=== PATIENT | female | born 1935 | race Caucasian/White ===

== ENCOUNTER 2016-08-17 22:06 | Inpatient (IN) ==
[2016-08-17] MEDS ORDERED: 0.9 % Sodium Chloride 1,000 ML IVC ONE (22:17)
[2016-08-17] MEDS ORDERED: *HR* Morphine 2 MG/ML SYRINGE IVP ONE (22:23)
[2016-08-17] MEDS ORDERED: Ondansetron 4 MG/2 ML VIAL IVP ONE (22:23)
--- NOTE | 2016-08-17 22:26 | Emergency Department Note ---
Disposition Clinical Impression: Enteritis UTI (urinary tract infection) Qualifiers: Urinary tract infection type: site unspecified Hematuria presence: without hematuria Qualified Code(s): N39.0 - Urinary tract infection, site not specified Altered mental status Qualifiers: Altered mental status type: unspecified Qualified Code(s): R41.82 - Altered mental status, unspecified Disposition: Admitted As Inpatient Condition: Fair Referrals: Unassigned,Provider [Primary Care Provider] - Forms: Work/School Release, ED Satisfaction Letter General Adult HPI - General Chief complaint: ED Abdominal Pain Stated complaint: abdominal pain Time Seen by Provider: 08/17/16 22:17 Source: EMS Mode of arrival: EMS Limitations: altered mental status Nursing Notes Reviewed: Yes Vital Signs Reviewed: Yes - History of Present Illness HPI Narrative: 81-year-old female from local nursing facility. She had been complaining of abdominal pain for approximately 3 days. They also note that she has had a decrease in her bowel movements. No reported fever. Her only complaint is that her belly hurts and she cannot describe it any further. She does have a past medical history CKD, CHF, diabetes, hemachromatosis. She does take Coreg, diltiazem, gabapentin, Humalog, Plavix, aspirin, oxycodone, Lasix. In speaking with the family she can carry on a full conversation at baseline, she cannot currently. They report she is in the nursing facility after a recent hospitalization and was about ready to go back home. Her son reports that she was normal last night when he visited her. At that time she did not complain of abdominal pain. Pain Severity: moderate Pain Scale: 5 Consistency: constant Improves with: nothing Worsens with: nothing Associated symptoms: Reports: denies other symptoms Treatments Prior to Arrival: none - Related Data Home Medications Medication Instructions Recorded Confirmed Aspirin 81 mg PO DAILY 03/25/15 06/21/16 Cilostazol [Pletal] 100 mg PO BID 03/25/15 06/21/16 Clopidogrel [Plavix] 75 mg PO DAILY 03/25/15 06/21/16 Ergocalciferol (VITAMIN D2) 50,000 unit PO FR 03/25/15 06/21/16 [Vitamin D2 (50,000 UNIT)] Gabapentin [Neurontin] 100 mg PO BID 03/25/15 06/21/16 Insulin Glargine,Hum.rec.anlog 30 unit SQ QAM 03/25/15 06/21/16 [Lantus Solostar] Insulin LISPRO [HumaLOG] 7 units SQ TID 03/25/15 06/21/16 Oxybutynin Chloride [Ditropan Xl] 5 mg PO DAILY 03/25/15 06/21/16 Ranitidine HCl [Zantac] 150 mg PO BID 03/25/15 06/21/16 Vitamin E 400 unit PO DAILY 03/25/15 06/21/16 Bumetanide [Bumex] 1 mg PO BID 06/20/16 06/21/16 Vit A/Vit C/Vit E/Zinc/Copper 1 each PO BID 06/20/16 06/21/16 [Preservision Areds Tablet] Acetaminophen [Tylenol] 1,000 mg PO Q6HR PRN 06/21/16 06/21/16 Carvedilol 12.5 mg PO BID 06/21/16 06/21/16 Diltiazem HCl 90 mg PO TID MDD new dose not 06/21/16 06/21/16 started yet. Previous Rx's Medication Instructions Recorded Folic Acid 1 mg PO DAILY #90 tab 06/19/15 Docusate [Colace] 100 mg PO BID #30 capsule 06/26/16 Levofloxacin 750 mg PO Q48H #10 tablet 06/26/16 Polyethylene Glycol 3350 [MiraLAX] 17 gm PO DAILY PRN #14 powd.pack 06/26/16 Tramadol HCl [Ultram] 50 mg PO QID PRN #25 tab 06/26/16 Allergies Allergy/AdvReac Type Severity Reaction Status Date / Time prednisone Allergy Unknown Hives Verified 06/16/15 13:31 EDY Inhibitors Allergy See Verified 03/05/15 00:32 Comments Amoxicillin Allergy See Verified 03/05/15 00:32 Comments azithromycin Allergy See Verified 03/05/15 00:32 Comments cephalexin Allergy See Verified 03/05/15 00:32 Comments clindamycin Allergy See Verified 03/05/15 00:32 Comments furosemide Allergy See Verified 03/05/15 00:32 Comments hydrocodone Allergy See Verified 03/05/15 00:32 Comments Penicillins Allergy See Verified 03/05/15 00:32 Comments silver sulfadiazine Allergy See Verified 03/05/15 00:32 [From Silvadene] Comments [id number] Reductase Allergy See Verified 03/05/15 00:32 Inhibitor Comments [Statins] Sulfa (Sulfonamide Allergy See Verified 03/05/15 00:32 Antibiotics) Comments diuretic Allergy See Uncoded 03/05/15 00:32 Comments Limitations: ROS unobtainable due to patients medical condition (History is unreliable) Past Medical History - Past Medical History Medical history: Reports: arthritis, cancer, diabetes, GERD, hyperlipidemia, hypertension, other Surgical history: Reports: appendectomy, cancer surgery Psychiatric history: Reports: no psych history ROAD GANG SUPERVISOR history: Reports: no ROAD GANG SUPERVISOR history - Social History Smoking Status: Never smoker Smokeless Tobacco Status: No Alcohol use: Reports: none Drug use: Reports: none Physical Exam - General Limitations: no limitations General appearance: alert, in no apparent distress - Head Head exam: atraumatic - Eye Eye exam: Present: normal appearance, PERRL - ENT ENT exam: normal exam - Chest Chest inspection: Present: normal inspection - Respiratory Respiratory exam: Present: normal lung sounds bilaterally. Absent: respiratory distress - Cardiovascular Cardiovascular exam: Present: regular rate, normal rhythm - Abdominal Exam Abdominal exam: Present: soft, tenderness (generalized without guarding. Distended.) - Extremities Exam Extremities exam: Present: other (venous stasis and hyperkaratosis of the lower extremities) - Back Exam Back exam: Present: normal inspection - Neurological Exam Neurological exam: Present: alert, other (Not currently oriented. Able only to vocalize that her abdomen hurts) - Skin Skin exam: Present: warm, dry Course Course Narrative: She appears to have an acute change in her mental status and is complaining of abdominal pain. She is not oriented and does have pain on palpation of her abdomen. We will do a full workup including a urinalysis and a CT scan of the abdomen. EKG shows afib. Prior ekg shows Afib - Reevaluation(s) Reevaluation #1: CT shows stranding by the terminal ileum and cecum. Patients son states the patient had her appendix removed and there is a scar on the abdomen at the correct place for an appendectomy. Will admit for AMS with UTI. Due to numerous drug allergies will give doxycycline. Reevaluation #2: Accepted by hospitalist for admission. Vital Signs Temperature 99.4 F 08/17/16 22:07 Pulse Rate 92 08/17/16 22:07 Respiratory Rate 20 08/17/16 22:07 Blood Pressure 152/64 08/17/16 22:07 O2 Sat by Pulse Oximetry 95 08/17/16 22:07 Temperature 99.4 F 08/17/16 22:07 Pulse Rate 86 08/18/16 01:04 Respiratory Rate 14 08/18/16 01:04 Blood Pressure 127/69 08/18/16 01:04 O2 Sat by Pulse Oximetry 96 08/18/16 01:04 Oxygen Delivery Oxygen Delivery Nasal Cannula Medical Decision Making - Medical Records Medical records reviewed: Yes I reviewed the patient's medical records. - Lab Data Lab results reviewed: Yes I reviewed the patient's lab results. Result diagrams: 08/17/16 22:35 08/17/16 22:35 Lab Results 08/17/16 08/17/16 08/17/16 Range/Units 22:22 22:35 22:35 WBC (4.3-11.1) K/mcL RBC (3.82-4.97) M/mcL Hgb (11.5-15.4) g/dL Hct (35.3-44.9) % MCV (83.0-100.0) fL MCH (28.0-33.3) pg MCHC (31.6-35.5) g/dL RDW (11.5-14.5) % Plt Count (140-400) K/mcL MPV (9.4-12.4) fL Immature Gran % (0-4) % Seg Neutrophils % % Lymphocytes % % Monocytes % % Eosinophils % % Basophils % % Neutrophils # (1.6-8.9) K/mcL Lymphocytes # (0.6-4.6) K/mcL Monocytes # (0.0-1.3) K/mcL Eosinophils # (0.0-0.6) K/mcL Basophils # (0.0-0.2) K/mcL PT 12.1 (9.4-12.1) Seconds INR 1.1 APTT 30.5 (26.0-36.0) Seconds Sodium (136-145) mEq/L Potassium (3.5-4.5) mEq/L Chloride (98-109) mEq/L Carbon Dioxide (19-29) mEq/L BUN (7-20) mg/dL Creatinine (0.57-1.11) mg/dL Est GFR ( Amer) (> 60) Est GFR (Non-Af Amer) (> 60) BUN/Creatinine Ratio (6-26) Glucose (70-99) mg/dL Calculated Osmolality (280-300) Lactic Acid 1.7 (0.5-2.2) mmol/L Calcium (8.6-10.8) mg/dL Total Bilirubin (0.2-1.2) mg/dL Direct Bilirubin (0.0-0.5) mg/dL Indirect Bilirubin (0.0-1.2) mg/dL AST (5-34) Units/L ALT (0-55) Units/L Alkaline Phosphatase (38-126) Units/L Troponin I (0-0.03) ng/mL Serum Total Protein (6.0-8.3) g/dL Albumin (3.5-5.0) g/dL Globulin (2.4-3.5) g/dL Albumin/Globulin Ratio (1.1-2.2) Lipase (8-78) Units/L Urine Color Yellow (Yellow) Urine Clarity Cloudy A (Clear) Urine pH 5.5 (5.0-8.0) pH Units Ur Specific Tad 1.023 (1.010-1.025) Urine Protein 30 H (Neg-Trace) mg/dL Urine Glucose (UA) Normal (Normal) mg/dL Urine Ketones Negative (Negative) mg/dL Urine Blood Small H (Negative) Urine Nitrite Positive A (Negative) Urine Bilirubin Negative (Negative) Urine Urobilinogen Normal (Normal) mg/dL Ur Leukocyte Esterase Moderate H (Negative) Urine Microscopic RBC 15-30 H (0-3) per hpf Urine Microscopic WBC 5-15 H (0-3) per hpf Ur Squamous Epith Cells Many H (None-Few) per lpf Urine Bacteria Many H (None-Few) per hpf Hyaline Casts None Seen (None-Few) per lpf Ur Culture Indicated? YES A (NO) 08/17/16 08/17/16 08/17/16 Range/Units 22:35 22:35 22:35 WBC 10.8 (4.3-11.1) K/mcL RBC 3.46 L (3.82-4.97) M/mcL Hgb 11.5 (11.5-15.4) g/dL Hct 34.6 L (35.3-44.9) % MCV 100.0 (83.0-100.0) fL MCH 33.2 (28.0-33.3) pg MCHC 33.2 (31.6-35.5) g/dL RDW 14.3 (11.5-14.5) % Plt Count 155 (140-400) K/mcL MPV 10.4 (9.4-12.4) fL Immature Gran % 0.4 (0-4) % Seg Neutrophils % 87.2 % Lymphocytes % 7.1 % Monocytes % 5.0 % Eosinophils % 0.2 % Basophils % 0.1 % Neutrophils # 9.5 H (1.6-8.9) K/mcL Lymphocytes # 0.8 (0.6-4.6) K/mcL Monocytes # 0.5 (0.0-1.3) K/mcL Eosinophils # 0.0 (0.0-0.6) K/mcL Basophils # 0.0 (0.0-0.2) K/mcL PT (9.4-12.1) Seconds INR APTT (26.0-36.0) Seconds Sodium 142 (136-145) mEq/L Potassium 4.6 H (3.5-4.5) mEq/L Chloride 106 (98-109) mEq/L Carbon Dioxide 26 (19-29) mEq/L BUN 34 H (7-20) mg/dL Creatinine 1.18 H (0.57-1.11) mg/dL Est GFR ( Amer) 53 L (> 60) Est GFR (Non-Af Amer) 44 L (> 60) BUN/Creatinine Ratio 29 H (6-26) Glucose 125 H (70-99) mg/dL Calculated Osmolality 303 H (280-300) Lactic Acid (0.5-2.2) mmol/L Calcium 9.4 (8.6-10.8) mg/dL Total Bilirubin 0.5 (0.2-1.2) mg/dL Direct Bilirubin 0.2 (0.0-0.5) mg/dL Indirect Bilirubin 0.3 (0.0-1.2) mg/dL AST 14 (5-34) Units/L ALT 7 (0-55) Units/L Alkaline Phosphatase 136 H (38-126) Units/L Troponin I 0.02 (0-0.03) ng/mL Serum Total Protein 6.7 (6.0-8.3) g/dL Albumin 3.1 L (3.5-5.0) g/dL Globulin 3.6 H (2.4-3.5) g/dL Albumin/Globulin Ratio 0.9 L (1.1-2.2) Lipase < 4 L (8-78) Units/L Urine Color (Yellow) Urine Clarity (Clear) Urine pH (5.0-8.0) pH Units Ur Specific Tad (1.010-1.025) Urine Protein (Neg-Trace) mg/dL Urine Glucose (UA) (Normal) mg/dL Urine Ketones (Negative) mg/dL Urine Blood (Negative) Urine Nitrite (Negative) Urine Bilirubin (Negative) Urine Urobilinogen (Normal) mg/dL Ur Leukocyte Esterase (Negative) Urine Microscopic RBC (0-3) per hpf Urine Microscopic WBC (0-3) per hpf Ur Squamous Epith Cells (None-Few) per lpf Urine Bacteria (None-Few) per hpf Hyaline Casts (None-Few) per lpf Ur Culture Indicated? (NO) - Radiology Data Radiology results reviewed: Yes I reviewed the patient's radiology results. - EKG Data EKG #1 EKG attestation: Yes I reviewed and interpreted this EKG. Rate: normal Rhythm: A.Fib [place]/QRS: left axis deviation When compared to previous EKG there are: no significant changes Interpretation: other (Atrial fibrillation) Attestation Statement - Attestation Attestation: For this encounter, I have reviewed the resident, AUTOMATION ENGINEERING TECHNICIAN, or PA documentation, treatment plan, and medical decision making; and I have had face to face time with this patient. 82-year-old female brought in by family with concerns of altered mental status and abdominal pain. Family states that the symptoms are similar to her previous urinary tract infections. Patient is generally able to have a full conversation with the family however now she is only able to answer direct questions. Physical exam reveals lungs are clear to auscultation bilaterally and an abdomen that is diffusely tender to palpation. Family denies any recent vomiting or diarrhea or melena. Urinalysis shows positive leukocyte esterase and nitrate but only has a mild elevation of her WBCs. We will treat this as a urinary tract infection. Patient also has a right lower extremity wound which is being monitored by wound care. Family states that the wound looks improved compared to when she started wound care. However this is a nidus for infection and will be covered with the antibiotic choice. CT of the abdomen showed swelling around the terminal ileum however radiologist was unable to visualize the appendix. Son states the patient had her appendix removed when he was a child however he is unsure. Patient does have a scar in the right lower quadrant which could be from an Appendectomy. Patient will be admitted to the hospital for further continuation of care and evaluation. Patient and family are comfortable with the plan
[2016-08-17 22:30] LABS: Bilirubin,Urine Negative (Negative); Blood,Urine Small (Negative); Clarity,Urine Cloudy (Clear); Color,Urine Yellow (Yellow); Glucose,Urine (UA) Normal (Normal); Ketones,Urine Negative (Negative); Leukocyte Esterase,Urine Moderate (Negative); Nitrite,Urine Positive (Negative); PH,Urine 5.5 pH Units (5.0-8.0); Protein,Urine 30 mg/dL (Neg-Trace); Specific Gravity,Urine 1.023 (1.010-1.025); Urobilinogen,Urine Normal (Normal)
[2016-08-17 22:32] LABS: Bacteria,Urine Many per hpf (None-Few); Hyaline Casts,Urine None Seen per lpf (None-Few); RBC,Urine 15-30 per hpf (0-3); Squamous Epithelial Cell,Urine Many per lpf (None-Few)
[2016-08-17 22:50] LABS: Basophils % 0.1 %; Eosinophils % 0.2 %; Hematocrit 34.6 % (35.3-44.9); Hemoglobin 11.5 g/dL (11.5-15.4); Immature Granulocytes % 0.4 % (0-4); Lymphocytes # 0.8 K/mcL (0.6-4.6); Lymphocytes % 7.1 %; Mean Corpuscular HGB Conc 33.2 g/dL (31.6-35.5); Mean Corpuscular Hemoglobin 33.2 pg (28.0-33.3); Mean Platelet Volume 10.4 fL (9.4-12.4); Monocytes # 0.5 K/mcL (0.0-1.3); Neutrophils # 9.5 K/mcL (1.6-8.9); Platelet Count 155 K/mcL (140-400); Red Blood Count 3.46 M/mcL (3.82-4.97); Red Cell Distribution Width 14.3 % (11.5-14.5); Segmented Neutrophils % 87.2 %
[2016-08-17 22:56] LABS: INR 1.1; Prothrombin Time 12.1 Seconds (9.4-12.1)
[2016-08-17 22:59] LABS: Activated Partial Thrombo Time 30.5 Seconds (26.0-36.0)
[2016-08-17 23:07] LABS: Alanine Aminotransferase 7 Units/L (0-55); Albumin 3.1 g/dL (3.5-5.0); Albumin/Globulin Ratio 0.9 (1.1-2.2); Alkaline Phosphatase 136 Units/L (38-126); Aspartate Amino Transferase 14 Units/L (5-34); BUN/Creatinine Ratio 29 (6-26); Bilirubin,Direct 0.2 mg/dL (0.0-0.5); Bilirubin,Indirect 0.3 mg/dL (0.0-1.2); Bilirubin,Total 0.5 mg/dL (0.2-1.2); Blood Urea Nitrogen 34 mg/dL (7-20); Calcium 9.4 mg/dL (8.6-10.8); Carbon Dioxide 26 mEq/L (19-29); Chloride 106 mEq/L (98-109); Globulin 3.6 g/dL (2.4-3.5); Glucose 125 mg/dL (70-99); Osmolality,Calculated 303 (280-300); Potassium 4.6 mEq/L (3.5-4.5); Sodium 142 mEq/L (136-145); Total Protein 6.7 g/dL (6.0-8.3); eGFR For African Americans 53 (> 60); eGFR For Non-African Americans 44 (> 60)
[2016-08-17 23:14] LABS: Lipase < 4 Units/L (8-78)
[2016-08-18] MEDS ORDERED: Naloxone 0.4 MG/ML INJ IVP PRN (03:27)
--- NOTE | 2016-08-18 03:34 | Internal Med History&Physical ---
Date of Encounter: 08/18/16 Time of Encounter: 03:34 Assessment and Plan (1) Enteritis Current visit: Yes Status: Acute Localized enetritis reported on the CT scan. Will treat with metronidazole. Patient is on aztreonam for UTI. Denies any nausea. Start probiotics. (2) UTI (urinary tract infection) Current visit: Yes Status: Acute Urinalysis abnormal. Emperically treat with aztreonam (Pt has multiple drug allergies). Qualifiers: Urinary tract infection type: site unspecified Hematuria presence: without hematuria Qualified Code(s): N39.0 - Urinary tract infection, site not specified (3) CKD (chronic kidney disease) Current visit: Yes Status: Chronic supportive care. 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 Chatman is a 81 year old female from [facility], with past medical history CKD, CHF, diabetes mellitus, HTN, hemochromatosis, s/p appendectomy many years ago. She presented to the ER with complaint of abdominal pain. She reports moderate pain in the right lower quadrant, which is nonradiating. She denies associated nausea, vomiting, fever, chills. She reports a bowel movement the day before. Denies hematochezia/black stool. She denies dysuria or hematuria. She denies shortness of breath, chest pain, cough or expectoration. She was evaluated in the ER and was noted to have abnormal urinalysis. CT abdomen and pelvis was suspicious for regional enteritis of the ileum and cecum. She was given doxycycline in the ER and is admitted to the hospitalist service for further management. Past Med Surg Social Fam HX - Past Medical History Medical history: arthritis, cancer, diabetes, GERD, hyperlipidemia, hypertension , other Psychiatric history: no psych history - Past Surgical History Surgical History: appendectomy, cancer surgery - Social History Smoking Status: Never smoker Smokeless Tobacco Status: No Alcohol use: none Drug use: none - Family History Brother Hx Family Cardiac Disorders: Yes (HTN) Hx Family Respiratory Disorders: No Hx Family Cancer: Yes Hx Family GI Disorders: No Hx Family Endocrine Disorder: No Hx Family Neuromuscular Disorders: No Hx Family Neurologic Disorders: No Hx Family HEENT Disorders: No Hx Family Autoimmune Disorders: No Father Hx Family Cardiac Disorders: Yes (A-Fib) Hx Family Respiratory Disorders: No Hx Family Cancer: Yes Hx Family GI Disorders: No Hx Family Endocrine Disorder: No Hx Family Neuromuscular Disorders: No Hx Family Neurologic Disorders: No Hx Family HEENT Disorders: No Hx Family Autoimmune Disorders: No Internal Medicine - H&P: Meds Aspirin 81 mg PO DAILY 03/25/15 [History] Cilostazol [Pletal] 100 mg PO BID 03/25/15 [History] Clopidogrel [Plavix] 75 mg PO DAILY 03/25/15 [History] Ergocalciferol (VITAMIN D2) [Vitamin D2 (50,000 UNIT)] 50,000 unit PO FR [History] Gabapentin [Neurontin] 100 mg PO BID 03/25/15 [History] Insulin Glargine,Hum.rec.anlog [Lantus Solostar] 30 unit SQ QAM 03/25/15 [ History] Insulin LISPRO [HumaLOG] 7 units SQ TID 03/25/15 [History] Oxybutynin Chloride [Ditropan Xl] 5 mg PO DAILY 03/25/15 [History] Ranitidine HCl [Zantac] 150 mg PO BID 03/25/15 [History] Vitamin E 400 unit PO DAILY 03/25/15 [History] Folic Acid 1 mg PO DAILY #90 tab 06/19/15 [Rx] Bumetanide [Bumex] 1 mg PO BID 06/20/16 [History] Vit A/Vit C/Vit E/Zinc/Copper [Preservision Areds Tablet] 1 each PO BID [History] Acetaminophen [Tylenol] 1,000 mg PO Q6HR PRN 06/21/16 [History] Carvedilol 12.5 mg PO BID 06/21/16 [History] Diltiazem HCl 90 mg PO TID MDD new dose not started yet. 06/21/16 [History] Docusate [Colace] 100 mg PO BID #30 capsule 06/26/16 [Rx] Levofloxacin 750 mg PO Q48H #10 tablet 06/26/16 [Rx] Polyethylene Glycol 3350 [MiraLAX] 17 gm PO DAILY PRN #14 powd.pack 06/26/16 [Rx ] Tramadol HCl [Ultram] 50 mg PO QID PRN #25 tab 06/26/16 [Rx] Allergies prednisone Allergy (Unknown, Verified 06/16/15 13:31) Hives EDY Inhibitors Allergy (Verified 03/05/15 00:32) See Comments Amoxicillin Allergy (Verified 03/05/15 00:32) See Comments azithromycin Allergy (Verified 03/05/15 00:32) See Comments cephalexin Allergy (Verified 03/05/15 00:32) See Comments clindamycin Allergy (Verified 03/05/15 00:32) See Comments furosemide Allergy (Verified 03/05/15 00:32) See Comments hydrocodone Allergy (Verified 03/05/15 00:32) See Comments Penicillins Allergy (Verified 03/05/15 00:32) See Comments silver sulfadiazine [From Silvadene] Allergy (Verified 03/05/15 00:32) See Comments Psedrgb-Sxa-Hiw Reductase Inhibitor [Statins] Allergy (Verified 03/05/15 00:32) See Comments Sulfa (Sulfonamide Antibiotics) Allergy (Verified 03/05/15 00:32) See Comments diuretic Allergy (Uncoded 03/05/15 00:32) See Comments All Systems PM: A 10-system review of systems was performed and is negative for pertinent findings except as documented above in the HPI. - Constitutional Vitals: Temp Pulse Resp BP Pulse Ox 99.4 F 76 20 131/64 95 08/17/16 22:07 08/18/16 01:15 08/18/16 02:35 08/18/16 02:35 08/18/16 01:24 Exam: General: Not in acute distress at the time of my evaluation HEENT: Oral mucosa is dry. No conjunctival palor or scleral icterus Neck: No obvious neck swellings Lungs: Clear to auscultation Cardiac: Regular rate and rhythm. systolic murmur present. Abdomen: Obese / distended. Mild RLQ tenderness present. Bowel sounds present Genitourinary: No flor catheter Neurological: Alert and oriented. No gross localizing deficits Psych: Not aggressive or agitated Extremities: There is a chronic skin ulcer on the posterolateral right lower leg Skin: No generalized rash Internal Med - H&P Results - Labs CBC & Chem 7: 08/17/16 22:35 08/17/16 22:35 - Impressions ITS Impressions Abdomen/Pelvis CT 08/17/16 22:20 IMPRESSION: Fat stranding localized to the terminal ileum and cecum. The appendix is not visualized. Findings are compatible with localized enteritis. No significant free fluid. Multiple mildly and borderline enlarged lymph nodes. Cholelithiasis. Persistent left lower pole renal mass. D/ / Pranav Miranda MD / Pranav Miranda MD Interpreting Provider: Pranav Miranda MD
[2016-08-18] MEDS ORDERED: Aztreonam 500 MG in D5% in Water 100 ML IVPB SCH (04:00)
[2016-08-18] MEDS: Doxycycline 100 MG in 0.9 % Sodium Chloride Mini Bag 100 ML IVPB ONE ×2 (04:07→04:38)
[2016-08-18] MEDS ORDERED: D5% in Water 1,000 ML IV PRN (04:09)
[2016-08-18] MEDS ORDERED: Dextrose Gel 15 GM PO PRN ×2 (04:09)
[2016-08-18] MEDS ORDERED: *HR* Dextrose 50 % in Water (Syg) 50 ML SYRINGE IVP PRN (04:09)
[2016-08-18] MEDS: *HR* Heparin 5,000 UNIT/ML VIAL SQ SCH ×2 (06:55→14:29)
[2016-08-18] MEDS: Lactobacillus 1 EACH CAP.SPRINK PO SCH ×2 (08:37→20:55)
[2016-08-18] MEDS: MetroNIDAZOLE 500 MG/100 ML 500 MG/100 ML BAG IVPB SCH ×2 (08:37→16:30)
[2016-08-18] MEDS: Acetaminophen 325 MG TABLET PO PRN ×2 (08:45→21:06)
[2016-08-18] MEDS ORDERED: Vancomycin 1,000 MG in D5% in Water 250 ML IVPB SCH (10:00)
[2016-08-18] MEDS: Gabapentin 100 MG CAPSULE PO SCH ×2 (10:57→20:54)
[2016-08-18] MEDS: Aspirin 81 MG TAB.CHEW PO SCH (10:57)
[2016-08-18] MEDS ORDERED: Vancomycin 1,500 MG in D5% in Water 250 ML IVPB ONE (11:00)
[2016-08-18] MEDS: Bumetanide 1 MG TABLET PO SCH ×2 (11:02→16:30)
[2016-08-18] MEDS: Folic Acid 1 MG TABLET PO SCH (11:02)
--- NOTE | 2016-08-18 13:02 | Internal Med Progress Note ---
Date of Encounter: 08/18/16 Time of Encounter: 12:45 - Assessment and plan (1) Bacteremia due to Gram-positive bacteria Current Visit: Yes Status: Acute (2) Enteritis Current Visit: Yes Status: Acute Assessment and plan: CT scan with terminal ileum/cecum fat standing/enteritis Blood culture with GP rods If final sensitivity is clostridium septicum, will consult GI for colonoscopy IN the meantime, patient with multiple medication allergies Continue metronidazole Add Vanco Will de-escalate based on culture results (3) UTI (urinary tract infection) Current Visit: Yes Status: Acute Assessment and plan: As above, continue antibiotics, Urine culture with GP rods Qualifiers: Urinary tract infection type: site unspecified Hematuria presence: without hematuria Qualified Code(s): N39.0 - Urinary tract infection, site not specified (4) CKD (chronic kidney disease) Current Visit: Yes Status: Chronic Assessment and plan: Stable cr Qualifiers: Chronic kidney disease stage: stage 3 (moderate) Qualified Code(s): N18.3 - Chronic kidney disease, stage 3 (moderate) (5) Diabetes Current Visit: Yes Status: Chronic Assessment and plan: FS ACHS Insulin Diabetic diet Qualifiers: Diabetes mellitus type: type 2 Diabetes mellitus complication status: with skin complications Diabetes mellitus complication detail: with other skin ulcer Diabetes mellitus 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 Qualified Code(s): E11.622 - Type 2 diabetes mellitus with other skin ulcer; 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 (6) HTN (hypertension) Current Visit: Yes Status: Chronic Assessment and plan: COntrolled, continue current meds Qualifiers: Hypertension type: essential hypertension Qualified Code(s): I10 - Essential (primary) hypertension (7) Hereditary hemochromatosis Current Visit: Yes Status: Chronic (8) Left kidney mass Current Visit: Yes Status: Chronic Assessment and plan: Chronic since 2006, stable (9) Leg ulcer Current Visit: Yes Status: Chronic Assessment and plan: Not infected Qualifiers: Laterality: right Non-pressure ulcer stage: unspecified non-pressure ulcer stage Qualified Code(s): L97.919 - Non-pressure chronic ulcer of unspecified part of right lower leg with unspecified severity (10) Malignant lymphoma Current Visit: Yes Status: Chronic Assessment and plan: Small cell B, 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 Chatman is a 81 year old female from local nursing facility, with past medical history CKD, CHF, diabetes mellitus, HTN, hemochromatosis, s/p appendectomy many years ago. She presented to the ER with complaint of abdominal pain She is being managed for Enteritis, UTI and a possible new left renal mass She is seen at bedside Blood and Urine cultures growing Gram positive rods Chart review shows history of proteus in her urine in 03/2015 and Clostridium septicum in 06/2016. It was pansensitive Patient is unable to recall if she had a colonoscopy Also the renal mass was present on the retroperitoneal USS done in 2016, stable Patient denies new complains She has a chronic right lower extremity ulcer (venous) that does not look infected - Constitutional Vitals: Temp Pulse Resp BP Pulse Ox 98.9 F 93 18 102/58 96 08/18/16 11:39 08/18/16 11:39 08/18/16 11:39 08/18/16 11:39 08/18/16 11:39 General appearance: Present: A&O X 3, pleasant, no acute distress, obese - Head Head exam: Present: atraumatic, normocephalic - Eye Eye exam: Present: conjuntiva pink, sclera anicteric Additional comments: Mild R eye miosis - Neck Neck exam general surgery: Present: supple, trachea midline. Absent: lymphadenopathy - Respiratory Respiratory exam: Present: CTAB. Absent: accessory muscle use, rales, rhonchi, wheezes Additional comments: port-acath seen on right chest wall - Cardiovascular Cardiovascular exam: Present: RRR, +S1, +S2, systolic murmur. Absent: diastolic murmur, gallop, rubs - GI/Abdominal GI/Abdominal exam: Present: hernia, normal bowel sounds, soft, no peritoneal signs. Absent: distended, tenderness - Extremities Exam Extremities exam: Absent: pedal edema Additional comments: Right lower extremity in wound dressing - Neurological Exam Neurological exam: Present: CN II-XII intact, oriented X3, no focal deficits. Absent: pronater drift, facial droop, speech deficit Internal Medicine: Result - Labs CBC & Chem 7: 08/17/16 22:35 08/17/16 22:35 - ABG Interpretation ABG results: PT/INR, D-dimer PT 12.1 Seconds (9.4-12.1) 08/17/16 22:35 Consult Discharge Plan - Plan Referrals: Unassigned,Provider [Non-Partnered Physician] -
--- NOTE | 2016-08-18 14:46 | Electrocardiograph Report ---
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
[2016-08-18] MEDS: Nystatin POWDER 30 GM BOTTLE TP PRN (20:59)
[2016-08-19] MEDS: *HR* Heparin 5,000 UNIT/ML VIAL SQ SCH ×3 (00:28→16:49)
[2016-08-19] MEDS: MetroNIDAZOLE 500 MG/100 ML 500 MG/100 ML BAG IVPB SCH ×3 (00:29→17:09)
[2016-08-19 05:26] LABS: Calcium 8.6 mg/dL (8.6-10.8); Potassium 4.7 mEq/L (3.5-4.5)
[2016-08-19] MEDS: Lactobacillus 1 EACH CAP.SPRINK PO SCH ×2 (09:00→21:01)
[2016-08-19] MEDS: Bumetanide 1 MG TABLET PO SCH ×2 (09:00→16:38)
[2016-08-19] MEDS: Folic Acid 1 MG TABLET PO SCH (09:01)
[2016-08-19] MEDS: Gabapentin 100 MG CAPSULE PO SCH ×2 (09:01→21:01)
[2016-08-19] MEDS: Aspirin 81 MG TAB.CHEW PO SCH (09:01)
[2016-08-19] MEDS: Acetaminophen 325 MG TABLET PO PRN ×2 (09:23→21:26)
[2016-08-19] MEDS ORDERED: D5% in Water 1,000 ML IV PRN (12:22)
[2016-08-19] MEDS ORDERED: Vancomycin 1,000 MG in D5% in Water 250 ML IVPB ONE (13:00)
[2016-08-19 13:20] LABS: Hemoglobin A1C 5.8 %
--- NOTE | 2016-08-19 14:55 | Internal Med Progress Note ---
Date of Encounter: 08/19/16 Time of Encounter: 15:00 - Assessment and plan (1) Enteritis Current Visit: Yes Status: Acute Assessment and plan: CT scan with terminal ileum/cecum fat standing/enteritis. Blood culture with GP rods. If final sensitivity is clostridium septicum, will consult GI for colonoscopy. Continue Flagyl, vancomycin; added aztreonam. No leukocytosis, afebrile, vital signs stable. On examination, abdomen is distended and diffusely tender but soft with hypoactive bowel sounds. Patient stating she is flatulent but has not had a bowel movement since admission. ITS Impressions Abdomen/Pelvis CT 08/17/16 22:20 IMPRESSION: Fat stranding localized to the terminal ileum and cecum. The appendix is not visualized. Findings are compatible with localized enteritis. No significant free fluid. Multiple mildly and borderline enlarged lymph nodes. Cholelithiasis. Persistent left lower pole renal mass. D/ / Pranav Miranda MD / Pranav Miranda MD Interpreting Provider: Pranav Miranda MD (2) Bacteremia due to Gram-positive bacteria Current Visit: Yes Status: Acute Assessment and plan: See prior note for enteritis (3) UTI (urinary tract infection) Current Visit: Yes Status: Acute Assessment and plan: As above, continue antibiotics, Urine culture with gram-negative rods. Patient is on aztreonam, Flagyl, and vancomycin. Sensitivities pending. No leukocytosis. Afebrile. Vital signs stable. Qualifiers: Urinary tract infection type: site unspecified Hematuria presence: without hematuria Qualified Code(s): N39.0 - Urinary tract infection, site not specified (4) DVT prophylaxis Current Visit: Yes Status: Acute Assessment and plan: Subcutaneous heparin (5) CKD (chronic kidney disease) Current Visit: Yes Status: Chronic Assessment and plan: Mild acute kidney injury overnight, currently at the low end of her normal, will continue to trend Qualifiers: Chronic kidney disease stage: stage 3 (moderate) Qualified Code(s): N18.3 - Chronic kidney disease, stage 3 (moderate) (6) Diabetes Current Visit: Yes Status: Chronic Assessment and plan: Controlled, A1c 5.8%. 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 No signs of acute cellulitis. Continue daily wound care. 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 Patient denies shortness of breath above her norm. No pedal edema present. Qualifiers: Congestive heart failure type: diastolic Congestive heart failure chronicity: chronic Qualified Code(s): I50.32 - Chronic diastolic (congestive ) heart failure (14) Constipation Current Visit: No Status: Chronic Assessment and plan: Acute on chronic, will monitor. Qualifiers: Constipation type: drug induced constipation Qualified Code(s): K59.03 - Drug induced constipation (15) Fever Current Visit: No Status: Resolved Assessment and plan: Has not been febrile this admission. Qualifiers: Fever type: unspecified Qualified Code(s): R50.9 - Fever, unspecified - Subjective Interval history: Patient seen and examined. On examination, patient had just gotten off the bed heck. Patient complaining of generalized abdominal pain but she states her pain is currently tolerable. She denies shortness of breath above her norm. She states she is flatulent but has not had a bowel movement since she was at [facility]. - Constitutional Vitals: Temp Pulse Resp BP Pulse Ox 97.4 F L 77 16 115/66 93 L 08/19/16 11:44 08/19/16 11:44 08/19/16 11:44 08/19/16 11:44 08/19/16 11:44 General appearance: Present: A&O X 3, pleasant, no acute distress, obese, answers questions appropriately - Head Head exam: Present: atraumatic, normocephalic - Eye Eye exam: Present: PERRL, conjuntiva pink, sclera anicteric Pupils: Present: PERRL - Neck Neck exam general surgery: Present: supple, trachea midline. Absent: lymphadenopathy - Respiratory Respiratory exam: Present: decreased breath sounds. Absent: accessory muscle use, rales, respiratory distress, rhonchi, wheezes - Cardiovascular Cardiovascular exam: Present: RRR, +S1, +S2. Absent: diastolic murmur, gallop, rubs, systolic murmur - GI/Abdominal GI/Abdominal exam: Present: distended, hypoactive bowel sounds, soft, tenderness (diffuse), no peritoneal signs - Extremities Exam Extremities exam: Present: warm, radial pulses palpable and symetrical. Absent : calf tenderness, cyanotic, pedal edema - Neurological Exam Neurological exam: Present: alert, CN II-XII intact, oriented X3, no focal deficits, strengths equal and symetr throughout. Absent: pronater drift, facial droop, speech deficit - Skin Skin exam: Present: dry, intact, pallor, warm Internal Medicine: Result - Labs CBC & Chem 7: 08/17/16 22:35 08/19/16 04:13 Labs: BMP 08/19/16 04:13 Sodium 137 Potassium 4.7 H Chloride 103 Carbon Dioxide 26 BUN 41 H Creatinine 1.47 H Glucose 136 H Calcium 8.6 - ABG Interpretation ABG results: PT/INR, D-dimer PT 12.1 Seconds (9.4-12.1) 08/17/16 22:35 Consult Discharge Plan - Plan Referrals: Unassigned,Provider [Non-Partnered Physician] -
[2016-08-19] MEDS: Aztreonam 1,000 MG in D5% in Water (Mini-Bag+) 100 ML IVPB SCH (16:38)
[2016-08-19] MEDS: Insulin LISPRO 300 UNITS/3 ML VIAL SQ SCH ×2 (16:40→20:58)
[2016-08-20] MEDS: Aztreonam 1,000 MG in D5% in Water (Mini-Bag+) 100 ML IVPB SCH ×2 (00:25→09:19)
[2016-08-20] MEDS: Artificial Tears SOLN 15 ML BOTTLE OP PRN ×3 (00:25→20:54)
[2016-08-20] MEDS: *HR* Heparin 5,000 UNIT/ML VIAL SQ SCH ×3 (00:30→15:57)
[2016-08-20] MEDS: MetroNIDAZOLE 500 MG/100 ML 500 MG/100 ML BAG IVPB SCH ×4 (01:13→23:18)
[2016-08-20] MEDS: Acetaminophen 325 MG TABLET PO PRN ×3 (04:22→20:47)
[2016-08-20 05:10] LABS: Eosinophils % 0.7 %; Hematocrit 28.2 % (35.3-44.9); Immature Granulocytes % 0.7 % (0-4); Lymphocytes # 0.7 K/mcL (0.6-4.6); Lymphocytes % 15.7 %; Mean Corpuscular HGB Conc 33.3 g/dL (31.6-35.5); Mean Corpuscular Hemoglobin 33.3 pg (28.0-33.3); Mean Platelet Volume 10.7 fL (9.4-12.4); Monocytes # 0.2 K/mcL (0.0-1.3); Monocytes % 5.4 %; Neutrophils # 3.5 K/mcL (1.6-8.9); Platelet Count 120 K/mcL (140-400); Red Blood Count 2.82 M/mcL (3.82-4.97); Red Cell Distribution Width 14.1 % (11.5-14.5); Segmented Neutrophils % 77.5 %
[2016-08-20 05:12] LABS: Hemoglobin 9.4 g/dL (11.5-15.4)
[2016-08-20 05:27] LABS: Calcium 8.5 mg/dL (8.6-10.8); Potassium 4.4 mEq/L (3.5-4.5)
[2016-08-20] MEDS: Insulin LISPRO 300 UNITS/3 ML VIAL SQ SCH ×4 (09:21→20:29)
[2016-08-20] MEDS: Folic Acid 1 MG TABLET PO SCH (09:22)
[2016-08-20] MEDS: Bumetanide 1 MG TABLET PO SCH ×2 (09:22→15:57)
[2016-08-20] MEDS: Gabapentin 100 MG CAPSULE PO SCH ×2 (09:23→20:44)
[2016-08-20] MEDS: Lactobacillus 1 EACH CAP.SPRINK PO SCH ×2 (09:23→20:44)
[2016-08-20] MEDS: Aspirin 81 MG TAB.CHEW PO SCH (09:23)
[2016-08-20] MEDS ORDERED: Vancomycin 500 MG in D5% in Water (Mini-Bag+) 100 ML IVPB ONE (12:00)
--- NOTE | 2016-08-20 13:01 | Internal Med Progress Note ---
Date of Encounter: 08/20/16 Time of Encounter: 10:30 - Assessment and plan (1) Enteritis Current Visit: Yes Status: Acute Assessment and plan: Patient currently denies abdominal pain. On examination, abdomen mildly distended and diffusely tender. Patient is tolerating a regular diet. She is constipated, will add daily MiraLAX to her regimen. We will continue Flagyl, vancomycin, and aztreonam. Regarding plan of care, she had 2 positive blood cultures, blood cultures were redrawn this morning, and if negative, may consider discharge at that time. OT and PT are on board, plan is to hopefully send back to [facility] once she has negative blood cultures. 08/19/16 CT scan with terminal ileum/cecum fat standing/enteritis. Blood culture with GP rods. If final sensitivity is clostridium septicum, will consult GI for colonoscopy. Continue Flagyl, vancomycin; added aztreonam. No leukocytosis, afebrile, vital signs stable. On examination, abdomen is distended and diffusely tender but soft with hypoactive bowel sounds. Patient stating she is flatulent but has not had a bowel movement since admission. ITS Impressions Abdomen/Pelvis CT 08/17/16 22:20 IMPRESSION: Fat stranding localized to the terminal ileum and cecum. The appendix is not visualized. Findings are compatible with localized enteritis. No significant free fluid. Multiple mildly and borderline enlarged lymph nodes. Cholelithiasis. Persistent left lower pole renal mass. D/ / Pranav Miranda MD / Pranav Miranda MD Interpreting Provider: Pranav Miranda MD (2) Bacteremia due to Gram-positive bacteria Current Visit: Yes Status: Acute Assessment and plan: See prior note for enteritis; repeated blood cultures this a.m. (3) UTI (urinary tract infection) Current Visit: Yes Status: Acute Assessment and plan: As above, continue antibiotics, Urine culture with Proteus Mirabilis. Good coverage with Azreonam. When the resistances of the urine culture are combined with her numerous allergies, she is left with aztreonam and meropenem as the main medications that she can take. She will likely need IV antibiotics, will plan on placing a Powerglide as this species needs treated for 2-3 weeks given that it can produce urease which produces stones that she would need treated for 2-3 weeks. No leukocytosis. Afebrile. Vital signs stable. Qualifiers: Urinary tract infection type: site unspecified Hematuria presence: without hematuria Qualified Code(s): N39.0 - Urinary tract infection, site not specified (4) DVT prophylaxis Current Visit: Yes Status: Acute Assessment and plan: Subcutaneous heparin (5) CKD (chronic kidney disease) Current Visit: Yes Status: Chronic Assessment and plan: Mild acute kidney injury 2 days ago, improved, now consistent with her baseline , will continue to trend Qualifiers: Chronic kidney disease stage: stage 3 (moderate) Qualified Code(s): N18.3 - Chronic kidney disease, stage 3 (moderate) (6) Diabetes Current Visit: Yes Status: Chronic Assessment and plan: Controlled, A1c 5.8%. 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 No signs of acute cellulitis. Small amount of drainage noted today, will culture. Continue daily wound care. 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 Patient denies shortness of breath above her norm. No pedal edema present. Qualifiers: Congestive heart failure type: diastolic Congestive heart failure chronicity: chronic Qualified Code(s): I50.32 - Chronic diastolic (congestive ) heart failure (14) Constipation Current Visit: No Status: Chronic Assessment and plan: Acute on chronic, will add daily MiraLAX and monitor Qualifiers: Constipation type: drug induced constipation Qualified Code(s): K59.03 - Drug induced constipation (15) Fever Current Visit: No Status: Resolved Assessment and plan: Has not been febrile this admission. Qualifiers: Fever type: unspecified Qualified Code(s): R50.9 - Fever, unspecified - Subjective Interval history: Patient seen and examined. On examination, patient had just gotten on the bed heck but wanted to proceed with physical examination anyways. Patient currently denies pain and states she is eating well. She states she is constipated and denies other concerns at this time. - Constitutional Vitals: Temp Pulse Resp BP Pulse Ox 97.5 F L 65 15 121/63 95 08/20/16 11:56 08/20/16 12:10 08/20/16 12:10 08/20/16 12:10 08/20/16 12:10 General appearance: Present: A&O X 3, pleasant, no acute distress, obese, answers questions appropriately - Head Head exam: Present: atraumatic, normocephalic - Eye Eye exam: Present: PERRL, conjuntiva pink, sclera anicteric Pupils: Present: PERRL - Neck Neck exam general surgery: Present: supple, trachea midline. Absent: lymphadenopathy - Respiratory Respiratory exam: Present: decreased breath sounds (good aeration). Absent: accessory muscle use, rales, respiratory distress, rhonchi, wheezes - Cardiovascular Cardiovascular exam: Present: RRR, +S1, +S2. Absent: diastolic murmur, gallop, rubs, systolic murmur - GI/Abdominal GI/Abdominal exam: Present: distended, normal bowel sounds, soft, tenderness ( diffuse), no peritoneal signs - Extremities Exam Extremities exam: Present: warm, radial pulses palpable and symetrical. Absent : calf tenderness, cyanotic, pedal edema - Neurological Exam Neurological exam: Present: alert, CN II-XII intact, oriented X3, no focal deficits, strengths equal and symetr throughout. Absent: pronater drift, facial droop, speech deficit - Skin Skin exam: Present: dry, intact, pallor, warm Internal Medicine: Result - Labs CBC & Chem 7: 08/20/16 04:55 08/20/16 04:55 Labs: Short CBC 08/20/16 Range/Units 04:55 WBC 4.5 D (4.3-11.1) K/mcL Hgb 9.4 L D (11.5-15.4) g/dL Hct 28.2 L (35.3-44.9) % Plt Count 120 L (140-400) K/mcL Neutrophils # 3.5 (1.6-8.9) K/mcL BMP 08/20/16 04:55 Sodium 135 L Potassium 4.4 Chloride 101 Carbon Dioxide 25 BUN 42 H Creatinine 1.28 H Glucose 206 H Calcium 8.5 L - ABG Interpretation ABG results: PT/INR, D-dimer PT 12.1 Seconds (9.4-12.1) 08/17/16 22:35 - Impressions Impressions Retroperitoneum Ultrasound 08/19/16 14:00 IMPRESSION: 1. No hydronephrosis. 2. There is a 4.8 cm left lower pole renal mass which is not well visualized on today's study. However given appearance on prior CTs findings are suspicious for renal neoplasm until proven otherwise given increase in size since 2014. 3. Cholelithiasis. 4. Mild splenomegaly. D/ / 08/19/2016 15:19:37 Luanne Macias MD / Shira Marie Interpreting Provider: Luanne Macias MD Consult Discharge Plan - Plan Referrals: Daniela Davis DO [Partnered Physician] - 08/26/16 9:30 am
[2016-08-20] MEDS ORDERED: Aztreonam 500 MG in D5% in Water 100 ML IVPB SCH (16:00)
[2016-08-21] MEDS: Aztreonam 500 MG in D5% in Water 100 ML IVPB SCH ×3 (00:18→16:55)
[2016-08-21] MEDS: *HR* Heparin 5,000 UNIT/ML VIAL SQ SCH ×4 (00:26→20:30)
[2016-08-21] MEDS: Nystatin POWDER 30 GM BOTTLE TP PRN (00:45)
[2016-08-21] MEDS: Acetaminophen 325 MG TABLET PO PRN ×3 (04:05→20:37)
[2016-08-21 04:32] LABS: Basophils % 0.2 %; Eosinophils % 0.7 %; Hematocrit 24.4 % (35.3-44.9); Hemoglobin 8.2 g/dL (11.5-15.4); Immature Granulocytes % 0.4 % (0-4); Lymphocytes # 0.9 K/mcL (0.6-4.6); Lymphocytes % 20.8 %; Mean Corpuscular HGB Conc 33.6 g/dL (31.6-35.5); Mean Corpuscular Hemoglobin 33.3 pg (28.0-33.3); Mean Corpuscular Volume 99.2 fL (83.0-100.0); Mean Platelet Volume 10.9 fL (9.4-12.4); Monocytes # 0.2 K/mcL (0.0-1.3); Monocytes % 4.5 %; Neutrophils # 3.3 K/mcL (1.6-8.9); Platelet Count 129 K/mcL (140-400); Red Blood Count 2.46 M/mcL (3.82-4.97); Red Cell Distribution Width 14.1 % (11.5-14.5); Segmented Neutrophils % 73.4 %
[2016-08-21 04:45] LABS: Calcium 8.5 mg/dL (8.6-10.8)
[2016-08-21 04:50] LABS: Potassium 4.4 mEq/L (3.5-4.5)
[2016-08-21] MEDS: Insulin LISPRO 300 UNITS/3 ML VIAL SQ SCH ×4 (07:49→20:28)
[2016-08-21] MEDS: Artificial Tears SOLN 15 ML BOTTLE OP PRN ×2 (07:50→20:29)
[2016-08-21] MEDS: Aspirin 81 MG TAB.CHEW PO SCH (07:50)
[2016-08-21] MEDS: Bumetanide 1 MG TABLET PO SCH ×2 (07:51→15:51)
[2016-08-21] MEDS: Gabapentin 100 MG CAPSULE PO SCH ×2 (07:51→20:30)
[2016-08-21] MEDS: Folic Acid 1 MG TABLET PO SCH (07:53)
[2016-08-21] MEDS: MetroNIDAZOLE 500 MG/100 ML 500 MG/100 ML BAG IVPB SCH ×3 (08:19→23:41)
[2016-08-21] MEDS: Lactobacillus 1 EACH CAP.SPRINK PO SCH ×2 (08:23→20:29)
[2016-08-21] MEDS ORDERED: Vancomycin 750 MG in D5% in Water 250 ML IVPB SCH (10:00)
[2016-08-21] MEDS ORDERED: Ondansetron 4 MG/2 ML VIAL IVP PRN (10:41)
[2016-08-21 11:20] LABS: Thyroid Stimulating Hormone 1.967 mcIU/mL (0.350-4.840)
--- NOTE | 2016-08-21 13:29 | Internal Med Progress Note ---
Date of Encounter: 08/21/16 Time of Encounter: 12:15 - Assessment and plan (1) Enteritis Current Visit: Yes Status: Acute Assessment and plan: Patient is tolerating a regular diet. She had a rather large bowel movement earlier today. On examination, pt complaining of generalized abdominal pain worse on the right side. Abdomen is soft and benign on examination. Preliminary repeat blood cultures negative. Possible discharge back to [place] tomorrow pending clinical outcomes. 08/20/16 Patient currently denies abdominal pain. On examination, abdomen mildly distended and diffusely tender. Patient is tolerating a regular diet. She is constipated, will add daily MiraLAX to her regimen. We will continue Flagyl, vancomycin, and aztreonam. Regarding plan of care, she had 2 positive blood cultures, blood cultures were redrawn this morning, and if negative, may consider discharge at that time. OT and PT are on board, plan is to hopefully send back to [facility] once she has negative blood cultures. 08/19/16 CT scan with terminal ileum/cecum fat standing/enteritis. Blood culture with GP rods. If final sensitivity is clostridium septicum, will consult GI for colonoscopy. Continue Flagyl, vancomycin; added aztreonam. No leukocytosis, afebrile, vital signs stable. On examination, abdomen is distended and diffusely tender but soft with hypoactive bowel sounds. Patient stating she is flatulent but has not had a bowel movement since admission. ITS Impressions Abdomen/Pelvis CT 08/17/16 22:20 IMPRESSION: Fat stranding localized to the terminal ileum and cecum. The appendix is not visualized. Findings are compatible with localized enteritis. No significant free fluid. Multiple mildly and borderline enlarged lymph nodes. Cholelithiasis. Persistent left lower pole renal mass. D/ / Pranav Miranda MD / Pranav Miranda MD Interpreting Provider: Pranav Miranda MD (2) Bacteremia due to Gram-positive bacteria Current Visit: Yes Status: Acute Assessment and plan: See prior note for enteritis; repeated blood cultures this a.m. that are preliminarily negative. (3) UTI (urinary tract infection) Current Visit: Yes Status: Acute Assessment and plan: As above, continue antibiotics, Urine culture with Proteus Mirabilis. Good coverage with Azreonam. When the resistances of the urine culture are combined with her numerous allergies, she is left with aztreonam and meropenem as the main medications that she can take. She will need IV antibiotics, so a Powerglide was placed as this species needs treated for 2-3 weeks given that it can produce urease which produces stones that she would need treated for 2-3 weeks. No leukocytosis. Afebrile. Vital signs stable. Qualifiers: Urinary tract infection type: site unspecified Hematuria presence: without hematuria Qualified Code(s): N39.0 - Urinary tract infection, site not specified (4) DVT prophylaxis Current Visit: Yes Status: Acute Assessment and plan: Subcutaneous heparin (5) CKD (chronic kidney disease) Current Visit: Yes Status: Chronic Assessment and plan: Remains consistent with her baseline, will continue to trend Qualifiers: Chronic kidney disease stage: stage 3 (moderate) Qualified Code(s): N18.3 - Chronic kidney disease, stage 3 (moderate) (6) Diabetes Current Visit: Yes Status: Chronic Assessment and plan: Controlled, A1c 5.8%. Continue sliding scale while admitted Qualifiers: Diabetes mellitus type: type 2 Diabetes mellitus complication status: with skin complications Diabetes mellitus complication detail: with other skin ulcer Diabetes mellitus house mover helper insulin use: with skilled nursing use Qualified Code(s): E11.622 - Type 2 diabetes mellitus with other skin ulcer; Z79.4 - medical office scheduler (current) use of insulin (7) HTN (hypertension) Current Visit: Yes Status: Chronic Assessment and plan: Controlled, continue current meds Qualifiers: Hypertension type: essential hypertension Qualified Code(s): I10 - Essential (primary) hypertension (8) Hereditary hemochromatosis Current Visit: Yes Status: Chronic (9) Left kidney mass Current Visit: Yes Status: Chronic Assessment and plan: Chronic since 2006, stable (10) Leg ulcer Current Visit: Yes Status: Chronic Assessment and plan: No signs or symptoms to suggest active infection. No signs of acute cellulitis. Small amount of drainage noted yesterday so a wound culture was ordered. Preliminary culture report with GNR however only 10-50 colonies consistent with contamination. Will follow culture results. 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 Patient denies shortness of breath above her norm. No pedal edema present. Qualifiers: Congestive heart failure type: diastolic Congestive heart failure chronicity: chronic Qualified Code(s): I50.32 - Chronic diastolic (congestive ) heart failure (14) Constipation Current Visit: No Status: Resolved Qualifiers: Constipation type: drug induced constipation Qualified Code(s): K59.03 - Drug induced constipation - Subjective Interval history: Patient seen and examined. On examination, patient sitting upright in her chair eating lunch. Patient complaining of generalized abdominal pain worse on the right side. Patient stating she had a rather large bowel movement this morning. Patient denies shortness of breath. - Constitutional Vitals: Temp Pulse Resp BP Pulse Ox 97.4 F L 74 14 114/60 93 L 08/21/16 11:06 08/21/16 11:06 08/21/16 11:06 08/21/16 11:06 08/21/16 11:06 General appearance: Present: A&O X 3, pleasant, no acute distress, obese, answers questions appropriately - Head Head exam: Present: atraumatic, normocephalic - Eye Eye exam: Present: PERRL, conjuntiva pink, sclera anicteric Pupils: Present: PERRL - Neck Neck exam general surgery: Present: supple, trachea midline. Absent: lymphadenopathy - Respiratory Respiratory exam: Present: decreased breath sounds. Absent: accessory muscle use, rales, respiratory distress, rhonchi, wheezes - Cardiovascular Cardiovascular exam: Present: RRR, +S1, +S2. Absent: diastolic murmur, gallop, rubs, systolic murmur - GI/Abdominal GI/Abdominal exam: Present: distended, normal bowel sounds, soft, tenderness ( diffuse), no peritoneal signs - Extremities Exam Extremities exam: Present: warm, radial pulses palpable and symetrical. Absent : calf tenderness, cyanotic, pedal edema - Neurological Exam Neurological exam: Present: alert, CN II-XII intact, oriented X3, no focal deficits, strengths equal and symetr throughout. Absent: pronater drift, facial droop, speech deficit - Skin Skin exam: Present: dry, intact, normal color, warm Internal Medicine: Result - Labs CBC & Chem 7: 08/21/16 03:57 08/21/16 03:57 Labs: Short CBC 08/21/16 Range/Units 03:57 WBC 4.5 (4.3-11.1) K/mcL Hgb 8.2 L (11.5-15.4) g/dL Hct 24.4 L (35.3-44.9) % Plt Count 129 L (140-400) K/mcL Neutrophils # 3.3 (1.6-8.9) K/mcL BMP 08/21/16 03:57 Sodium 137 Potassium 4.4 Chloride 103 Carbon Dioxide 25 BUN 41 H Creatinine 1.21 H Glucose 200 H Calcium 8.5 L - ABG Interpretation ABG results: PT/INR, D-dimer PT 12.1 Seconds (9.4-12.1) 08/17/16 22:35 Consult Discharge Plan - Plan Referrals: Daniela Davis DO [Partnered Physician] - 08/26/16 9:30 am
[2016-08-21 14:53] LABS: Folate 15.8 ng/mL (7.0-31.4)
[2016-08-22] MEDS: Aztreonam 500 MG in D5% in Water 100 ML IVPB SCH ×2 (00:42→07:59)
[2016-08-22 03:31] LABS: Eosinophils # 0.1 K/mcL (0.0-0.6); Eosinophils % 1.8 %; Hematocrit 28.2 % (35.3-44.9); Hemoglobin 9.5 g/dL (11.5-15.4); Immature Granulocytes % 0.8 % (0-4); Lymphocytes # 0.9 K/mcL (0.6-4.6); Lymphocytes % 23.8 %; Mean Corpuscular HGB Conc 33.7 g/dL (31.6-35.5); Mean Corpuscular Hemoglobin 33.3 pg (28.0-33.3); Mean Corpuscular Volume 98.9 fL (83.0-100.0); Mean Platelet Volume 10.3 fL (9.4-12.4); Monocytes # 0.3 K/mcL (0.0-1.3); Monocytes % 7.4 %; Neutrophils # 2.6 K/mcL (1.6-8.9); Platelet Count 141 K/mcL (140-400); Red Blood Count 2.85 M/mcL (3.82-4.97); Red Cell Distribution Width 13.9 % (11.5-14.5); Segmented Neutrophils % 66.2 %
[2016-08-22 03:46] LABS: Calcium 8.6 mg/dL (8.6-10.8)
[2016-08-22] MEDS: *HR* Heparin 5,000 UNIT/ML VIAL SQ SCH (05:17)
[2016-08-22] MEDS: Acetaminophen 325 MG TABLET PO PRN (05:33)
[2016-08-22 07:34] VITALS: BP 129/51
[2016-08-22] MEDS: MetroNIDAZOLE 500 MG/100 ML 500 MG/100 ML BAG IVPB SCH (07:59)
[2016-08-22] MEDS: Bumetanide 1 MG TABLET PO SCH (08:00)
[2016-08-22] MEDS: Folic Acid 1 MG TABLET PO SCH (08:00)
[2016-08-22] MEDS: Lactobacillus 1 EACH CAP.SPRINK PO SCH (08:00)
[2016-08-22] MEDS: Aspirin 81 MG TAB.CHEW PO SCH (08:00)
[2016-08-22] MEDS: Gabapentin 100 MG CAPSULE PO SCH (08:00)
[2016-08-22] MEDS: Insulin LISPRO 300 UNITS/3 ML VIAL SQ SCH (08:01)
--- NOTE | 2016-08-22 10:24 | Discharge Summary ---
Date of Encounter: 08/22/16 Time of Encounter: 08:30 - Discharge Diagnosis (1) Enteritis Priority: Primary Status: Acute Comments: Patient was able to tolerate a regular diet while admitted. A large bowel movement noted on the day prior to presentation. Pain controlled. ITS Impressions Abdomen/Pelvis CT 08/17/16 22:20 IMPRESSION: Fat stranding localized to the terminal ileum and cecum. The appendix is not visualized. Findings are compatible with localized enteritis. No significant free fluid. Multiple mildly and borderline enlarged lymph nodes. Cholelithiasis. Persistent left lower pole renal mass. D/ / Pranav Miranda MD / Pranav Miranda MD Interpreting Provider: Pranav Miranda MD (2) Bacteremia due to Gram-positive bacteria Priority: Primary Status: Resolved Comments: Repeat blood cultures negative (3) UTI (urinary tract infection) Priority: Primary Status: Acute Comments: As above, continue antibiotics, Urine culture with Proteus Mirabilis. Good coverage with Azreonam. When the resistances of the urine culture are combined with her numerous allergies, she is left with aztreonam and meropenem as the main medications that she can take. She is being sent to [facility] on IV antibiotics for 3 weeks given that Proteus can produce urease which produces stones that she would need treated for 2-3 weeks. No leukocytosis. Afebrile. Vital signs stable. Her wound culture also revealed pseudomonas aeruginosa, which is also susceptible to aztreonam. Qualifiers: Urinary tract infection type: site unspecified Hematuria presence: without hematuria Qualified Code(s): N39.0 - Urinary tract infection, site not specified (4) DVT prophylaxis Priority: Primary Status: Acute Comments: Subcutaneous heparin while admitted (5) CKD (chronic kidney disease) Priority: Secondary Status: Chronic Comments: Remained stable throughout this admission, follow-up outpatient Qualifiers: Chronic kidney disease stage: stage 3 (moderate) Qualified Code(s): N18.3 - Chronic kidney disease, stage 3 (moderate) (6) Diabetes Priority: Secondary Status: Chronic Comments: Controlled, A1c 5.8%. Follow-up outpatient Qualifiers: Diabetes mellitus type: type 2 Diabetes mellitus complication status: with skin complications Diabetes mellitus complication detail: with other skin ulcer Diabetes mellitus nanny babysitter insulin use: with nanny babysitter use Qualified Code(s): E11.622 - Type 2 diabetes mellitus with other skin ulcer; Z79.4 - alf (current) use of insulin (7) HTN (hypertension) Priority: Secondary Status: Chronic Comments: Controlled, follow-up outpatient Qualifiers: Hypertension type: essential hypertension Qualified Code(s): I10 - Essential (primary) hypertension (8) Hereditary hemochromatosis Priority: Secondary Status: Chronic (9) Left kidney mass Priority: Secondary Status: Chronic Comments: Stable since 2006 (10) Leg ulcer Priority: Secondary Status: Chronic Comments: Wound culture revealing small amount of Pseudomonas aeruginosa which is also susceptible to the aztreonam. No signs of acute cellulitis. 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, unspecified site (12) PVD (peripheral vascular disease) Priority: Secondary Status: Chronic (13) CHF (congestive heart failure) Priority: Secondary Status: Chronic Comments: No acute exacerbation, follow-up outpatient Qualifiers: Congestive heart failure type: diastolic Congestive heart failure chronicity: chronic Qualified Code(s): I50.32 - Chronic diastolic (congestive ) heart failure (14) Constipation Priority: Secondary Status: Resolved Qualifiers: Constipation type: drug induced constipation Qualified Code(s): K59.03 - Drug induced constipation - Discharge Medications Prescriptions: OxyCODONE Immed Rel [Roxicodone 5 MG] 5 mg PO Q6HR PRN #20 tablet PRN Reason: Pain Aztreonam/Dextrose-Water [Myrysez-Tus-Invlm 1 gm/50 ml] 1 gm IV Q8H #57 froz.piggy Lactobacillus [Culturelle] 1 each PO BID #60 cap.sprink Ondansetron HCl 4 mg PO Q6H PRN #12 tablet PRN Reason: Nausea And Vomiting Tramadol HCl [Ultram] 50 mg PO QID PRN #15 tab PRN Reason: Pain Home Medications: Aspirin 81 mg PO DAILY 03/25/15 [History] Cilostazol [Pletal] 100 mg PO BID 03/25/15 [History] Clopidogrel [Plavix] 75 mg PO DAILY 03/25/15 [History] Ergocalciferol (VITAMIN D2) [Vitamin D2 (50,000 UNIT)] 50,000 unit PO FR [History] Gabapentin [Neurontin] 100 mg PO BID 03/25/15 [History] Insulin LISPRO [HumaLOG] 7 units SQ TID 03/25/15 [History] Oxybutynin Chloride [Ditropan Xl] 5 mg PO DAILY 03/25/15 [History] Ranitidine HCl [Zantac] 150 mg PO BID 03/25/15 [History] Vitamin E 400 unit PO DAILY 03/25/15 [History] Folic Acid 1 mg PO DAILY #90 tab 06/19/15 [Rx] Bumetanide [Bumex] 1 mg PO BID 06/20/16 [History] Acetaminophen [Tylenol] 1,000 mg PO Q6HR PRN 06/21/16 [History] Carvedilol 12.5 mg PO BID 06/21/16 [History] Diltiazem HCl 90 mg PO TID 06/21/16 [History] Dextran 70/Hypromellose/Pf [Artificial Tears Drops] 1 drop OP TID PRN 08/18/16 [ History] Docusate [Colace] 100 mg PO BID PRN 08/18/16 [History] Guaifenesin [Diabetic Tussin Ex] 5 ml PO Q6HR PRN 08/18/16 [History] Insulin Glargine,Hum.rec.anlog [Basaglar Kwikpen U-100] 30 units SQ QAM [History] Nystatin POWDER [Nystop] 1 appl TP BID PRN 08/18/16 [History] Polyethylene Glycol 3350 [Gavilax] 17 gm PO DAILY PRN 08/18/16 [History] Vit C/E/Zn/Coppr/Lutein/Zeaxan [Preservision Areds 2 Softgel] 1 cap PO BID 08/18 [History] Aztreonam/Dextrose-Water [Cwjwmqh-Vwp-Bkkrw 1 gm/50 ml] 1 gm IV Q8H #57 froz.piggy 08/22/16 [Rx] Lactobacillus [Culturelle] 1 each PO BID #60 cap.sprink 08/22/16 [Rx] Ondansetron HCl 4 mg PO Q6H PRN #12 tablet 08/22/16 [Rx] OxyCODONE Immed Rel [Roxicodone 5 MG] 5 mg PO Q6HR PRN #20 tablet 08/22/16 [Rx] Tramadol HCl [Ultram] 50 mg PO QID PRN #15 tab 08/22/16 [Rx] Allergies/Adverse Reactions: Allergies EDY Inhibitors Allergy (Unknown, Verified 08/18/16 17:09) See Comments UNKNOWN REACTION- LISTED ON PATIENT'S MEDICATION LIST FROM [facility] Amoxicillin Allergy (Unknown, Verified 08/18/16 17:09) See Comments UNKNOWN REACTION- LISTED ON PATIENT'S MEDICATION LIST FROM [facility] azithromycin Allergy (Unknown, Verified 08/18/16 17:09) See Comments UNKNOWN REACTION- LISTED ON PATIENT'S MEDICATION LIST FROM [facility] cefuroxime Allergy (Unknown, Verified 08/18/16 17:09) See Comments UNKNOWN REACTION- LISTED ON PATIENT'S MEDICATION LIST FROM [facility] cephalexin Allergy (Unknown, Verified 08/18/16 17:09) See Comments UNKNOWN REACTION- LISTED ON PATIENT'S MEDICATION LIST FROM [facility] Cephalosporins Allergy (Unknown, Verified 08/18/16 17:09) See Comments UNKNOWN REACTION- LISTED ON PATIENT'S MEDICATION LIST FROM [facility] clindamycin Allergy (Unknown, Verified 08/18/16 17:09) See Comments UNKNOWN REACTION- LISTED ON PATIENT'S MEDICATION LIST FROM [facility] codeine Allergy (Unknown, Verified 08/18/16 17:09) See Comments UNKNOWN REACTION- LISTED ON PATIENT'S MEDICATION LIST FROM [facility] furosemide Allergy (Unknown, Verified 08/18/16 17:09) See Comments UNKNOWN REACTION- LISTED ON PATIENT'S MEDICATION LIST FROM [facility] hydrocodone Allergy (Unknown, Verified 08/18/16 17:09) See Comments UNKNOWN REACTION- LISTED ON PATIENT'S MEDICATION LIST FROM [facility] Penicillins Allergy (Unknown, Verified 08/18/16 17:09) See Comments UNKNOWN REACTION- LISTED ON PATIENT'S MEDICATION LIST FROM [facility]: [facility] prednisone Allergy (Unknown, Verified 06/16/15 13:31) Hives silver sulfadiazine [From Silvadene] Allergy (Unknown, Verified 08/18/16 17:09) See Comments UNKNOWN REACTION- LISTED ON PATIENT'S MEDICATION LIST FROM [facility]: [facility] Zpksobi-Cbk-Ezx Reductase Inhibitor [Statins] Allergy (Unknown, Verified 17:09) See Comments UNKNOWN REACTION- LISTED ON PATIENT'S MEDICATION LIST FROM [facility]: [facility] Sulfa (Sulfonamide Antibiotics) Allergy (Unknown, Verified 08/18/16 17:09) See Comments UNKNOWN REACTION- LISTED ON PATIENT'S MEDICATION LIST FROM [facility]: [facility] diuretic Allergy (Unknown, Uncoded 08/18/16 17:09) See Comments UNKNOWN REACTION- LISTED ON PATIENT'S MEDICATION LIST FROM [facility]: [facility] Procedures/tests Complete & Pending: Procedures Performed prior 72 hours Category Date Time Status US retroperitoneal limited [US] Routine Exams 08/19/16 14:00 Completed Date of admission: 08/18/16 03:27 Primary care physician: Jamarcus Pedro Consults: 08/18/16 03:36 Consult to Stagecraft Professor [CONS] Routine Reason for Consult: From [facility] 08/19/16 14:10 Consult to Physical Therapy [CONS] Routine Comment: Evaluate, develop and implement POC OT [Consult to Occupational Therapy] [CONS] Routine Comment: Evaluate, develop and implement POC 08/20/16 13:17 Consult to Invasive Line Access Team [CONS] Routine Reason for Consult: will need nanny babysitter antibiotics x2-3 weeks 2/2 proteus mirabilis in urine. Likely Aztreonam or Meropenem. Multiple allergies Line Type: Midline PICC line indications: alf Med/Antibiotic Consult to Stagecraft Professor [CONS] Routine Reason for Consult: want to send back to [facility]; also, will need 2-3 weeks of IV antibiotics. Discharging clinician: Nancy Trotter Anticipated date of discharge: 08/22/16 (sending back to [facility]) - Patient Status Disposition: Transfer Inpatient Rehab Fac Condition: Fair Functional capacity at discharge: uses cane/walker Overall status at discharge: patient is progressing back to baseline - Discharge Instructions Follow Up With: Daniela Davis DO [Partnered Physician] - 08/26/16 9:30 am Additional Instructions: Follow-up with primary care provider as scheduled - Diet and Activity Activity: as per physical therapy, increase activity as tolerated Diet: diabetic diet, low fat, low cholesterol, low salt diet, other (fluid restriction 1500ml/day) Hospital course: Ms. Chatman is a 81 year old female who presented from [facility] where she had resided after recent admission. She has a history of diabetes, GERD, hyperlipidemia, hypertension, CHF, hemochromatosis, status post appendectomy several years ago. Patient presented to the emergency department chief complaint abdominal pain 3 days. Pain was located in the right lower quadrant and did not radiate. Patient also endorsed nausea, vomiting, fever, and chills. She states she had a bowel movement on the day prior to presentation. She denied any hematochezia. She denied dysuria or hematuria. She denies shortness of breath, chest pain, or cough. Workup in the emergency department revealing an abnormal urinalysis. Abdominal pelvic CT revealing enteritis to terminal ileum and cecum. Patient was admitted to the hospitalist service for further evaluation and management. Blood cultures were positive 2 with gram-positive rods. Patient was treated with li spectrum antibiotics with aztreonam, Flagyl, and vancomycin. She remained hemodynamically stable and did not show signs of sepsis throughout this admission. No leukocytosis. Patient remained alert and oriented 3 throughout this admission. Her anemia remained stable. Her renal functioning also remained stable. Her blood cultures were repeated on day 3 and were negative. Her chronic leg wound was also cultured which revealed pseudomonas aeruginosa. Regarding her urinary tract infection, culture report consistent with Proteus Mirabilis. When the resistances of the urine and wound culture were combined with her numerous allergies, she was left with aztreonam or meropenem as the main medications that would treat both her UTI and her wound infection. She tolerated IV Aztreonam well while admitted and was sent on 3 weeks worth as her urinary infection is known to produce urease which produces stones, so 3 weeks worth of IV antibiotics are clinically indicated. Patient's pain was well-controlled during this admission and she had a large bowel movement on the day prior to presentation. He was also able to tolerate a regular diet. She was admitted and observed over the course of 5 days and OT and PT recommended ECF placement. She was discharged back to [facility] in stable condition with close outpatient follow-up recommended. ITS Impressions Abdomen/Pelvis CT 08/17/16 22:20 IMPRESSION: Fat stranding localized to the terminal ileum and cecum. The appendix is not visualized. Findings are compatible with localized enteritis. No significant free fluid. Multiple mildly and borderline enlarged lymph nodes. Cholelithiasis. Persistent left lower pole renal mass. D/ / Pranav Miranda MD / Pranav Miranda MD Interpreting Provider: Pranav Miranda MD Retroperitoneum Ultrasound 08/19/16 14:00 IMPRESSION: 1. No hydronephrosis. 2. There is a 4.8 cm left lower pole renal mass which is not well visualized on today's study. However given appearance on prior CTs findings are suspicious for renal neoplasm until proven otherwise given increase in size since 2014. 3. Cholelithiasis. 4. Mild splenomegaly. D/ / 08/19/2016 15:19:37 Luanne Macias MD / Shira Marie Interpreting Provider: Luanne Macias MD - Time Spent with Patient Total time spent providing and/or coordinating discharge services: - Constitutional Vitals: Temp Pulse Resp BP Pulse Ox 97.7 F 64 17 129/51 99 08/22/16 07:00 08/22/16 07:00 08/22/16 07:00 08/22/16 07:00 08/22/16 07:00 General appearance: Present: A&O X 3, pleasant, no acute distress, obese, answers questions appropriately - Head Head exam: Present: atraumatic, normocephalic - Eye Eye exam: Present: PERRL, conjuntiva pink, sclera anicteric Pupils: Present: PERRL - Neck Neck exam general surgery: Present: supple, trachea midline. Absent: lymphadenopathy - Respiratory Respiratory exam: Present: decreased breath sounds. Absent: accessory muscle use, rales, respiratory distress, rhonchi, wheezes - Cardiovascular Cardiovascular exam: Present: RRR, +S1, +S2. Absent: diastolic murmur, gallop, rubs, systolic murmur - GI/Abdominal GI/Abdominal exam: Present: normal bowel sounds, soft, no peritoneal signs. Absent: distended, tenderness - Extremities Exam Extremities exam: Present: warm, radial pulses palpable and symetrical. Absent : calf tenderness, cyanotic, pedal edema - Neurological Exam Neurological exam: Present: alert, CN II-XII intact, oriented X3, no focal deficits, strengths equal and symetr throughout. Absent: pronater drift, facial droop, speech deficit - Skin Skin exam: Present: dry, intact, normal color, warm
[2016-08-22] MEDS ORDERED: Aminoglycoside Consult 1 EACH MC ONE (10:49)
--- NOTE | 2016-08-22 11:03 | Physician Discharge Referral ---
ExtendedCare Referral Info Transfer To: [place] [facility] Provider in Charge: Tony Trotter CNP Provider in Charge after Transfer: PCP Institutional Level of Care: Skilled - Diagnosis (1) Enteritis Priority: Primary Status: Acute (2) Bacteremia due to Gram-positive bacteria Priority: Primary Status: Resolved (3) UTI (urinary tract infection) Priority: Primary Status: Acute (4) DVT prophylaxis Priority: Primary Status: Acute (5) CKD (chronic kidney disease) Priority: Secondary Status: Chronic (6) Diabetes Priority: Secondary Status: Chronic (7) HTN (hypertension) Priority: Secondary Status: Chronic (8) Hereditary hemochromatosis Priority: Secondary Status: Chronic (9) Left kidney mass Priority: Secondary Status: Chronic (10) Leg ulcer Priority: Secondary Status: Chronic (11) Malignant lymphoma Priority: Secondary Status: Chronic (12) PVD (peripheral vascular disease) Priority: Secondary Status: Chronic (13) CHF (congestive heart failure) Priority: Secondary Status: Chronic (14) Constipation Priority: Secondary Status: Resolved Prognosis: Good Aware of Diagnosis: Patient Aware of Prognosis: Patient - Transfer Medications Prescriptions: OxyCODONE Immed Rel [Roxicodone 5 MG] 5 mg PO Q6HR PRN #20 tablet PRN Reason: Pain Aztreonam/Dextrose-Water [Aczyibq-Yub-Bkihe 1 gm/50 ml] 1 gm IV Q8H #57 froz.piggy Lactobacillus [Culturelle] 1 each PO BID #60 cap.sprink Ondansetron HCl 4 mg PO Q6H PRN #12 tablet PRN Reason: Nausea And Vomiting Tramadol HCl [Ultram] 50 mg PO QID PRN #15 tab PRN Reason: Pain Home Medications: Aspirin 81 mg PO DAILY 03/25/15 [History] Cilostazol [Pletal] 100 mg PO BID 03/25/15 [History] Clopidogrel [Plavix] 75 mg PO DAILY 03/25/15 [History] Ergocalciferol (VITAMIN D2) [Vitamin D2 (50,000 UNIT)] 50,000 unit PO FR [History] Gabapentin [Neurontin] 100 mg PO BID 03/25/15 [History] Insulin LISPRO [HumaLOG] 7 units SQ TID 03/25/15 [History] Oxybutynin Chloride [Ditropan Xl] 5 mg PO DAILY 03/25/15 [History] Ranitidine HCl [Zantac] 150 mg PO BID 03/25/15 [History] Vitamin E 400 unit PO DAILY 03/25/15 [History] Folic Acid 1 mg PO DAILY #90 tab 06/19/15 [Rx] Bumetanide [Bumex] 1 mg PO BID 06/20/16 [History] Acetaminophen [Tylenol] 1,000 mg PO Q6HR PRN 06/21/16 [History] Carvedilol 12.5 mg PO BID 06/21/16 [History] Diltiazem HCl 90 mg PO TID 06/21/16 [History] Dextran 70/Hypromellose/Pf [Artificial Tears Drops] 1 drop OP TID PRN 08/18/16 [ History] Docusate [Colace] 100 mg PO BID PRN 08/18/16 [History] Guaifenesin [Diabetic Tussin Ex] 5 ml PO Q6HR PRN 08/18/16 [History] Insulin Glargine,Hum.rec.anlog [Basaglar Kwikpen U-100] 30 units SQ QAM [History] Nystatin POWDER [Nystop] 1 appl TP BID PRN 08/18/16 [History] Polyethylene Glycol 3350 [Gavilax] 17 gm PO DAILY PRN 08/18/16 [History] Vit C/E/Zn/Coppr/Lutein/Zeaxan [Preservision Areds 2 Softgel] 1 cap PO BID 08/18 [History] Aztreonam/Dextrose-Water [Vayhslf-Buw-Funlz 1 gm/50 ml] 1 gm IV Q8H #57 froz.piggy 08/22/16 [Rx] Lactobacillus [Culturelle] 1 each PO BID #60 cap.sprink 08/22/16 [Rx] Ondansetron HCl 4 mg PO Q6H PRN #12 tablet 08/22/16 [Rx] OxyCODONE Immed Rel [Roxicodone 5 MG] 5 mg PO Q6HR PRN #20 tablet 08/22/16 [Rx] Tramadol HCl [Ultram] 50 mg PO QID PRN #15 tab 08/22/16 [Rx] Allergies/Adverse Reactions: Allergies EDY Inhibitors Allergy (Unknown, Verified 08/18/16 17:09) See Comments UNKNOWN REACTION- LISTED ON PATIENT'S MEDICATION LIST FROM [facility]: [facility] Amoxicillin Allergy (Unknown, Verified 08/18/16 17:09) See Comments UNKNOWN REACTION- LISTED ON PATIENT'S MEDICATION LIST FROM F: [facility] azithromycin Allergy (Unknown, Verified 08/18/16 17:09) See Comments UNKNOWN REACTION- LISTED ON PATIENT'S MEDICATION LIST FROM [facility]: [facility] cefuroxime Allergy (Unknown, Verified 08/18/16 17:09) See Comments UNKNOWN REACTION- LISTED ON PATIENT'S MEDICATION LIST FROM [facility]: [facility] cephalexin Allergy (Unknown, Verified 08/18/16 17:09) See Comments UNKNOWN REACTION- LISTED ON PATIENT'S MEDICATION LIST FROM [facility]: [facility] Cephalosporins Allergy (Unknown, Verified 08/18/16 17:09) See Comments UNKNOWN REACTION- LISTED ON PATIENT'S MEDICATION LIST FROM [facility]: [facility] clindamycin Allergy (Unknown, Verified 08/18/16 17:09) See Comments UNKNOWN REACTION- LISTED ON PATIENT'S MEDICATION LIST FROM [facility]: [facility] codeine Allergy (Unknown, Verified 08/18/16 17:09) See Comments UNKNOWN REACTION- LISTED ON PATIENT'S MEDICATION LIST FROM [facility]: [facility] furosemide Allergy (Unknown, Verified 08/18/16 17:09) See Comments UNKNOWN REACTION- LISTED ON PATIENT'S MEDICATION LIST FROM [facility]: [facility] hydrocodone Allergy (Unknown, Verified 08/18/16 17:09) See Comments UNKNOWN REACTION- LISTED ON PATIENT'S MEDICATION LIST FROM [facility]: [facility] Penicillins Allergy (Unknown, Verified 08/18/16 17:09) See Comments UNKNOWN REACTION- LISTED ON PATIENT'S MEDICATION LIST FROM [facility]: [facility] prednisone Allergy (Unknown, Verified 06/16/15 13:31) Hives silver sulfadiazine [From Silvadene] Allergy (Unknown, Verified 08/18/16 17:09) See Comments UNKNOWN REACTION- LISTED ON PATIENT'S MEDICATION LIST FROM [facility]: [facility] Iqqqcpc-Gbg-Yfj Reductase Inhibitor [Statins] Allergy (Unknown, Verified 17:09) See Comments UNKNOWN REACTION- LISTED ON PATIENT'S MEDICATION LIST FROM [facility]: [facility] Sulfa (Sulfonamide Antibiotics) Allergy (Unknown, Verified 08/18/16 17:09) See Comments UNKNOWN REACTION- LISTED ON PATIENT'S MEDICATION LIST FROM [facility]: [facility] diuretic Allergy (Unknown, Uncoded 08/18/16 17:09) See Comments UNKNOWN REACTION- LISTED ON PATIENT'S MEDICATION LIST FROM [facility]: [facility] - Respiratory Orders Smoking Cessation: Smoking cessation has been advised. For more information, call the [place] Tobacco Quit Line at 9-064-PXCI-NOW. - Ancillary Orders May use pressure relief devices daily prn, May go on SIRIA w/family/respon green party w /meds at nurse discretion PRN, May have alcoholic beverages, May consult with Dentist, Search Engine Marketing Specialist, Dowel Maker PRN - Advance Directives Living Will: Yes Power of Robotics Systems Engineer: No Code Status: Full Code - Mobility Orders Ambulate (per PT) - Rehabiliation Orders Rehab Potential: Good Rehab Orders: ROM Exercises, Evaluation for Physical Therapy, Evaluation for Occupational Therapy - Treatments Skin tear care topically daily PRN per policy, May check for fecal impaction rectally daily PRN, Fleet enema rectally every other day PRN cleansing purposes - Diet Orders No Added Salt (CHIOMA), No Concentrated Sweets (fluid restriction 1500ml/day) CERTIFICATION: I certify that the transfer of the above named patient to an Extended Care Facility is necessary for the continuing treatment of the diagnosis listed. The above information is true and accurate reflection of patient's current condition. Confidential - Redisclosure prohibited without a patient's written consent.
== END 2016-08-22 10:50 | DRG 392 ==
LOC: EMEROO 22:06 → 3BNU 22:06 → SUATTDRO 08-18 03:27
PROVIDERS: ADMIT Hospitalist; ATTEND Nurse Practitioner Family

== ENCOUNTER 2017-08-05 10:03 | Inpatient (IN) ==
[2017-08-05] MEDS ORDERED: 0.9 % Sodium Chloride 1,000 ML IVC ONE (10:12)
[2017-08-05 10:26] LABS: Bilirubin,Urine Negative (Negative); Blood,Urine Large (Negative); Color,Urine Yellow (Yellow); Glucose,Urine (UA) Normal (Normal); Ketones,Urine Negative (Negative); Leukocyte Esterase,Urine Large (Negative); Nitrite,Urine Positive (Negative); Protein,Urine Trace mg/dL (Neg-Trace); Specific Gravity,Urine 1.017 (1.010-1.025); Urobilinogen,Urine Normal (Normal)
[2017-08-05 10:28] LABS: Bacteria,Urine Many per hpf (None-Few); RBC,Urine TNTC per hpf (0-3); Squamous Epithelial Cell,Urine Many per lpf (None-Few); WBC,Urine TNTC per hpf (0-3)
[2017-08-05 10:29] LABS: Clarity,Urine Slightly Hazy (Clear)
[2017-08-05 10:45] LABS: Granular Casts,Urine Few per lpf (None Seen)
[2017-08-05 10:46] LABS: Basophils % 0.2 %; Eosinophils % 0.2 %; Hematocrit 26.1 % (35.3-44.9); Immature Granulocytes % 0.7 % (0-4); Lymphocytes # 0.5 K/mcL (0.6-4.6); Lymphocytes % 10.5 %; Mean Corpuscular HGB Conc 29.5 g/dL (31.6-35.5); Mean Corpuscular Hemoglobin 28.1 pg (28.0-33.3); Mean Corpuscular Volume 95.3 fL (83.0-100.0); Mean Platelet Volume 10.3 fL (9.4-12.4); Monocytes # 0.3 K/mcL (0.0-1.3); Neutrophils # 3.7 K/mcL (1.6-8.9); Nucleated Red Blood Cells 0.4 /100 WBC (0); Platelet Count 144 K/mcL (140-400); Red Blood Count 2.74 M/mcL (3.82-4.97); Red Cell Distribution Width 15.4 % (11.5-14.5); Segmented Neutrophils % 81.4 %
[2017-08-05 10:48] LABS: Hemoglobin 7.7 g/dL (11.5-15.4)
[2017-08-05 11:08] LABS: INR 1.2; Prothrombin Time 12.8 Seconds (9.4-12.1)
[2017-08-05 11:11] LABS: Activated Partial Thrombo Time 32.3 Seconds (26.0-36.0)
[2017-08-05 11:13] LABS: Albumin 3.2 g/dL (3.5-5.7); Albumin/Globulin Ratio 1.1 (1.1-2.2); Bilirubin,Direct 0.1 mg/dL (0.0-0.2); Bilirubin,Indirect 0.5 mg/dL (0.0-1.2); Bilirubin,Total 0.6 mg/dL (0.3-1.0); Calcium 8.7 mg/dL (8.6-10.3); Potassium 3.8 mEq/L (3.5-5.1); Total Protein 6.2 g/dL (6.4-8.9)
[2017-08-05] MEDS ORDERED: AZTREONAM IVP STA (11:20)
[2017-08-05] MEDS ORDERED: WATER FOR INJ IVP STA (11:20)
--- NOTE | 2017-08-05 12:48 | Emergency Department Note ---
Disposition Clinical Impression: Altered mental status Qualifiers: Altered mental status type: unspecified Qualified Code(s): R41.82 - Altered mental status, unspecified UTI (urinary tract infection) Qualifiers: Urinary tract infection type: site unspecified Hematuria presence: without hematuria Qualified Code(s): N39.0 - Urinary tract infection, site not specified Disposition: Admitted As Inpatient Condition: Fair Time of Disposition: 13:37 General Adult HPI - General Chief complaint: ED Altered Mental Status Stated complaint: Possible UTI/AMS Time Seen by Provider: 08/05/17 10:08 Source: patient, EMS Mode of arrival: EMS Limitations: no limitations Nursing Notes Reviewed: Yes Vital Signs Reviewed: Yes - History of Present Illness HPI Narrative: Patient presents emergency room by EMS for evaluation of altered mentation possible urinary tract infection. Onset (ago): day(s) Radiation: non-radiation Pain Severity: moderate Pain Scale: 10 Consistency: constant Improves with: nothing Worsens with: nothing Associated symptoms: Reports: confusion Treatments Prior to Arrival: none - Related Data Home Medications Medication Instructions Recorded Confirmed Aspirin 81 mg PO DAILY 03/25/15 03/04/17 Cilostazol [Pletal] 100 mg PO BID 03/25/15 07/28/17 Clopidogrel [Plavix] 75 mg PO DAILY 03/25/15 07/28/17 Gabapentin [Neurontin] 100 mg PO BID 03/25/15 07/28/17 Oxybutynin Chloride [Ditropan Xl] 5 mg PO DAILY 03/25/15 07/28/17 Ranitidine HCl [Zantac] 150 mg PO BID 03/25/15 07/28/17 Acetaminophen [Tylenol] 1,000 mg PO Q6HR PRN 06/21/16 07/28/17 Carvedilol 12.5 mg PO BID 06/21/16 07/28/17 dilTIAZem HCl [Diltiazem HCl] 90 mg PO TID 06/21/16 07/28/17 Insulin Glargine,Hum.rec.anlog 30 units SQ QAM 08/18/16 03/04/17 [Basaglar Kwikpen U-100] Nystatin POWDER [Nystop] 1 appl TP BID PRN 08/18/16 07/28/17 Bumetanide [Bumex] 1 mg PO BID 07/28/17 07/28/17 Docusate [Colace] 100 mg PO BID 07/28/17 07/28/17 Insulin Glargine,Hum.rec.anlog 30 unit SQ QAM 07/28/17 07/28/17 [Lantus Solostar] Insulin LISPRO [HumaLOG] 5 units SQ TIDWM 07/28/17 07/28/17 Sennosides [Senokot] 8.6 mg PO BID 07/28/17 07/28/17 Vit C/E/Zn/Coppr/Lutein/Zeaxan 1 drop BOTH EYES DAILY 07/28/17 07/28/17 [Preservision Areds 2 Softgel] Allergies Allergy/AdvReac Type Severity Reaction Status Date / Time EDY Inhibitors Allergy Unknown See Verified 03/04/17 15:01 Comments Amoxicillin Allergy Unknown See Verified 03/04/17 15:01 Comments azithromycin Allergy Unknown See Verified 03/04/17 15:01 Comments cefuroxime Allergy Unknown See Verified 03/04/17 15:01 Comments cephalexin Allergy Unknown See Verified 03/04/17 15:01 Comments Cephalosporins Allergy Unknown See Verified 03/04/17 15:01 Comments clindamycin Allergy Unknown See Verified 03/04/17 15:01 Comments codeine Allergy Unknown See Verified 03/04/17 15:01 Comments furosemide Allergy Unknown See Verified 03/04/17 15:01 Comments hydrocodone Allergy Unknown See Verified 03/04/17 15:01 Comments Penicillins Allergy Unknown See Verified 03/04/17 15:01 Comments prednisone Allergy Unknown Hives Verified 03/04/17 15:01 silver sulfadiazine Allergy Unknown See Verified 03/04/17 15:01 [From Silvadene] Comments Euprpqv-Xdk-Opq Reductase Allergy Unknown See Verified 03/04/17 15:01 Inhibitor Comments [Statins] Sulfa (Sulfonamide Allergy Unknown See Verified 03/04/17 15:01 Antibiotics) Comments diuretic Allergy Unknown See Uncoded 03/04/17 15:01 Comments All systems ED: reviewed and negative except as stated. Review of Systems: As Per HPI Constitutional: Reports: fever. Denies: chills, weakness Cardiovascular: Denies: chest pain, palpitations, dyspnea on exertion Respiratory: Denies: cough, dyspnea, wheezes Gastrointestinal: Denies: abdominal pain, nausea, vomiting, diarrhea Genitourinary: Reports: urgency, dysuria Musculoskeletal: Denies: back pain, neck pain Past Medical History - Past Medical History Attestation: Yes The following information was validated with the patient. Source: patient Medical history: Reports: arthritis, atrial fibrillation, cancer, cardiomyopathy , CHF, COPD, DVT, diabetes, GERD, hyperlipidemia, hypertension, renal disease, other Surgical history: Reports: appendectomy, cancer surgery, AICD, pacemaker Psychiatric history: Reports: no psych history TEAM SPORTS SALES ASSOCIATE history: Reports: no TEAM SPORTS SALES ASSOCIATE history - Social History Smoking Status: Never smoker Smokeless Tobacco Status: No Alcohol use: Reports: none Drug use: Reports: none Physical Exam - General Limitations: no limitations General appearance: alert - Head Head exam: atraumatic, normocephalic, normal inspection - Eye Eye exam: Present: normal appearance, PERRL, EOMI - ENT ENT exam: normal exam, normal oropharynx, mucous membranes moist - Neck Neck exam: Present: normal inspection, full ROM, trachea midline. Absent: tenderness, meningismus, lymphadenopathy - Chest Chest inspection: Present: normal inspection, symmetric chest wall rise - Respiratory Respiratory exam: Present: normal lung sounds bilaterally - Cardiovascular Cardiovascular exam: Present: regular rate, normal rhythm, normal heart sounds - Abdominal Exam Abdominal exam: Present: soft, Non-Tender, normal bowel sounds. Absent: tenderness, distention, guarding, rebound, rigidity, Servin's sign, Rovsing's sign, tenderness at McBurney's Point - Extremities Exam Extremities exam: Present: normal inspection - Back Exam Back exam: Present: normal inspection - Neurological Exam Neurological exam: Present: alert, oriented X3, CN II-XII intact, normal gait - Skin Skin exam: Present: warm, dry, intact, normal color Course Course Narrative: Patient seen and examined at the time of arrival by EMS. See history of present illness. 82-year-old female presents from home at the request of the family for evaluation of altered mentation. Patient has a history of urinary tract infections causing altered mentation. Vital signs on presentation were stable. Patient was alert oriented speaking in full sentences at the time of evaluation. Patient is alert and oriented. Patient denies any pain. She does have some discomfort in her lower extremity which is a chronic healing wound on that side. Physical exam shows atraumatic appearing head. She did not fall or injure herself. She has chronic right-sided ptosis to the online. She has no slurred speech at this point. Pupils are equal round reactive mucous membranes are moist. Trachea is midline. Lungs are clear heart is regular. Abdomen is soft with mild tenderness suprapubically but no guarding or rigidity no peritoneal symptoms. Patient has mild edema in the lower extremities but no signs of significant edema or cellulitic-like presentation this time. Patient is concerning for possible urinary tract infection causing altered mentation. This is a chronic issue for her. The review of the patient's previous microscopy shows multiple resistant bugs as well as significant antibiotic allergies. After consultation with the on-call pharmacist recommendation was for aztreonam percent of control. Disposition will be determined once the workup is completed this time. Patient otherwise is stable. Disposition will be admission to the hospital for further management. Family was informed of the comfortable supine - Reevaluation(s) Reevaluation #1: Patient found to have a urinary tract infection based on labs. CT of the abdomen does show what appears to be a renal mass on the left side with also significant lymphadenopathy. This could be concerning for cancer versus metastases. Vital signs are conservative treatment course and evaluation. Patient is currently clinically stable. Information was conveyed to the family about the new masses. The family is informed of the findings in the CT scan of the abdomen. CT of the head is otherwise unremarkable chest x-ray stable. Antibiotics were started at this time. Hospitalist was contacted for admission. We discussed in detail the presentation with Rogelio Apodaca. Patient admitted this time for further evaluation and management. No other concerns or issues noted this point hemodynamically been stable throughout the course of care patient is found to be anemic. This is worse than previous. No acute bleeding noted based on conversations with family no history of GI bleed. Type and screen was added on. No critical care applied during the treatment course Time: 13:35 Vital Signs Temperature 98.3 F 08/05/17 10:07 Pulse Rate 70 08/05/17 10:07 Respiratory Rate 25 08/05/17 10:07 Blood Pressure 127/108 08/05/17 10:07 O2 Sat by Pulse Oximetry 98 08/05/17 10:07 Temperature 98.3 F 08/05/17 10:07 Pulse Rate 67 08/05/17 11:32 Respiratory Rate 16 08/05/17 11:32 Blood Pressure 159/60 08/05/17 11:32 O2 Sat by Pulse Oximetry 98 08/05/17 11:32 Oxygen Delivery Oxygen Delivery Nasal Cannula Medical Decision Making - MDM Narrative Medical decision making narrative: Urinary tract infection, altered mental status, renal mass anemia - Medical Records Medical records reviewed: Yes I reviewed the patient's medical records. - Lab Data Lab results reviewed: Yes I reviewed the patient's lab results. Result diagrams: 08/05/17 10:37 08/05/17 10:37 Lab Results 08/05/17 08/05/17 08/05/17 Range/Units 10:19 10:22 10:37 WBC 4.6 (4.3-11.1) K/mcL RBC 2.74 L (3.82-4.97) M/mcL Hgb 7.7 L (11.5-15.4) g/dL Hct 26.1 L (35.3-44.9) % MCV 95.3 (83.0-100.0) fL MCH 28.1 (28.0-33.3) pg MCHC 29.5 L (31.6-35.5) g/dL RDW 15.4 H (11.5-14.5) % Plt Count 144 (140-400) K/mcL MPV 10.3 (9.4-12.4) fL Immature Gran % 0.7 (0-4) % Seg Neutrophils % 81.4 % Lymphocytes % 10.5 % Monocytes % 7.0 % Eosinophils % 0.2 % Basophils % 0.2 % Neutrophils # 3.7 (1.6-8.9) K/mcL Lymphocytes # 0.5 L (0.6-4.6) K/mcL Monocytes # 0.3 (0.0-1.3) K/mcL Eosinophils # 0.0 (0.0-0.6) K/mcL Basophils # 0.0 (0.0-0.2) K/mcL Nucleated RBCs/100 WBC 0.4 H (0) /100 WBC ESR (0-15) mm/hr PT (9.4-12.1) Seconds INR APTT (26.0-36.0) Seconds Sodium (136-145) mEq/L Potassium (3.5-5.1) mEq/L Chloride (98-107) mEq/L Carbon Dioxide (23-29) mEq/L BUN (8-23) mg/dL Creatinine (0.60-1.20) mg/dL Est GFR ( Amer) (> 60) Est GFR (Non-Af Amer) (> 60) BUN/Creatinine Ratio (6-26) Glucose (70-105) mg/dL POC Glucose 223 H (58-89) Calculated Osmolality (280-300) Calcium (8.6-10.3) mg/dL Total Bilirubin (0.3-1.0) mg/dL Direct Bilirubin (0.0-0.2) mg/dL Indirect Bilirubin (0.0-1.2) mg/dL AST (13-39) Units/L ALT (7-52) Units/L Alkaline Phosphatase (34-104) Units/L Creatine Kinase (30-223) Units/L Troponin I (< 0.04) ng/mL C-Reactive Protein (Less than 10) mg/L Serum Total Protein (6.4-8.9) g/dL Albumin (3.5-5.7) g/dL Globulin (2.4-3.5) g/dL Albumin/Globulin Ratio (1.1-2.2) Urine Color Yellow (Yellow) Urine Clarity Slightly Hazy (Clear) Urine pH 5.0 (5.0-8.0) pH Units Ur Specific [place] 1.017 (1.010-1.025) Urine Protein Trace (Neg-Trace) mg/dL Urine Glucose (UA) Normal (Normal) mg/dL Urine Ketones Negative (Negative) mg/dL Urine Blood Large H (Negative) Urine Nitrite Positive A (Negative) Urine Bilirubin Negative (Negative) Urine Urobilinogen Normal (Normal) mg/dL Ur Leukocyte Esterase Large H (Negative) Urine Microscopic RBC TNTC H (0-3) per hpf Urine Microscopic WBC TNTC H (0-3) per hpf Ur Squamous Epith Cells Many H (None-Few) per lpf Urine Bacteria Many H (None-Few) per hpf Hyaline Casts Test Not Performed Granular Casts Few H (None Seen) per lpf Ur Culture Indicated? NO. (NO) 08/05/17 08/05/17 08/05/17 Range/Units 10:37 10:37 10:37 WBC (4.3-11.1) K/mcL RBC (3.82-4.97) M/mcL Hgb (11.5-15.4) g/dL Hct (35.3-44.9) % MCV (83.0-100.0) fL MCH (28.0-33.3) pg MCHC (31.6-35.5) g/dL RDW (11.5-14.5) % Plt Count (140-400) K/mcL MPV (9.4-12.4) fL Immature Gran % (0-4) % Seg Neutrophils % % Lymphocytes % % Monocytes % % Eosinophils % % Basophils % % Neutrophils # (1.6-8.9) K/mcL Lymphocytes # (0.6-4.6) K/mcL Monocytes # (0.0-1.3) K/mcL Eosinophils # (0.0-0.6) K/mcL Basophils # (0.0-0.2) K/mcL Nucleated RBCs/100 WBC (0) /100 WBC ESR (0-15) mm/hr PT 12.8 H (9.4-12.1) Seconds INR 1.2 APTT 32.3 (26.0-36.0) Seconds Sodium 138 (136-145) mEq/L Potassium 3.8 (3.5-5.1) mEq/L Chloride 102 (98-107) mEq/L Carbon Dioxide 31 H (23-29) mEq/L BUN 26 H (8-23) mg/dL Creatinine 1.21 H (0.60-1.20) mg/dL Est GFR ( Amer) 52 L (> 60) Est GFR (Non-Af Amer) 42 L (> 60) BUN/Creatinine Ratio 21 (6-26) Glucose 215 H (70-105) mg/dL POC Glucose (58-89) Calculated Osmolality 297 (280-300) Calcium 8.7 (8.6-10.3) mg/dL Total Bilirubin 0.6 (0.3-1.0) mg/dL Direct Bilirubin 0.1 (0.0-0.2) mg/dL Indirect Bilirubin 0.5 (0.0-1.2) mg/dL AST 21 (13-39) Units/L ALT 23 (7-52) Units/L Alkaline Phosphatase 221 H (34-104) Units/L Creatine Kinase 11 L (30-223) Units/L Troponin I 0.03 (< 0.04) ng/mL C-Reactive Protein (Less than 10) mg/L Serum Total Protein 6.2 L (6.4-8.9) g/dL Albumin 3.2 L (3.5-5.7) g/dL Globulin 3.0 (2.4-3.5) g/dL Albumin/Globulin Ratio 1.1 (1.1-2.2) Urine Color (Yellow) Urine Clarity (Clear) Urine pH (5.0-8.0) pH Units Ur Specific [place] (1.010-1.025) Urine Protein (Neg-Trace) mg/dL Urine Glucose (UA) (Normal) mg/dL Urine Ketones (Negative) mg/dL Urine Blood (Negative) Urine Nitrite (Negative) Urine Bilirubin (Negative) Urine Urobilinogen (Normal) mg/dL Ur Leukocyte Esterase (Negative) Urine Microscopic RBC (0-3) per hpf Urine Microscopic WBC (0-3) per hpf Ur Squamous Epith Cells (None-Few) per lpf Urine Bacteria (None-Few) per hpf Hyaline Casts Granular Casts (None Seen) per lpf Ur Culture Indicated? (NO) 08/05/17 08/05/17 Range/Units 10:37 10:37 WBC (4.3-11.1) K/mcL RBC (3.82-4.97) M/mcL Hgb (11.5-15.4) g/dL Hct (35.3-44.9) % MCV (83.0-100.0) fL MCH (28.0-33.3) pg MCHC (31.6-35.5) g/dL RDW (11.5-14.5) % Plt Count (140-400) K/mcL MPV (9.4-12.4) fL Immature Gran % (0-4) % Seg Neutrophils % % Lymphocytes % % Monocytes % % Eosinophils % % Basophils % % Neutrophils # (1.6-8.9) K/mcL Lymphocytes # (0.6-4.6) K/mcL Monocytes # (0.0-1.3) K/mcL Eosinophils # (0.0-0.6) K/mcL Basophils # (0.0-0.2) K/mcL Nucleated RBCs/100 WBC (0) /100 WBC ESR 126 H (0-15) mm/hr PT (9.4-12.1) Seconds INR APTT (26.0-36.0) Seconds Sodium (136-145) mEq/L Potassium (3.5-5.1) mEq/L Chloride (98-107) mEq/L Carbon Dioxide (23-29) mEq/L BUN (8-23) mg/dL Creatinine (0.60-1.20) mg/dL Est GFR ( Amer) (> 60) Est GFR (Non-Af Amer) (> 60) BUN/Creatinine Ratio (6-26) Glucose (70-105) mg/dL POC Glucose (58-89) Calculated Osmolality (280-300) Calcium (8.6-10.3) mg/dL Total Bilirubin (0.3-1.0) mg/dL Direct Bilirubin (0.0-0.2) mg/dL Indirect Bilirubin (0.0-1.2) mg/dL AST (13-39) Units/L ALT (7-52) Units/L Alkaline Phosphatase (34-104) Units/L Creatine Kinase (30-223) Units/L Troponin I (< 0.04) ng/mL C-Reactive Protein 105 H (Less than 10) mg/L Serum Total Protein (6.4-8.9) g/dL Albumin (3.5-5.7) g/dL Globulin (2.4-3.5) g/dL Albumin/Globulin Ratio (1.1-2.2) Urine Color (Yellow) Urine Clarity (Clear) Urine pH (5.0-8.0) pH Units Ur Specific [place] (1.010-1.025) Urine Protein (Neg-Trace) mg/dL Urine Glucose (UA) (Normal) mg/dL Urine Ketones (Negative) mg/dL Urine Blood (Negative) Urine Nitrite (Negative) Urine Bilirubin (Negative) Urine Urobilinogen (Normal) mg/dL Ur Leukocyte Esterase (Negative) Urine Microscopic RBC (0-3) per hpf Urine Microscopic WBC (0-3) per hpf Ur Squamous Epith Cells (None-Few) per lpf Urine Bacteria (None-Few) per hpf Hyaline Casts Granular Casts (None Seen) per lpf Ur Culture Indicated? (NO) - Radiology Data Radiology results reviewed: Yes I reviewed the patient's radiology results. CT of the head is negative for acute pathology. CT the abdomen does show what appears to be renal mass of possible metastases to lymph nodes. No other acute pathology noted. Chest x-ray is unremarkable - EKG Data EKG #1 EKG attestation: Yes I reviewed and interpreted this EKG. EKG results narrative: EKG shows ventricularly paced rhythm. No other acute abnormalities noted.
[2017-08-05] MEDS ORDERED: *HR* FentaNYL (PF) 100 MCG/2 ML VIAL IVP ONE (13:30)
[2017-08-05] MEDS ORDERED: Naloxone 0.4 MG/ML INJ IVP PRN (13:56)
[2017-08-05] MEDS ORDERED: D5% in Water 1,000 ML IVC PRN (14:05)
[2017-08-05] MEDS ORDERED: *HR* Dextrose 50 % in Water (Syg) 50 ML SYRINGE IVP PRN (14:05)
[2017-08-05] MEDS ORDERED: Dextrose Gel 15 GM/37.5 ML TUBE PO PRN ×2 (14:05)
--- NOTE | 2017-08-05 14:40 | Internal Med History&Physical ---
Date of Encounter: 08/05/17 Time of Encounter: 13:30 Assessment and Plan (1) UTI (urinary tract infection) Current visit: Yes Status: Acute Acute on chronic UTI. Pt. reports hx of chronic UTIs and has extensive allergy list to antibiotics. Hx shows susceptibility to aztreonam. IVPB aztreonam started in the ED at 500 mg. We will continue aztreonam IVPB at 1000 mg every 8 for infection coverage and renal dosing. Blood cultures 2, urine reflex micro and culture, and wound culture ordered. Will adjust abx coverage based on culture results. Patient is not currently sepsis criteria will be monitored closely for signs of increasing infection. Pt. discussed w/Dr. Bunch who is in agreement with plan of care. Pt. is high risk for further morbidity based on current AMS and hx of UTIs, U/A indicative of culture, hx, and risk factors. Inpatient. Qualifiers: Urinary tract infection type: site unspecified Hematuria presence: without hematuria Qualified Code(s): N39.0 - Urinary tract infection, site not specified (2) Altered mental status Current visit: Yes Status: Acute Acute AMS most likely related to current UTI diagnosis. On examination, patient is conversational, oriented 3, and able to follow commands. Falls/safety precautions, up with assist only, and bed rest w/bedside commode w/assist only. Qualifiers: Altered mental status type: disorientation Qualified Code(s): R41.0 - Disorientation, unspecified (3) Abnormal CT of the abdomen Current visit: Yes Status: Acute Abonormal CT of the abdomen and pelvis without contrast shows enlarging left lower pole renal mass likely representing renal cell carcinoma until proven otherwise. New and enlarging retroperitoneal lymphadenopathy, left pelvic lymphadenopathy, and worsening right inguinal lymphadenopathy suggesting metastatic disease. Pelvic and bilateral adnexal fluid that may be secondary to the metastatic disease. This is abnormal for a postmenopausal patient of this age. Pt. has hx of lymphadenopathy in 1992 which resulted in need for chemotherapy and removal of lymph nodes. Concern is for returning lymphoma with metastasis. Oncology consult ordered and discussed with Daphne corey and I appreciate consult. (4) Left kidney mass Current visit: Yes Status: Chronic Hx of chronic left kidney mass. CT of the abdomen and pelvis without contrast today shows enlarging left lower pole renal mass likely representing renal cell carcinoma until proven otherwise. Pt. has hx of lymphoma in 1992. Concern is for possible metastasis. Oncology consult ordered and discussed with Daphne corey and I appreciate consult. (5) Cellulitis Current visit: Yes Status: Chronic Hx of chronic cellulitis of LEs. Pt. currently has wound on RLE above outer ankle and states she is being seen by Wound Care. Wound culture ordered. Wound care consult and daily wound care ordered. Patient placed on aztreonam due to extensive antibiotic allergies. Will consider adjusting abx coverage based on culture results. Qualifiers: Site of cellulitis: extremity Site of cellulitis of extremity: lower extremity Laterality: right Qualified Code(s): L03.115 - Cellulitis of right lower limb (6) HTN (hypertension) Current visit: Yes Status: Chronic Hx of chronic HTN. Monitor patient and vital signs. Continue patient's carvedilol and diltiazem. Qualifiers: Hypertension type: essential hypertension Qualified Code(s): I10 - Essential (primary) hypertension (7) HLD (hyperlipidemia) Current visit: Yes Status: Chronic Hx of chronic HLD. Lipid panel in a.m. labs. Pt. is currently not on any statin. Will consider adding Lipitor to medication list based on lipid panel results. Qualifiers: Hyperlipidemia type: pure hypercholesterolemia Qualified Code(s): E78.00 - Pure hypercholesterolemia, unspecified; E78.0 - Pure hypercholesterolemia (8) Atrial fibrillation Current visit: Yes Status: Chronic Hx of chronic atrial fibrillation. Patient currently has a pacemaker/AICD in place. Will continue patient's Plavix. Qualifiers: Atrial fibrillation type: chronic Qualified Code(s): I48.2 - Chronic atrial fibrillation (9) GERD (gastroesophageal reflux disease) Current visit: Yes Status: Chronic Hx of chronic GERD. IVP Zofran 4 mg every 8 for nausea and vomiting. Will continue patient's Zantac. Qualifiers: Esophagitis presence: esophagitis presence not specified Qualified Code(s) : K21.9 - Gastro-esophageal reflux disease without esophagitis (10) CKD (chronic kidney disease) stage 3, GFR 30-59 ml/min Current visit: Yes Status: Chronic Hx of chronic kidney disease, current creatinine is 1.21 and GFR is 42 on admission. Will use IV fluids judiciously and monitor I&O. Will avoid nephrotoxins. (11) Diabetes Current visit: Yes Status: Chronic Hx of chronic diabetes controlled with insulin. Will continue patient's a.m. insulin and add low-dose correction insulin sliding scale and hypoglycemic protocol. BG checks before meals and at bedtime. A1c and a.m. labs. 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 Pt. denies unusual bleeding. Hgb 7.7 and Hct 26.1 on admission today, down from 9.5 and 28.2 on 08/22/16. Fecal hemoccult ordered. Pt. typed and screened in ED. Qualifiers: Anemia type: unspecified type Qualified Code(s): D64.9 - Anemia, unspecified (13) DVT prophylaxis Current visit: Yes Status: Acute Heparin 5,000 units SQ Q8 for DVT prophylaxis. Monitor pt. for signs of bleeding. Internal Medicine - H&P: HPI Chief complaint: AMS/Confusion Admitted From: Emergency Dept Plans for Post Hospital Care: Home History of present illness: Ms. Chatman is a 82 year old female with medical history of arthritis, atrial fibrillation, lymphoma diagnosed in 1992, cardiomyopathy, CHF, COPD, DVT, diabetes controlled with insulin, GERD, HLD, HTN, and chronic kidney disease presents from the ED with chief complaint of altered mental status and confusion for the past day. Patient states she has not been herself for the past 24 hours and is experiencing confusion. Patient states she has a history of lymphoma diagnosed in 1992 for which she took chemotherapy treatments and resulted in removal of several lymph nodes. She also reports history of chronic UTIs and wound to right lower extremity which is being taken care of by wound care presently. Patient reports chronic back pain, instability on her feet d/t back pain, pain in right lower extremity wound, and confusion but denies recent illness, fever, chills, nausea, vomiting, urinary burning or urgency, chest pain, palpitations, changes in vision, headache, cough, shortness of breath, dizziness, lightheadedness, pre-syncope, or syncope. Past Med Surg Social Fam HX - Past Medical History Source: patient, old records reviewed Medical history: arthritis, atrial fibrillation, cancer (Lymphoma dx in 1992), cardiomyopathy, CHF, COPD, DVT, diabetes (Insulin-controlled), GERD, hyperlipidemia, hypertension, renal disease, other Psychiatric history: no psych history - Past Surgical History Surgical History: appendectomy, cancer surgery (Removal of lymph nodes), AICD, pacemaker - Social History Smoking Status: Never smoker Smokeless Tobacco Status: No Alcohol use: none Drug use: none Current living situation: Home Activity Level: Uses cane/walker Recent Out of Country Travel Within the Last 8 Weeks: No Exposure or Possible Exposure to Illness During Travel: No - Family History Brother Race: Family Member Ethnicity: Non- Living Status: Age at : 55 Cause of : CKD Hx Family Cardiac Disorders: Yes (HTN) Hx Family Genitourinary Disorders: Yes (CKD) Father Race: Family Member Ethnicity: Non- Living Status: Age at : 81 Cause of : Cancer (Type unknown) Hx Family Cardiac Disorders: Yes (A-Fib) Hx Family Cancer: Yes (Type unknown) Hx Family Genitourinary Disorders: Yes (CKD) Mother Race: Family Member Ethnicity: Non- Living Status: Age at : 86 Cause of : Old age Hx Family Medical Disorders: No Sister Race: Family Member Ethnicity: Non- Living Status: Cause of : Cancer (Type unknown) Hx Family Cancer: Yes Internal Medicine - H&P: Meds Cilostazol [Pletal] 100 mg PO BID 03/25/15 [History] Clopidogrel [Plavix] 75 mg PO DAILY 03/25/15 [History] Gabapentin [Neurontin] 100 mg PO BID 03/25/15 [History] Oxybutynin Chloride [Ditropan Xl] 5 mg PO DAILY 03/25/15 [History] Ranitidine HCl [Zantac] 150 mg PO BID 03/25/15 [History] Acetaminophen [Tylenol] 1,000 mg PO Q6HR PRN 06/21/16 [History] Carvedilol 12.5 mg PO BID 06/21/16 [History] dilTIAZem HCl [Diltiazem HCl] 90 mg PO TID 06/21/16 [History] Insulin Glargine,Hum.rec.anlog [Basaglar Kwikpen U-100] 30 units SQ QAM [History] Bumetanide [Bumex] 1 mg PO BID 07/28/17 [History] Docusate [Colace] 100 mg PO BID 07/28/17 [History] Insulin LISPRO [HumaLOG] 5 units SQ TIDWM 07/28/17 [History] Sennosides [Senokot] 8.6 mg PO BID 07/28/17 [History] Vit C/E/Zn/Coppr/Lutein/Zeaxan [Preservision Areds 2 Softgel] 1 drop BOTH EYES DAILY 07/28/17 [History] 3 Allergy/AdvReac Type Severity Reaction Status Date / Time EDY Inhibitors Allergy Unknown See Verified 03/04/17 15:01 Comments Amoxicillin Allergy Unknown See Verified 03/04/17 15:01 Comments azithromycin Allergy Unknown See Verified 03/04/17 15:01 Comments cefuroxime Allergy Unknown See Verified 03/04/17 15:01 Comments cephalexin Allergy Unknown See Verified 03/04/17 15:01 Comments Cephalosporins Allergy Unknown See Verified 03/04/17 15:01 Comments clindamycin Allergy Unknown See Verified 03/04/17 15:01 Comments codeine Allergy Unknown See Verified 03/04/17 15:01 Comments furosemide Allergy Unknown See Verified 03/04/17 15:01 Comments hydrocodone Allergy Unknown See Verified 03/04/17 15:01 Comments Penicillins Allergy Unknown See Verified 03/04/17 15:01 Comments prednisone Allergy Unknown Hives Verified 03/04/17 15:01 silver sulfadiazine Allergy Unknown See Verified 03/04/17 15:01 [From Silvadene] Comments Yvuktpq-Zrj-Mco Reductase Allergy Unknown See Verified 03/04/17 15:01 Inhibitor Comments [Statins] Sulfa (Sulfonamide Allergy Unknown See Verified 03/04/17 15:01 Antibiotics) Comments diuretic Allergy Unknown See Uncoded 03/04/17 15:01 Comments All Systems PM: A 10-system review of systems was performed and is negative for pertinent findings except as documented above in the HPI. - Constitutional Constitutional: weakness, no chills, no fever(s), no night sweats - EENT Eyes: no change in vision, no discharge, no pain, no photophobia Ears: no ear discharge, no ear pain, no tinnitus Nose, mouth and throat: no dysphagia, no nasal discharge, no neck pain, no sore throat - Breasts Breasts: as per HPI - Cardiovascular Cardiovascular ROS IM: edema (Chronic in bilateral LEs), irregular heart rhythm (Atrial fibrillation), no chest pain, no diaphoresis, no dyspnea, no lightheadedness, no palpitations, no syncope - Respiratory Respiratory: no cough, no dyspnea, no wheezing, no excessive phlegm production - Gastrointestinal Gastrointestinal: no abdominal pain, no diarrhea, no hematemesis, no hematochezia, no melena, no nausea, no vomiting - Genitourinary Genitourinary: no change in urinary stream, no dysuria, no flank pain, no hematuria Menstruation: as per HPI - Musculoskeletal Musculoskeletal ROS IM: back pain, no numbness, no tingling - Integumentary Integumentary IM: as per HPI, skin ulcer (RLE), no rash, no unusual bruising - Neurological Neurological ROS: as per HPI, confusion, no convulsions, no focal weakness, no numbness, no tingling, no tremor(s) - Psychiatric Psychiatric: as per HPI - Endocrine Endocrine IM: as per HPI - Hematologic/Lymphatic Hematologic/Lymphatic: no easy bruising - Allergic/Immunologic Allergic/Immunologic: as per HPI - Constitutional Vitals: Temp Pulse Resp BP Pulse Ox 98.7 F 66 22 152/68 99 08/05/17 14:33 08/05/17 13:16 08/05/17 14:33 08/05/17 14:33 08/05/17 13:16 General appearance: Present: cooperative, mild distress (D/t back pain and pain in RLE), A&O X 3, pleasant, obese, answers questions appropriately - Head Head exam: Present: atraumatic, normocephalic - Eye Eye exam: Present: PERRL, conjuntiva pink, sclera anicteric Pupils: Present: PERRL Additional comments: Left eye slightly droops as does left side of mouth. Pt. denies hx of CVA or TIAs and states she has had these for several years. - ENT ENT exam: Present: normal exam - Neck Neck exam general surgery: Present: supple, trachea midline. Absent: lymphadenopathy - Respiratory Respiratory exam: Present: CTAB. Absent: accessory muscle use, rales, rhonchi, wheezes - Cardiovascular Cardiovascular exam: Present: irregular rhythm - GI/Abdominal GI/Abdominal exam: Present: normal bowel sounds, soft, no peritoneal signs. Absent: distended, tenderness - Rectal Rectal exam: Present: deferred - Additional comments: exam deferred. - Extremities Exam Extremities exam: Present: pedal edema, warm, radial pulses palpable and symmetrical. Absent: calf tenderness, cyanotic - Back Exam Back exam: Present: normal inspection - Neurological Exam Neurological exam: Present: CN II-XII intact, oriented X3, no focal deficits, facial droop (Mild left-sided at mouth and left eye which pt. reports as present for years). Absent: pronater drift, speech deficit - Psychiatric Psychiatric exam: Present: normal affect, normal mood - Skin Skin exam: Present: dry, intact Internal Med - H&P Results - Labs CBC & Chem 7: 08/05/17 10:37 08/05/17 10:37 - EKG Data Prior EKG available for review: yes Interpretation IM: suggestive of ischemia EKG comments: 08/05/17 14:47 EKG dated 12/24/16 shows electronic ventricular pacemaker and abnormal rhythm ECG. EKG dated 08/05/17 shows uncertain irregular rhythm, electronic ventricular pacemaker (contour analysis based on intrinsic rhythm), marked left axis deviation, intraventricular conduction delay, and possible anterior myocardial infarction of indeterminate age. - Diagnostic Studies Chest x-ray Additional comments: Impressions Chest X-Ray 08/05/17 10:12 IMPRESSION: No acute process. D/ / Collins Jonas MD / Collins Jonas MD Interpreting Provider: Collins Jonas MD CT scan - abdomen Additional comments: Impressions Abdomen/Pelvis CT 08/05/17 10:13 IMPRESSION: Enlarging left lower pole renal mass likely representing renal cell carcinoma until proven otherwise. New and enlarging retroperitoneal lymphadenopathy, left pelvic lymphadenopathy and worsening right inguinal lymphadenopathy suggesting metastatic disease. New pelvic and bilateral adnexal fluid that may be secondary to the metastatic disease. This is abnormal for a postmenopausal patient of this age. Cholelithiasis without evidence of acute cholecystitis. Likely nonobstructing stones in the lower pole of the right kidney. Calcifications in the left kidney that may represent residual contrast from recent contrast administration versus multiple nonobstructing lower pole renal stones/developing staghorn calculi. The findings were sent to the Radiology Results Communication [facility] at 11:46 am on 08/05/2017to be communicated to a licensed caregiver. D/ / 08/05/2017 12:05:20 Krunal Bishop MD / chante Interpreting Provider: Krunal Bishop MD CT scan - head Additional comments: Impressions Head CT 08/05/17 10:13 IMPRESSION: No acute intracranial abnormality. Parenchymal volume loss and sequela of mild chronic microvascular ischemic changes. D/ / Nathalie Carter MD / Nathalie Carter MD Interpreting Provider: Nathalie Carter MD Other Images Additional comments: Impressions Ankle X-Ray 08/05/17 10:14 IMPRESSION: Moderate to severe osteopenia limits detection of subtle abnormalities. Chronic changes involving the distal tibia and fibula are noted without definite acute abnormality. There is increased soft tissue swelling greater on the lateral aspect of the ankle compared to the prior study. MRI would be more sensitive for evaluation for osteomyelitis. D/ / 08/05/2017 11:38:41 Dustin Kingston MD / chante Interpreting Provider: Dustin Kingston MD
--- NOTE | 2017-08-05 16:10 | Oncology Inp Consult Note ---
<Daphne Jimenes L - Last Filed: 08/06/17 11:13> Date of Encounter: 08/06/17 Time of Encounter: 16:06 Assessment and Plan (1) Non-Hodgkin lymphoma Status: Chronic Assessment and plan: New CT findings as discussed in detail per HPI concerning for potential lymphoma recurrence, renal cell carcinoma or other new primary. Discussed new CT findings with patient. She explained to me that she had been in Hospice previously until some time ago when she was found not eligible for Hospice care and transitioned to Home Health Care. She is somewhat unhappy with the care she receives in home health and prefers hospice care which she was placed in for her advanced COPD. She is now pursuing ECF placement. She lives alone with close family support nearby. I discussed further options given the above CT findings, which may include biopsy and discussion on treatment options following. She states she is not interested in biopsy or treatment options and wishes to pursue hospice care. I asked her to think about this option and to speak further with her family and Dr. Leggett but she seems as though she is pretty set on hospice care. She understands that her CT findings are concerning for malignancy (no definite diagnosis without biopsy) which if left untreated will led to life threatening circumstances. Recommend Palliative Care consult. Please refer to Dr. Luna attestation below for further details. Qualifiers: Non-Hodgkin lymphoma type: unspecified type Lymphoma site: unspecified region Qualified Code(s): C85.90 - Non-Hodgkin lymphoma, unspecified, unspecified site (2) Hereditary hemochromatosis Status: Chronic Assessment and plan: History as per HPI. Interestingly, her iron levels and ferritin are low at this time despite the fact that she is not on chelating agent or required phlebotomy in quite some time, these levels can be considered therapeutic given her diagnosis of homozygous hemochromatosis. Would NOT recommend iron replacement given her history. (3) Anemia Status: Chronic Assessment and plan: Hgb decreased further to 6.8. She denies s/s of bleeding such as hematochezia, hematuria or hematemesis. D/w hospitalist-she is arranged to receive 2 units PRBC No iron replacement given her history as discussed above. Folate and B12 normal. Uric acid is elevated however LDH is low and haptoglobin normal indicating hemolysis is unlikely. Qualifiers: Anemia type: unspecified type Qualified Code(s): D64.9 - Anemia, unspecified - Data of Consult Patient: known to practice within the last 3 years Consult date: 08/05/17 Requesting Physician: Dre Manzo Primary Care Provider: Jamarcus Pedro - Consult Narrative Reason for consult: Enlarging left lower pole renal mass, lymphadenopathy History of present illness: Ms. 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 Previous patient of Dr. Orourke and last followed up in February 2017. At that time it was mutually decided to stop surveillance visits as patient was currently enrolled in hospice for her advanced COPD. Oncologic history: On 10/04/10 right axillary biopsy confirmed diffuse large B-cell lymphoma. She received Cytoxan, MANAGER FLOAT-16, procarbazine and prednisone combination. Adriamycin was not used due to previous therapy and underlying cardiac disease. Treatment was complicated by neutropenic sepsis despite Neulasta and required admission to ICU. She was unable to resume chemotherapy due to prolonged convalescence and serial imaging over a year and a half show considerable disease control without treatment. She was not a candidate for aggressive chemotherapy due to her poor performance status and extensive medical comorbidities and had a slow steady road to recovery. Previous noncontrast CT's show finding of an indeterminate but suspicious lower pole mass of left kidney. She underwent kidney ultrasound which confirmed a 4.1 cm solid mass in the lower pole of left kidney radiographically compatible with renal cell carcinoma. PET/CT on 07/12/15 was negative for hypermetabolic activity in the neck, chest, abdomen, and pelvis. She did have a prominent right inguinal lymph node measuring up to 1.7 cm that demonstrated no FDG uptake. Contour deformity in the lower pole of the left kidney is again felt to be suspicious for kidney neoplasm but was stable to comparison images back to October 2014. Despite the duration of her diagnosis of primary myelofibrosis fibrosis she has not developed any significant cytopenias or any evidence of burn out myelofibrosis process which is a typical progression and the natural history of myelofibrosis in general. Due to this is a blood previous treating oncologist Dr. Alvares, to question her diagnosis of myelofibrosis based upon this. She is known homozygous for hemachromatosis gene and has had ferritin is high 70 ,000 in the past. Her ferritin gradually decreased without specific chelating therapy. She has not had any phlebotomy in the last several years and has been on surveillance. Most recent imaging obtained during current hospital stay: CT of the abdomen and pelvis without contrast 08/05/2017 reveals enlarging left lower pole renal mass likely representing renal cell carcinoma until proven otherwise. New enlarging retroperitoneal lymphadenopathy, left pelvic lymphadenopathy and worsening right inguinal lymphadenopathy suggesting metastatic disease. Pelvic and bilateral adnexal fluid that may be secondary to metastatic disease. Cholelithiasis. Nonobstructing stones in the lower pole of the right kidney. CT head negative for acute abnormality. CXR negative for mass or sign of metastatic disease. Past Med Surg Social Fam HX - Past Medical History Medical history: arthritis, atrial fibrillation, cancer (Lymphoma dx in 1992), cardiomyopathy, CHF, COPD, DVT, diabetes (Insulin-controlled), GERD, hyperlipidemia, hypertension, renal disease, other Psychiatric history: no psych history - Past Surgical History Surgical History: appendectomy, cancer surgery (Removal of lymph nodes), AICD, pacemaker - Social History Smoking Status: Never smoker Smokeless Tobacco Status: No Alcohol use: none Drug use: none - Family History Brother Race: Family Member Ethnicity: Non- Living Status: Age at : 55 Cause of : CKD Hx Family Cardiac Disorders: Yes (HTN) Hx Family Respiratory Disorders: No Hx Family Cancer: Yes Hx Family GI Disorders: No Hx Family Genitourinary Disorders: Yes (CKD) Hx Family Endocrine Disorder: No Hx Family Neuromuscular Disorders: No Hx Family Neurologic Disorders: No Hx Family HEENT Disorders: No Hx Family Autoimmune Disorders: No Father Race: Family Member Ethnicity: Non- Living Status: Age at : 81 Cause of : Cancer (Type unknown) Hx Family Cardiac Disorders: Yes (A-Fib) Hx Family Respiratory Disorders: No Hx Family Cancer: Yes (Type unknown) Hx Family GI Disorders: No Hx Family Genitourinary Disorders: Yes (CKD) Hx Family Endocrine Disorder: No Hx Family Neuromuscular Disorders: No Hx Family Neurologic Disorders: No Hx Family HEENT Disorders: No Hx Family Autoimmune Disorders: No Mother Race: Family Member Ethnicity: Non- Living Status: Age at : 86 Cause of : Old age Hx Family Medical Disorders: No Sister Race: Family Member Ethnicity: Non- Living Status: Cause of : Cancer (Type unknown) Hx Family Cancer: Yes Medications and Allergies Cilostazol [Pletal] 100 mg PO BID 03/25/15 [History] Clopidogrel [Plavix] 75 mg PO DAILY 03/25/15 [History] Gabapentin [Neurontin] 100 mg PO BID 03/25/15 [History] Oxybutynin Chloride [Ditropan Xl] 5 mg PO DAILY 03/25/15 [History] Ranitidine HCl [Zantac] 150 mg PO BID 03/25/15 [History] Acetaminophen [Tylenol] 1,000 mg PO Q6HR PRN 06/21/16 [History] Carvedilol 12.5 mg PO BID 06/21/16 [History] dilTIAZem HCl [Diltiazem HCl] 90 mg PO TID 06/21/16 [History] Insulin Glargine,Hum.rec.anlog [Basaglar Kwikpen U-100] 30 units SQ QAM [History] Bumetanide [Bumex] 1 mg PO BID 07/28/17 [History] Docusate [Colace] 100 mg PO BID 07/28/17 [History] Insulin LISPRO [HumaLOG] 5 units SQ TIDWM 07/28/17 [History] Sennosides [Senokot] 8.6 mg PO BID 07/28/17 [History] Vit C/E/Zn/Coppr/Lutein/Zeaxan [Preservision Areds 2 Softgel] 1 drop BOTH EYES DAILY 07/28/17 [History] 3 Allergy/AdvReac Type Severity Reaction Status Date / Time EDY Inhibitors Allergy Unknown See Verified 03/04/17 15:01 Comments Amoxicillin Allergy Unknown See Verified 03/04/17 15:01 Comments azithromycin Allergy Unknown See Verified 03/04/17 15:01 Comments cefuroxime Allergy Unknown See Verified 03/04/17 15:01 Comments cephalexin Allergy Unknown See Verified 03/04/17 15:01 Comments Cephalosporins Allergy Unknown See Verified 03/04/17 15:01 Comments clindamycin Allergy Unknown See Verified 03/04/17 15:01 Comments codeine Allergy Unknown See Verified 03/04/17 15:01 Comments furosemide Allergy Unknown See Verified 03/04/17 15:01 Comments hydrocodone Allergy Unknown See Verified 08/29/17 15:01 Comments Penicillins Allergy Unknown See Verified 03/04/17 15:01 Comments prednisone Allergy Unknown Hives Verified 03/04/17 15:01 silver sulfadiazine Allergy Unknown See Verified 03/04/17 15:01 [From Silvadene] Comments Qzivygz-Jkj-Axg Reductase Allergy Unknown See Verified 03/04/17 15:01 Inhibitor Comments [Statins] Sulfa (Sulfonamide Allergy Unknown See Verified 03/04/17 15:01 Antibiotics) Comments diuretic Allergy Unknown See Uncoded 03/04/17 15:01 Comments Constitutional: Present: weakness. Absent: chills, fever(s), weight loss Eyes: Absent: change in vision Nose, mouth and throat: Absent: headache(s) Cardiovascular: Absent: chest pain, irregular heart rhythm, palpitations Respiratory: Present: dyspnea on exertion. Absent: cough, chest congestion Gastrointestinal: Absent: abdominal pain, dysphagia, melena, nausea, vomiting Genitourinary: Absent: difficulty urinating, dysuria, hematuria Musculoskeletal: Present: back pain, muscle weakness, myalgias. Absent: numbness, tingling Integumentary: Absent: wounds Neurological: Absent: loss of vision, paresthesias Hematologic/Lymphatic: Absent: easy bleeding, lymphadenopathy Oncology - Exam - Constitutional Vitals: Temp Pulse Resp BP Pulse Ox 98.6 F 71 16 135/63 99 08/05/17 14:51 08/05/17 14:51 08/05/17 14:51 08/05/17 14:51 08/05/17 14:51 General appearance: cooperative, no acute distress, no febrile - Head Head exam: Present: atraumatic - Respiratory Respiratory exam: Present: decreased breath sounds, CTAB - Cardiovascular Cardiovascular exam: Present: RRR, +S1, +S2 - GI/Abdominal GI/Abdominal exam: Present: normal bowel sounds, soft. Absent: guarding, tenderness - Extremities Exam Extremities exam: Present: pedal edema. Absent: calf tenderness - Neurological Exam Neurological exam: Present: alert, oriented X3, no focal deficits, strengths equal and symetr throughout - Psychiatric Psychiatric exam: Present: normal affect, normal mood - Skin Skin exam: Present: pallor, warm Consult Discharge Plan - Plan Referrals: Jamarcus Pedro DO [Primary Care Provider] - <Rey Hung - Last Filed: 08/06/17 12:40> Date of Encounter: 08/06/17 - Data of Consult Requesting Physician: Johnny Bunch Primary Care Provider: Jamarcus Pedro - Consult Narrative History of present illness: Ms. Chatman is a 82 year old female with above medical/oncological history who was seen bedside this AM. She has minimal abdominal discomfort, imaging results reviewed with her. She had not chosen to continue with chemotherapy previously and she does not want treatment for lymphadenopathy/possible lymphoma recurrence currently. She does not want to pursue with a lymph node biopsy to confirm diagnosis of lymphoma or carcinoma. Palliative care consult and additional hospice support if she is discharged to [facility] upon discharge recommended. PRBC for anemia/improve symptoms. I examined this patient and my medical decision-making was reviewed with the Advanced Practice Nurse, Daphne Jimenes. I agree with the documented findings, disposition and treatment plan as described except to the extent set forth below. Oncology - Exam - Constitutional Vitals: Temp Pulse Resp BP Pulse Ox 99.0 F 65 16 138/66 98 08/06/17 07:47 08/06/17 07:47 08/06/17 07:47 08/06/17 07:47 08/06/17 07:47 Oncology - Results Labs: Short CBC 08/06/17 Range/Units 05:25 WBC 2.7 L (4.3-11.1) K/mcL Hgb 6.7 L (11.5-15.4) g/dL Hct 22.8 L (35.3-44.9) % Plt Count 124 L (140-400) K/mcL Neutrophils # 1.8 (1.6-8.9) K/mcL BMP 08/06/17 05:25 Sodium 140 Potassium 3.8 Chloride 104 Carbon Dioxide 31 H BUN 27 H Creatinine 1.17 Glucose 158 H Calcium 8.0 L Liver Function 08/06/17 Range/Units 05:25 Total Bilirubin 0.4 (0.3-1.0) mg/dL AST 14 (13-39) Units/L ALT 17 (7-52) Units/L Alkaline Phosphatase 183 H (34-104) Units/L Albumin 2.7 L (3.5-5.7) g/dL
[2017-08-05] MEDS: Insulin LISPRO 300 UNITS/3 ML VIAL SQ SCH ×2 (17:04→22:36)
[2017-08-05] MEDS: Aztreonam 1,000 MG in Water for inj. (sterile) 20 ML 10 ML IVP SCH ×2 (17:05→23:28)
[2017-08-05 18:24] LABS: Uric Acid 10.8 mg/dL (2.3-7.6)
[2017-08-05 18:41] LABS: Folate 20.4 ng/mL (3.0-16.0)
--- NOTE | 2017-08-05 19:50 | Electrocardiograph Report ---
[address] [address] Test Date: 2017-08-05 Pat Name: Rosa Chatman Department: 104 Room: 3B Gender: F Faculty I On Call Medical Assistant: : [id number] Requested By: Nikko Olivera Order Number: [id number] Reading MD: Kylie Garcia Measurements Intervals [place] Rate: 63 P: 105 KS: 162 QRS: -44 QRSD: 138 T: 192 QT: 420 QTc: 428 Interpretive Statements ELECTRONIC VEN[employer]ICULAR PACEMAKER Electronically Signed On 08-05-2017 19:48:39 EST by Kylie Garcia
--- NOTE | 2017-08-05 20:18 | Event Note ---
Date of Encounter: 08/05/17 Time of Encounter: 18:00 Discussed with DARYL and agree with assessment and plan Treat UTI with Aztreonam due to allergies; AMS already improving on exam Hem-onc c/s due to history and CT findings
[2017-08-05] MEDS: Bumetanide 1 MG TABLET PO SCH (21:53)
[2017-08-05] MEDS: Gabapentin 100 MG CAPSULE PO SCH (21:53)
[2017-08-05] MEDS: Famotidine 20 MG TABLET PO SCH (21:53)
[2017-08-05] MEDS: Sennosides 8.6 MG TABLET PO SCH (21:53)
[2017-08-05] MEDS: *HR* Heparin 5,000 UNIT/ML VIAL SQ SCH (21:54)
[2017-08-06] MEDS: *HR* Heparin 5,000 UNIT/ML VIAL SQ SCH (05:16)
[2017-08-06 05:37] LABS: Hemoglobin A1C 6.1 %
[2017-08-06 05:38] LABS: Basophils % 0.4 %; Eosinophils % 0.4 %; Hematocrit 22.8 % (35.3-44.9); Hemoglobin 6.7 g/dL (11.5-15.4); Immature Granulocytes % 0.4 % (0-4); Lymphocytes # 0.5 K/mcL (0.6-4.6); Lymphocytes % 20.2 %; Mean Corpuscular HGB Conc 29.4 g/dL (31.6-35.5); Mean Corpuscular Hemoglobin 27.9 pg (28.0-33.3); Monocytes # 0.3 K/mcL (0.0-1.3); Monocytes % 11.2 %; Neutrophils # 1.8 K/mcL (1.6-8.9); Nucleated Red Blood Cells 0.7 /100 WBC (0); Platelet Count 124 K/mcL (140-400); Red Cell Distribution Width 15.3 % (11.5-14.5); Segmented Neutrophils % 67.4 %
[2017-08-06 05:54] LABS: Albumin 2.7 g/dL (3.5-5.7); Bilirubin,Total 0.4 mg/dL (0.3-1.0); Chol/HDL Ratio 5.6 (0-4.9); Globulin 2.7 g/dL (2.4-3.5); Magnesium 1.7 mg/dL (1.6-2.6); Potassium 3.8 mEq/L (3.5-5.1); Total Protein 5.4 g/dL (6.4-8.9)
[2017-08-06] MEDS: Aztreonam 1,000 MG in Water for inj. (sterile) 20 ML 10 ML IVP SCH ×3 (09:11→22:50)
[2017-08-06] MEDS: Insulin LISPRO 300 UNITS/3 ML VIAL SQ SCH ×4 (09:12→20:55)
[2017-08-06] MEDS: Sennosides 8.6 MG TABLET PO SCH ×2 (09:12→20:57)
[2017-08-06] MEDS: Bumetanide 1 MG TABLET PO SCH ×2 (09:12→17:26)
[2017-08-06] MEDS: Famotidine 20 MG TABLET PO SCH ×2 (09:13→20:54)
[2017-08-06] MEDS: Multivit/Ca/Min/Fe/FA 1 TAB TABLET PO SCH (09:13)
[2017-08-06] MEDS: Gabapentin 100 MG CAPSULE PO SCH ×2 (09:13→20:54)
[2017-08-06] MEDS: Insulin DETEMIR 100 UNIT/ML X5UNITS SQ SCH (09:20)
--- NOTE | 2017-08-06 10:11 | Palliative Progress Note ---
Date of Encounter: 08/06/17 Time of Encounter: 09:45 - Time Spent With Patient Total time spent is greater than 50% in coordination of care (as documented) at patient's floor/unit and/or counseling patient: - Subjective Interval history: Patient is an 82-year-old female with a history of A. fib, arthritis and lymphoma diagnosed in 1992 when into hospice for COPD Dr. any further treatment on the lymphoma in 2017. She was discharged from hospice to no progression in her COPD and transferred to home health care. The patient tells me that she has not done well with home health care, and would like to return to hospice. She has expressed this to oncology's well as her primary care team. He should not state that she had not been herself further hospital 24 hours prior to admission increasing confusion and unable to get around the house. She states that she did not fall but felt like she was going to do great deal more difficulty with her activities of daily living. He is a history of chronic UTIs and a wound to her right lower extremity which is teeming taking care of by wound care presently. She has chronic back pain and overall instability on her feet. Patient does live alone currently. She has been diagnosed with a urinary tract infection for which she is eating IV antibiotics. Patient is interested in rehabilitation at either [facility] or [facility] and then at the end of rehabilitation like to transition to hospice care. Hospice care is requested due to the fact the patient has been identified now is having a renal mass which is extremely concerning for renal cell carcinoma patient does not wish to have this worked up or treated. sHe wishes to pursue him for only measures with [facility]. Although the patient has had an altered mental status at this time she is awake alert and able to give a good history. She complains of pain in her right ankle where she has a chronic lowly healing ulcer which is completely wrapped at this time pain which she describes as being a deep achy pain but better with rest and better with medications. Its worst is probably 7-8/10 at its best it goes down to 0-1. He is made better with rest and meds. Does not radiate outside of her back and is already noted is exacerbated by movement. - Constitutional Vitals: Abnormal lab results WBC 2.7 K/mcL (4.3-11.1) L 08/06/17 05:25 RBC 2.40 M/mcL (3.82-4.97) L 08/06/17 05:25 Hgb 6.7 g/dL (11.5-15.4) L 08/06/17 05:25 Hct 22.8 % (35.3-44.9) L 08/06/17 05:25 MCH 27.9 pg (28.0-33.3) L 08/06/17 05:25 MCHC 29.4 g/dL (31.6-35.5) L 08/06/17 05:25 RDW 15.3 % (11.5-14.5) H 08/06/17 05:25 Plt Count 124 K/mcL (140-400) L 08/06/17 05:25 Lymphocytes # 0.5 K/mcL (0.6-4.6) L 08/06/17 05:25 Nucleated RBCs/100 WBC 0.7 /100 WBC (0) H 08/06/17 05:25 ESR 126 mm/hr (0-15) H 08/05/17 10:37 PT 12.8 Seconds (9.4-12.1) H 08/05/17 10:37 Carbon Dioxide 31 mEq/L (23-29) H 08/06/17 05:25 BUN 27 mg/dL (8-23) H 08/06/17 05:25 Est GFR ( Amer) 54 (> 60) L 08/06/17 05:25 Est GFR (Non-Af Amer) 44 (> 60) L 08/06/17 05:25 Glucose 158 mg/dL (70-105) H 08/06/17 05:25 POC Glucose 222 (58-89) H 08/05/17 22:16 Hemoglobin A1c 6.1 % (-5.6) H 08/06/17 05:25 Uric Acid 10.8 mg/dL (2.3-7.6) H 08/05/17 17:42 Calcium 8.0 mg/dL (8.6-10.3) L 08/06/17 05:25 Iron 13 mcg/dL (50-170) L 08/05/17 17:42 % Saturation 6 % (15-50) L 08/05/17 17:42 Transferrin 165 mg/dL (203-362) L 08/05/17 17:42 Alkaline Phosphatase 183 Units/L (34-104) H 08/06/17 05:25 Lactate Dehydrogenase 122 Units/L (140-271) L 08/05/17 17:42 Creatine Kinase 11 Units/L (30-223) L 08/05/17 10:37 C-Reactive Protein 105 mg/L (Less than 10) H 08/05/17 10:37 Serum Total Protein 5.4 g/dL (6.4-8.9) L 08/06/17 05:25 Albumin 2.7 g/dL (3.5-5.7) L 08/06/17 05:25 Albumin/Globulin Ratio 1.0 (1.1-2.2) L 08/06/17 05:25 HDL Cholesterol 24 mg/dL (40-59) L 08/06/17 05:25 Cholesterol/HDL Ratio 5.6 (0-4.9) H 08/06/17 05:25 Folate 20.4 ng/mL (3.0-16.0) H 08/05/17 17:42 Urine Blood Large (Negative) H 08/05/17 10:19 Urine Nitrite Positive (Negative) A 08/05/17 10:19 Ur Leukocyte Esterase Large (Negative) H 08/05/17 10:19 Urine Microscopic RBC TNTC per hpf (0-3) H 08/05/17 10:19 Urine Microscopic WBC TNTC per hpf (0-3) H 08/05/17 10:19 Ur Squamous Epith Cells Many per lpf (None-Few) H 08/05/17 10:19 Urine Bacteria Many per hpf (None-Few) H 08/05/17 10:19 Granular Casts Few per lpf (None Seen) H 08/05/17 10:19 Palliative Quality Code Status: 08/05/17 13:56 Resuscitation Status: Active [RES] Routine Resuscitation Status: [id number] Comment: - Labs CBC & Chem 7: 08/06/17 05:25 08/06/17 05:25 Labs: Laboratory Results - last 24 hr 08/05/17 08/05/17 08/05/17 17:42 17:42 22:16 WBC RBC Hgb Hct MCV MCH MCHC RDW Plt Count MPV Immature Gran % Seg Neutrophils % Lymphocytes % Monocytes % Eosinophils % Basophils % Neutrophils # Lymphocytes # Monocytes # Eosinophils # Basophils # Nucleated RBCs/100 WBC Sodium Potassium Chloride Carbon Dioxide BUN Creatinine Est GFR ( Amer) Est GFR (Non-Af Amer) BUN/Creatinine Ratio Glucose POC Glucose 222 H Est Mean Plasma Glucose Hemoglobin A1c Calculated Osmolality Uric Acid 10.8 H Calcium Magnesium Iron 13 L % Saturation 6 L Transferrin 165 L Ferritin 32 Total Bilirubin AST ALT Alkaline Phosphatase Lactate Dehydrogenase 122 L Serum Total Protein Albumin Globulin Albumin/Globulin Ratio Triglycerides Cholesterol LDL Cholesterol, Calc VLDL Cholesterol, Calc HDL Cholesterol Cholesterol/HDL Ratio Vitamin B12 732 Folate 20.4 H 08/06/17 08/06/17 08/06/17 05:25 05:25 05:25 WBC 2.7 L RBC 2.40 L Hgb 6.7 L Hct 22.8 L MCV 95.0 MCH 27.9 L MCHC 29.4 L RDW 15.3 H Plt Count 124 L MPV 11.0 Immature Gran % 0.4 Seg Neutrophils % 67.4 Lymphocytes % 20.2 Monocytes % 11.2 Eosinophils % 0.4 Basophils % 0.4 Neutrophils # 1.8 Lymphocytes # 0.5 L Monocytes # 0.3 Eosinophils # 0.0 Basophils # 0.0 Nucleated RBCs/100 WBC 0.7 H Sodium 140 Potassium 3.8 Chloride 104 Carbon Dioxide 31 H BUN 27 H Creatinine 1.17 Est GFR ( Amer) 54 L Est GFR (Non-Af Amer) 44 L BUN/Creatinine Ratio 23 Glucose 158 H POC Glucose Est Mean Plasma Glucose 128 Hemoglobin A1c 6.1 H Calculated Osmolality 298 Uric Acid Calcium 8.0 L Magnesium 1.7 Iron % Saturation Transferrin Ferritin Total Bilirubin 0.4 AST 14 ALT 17 Alkaline Phosphatase 183 H Lactate Dehydrogenase Serum Total Protein 5.4 L Albumin 2.7 L Globulin 2.7 Albumin/Globulin Ratio 1.0 L Triglycerides 146 Cholesterol 135 LDL Cholesterol, Calc 82 VLDL Cholesterol, Calc 29 HDL Cholesterol 24 L Cholesterol/HDL Ratio 5.6 H Vitamin B12 Folate - ABG Interpretation ABG results: PT/INR, D-dimer PT 12.8 Seconds (9.4-12.1) H 08/05/17 10:37 Consult Discharge Plan - Plan Referrals: Jamarcus Pedro DO [Primary Care Provider] -
--- NOTE | 2017-08-06 10:14 | Palliative - Consult Note ---
Date of Encounter: 08/06/17 Time of Encounter: 09:45 - Assessment and Plan (1) Goals of care, counseling/discussion Current Visit: Yes Status: Acute Assessment and plan: Patient initially was full code, after discussion patient wishes to be DNR CCA, DNI. Goals of care patient would like to be back in hospice. Given the fact patient has a new renal mass which is extremely concerning for cell carcinoma, he does not wish to be worked up for it nor does she wish to pursue treatment for it. Patient is already stopped treatment for her lymphoma. She also still has COPD, she just was not showing any ration of disease. Given the new diagnoses in addition to the COPD the patient would be hospice eligible. Patient would likely back with [facility] this is what she had before and she was very happy with service. The mean time patient would like to go to a skilled nursing for rehabilitation and not afford it. She will need to go skilled. Her choices are [facility] and then she like to transition to [facility] at home after her change after her stay in the skilled nursing. (2) Abnormal CT of the abdomen Current Visit: Yes Status: Acute (3) Altered mental status Current Visit: Yes Status: Acute Assessment and plan: This has cleared. There is very clear that this was related back to her urinary tract infection which is being aggressively treated by the hospitalist team. Qualifiers: Altered mental status type: disorientation Qualified Code(s): R41.0 - Disorientation, unspecified (4) UTI (urinary tract infection) Current Visit: Yes Status: Acute Assessment and plan: On antibiotics, mental status has cleared markedly. Plan per hospitalist team Qualifiers: Urinary tract infection type: site unspecified Hematuria presence: without hematuria Qualified Code(s): N39.0 - Urinary tract infection, site not specified (5) Malignant lymphoma Current Visit: No Status: Chronic Assessment and plan: Patient has stopped any further treatment for the mid-leg lymphoma in February of last year due to being in hospice. Currently been discharged from hospice due to the fact that she is not progressing with her COPD. Does not wish to restart therapy for the malignant lymphoma. But would like to re-pursue hospice. I believe given the new mass on her kidney that is very concerning for renal cell carcinoma in addition to her other comorbidities I believe that she is hospice eligible and would be taken back into [facility] after she finishes her rehabilitation. 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 Chatman is a 82 year old female Patient is an 82-year-old female with a history of A. fib, arthritis and lymphoma diagnosed in 1992 when into hospice for COPD Dr. any further treatment on the lymphoma in 2017. She was discharged from hospice to no progression in her COPD and transferred to home health care. The patient tells me that she has not done well with home health care, and would like to return to hospice. She has expressed this to oncology's well as her primary care team. He should not state that she had not been herself further hospital 24 hours prior to admission increasing confusion and unable to get around the house. She states that she did not fall but felt like she was going to do great deal more difficulty with her activities of daily living. He is a history of chronic UTIs and a wound to her right lower extremity which is teeming taking care of by wound care presently. She has chronic back pain and overall instability on her feet. Patient does live alone currently. She has been diagnosed with a urinary tract infection for which she is eating IV antibiotics. Patient is interested in rehabilitation at either [facility] or [facility] and then at the end of rehabilitation like to transition to hospice care. Hospice care is requested due to the fact the patient has been identified now is having a renal mass which is extremely concerning for renal cell carcinoma patient does not wish to have this worked up or treated. sHe wishes to pursue him for only measures with [facility]. Although the patient has had an altered mental status at this time she is awake alert and able to give a good history. She complains of pain in her right ankle where she has a chronic lowly healing ulcer which is completely wrapped at this time pain which she describes as being a deep achy pain but better with rest and better with medications. Its worst is probably 7-8/10 at its best it goes down to 0-1. He is made better with rest and meds. Does not radiate outside of her back and is already noted is exacerbated by movement. CC: Johnny Bunch ams/uti Past Med Surg Social Fam HX - Past Medical History Medical history: arthritis, atrial fibrillation, cancer (Lymphoma dx in 1992), cardiomyopathy, CHF, COPD, DVT, diabetes (Insulin-controlled), GERD, hyperlipidemia, hypertension, renal disease, other Psychiatric history: no psych history - Past Surgical History Surgical History: appendectomy, cancer surgery (Removal of lymph nodes), AICD, pacemaker - Social History Smoking Status: Never smoker Smokeless Tobacco Status: No Alcohol use: none Drug use: none - Family History Brother Race: Family Member Ethnicity: Non- Living Status: Age at : 55 Cause of : CKD Hx Family Cardiac Disorders: Yes (HTN) Hx Family Respiratory Disorders: No Hx Family Cancer: Yes Hx Family GI Disorders: No Hx Family Genitourinary Disorders: Yes (CKD) Hx Family Endocrine Disorder: No Hx Family Neuromuscular Disorders: No Hx Family Neurologic Disorders: No Hx Family HEENT Disorders: No Hx Family Autoimmune Disorders: No Father Race: Family Member Ethnicity: Non- Living Status: Age at : 81 Cause of : Cancer (Type unknown) Hx Family Cardiac Disorders: Yes (A-Fib) Hx Family Respiratory Disorders: No Hx Family Cancer: Yes (Type unknown) Hx Family GI Disorders: No Hx Family Genitourinary Disorders: Yes (CKD) Hx Family Endocrine Disorder: No Hx Family Neuromuscular Disorders: No Hx Family Neurologic Disorders: No Hx Family HEENT Disorders: No Hx Family Autoimmune Disorders: No Mother Race: Family Member Ethnicity: Non- Living Status: Age at : 86 Cause of : Old age Hx Family Medical Disorders: No Sister Race: Family Member Ethnicity: Non- Living Status: Cause of : Cancer (Type unknown) Hx Family Cancer: Yes Medications and Allergies Cilostazol [Pletal] 100 mg PO BID 03/25/15 [History] Clopidogrel [Plavix] 75 mg PO DAILY 03/25/15 [History] Gabapentin [Neurontin] 100 mg PO BID 03/25/15 [History] Oxybutynin Chloride [Ditropan Xl] 5 mg PO DAILY 03/25/15 [History] Ranitidine HCl [Zantac] 150 mg PO BID 03/25/15 [History] Acetaminophen [Tylenol] 1,000 mg PO Q6HR PRN 06/21/16 [History] Carvedilol 12.5 mg PO BID 06/21/16 [History] dilTIAZem HCl [Diltiazem HCl] 90 mg PO TID 06/21/16 [History] Insulin Glargine,Hum.rec.anlog [Basaglar Kwikpen U-100] 30 units SQ QAM [History] Bumetanide [Bumex] 1 mg PO BID 07/28/17 [History] Docusate [Colace] 100 mg PO BID 07/28/17 [History] Insulin LISPRO [HumaLOG] 5 units SQ TIDWM 07/28/17 [History] Sennosides [Senokot] 8.6 mg PO BID 07/28/17 [History] Vit C/E/Zn/Coppr/Lutein/Zeaxan [Preservision Areds 2 Softgel] 1 drop BOTH EYES DAILY 07/28/17 [History] 3 Allergy/AdvReac Type Severity Reaction Status Date / Time EDY Inhibitors Allergy Unknown See Verified 03/04/17 15:01 Comments Amoxicillin Allergy Unknown See Verified 03/04/17 15:01 Comments azithromycin Allergy Unknown See Verified 03/04/17 15:01 Comments cefuroxime Allergy Unknown See Verified 03/04/17 15:01 Comments cephalexin Allergy Unknown See Verified 03/04/17 15:01 Comments Cephalosporins Allergy Unknown See Verified 03/04/17 15:01 Comments clindamycin Allergy Unknown See Verified 03/04/17 15:01 Comments codeine Allergy Unknown See Verified 03/04/17 15:01 Comments furosemide Allergy Unknown See Verified 03/04/17 15:01 Comments hydrocodone Allergy Unknown See Verified 03/04/17 15:01 Comments Penicillins Allergy Unknown See Verified 03/04/17 15:01 Comments prednisone Allergy Unknown Hives Verified 03/04/17 15:01 silver sulfadiazine Allergy Unknown See Verified 03/04/17 15:01 [From Silvacurtis] Comments Vrwysgp-Wyk-Zxt Reductase Allergy Unknown See Verified 03/04/17 15:01 Inhibitor Comments [Statins] Sulfa (Sulfonamide Allergy Unknown See Verified 03/04/17 15:01 Antibiotics) Comments diuretic Allergy Unknown See Uncoded 03/04/17 15:01 Comments - Constitutional Constitutional ROS PAL: decreased appetite, anorexia, malaise, no chills - EENT Eyes: no dry eye, no pain Ears: no ear discharge, no ear pain Ears, nose, mouth, throat: no facial pain, no hoarseness, no lip swelling, no mouth pain, no nasal congestion - Cardiovascular Cardiovascular ROS: edema, irregular heart rhythm, no chest pain, no chest pain at rest - Respiratory Respiratory: no cough, no dyspnea, no pain on inspiration - Gastrointestinal Gastrointestinal: no constipation, no diarrhea, no nausea, no vomiting - Genitourinary Palliative ROS female: no urinary frequency, no urinary hesitancy, no urinary incontinence, no urinary urgency - Musculoskeletal Musculoskeletal ROS IM: back pain - Integumentary ROS Integumentary: skin ulcer, sores (legs) - Neurological Neurological ROS: lack of coordination (Unsteady of gait but no actual falls per patient) - Psychiatric Psychiatric general PM: change in appetite, difficulty concentrating (This has improved markedly), no anxiety, no homicidal ideation, no suicidal ideation - Endocrine Endocrine IM: other (Positive for for diabetes) Palliative Care-Exam - Constitutional Vitals: Temp Pulse Resp BP Pulse Ox 99.0 F 65 16 138/66 98 08/06/17 07:47 08/06/17 07:47 08/06/17 07:47 08/06/17 07:47 08/06/17 07:47 General appearance: Present: cooperative, no acute distress. Absent: febrile - Eye Eye exam: Present: normal appearance (Slight eyelid droop on the right) - ENT ENT exam: Present: mucous membranes moist - Respiratory Respiratory exam: Present: CTAB - Cardiovascular Cardiovascular exam: Present: irregular rhythm - GI/Abdominal Exam GI/Abdominal exam: Present: normal bowel sounds. Absent: soft, tenderness - Extremities Exam Extremities exam: Present: pedal edema, tenderness (Especially in area of right ankle where there is a sore, this is bandaged at this time and not examined.). Absent: normal inspection - Neurological Exam Neurological exam: Present: alert, oriented X3, facial droop (Slight on the left side of mouth, right eye has a slight droop of her medical records and patient this is been present for a long time.) - Psychiatric Psychiatric exam: Present: normal affect, normal mood. Absent: agitated, anxious, depressed, flat affect, homicidal ideation, suicidal ideation - Skin Skin exam: Present: dry, warm Internal Medicine - CN: Reslt - Labs CBC & Chem 7: 08/06/17 05:25 08/06/17 05:25 Labs: Short CBC 08/06/17 Range/Units 05:25 WBC 2.7 L (4.3-11.1) K/mcL Hgb 6.7 L (11.5-15.4) g/dL Hct 22.8 L (35.3-44.9) % Plt Count 124 L (140-400) K/mcL Neutrophils # 1.8 (1.6-8.9) K/mcL BMP 08/06/17 05:25 Sodium 140 Potassium 3.8 Chloride 104 Carbon Dioxide 31 H BUN 27 H Creatinine 1.17 Glucose 158 H Calcium 8.0 L Liver Function 08/06/17 Range/Units 05:25 Total Bilirubin 0.4 (0.3-1.0) mg/dL AST 14 (13-39) Units/L ALT 17 (7-52) Units/L Alkaline Phosphatase 183 H (34-104) Units/L Albumin 2.7 L (3.5-5.7) g/dL - ABG Interpretation ABG results: PT/INR, D-dimer PT 12.8 Seconds (9.4-12.1) H 08/05/17 10:37 Consult Discharge Plan - Plan Referrals: Jamarcus Pedro DO [Primary Care Provider] - Palliative Quality Palliative Quality: Screen for Code Status: Yes, Screen for Goals of Care: Yes, Screen for Pain: Yes, If Pain Regimen Started, Initiate Bowel Regimen: Yes, Screen for Nausea/Vomitting: Yes Code Status: 08/05/17 13:56 Resuscitation Status: Active [RES] Routine Resuscitation Status: [id number] Comment:
--- NOTE | 2017-08-06 12:18 | Internal Med Progress Note ---
Date of Encounter: 08/06/17 Time of Encounter: 11:46 - Assessment and plan (1) Anemia Current Visit: Yes Status: Chronic Assessment and plan: Noted to have drop in H&H hematology on board will transfuse 2 units PRBC f/u occult stool pt's code status changed to DNR/DNI as per her wishes will closely monitor H&H Qualifiers: Anemia type: unspecified type Qualified Code(s): D64.9 - Anemia, unspecified (2) Atrial fibrillation Current Visit: Yes Status: Chronic Assessment and plan: rate controlled with BB and cardizem not on AC due to anemia resume home dose of Plavix Qualifiers: Atrial fibrillation type: chronic Qualified Code(s): I48.2 - Chronic atrial fibrillation (3) Cellulitis Current Visit: Yes Status: Chronic Assessment and plan: continue aztreonam LE MRI negative for OM continue wound care Qualifiers: Site of cellulitis: extremity Site of cellulitis of extremity: lower extremity Laterality: right Qualified Code(s): L03.115 - Cellulitis of right lower limb (4) CHF (congestive heart failure) Current Visit: No Status: Chronic Assessment and plan: no clinical signs of CHF decompensation continue home meds Qualifiers: Congestive heart failure type: diastolic Congestive heart failure chronicity: chronic Qualified Code(s): I50.32 - Chronic diastolic (congestive ) heart failure (5) CKD (chronic kidney disease) Current Visit: No Status: Chronic Assessment and plan: renal function at baseline continue to monitor Qualifiers: Chronic kidney disease stage: stage 3 (moderate) Qualified Code(s): N18.3 - Chronic kidney disease, stage 3 (moderate) (6) Diabetes Current Visit: Yes Status: Chronic Assessment and plan: continue sliding scale insulin algorithm monitor FS and BG ADA diet Qualifiers: Diabetes mellitus type: type 2 Diabetes mellitus complication status: with skin complications Diabetes mellitus complication detail: with other skin ulcer Diabetes mellitus mcc insulin use: unspecified mcc insulin use status Qualified Code(s): E11.622 - Type 2 diabetes mellitus with other skin ulcer; L98.499 - Non-pressure chronic ulcer of skin of other sites with unspecified severity; L98.499 - Non-pressure chronic ulcer of skin of other sites with unspecified severity; L98.499 - Non-pressure chronic ulcer of skin of other sites with unspecified severity; L98.499 - Non-pressure chronic ulcer of skin of other sites with unspecified severity (7) DVT prophylaxis Current Visit: Yes Status: Acute Assessment and plan: SCD (8) Goals of care, counseling/discussion Current Visit: Yes Status: Acute Assessment and plan: Palliative care consultation appreciated pt's code status changed to DNR/DNI pt to seek hospice care at [facility] after discharge (9) HTN (hypertension) Current Visit: Yes Status: Chronic Assessment and plan: BP within acceptable range continue home meds Qualifiers: Hypertension type: essential hypertension Qualified Code(s): I10 - Essential (primary) hypertension (10) Left kidney mass Current Visit: Yes Status: Acute Assessment and plan: Oncology evaluation appreciated pt wishes to not undergo any diagnostic or therapeutic interventions she wishes to restart hospice care (11) UTI (urinary tract infection) Current Visit: No Status: Acute Assessment and plan: continue IV aztreonam f/u urine cultures pt has a chronic indwelling flor cath Qualifiers: Urinary tract infection type: site unspecified Hematuria presence: without hematuria Qualified Code(s): N39.0 - Urinary tract infection, site not specified - Subjective Interval history: Patient is an 82y/o female admitted for acute change in mental status secondary to UTI. She was found to have an incidental finding of a renal mass concerning for malignancy due to which Oncology evaluation was requested. Pt seen and examined at bedside. She is resting in bed and mental status back to baseline (AAO x 3). Pt refused any intervention for the renal mass and wishes to pursue hospice care Palliative care consultation requested for establishing hospice care Pt also has history of right lower extremity wound for which MRI LE was obtained. No evidence of osteomyelitis reported Pt noted to be frail and requiring assistance to get out of bed. Will obtain PT/OT evaluation - Constitutional Vitals: Temp Pulse Resp BP Pulse Ox 99.0 F 65 16 138/66 98 08/06/17 07:47 08/06/17 07:47 08/06/17 07:47 08/06/17 07:47 08/06/17 07:47 General appearance: Present: cooperative, A&O X 3, pleasant, no acute distress, obese, answers questions appropriately - Head Head exam: Present: atraumatic, normocephalic - Eye Eye exam: Present: conjuntiva pink, sclera anicteric - Respiratory Respiratory exam: Absent: respiratory distress, wheezes - Cardiovascular Cardiovascular exam: Present: RRR, +S1, +S2. Absent: diastolic murmur, gallop, rubs, systolic murmur - GI/Abdominal GI/Abdominal exam: Present: normal bowel sounds, soft, no peritoneal signs. Absent: distended, tenderness - Extremities Exam Extremities exam: Present: warm, radial pulses palpable and symmetrical (RLE dressing intact, b/l chronic venous stasis ). Absent: calf tenderness - Neurological Exam Neurological exam: Present: alert, oriented X3 Internal Medicine: Result - Labs CBC & Chem 7: 08/06/17 05:25 08/06/17 05:25 Labs: Short CBC 08/06/17 Range/Units 05:25 WBC 2.7 L (4.3-11.1) K/mcL Hgb 6.7 L (11.5-15.4) g/dL Hct 22.8 L (35.3-44.9) % Plt Count 124 L (140-400) K/mcL Neutrophils # 1.8 (1.6-8.9) K/mcL BMP 08/06/17 05:25 Sodium 140 Potassium 3.8 Chloride 104 Carbon Dioxide 31 H BUN 27 H Creatinine 1.17 Glucose 158 H Calcium 8.0 L Liver Function 08/06/17 Range/Units 05:25 Total Bilirubin 0.4 (0.3-1.0) mg/dL AST 14 (13-39) Units/L ALT 17 (7-52) Units/L Alkaline Phosphatase 183 H (34-104) Units/L Albumin 2.7 L (3.5-5.7) g/dL - ABG Interpretation ABG results: PT/INR, D-dimer PT 12.8 Seconds (9.4-12.1) H 08/05/17 10:37 Consult Discharge Plan - Plan Referrals: Jamarcus Pedro DO [Primary Care Provider] -
[2017-08-06] MEDS ORDERED: 0.9 % Sodium Chloride 250 ML ONE ×3 (13:30→18:52)
[2017-08-06] MEDS: 0.9 % Sodium Chloride 1,000 ML IVC SCH ×2 (20:55→23:00)
[2017-08-07 03:37] LABS: Basophils % 0.3 %; Eosinophils % 0.3 %; Hematocrit 26.6 % (35.3-44.9); Hemoglobin 8.1 g/dL (11.5-15.4); Immature Granulocytes % 0.3 % (0-4); Lymphocytes # 0.8 K/mcL (0.6-4.6); Lymphocytes % 26.3 %; Mean Corpuscular HGB Conc 30.5 g/dL (31.6-35.5); Mean Corpuscular Hemoglobin 28.3 pg (28.0-33.3); Mean Platelet Volume 11.1 fL (9.4-12.4); Monocytes # 0.3 K/mcL (0.0-1.3); Monocytes % 10.6 %; Neutrophils # 1.9 K/mcL (1.6-8.9); Platelet Count 128 K/mcL (140-400); Red Blood Count 2.86 M/mcL (3.82-4.97); Red Cell Distribution Width 15.5 % (11.5-14.5); Segmented Neutrophils % 62.2 %
[2017-08-07 04:13] LABS: Magnesium 1.7 mg/dL (1.6-2.6); Phosphorous 3.1 mg/dL (2.7-4.5)
[2017-08-07 04:19] LABS: Albumin 2.6 g/dL (3.5-5.7); Albumin/Globulin Ratio 0.9 (1.1-2.2); Bilirubin,Total 0.5 mg/dL (0.3-1.0); Globulin 2.9 g/dL (2.4-3.5); Potassium 3.8 mEq/L (3.5-5.1); Total Protein 5.5 g/dL (6.4-8.9)
--- NOTE | 2017-08-07 07:49 | Palliative Progress Note ---
Date of Encounter: 08/07/17 Time of Encounter: 07:25 - Assessment and plan (1) Goals of care, counseling/discussion Current Visit: Yes Status: Acute Assessment and plan: CODE STATUS DNR CCA DNI. Care patient would like to return to long-term for rehabilitation. Specifically would like to go to either or to [facility]. She would then like to [facility] hospice and home. Even the patient's anemia, Eschen of the disease of her lymphoma and definite change in size on the kidney mass in addition to the patient's COPD I believe the patient is hospice appropriate. As the patient wishes to have rehabilitation would recommend rehabilitation first followed by hospice. (2) Abnormal CT of the abdomen Current Visit: Yes Status: Acute Assessment and plan: Renal mass has definitely changed in size. There is also increase in lymphadenopathy. This does represent ration of previous disease and/or new disease. Patient does not wish to have it worked up (3) Altered mental status Current Visit: Yes Status: Acute Assessment and plan: This has resolved. Was probably secondary to the urinary tract infection which is Escherichia coli. She is on antibiotic therapy. The bacteria is pansensitive. Including the medication she is currently on Qualifiers: Altered mental status type: disorientation Qualified Code(s): R41.0 - Disorientation, unspecified (4) UTI (urinary tract infection) Current Visit: Yes Status: Acute Assessment and plan: Patient is on appropriate antibiotics. Qualifiers: Urinary tract infection type: site unspecified Hematuria presence: without hematuria Qualified Code(s): N39.0 - Urinary tract infection, site not specified (5) Malignant lymphoma Current Visit: No Status: Chronic Assessment and plan: Definite progression is noted on the CT scan, patient also now has a much larger lesion on the kidney. This represents either progression of disease due to disease or both. Patient does not wish to be worked up or be treated for this. She wishes for hospice care. 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 She states she does feel little bit better after getting blood yesterday. Also states that she is looking forward to working with PT and OT today. (She missed them with them yesterday while she was getting the blood in out for testing). Medications are currently effective for pain. - Constitutional Vitals: Abnormal lab results WBC 3.1 K/mcL (4.3-11.1) L 08/07/17 03:20 RBC 2.86 M/mcL (3.82-4.97) L 08/07/17 03:20 Hgb 8.1 g/dL (11.5-15.4) L 08/07/17 03:20 Hct 26.6 % (35.3-44.9) L 08/07/17 03:20 MCHC 30.5 g/dL (31.6-35.5) L 08/07/17 03:20 RDW 15.5 % (11.5-14.5) H 08/07/17 03:20 Plt Count 128 K/mcL (140-400) L 08/07/17 03:20 Nucleated RBCs/100 WBC 0.7 /100 WBC (0) H 08/06/17 05:25 ESR 126 mm/hr (0-15) H 08/05/17 10:37 PT 12.8 Seconds (9.4-12.1) H 08/05/17 10:37 Carbon Dioxide 30 mEq/L (23-29) H 08/07/17 03:20 BUN 31 mg/dL (8-23) H 08/07/17 03:20 Creatinine 1.24 mg/dL (0.60-1.20) H 08/07/17 03:20 Est GFR ( Amer) 50 (> 60) L 08/07/17 03:20 Est GFR (Non-Af Amer) 41 (> 60) L 08/07/17 03:20 Glucose 161 mg/dL (70-105) H 08/07/17 03:20 POC Glucose 134 (58-89) H 08/06/17 17:14 Hemoglobin A1c 6.1 % (-5.6) H 08/06/17 05:25 Uric Acid 10.8 mg/dL (2.3-7.6) H 08/05/17 17:42 Calcium 8.0 mg/dL (8.6-10.3) L 08/07/17 03:20 Iron 13 mcg/dL (50-170) L 08/05/17 17:42 % Saturation 6 % (15-50) L 08/05/17 17:42 Transferrin 165 mg/dL (203-362) L 08/05/17 17:42 Alkaline Phosphatase 188 Units/L (34-104) H 08/07/17 03:20 Lactate Dehydrogenase 122 Units/L (140-271) L 08/05/17 17:42 Creatine Kinase 11 Units/L (30-223) L 08/05/17 10:37 C-Reactive Protein 105 mg/L (Less than 10) H 08/05/17 10:37 Serum Total Protein 5.5 g/dL (6.4-8.9) L 08/07/17 03:20 Albumin 2.6 g/dL (3.5-5.7) L 08/07/17 03:20 Albumin/Globulin Ratio 0.9 (1.1-2.2) L 08/07/17 03:20 HDL Cholesterol 24 mg/dL (40-59) L 08/06/17 05:25 Cholesterol/HDL Ratio 5.6 (0-4.9) H 08/06/17 05:25 Folate 20.4 ng/mL (3.0-16.0) H 08/05/17 17:42 Urine Blood Large (Negative) H 08/05/17 10:19 Urine Nitrite Positive (Negative) A 08/05/17 10:19 Ur Leukocyte Esterase Large (Negative) H 08/05/17 10:19 Urine Microscopic RBC TNTC per hpf (0-3) H 08/05/17 10:19 Urine Microscopic WBC TNTC per hpf (0-3) H 08/05/17 10:19 Ur Squamous Epith Cells Many per lpf (None-Few) H 08/05/17 10:19 Urine Bacteria Many per hpf (None-Few) H 08/05/17 10:19 Granular Casts Few per lpf (None Seen) H 08/05/17 10:19 General appearance: Present: no acute distress - Head Head exam: Present: atraumatic, normal inspection - Eye Eye exam: Present: normal appearance (Except for right eye droop) - ENT ENT exam: Present: mucous membranes moist (Left mouth droop noted) - Respiratory Respiratory exam: Present: CTAB - Cardiovascular Cardiovascular exam: Present: irregular rhythm (Slightly) - GI/Abdominal GI/Abdominal exam: Present: normal bowel sounds, soft. Absent: tenderness - Extremities Exam Extremities exam: Present: pedal edema, tenderness (Right ankle is bandaged. Patient has a chronic nonhealing wound there.) - Neurological Exam Neurological exam: Present: alert, oriented X3. Absent: no focal deficits ( Right eyelid and left mouth droop have been noted previously.) - Psychiatric Psychiatric exam: Absent: agitated, anxious - Skin Skin exam: Present: dry, warm Palliative Quality Palliative Quality: Screen for Code Status: Yes, Screen for Goals of Care: Yes, Screen for Pain: Yes, If Pain Regimen Started, Initiate Bowel Regimen: Yes, Screen for Nausea/Vomitting: Yes Code Status: 08/05/17 13:56 Resuscitation Status: Active [RES] Routine Comment: Resuscitation Status: [id number] - Labs CBC & Chem 7: 08/07/17 03:20 08/07/17 03:20 Labs: Laboratory Results - last 24 hr 08/06/17 08/06/17 08/06/17 07:46 12:15 17:14 WBC RBC Hgb Hct MCV MCH MCHC RDW Plt Count MPV Immature Gran % Seg Neutrophils % Lymphocytes % Monocytes % Eosinophils % Basophils % Neutrophils # Lymphocytes # Monocytes # Eosinophils # Basophils # Sodium Potassium Chloride Carbon Dioxide BUN Creatinine Est GFR ( Amer) Est GFR (Non-Af Amer) BUN/Creatinine Ratio Glucose POC Glucose 171 H 175 H 134 H Calculated Osmolality Calcium Phosphorus Magnesium Total Bilirubin AST ALT Alkaline Phosphatase Serum Total Protein Albumin Globulin Albumin/Globulin Ratio 08/07/17 08/07/17 08/07/17 03:20 03:20 03:20 WBC 3.1 L RBC 2.86 L Hgb 8.1 L Hct 26.6 L MCV 93.0 MCH 28.3 MCHC 30.5 L RDW 15.5 H Plt Count 128 L MPV 11.1 Immature Gran % 0.3 Seg Neutrophils % 62.2 Lymphocytes % 26.3 Monocytes % 10.6 Eosinophils % 0.3 Basophils % 0.3 Neutrophils # 1.9 Lymphocytes # 0.8 Monocytes # 0.3 Eosinophils # 0.0 Basophils # 0.0 Sodium 140 Potassium 3.8 Chloride 104 Carbon Dioxide 30 H BUN 31 H Creatinine 1.24 H Est GFR ( Amer) 50 L Est GFR (Non-Af Amer) 41 L BUN/Creatinine Ratio 25 Glucose 161 H POC Glucose Calculated Osmolality 300 Calcium 8.0 L Phosphorus 3.1 Magnesium 1.7 Total Bilirubin 0.5 AST 33 ALT 20 Alkaline Phosphatase 188 H Serum Total Protein 5.5 L Albumin 2.6 L Globulin 2.9 Albumin/Globulin Ratio 0.9 L - ABG Interpretation ABG results: PT/INR, D-dimer PT 12.8 Seconds (9.4-12.1) H 08/05/17 10:37 Consult Discharge Plan - Plan Referrals: Jamarcus Pedro DO [Primary Care Provider] -
[2017-08-07] MEDS: Famotidine 20 MG TABLET PO SCH ×2 (08:33→21:16)
[2017-08-07] MEDS: Insulin DETEMIR 100 UNIT/ML X5UNITS SQ SCH (08:33)
[2017-08-07] MEDS: Insulin LISPRO 300 UNITS/3 ML VIAL SQ SCH ×4 (08:34→21:11)
[2017-08-07] MEDS: Gabapentin 100 MG CAPSULE PO SCH ×2 (08:35→21:16)
[2017-08-07] MEDS: Multivit/Ca/Min/Fe/FA 1 TAB TABLET PO SCH (08:35)
[2017-08-07] MEDS: Bumetanide 1 MG TABLET PO SCH ×2 (08:35→16:58)
[2017-08-07] MEDS: Sennosides 8.6 MG TABLET PO SCH ×2 (08:36→21:16)
[2017-08-07] MEDS: Aztreonam 1,000 MG in Water for inj. (sterile) 20 ML 10 ML IVP SCH (08:36)
--- NOTE | 2017-08-07 13:29 | Internal Med Progress Note ---
Date of Encounter: 08/07/17 Time of Encounter: 12:10 - Assessment and plan (1) Anemia Current Visit: Yes Status: Chronic Assessment and plan: s/p 2unit PRBC transfusion (08/06/17) hematology on board awaiting stool occult will closely monitor H&H Qualifiers: Anemia type: unspecified type Qualified Code(s): D64.9 - Anemia, unspecified (2) Atrial fibrillation Current Visit: Yes Status: Chronic Assessment and plan: rate controlled with BB and cardizem not on AC due to anemia continue home dose of Plavix Qualifiers: Atrial fibrillation type: chronic Qualified Code(s): I48.2 - Chronic atrial fibrillation (3) Cellulitis Current Visit: Yes Status: Chronic Assessment and plan: improved from previous day venous doppler negative for DVT will continue abx Qualifiers: Site of cellulitis: extremity Site of cellulitis of extremity: lower extremity Laterality: right Qualified Code(s): L03.115 - Cellulitis of right lower limb (4) CHF (congestive heart failure) Current Visit: No Status: Chronic Assessment and plan: no clinical signs of CHF decompensation continue home meds Qualifiers: Congestive heart failure type: diastolic Congestive heart failure chronicity: chronic Qualified Code(s): I50.32 - Chronic diastolic (congestive ) heart failure (5) CKD (chronic kidney disease) Current Visit: No Status: Chronic Assessment and plan: renal function at baseline continue to monitor Qualifiers: Chronic kidney disease stage: stage 3 (moderate) Qualified Code(s): N18.3 - Chronic kidney disease, stage 3 (moderate) (6) Diabetes Current Visit: Yes Status: Chronic Assessment and plan: continue sliding scale insulin algorithm monitor FS and BG ADA diet Qualifiers: Diabetes mellitus type: type 2 Diabetes mellitus complication status: with skin complications Diabetes mellitus complication detail: with other skin ulcer Diabetes mellitus alf insulin use: unspecified alf insulin use status Qualified Code(s): E11.622 - Type 2 diabetes mellitus with other skin ulcer; L98.499 - Non-pressure chronic ulcer of skin of other sites with unspecified severity; L98.499 - Non-pressure chronic ulcer of skin of other sites with unspecified severity; L98.499 - Non-pressure chronic ulcer of skin of other sites with unspecified severity; L98.499 - Non-pressure chronic ulcer of skin of other sites with unspecified severity (7) DVT prophylaxis Current Visit: Yes Status: Acute Assessment and plan: SCD (8) Goals of care, counseling/discussion Current Visit: Yes Status: Acute Assessment and plan: Palliative care consultation appreciated pt's code status changed to DNR/DNI pt to seek hospice care at ECF after discharge (9) HTN (hypertension) Current Visit: Yes Status: Chronic Assessment and plan: BP within acceptable range continue home meds Qualifiers: Hypertension type: essential hypertension Qualified Code(s): I10 - Essential (primary) hypertension (10) Left kidney mass Current Visit: Yes Status: Acute Assessment and plan: Oncology evaluation appreciated pt wishes to not undergo any diagnostic or therapeutic interventions she wishes to restart hospice care (11) UTI (urinary tract infection) Current Visit: No Status: Acute Assessment and plan: continue IV aztreonam urine culture reported heck sensitive Ecoli however given pt's extensive drug allergies, will continue IV abx at this time and transition to PO upon discharge pt has a chronic indwelling flor cath Qualifiers: Urinary tract infection type: site unspecified Hematuria presence: without hematuria Qualified Code(s): N39.0 - Urinary tract infection, site not specified - Subjective Interval history: Patient is an 82y/o female admitted for acute change in mental status secondary to UTI. She was found to have an incidental finding of a renal mass concerning for malignancy due to which Oncology evaluation was requested. Pt seen and examined at bedside. She is resting in chair and remains AAO x 3 PT evaluation recommended ECF and pt willing to go to ECF and transition to hospice care from there - Constitutional Vitals: Temp Pulse Resp BP Pulse Ox 98.1 F 63 14 150/74 98 08/07/17 11:38 08/07/17 11:38 08/07/17 11:38 08/07/17 11:38 08/07/17 11:38 General appearance: Present: cooperative, A&O X 3, pleasant, no acute distress, obese, answers questions appropriately - Head Head exam: Present: atraumatic, normocephalic - Eye Eye exam: Present: conjuntiva pink, sclera anicteric - Respiratory Respiratory exam: Absent: respiratory distress, wheezes - Cardiovascular Cardiovascular exam: Present: RRR, +S1, +S2. Absent: diastolic murmur, gallop, rubs, systolic murmur - GI/Abdominal GI/Abdominal exam: Present: normal bowel sounds, soft, no peritoneal signs. Absent: distended, tenderness - Extremities Exam Extremities exam: Present: warm, radial pulses palpable and symmetrical. Absent : calf tenderness - Neurological Exam Neurological exam: Present: alert, oriented X3 - Psychiatric Psychiatric exam: Present: normal affect, normal mood Internal Medicine: Result - Labs CBC & Chem 7: 08/07/17 03:20 08/07/17 03:20 Labs: Short CBC 08/07/17 Range/Units 03:20 WBC 3.1 L (4.3-11.1) K/mcL Hgb 8.1 L (11.5-15.4) g/dL Hct 26.6 L (35.3-44.9) % Plt Count 128 L (140-400) K/mcL Neutrophils # 1.9 (1.6-8.9) K/mcL BMP 08/07/17 03:20 Sodium 140 Potassium 3.8 Chloride 104 Carbon Dioxide 30 H BUN 31 H Creatinine 1.24 H Glucose 161 H Calcium 8.0 L Liver Function 08/07/17 Range/Units 03:20 Total Bilirubin 0.5 (0.3-1.0) mg/dL AST 33 (13-39) Units/L ALT 20 (7-52) Units/L Alkaline Phosphatase 188 H (34-104) Units/L Albumin 2.6 L (3.5-5.7) g/dL - ABG Interpretation ABG results: PT/INR, D-dimer PT 12.8 Seconds (9.4-12.1) H 08/05/17 10:37 Consult Discharge Plan - Plan Referrals: Jamarcus Pedro DO [Primary Care Provider] -
[2017-08-07] MEDS ORDERED: Aztreonam 1,000 MG in Water for inj. (sterile) 10 ML IVP SCH (16:00)
[2017-08-07] MEDS ORDERED: Nitrofurantoin (BID) 100 MG CAPSULE PO SCH (17:00)
[2017-08-07] MEDS: Doxycycline 100 MG CAPSULE PO SCH (21:15)
[2017-08-08 03:29] LABS: Basophils % 0.3 %; Eosinophils % 0.3 %; Hematocrit 26.4 % (35.3-44.9); Immature Granulocytes % 0.6 % (0-4); Lymphocytes # 0.8 K/mcL (0.6-4.6); Lymphocytes % 23.8 %; Mean Corpuscular HGB Conc 30.3 g/dL (31.6-35.5); Mean Corpuscular Hemoglobin 28.2 pg (28.0-33.3); Mean Platelet Volume 10.5 fL (9.4-12.4); Monocytes # 0.3 K/mcL (0.0-1.3); Monocytes % 9.5 %; Neutrophils # 2.3 K/mcL (1.6-8.9); Platelet Count 144 K/mcL (140-400); Red Blood Count 2.84 M/mcL (3.82-4.97); Red Cell Distribution Width 15.3 % (11.5-14.5); Segmented Neutrophils % 65.5 %
[2017-08-08 04:12] LABS: Magnesium 1.7 mg/dL (1.6-2.6)
[2017-08-08 04:14] LABS: Albumin 2.8 g/dL (3.5-5.7); Bilirubin,Total 0.4 mg/dL (0.3-1.0); Calcium 8.1 mg/dL (8.6-10.3); Globulin 2.8 g/dL (2.4-3.5); Potassium 3.6 mEq/L (3.5-5.1); Total Protein 5.6 g/dL (6.4-8.9)
--- NOTE | 2017-08-08 07:54 | Palliative Progress Note ---
Date of Encounter: 08/08/17 Time of Encounter: 07:40 - Assessment and plan (1) Goals of care, counseling/discussion Current Visit: Yes Status: Acute Assessment and plan: CODE STATUS DNR CCA DNI. Care patient would like to return to skilled nursing for rehabilitation. Specifically would like to go to either or to [facility]. She would then like to [facility] hospice and home. Even the patient's anemia, Eschen of the disease of her lymphoma and definite change in size on the kidney mass in addition to the patient's COPD I believe the patient is hospice appropriate. As the patient wishes to have rehabilitation would recommend rehabilitation first followed by hospice. She participated well with PT and OT yesterday. She is hoping to get out today. 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 (2) Abnormal CT of the abdomen Current Visit: Yes Status: Acute Assessment and plan: Renal mass has definitely changed in size. There is also increase in lymphadenopathy. This does represent ration of previous disease and/or new disease. Patient does not wish to have it worked up No changes today patient still wants hospice, after completing rehabilitation. (3) Altered mental status Current Visit: Yes Status: Acute Assessment and plan: This has resolved. Was probably secondary to the urinary tract infection which is Escherichia coli. She is on antibiotic therapy. The bacteria is pansensitive. Including the medication she is currently on No changes today the patient continues to be awake alert and oriented. Qualifiers: Altered mental status type: disorientation Qualified Code(s): R41.0 - Disorientation, unspecified (4) UTI (urinary tract infection) Current Visit: Yes Status: Acute Assessment and plan: Patient is on appropriate antibiotics. Qualifiers: Urinary tract infection type: site unspecified Hematuria presence: without hematuria Qualified Code(s): N39.0 - Urinary tract infection, site not specified (5) Malignant lymphoma Current Visit: No Status: Chronic Assessment and plan: Definite progression is noted on the CT scan, patient also now has a much larger lesion on the kidney. This represents either progression of disease due to disease or both. Patient does not wish to be worked up or be treated for this. She wishes for hospice care. No changes today. Patient still continues to wish for hospice care after rehabilitation. 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 She is looking forward to getting out and resuming rehabilitation at skilled nursing. As per previous plan. - Constitutional Vitals: Abnormal lab results WBC 3.5 K/mcL (4.3-11.1) L 08/08/17 03:21 RBC 2.84 M/mcL (3.82-4.97) L 08/08/17 03:21 Hgb 8.0 g/dL (11.5-15.4) L 08/08/17 03:21 Hct 26.4 % (35.3-44.9) L 08/08/17 03:21 MCHC 30.3 g/dL (31.6-35.5) L 08/08/17 03:21 RDW 15.3 % (11.5-14.5) H 08/08/17 03:21 Nucleated RBCs/100 WBC 0.7 /100 WBC (0) H 08/06/17 05:25 ESR 126 mm/hr (0-15) H 08/05/17 10:37 PT 12.8 Seconds (9.4-12.1) H 08/05/17 10:37 Carbon Dioxide 30 mEq/L (23-29) H 08/08/17 03:21 BUN 34 mg/dL (8-23) H 08/08/17 03:21 Creatinine 1.22 mg/dL (0.60-1.20) H 08/08/17 03:21 Est GFR ( Amer) 51 (> 60) L 08/08/17 03:21 Est GFR (Non-Af Amer) 42 (> 60) L 08/08/17 03:21 BUN/Creatinine Ratio 28 (6-26) H 08/08/17 03:21 Glucose 156 mg/dL (70-105) H 08/08/17 03:21 POC Glucose 191 (58-89) H 08/08/17 01:30 Hemoglobin A1c 6.1 % (-5.6) H 08/06/17 05:25 Calculated Osmolality 305 (280-300) H 08/08/17 03:21 Uric Acid 10.8 mg/dL (2.3-7.6) H 08/05/17 17:42 Calcium 8.1 mg/dL (8.6-10.3) L 08/08/17 03:21 Iron 13 mcg/dL (50-170) L 08/05/17 17:42 % Saturation 6 % (15-50) L 08/05/17 17:42 Transferrin 165 mg/dL (203-362) L 08/05/17 17:42 Alkaline Phosphatase 184 Units/L (34-104) H 08/08/17 03:21 Lactate Dehydrogenase 122 Units/L (140-271) L 08/05/17 17:42 Creatine Kinase 11 Units/L (30-223) L 08/05/17 10:37 C-Reactive Protein 105 mg/L (Less than 10) H 08/05/17 10:37 Serum Total Protein 5.6 g/dL (6.4-8.9) L 08/08/17 03:21 Albumin 2.8 g/dL (3.5-5.7) L 08/08/17 03:21 Albumin/Globulin Ratio 1.0 (1.1-2.2) L 08/08/17 03:21 HDL Cholesterol 24 mg/dL (40-59) L 08/06/17 05:25 Cholesterol/HDL Ratio 5.6 (0-4.9) H 08/06/17 05:25 Folate 20.4 ng/mL (3.0-16.0) H 08/05/17 17:42 Urine Blood Large (Negative) H 08/05/17 10:19 Urine Nitrite Positive (Negative) A 08/05/17 10:19 Ur Leukocyte Esterase Large (Negative) H 08/05/17 10:19 Urine Microscopic RBC TNTC per hpf (0-3) H 08/05/17 10:19 Urine Microscopic WBC TNTC per hpf (0-3) H 08/05/17 10:19 Ur Squamous Epith Cells Many per lpf (None-Few) H 08/05/17 10:19 Urine Bacteria Many per hpf (None-Few) H 08/05/17 10:19 Granular Casts Few per lpf (None Seen) H 08/05/17 10:19 General appearance: Present: no acute distress - Head Head exam: Present: atraumatic, normal inspection - Eye Eye exam: Present: normal appearance - ENT ENT exam: Present: mucous membranes moist - Respiratory Respiratory exam: Present: CTAB - Cardiovascular Cardiovascular exam: Present: irregular rhythm (Slightly, sounds more like an occasional ectopic beat rather than A. fib.) - GI/Abdominal GI/Abdominal exam: Present: normal bowel sounds, soft. Absent: tenderness - Extremities Exam Extremities exam: Present: pedal edema (Right ankle is bandaged.) - Neurological Exam Neurological exam: Present: alert, oriented X3 - Psychiatric Psychiatric exam: Absent: agitated, anxious - Skin Skin exam: Present: dry, warm Palliative Quality Palliative Quality: Screen for Code Status: Yes, Screen for Goals of Care: Yes, Screen for Pain: Yes, If Pain Regimen Started, Initiate Bowel Regimen: Yes, Screen for Nausea/Vomitting: Yes Code Status: 08/05/17 13:56 Resuscitation Status: Active [RES] Routine Comment: Resuscitation Status: [id number] - Labs CBC & Chem 7: 08/08/17 03:21 08/08/17 03:21 Labs: Laboratory Results - last 24 hr 08/06/17 08/07/17 08/07/17 20:51 07:20 11:59 WBC RBC Hgb Hct MCV MCH MCHC RDW Plt Count MPV Immature Gran % Seg Neutrophils % Lymphocytes % Monocytes % Eosinophils % Basophils % Neutrophils # Lymphocytes # Monocytes # Eosinophils # Basophils # Sodium Potassium Chloride Carbon Dioxide BUN Creatinine Est GFR ( Amer) Est GFR (Non-Af Amer) BUN/Creatinine Ratio Glucose POC Glucose 150 H 178 H 229 H Calculated Osmolality Calcium Phosphorus Magnesium Total Bilirubin AST ALT Alkaline Phosphatase Serum Total Protein Albumin Globulin Albumin/Globulin Ratio 08/07/17 08/07/17 08/08/17 16:34 20:25 01:30 WBC RBC Hgb Hct MCV MCH MCHC RDW Plt Count MPV Immature Gran % Seg Neutrophils % Lymphocytes % Monocytes % Eosinophils % Basophils % Neutrophils # Lymphocytes # Monocytes # Eosinophils # Basophils # Sodium Potassium Chloride Carbon Dioxide BUN Creatinine Est GFR ( Amer) Est GFR (Non-Af Amer) BUN/Creatinine Ratio Glucose POC Glucose 169 H 183 H 191 H Calculated Osmolality Calcium Phosphorus Magnesium Total Bilirubin AST ALT Alkaline Phosphatase Serum Total Protein Albumin Globulin Albumin/Globulin Ratio 08/08/17 08/08/17 08/08/17 03:21 03:21 03:21 WBC 3.5 L RBC 2.84 L Hgb 8.0 L Hct 26.4 L MCV 93.0 MCH 28.2 MCHC 30.3 L RDW 15.3 H Plt Count 144 MPV 10.5 Immature Gran % 0.6 Seg Neutrophils % 65.5 Lymphocytes % 23.8 Monocytes % 9.5 Eosinophils % 0.3 Basophils % 0.3 Neutrophils # 2.3 Lymphocytes # 0.8 Monocytes # 0.3 Eosinophils # 0.0 Basophils # 0.0 Sodium 142 Potassium 3.6 Chloride 106 Carbon Dioxide 30 H BUN 34 H Creatinine 1.22 H Est GFR ( Amer) 51 L Est GFR (Non-Af Amer) 42 L BUN/Creatinine Ratio 28 H Glucose 156 H POC Glucose Calculated Osmolality 305 H Calcium 8.1 L Phosphorus 3.0 Magnesium 1.7 Total Bilirubin 0.4 AST 34 ALT 22 Alkaline Phosphatase 184 H Serum Total Protein 5.6 L Albumin 2.8 L Globulin 2.8 Albumin/Globulin Ratio 1.0 L - ABG Interpretation ABG results: PT/INR, D-dimer PT 12.8 Seconds (9.4-12.1) H 08/05/17 10:37 Consult Discharge Plan - Plan Referrals: Jamarcus Pedro DO [Primary Care Provider] -
[2017-08-08] MEDS: Gabapentin 100 MG CAPSULE PO SCH ×2 (09:53→21:41)
[2017-08-08] MEDS: Doxycycline 100 MG CAPSULE PO SCH ×2 (09:53→21:41)
[2017-08-08] MEDS: Sennosides 8.6 MG TABLET PO SCH ×3 (09:53→21:52)
[2017-08-08] MEDS: Multivit/Ca/Min/Fe/FA 1 TAB TABLET PO SCH (09:53)
[2017-08-08] MEDS: Famotidine 20 MG TABLET PO SCH ×2 (09:53→21:41)
[2017-08-08] MEDS: Bumetanide 1 MG TABLET PO SCH ×2 (09:53→17:37)
[2017-08-08] MEDS: Insulin LISPRO 300 UNITS/3 ML VIAL SQ SCH ×4 (09:54→21:51)
[2017-08-08] MEDS: Insulin DETEMIR 100 UNIT/ML X5UNITS SQ SCH (09:54)
--- NOTE | 2017-08-08 09:59 | Internal Med Progress Note ---
Date of Encounter: 08/08/17 Time of Encounter: 09:20 - Assessment and plan (1) Anemia Current Visit: Yes Status: Chronic Assessment and plan: s/p 2unit PRBC transfusion (08/06/17) awaiting stool occult Repeat H&H within acceptable limits will closely monitor H&H Qualifiers: Anemia type: unspecified type Qualified Code(s): D64.9 - Anemia, unspecified (2) Atrial fibrillation Current Visit: Yes Status: Chronic Assessment and plan: rate controlled with BB and cardizem not on AC due to anemia continue home dose of Plavix Qualifiers: Atrial fibrillation type: chronic Qualified Code(s): I48.2 - Chronic atrial fibrillation (3) Cellulitis Current Visit: Yes Status: Chronic Assessment and plan: improved from previous day venous doppler negative for DVT will continue abx (pt responding appropriately to Doxycycline) RLE wound cultures positive for Staph aureus, gram negative Vince, will await finalization of cultures and adjust abx accordingly daily wound care Qualifiers: Site of cellulitis: extremity Site of cellulitis of extremity: lower extremity Laterality: right Qualified Code(s): L03.115 - Cellulitis of right lower limb (4) CHF (congestive heart failure) Current Visit: No Status: Chronic Assessment and plan: no clinical signs of CHF decompensation continue home meds Qualifiers: Congestive heart failure type: diastolic Congestive heart failure chronicity: chronic Qualified Code(s): I50.32 - Chronic diastolic (congestive ) heart failure (5) CKD (chronic kidney disease) Current Visit: No Status: Chronic Assessment and plan: renal function at baseline continue to monitor Qualifiers: Chronic kidney disease stage: stage 3 (moderate) Qualified Code(s): N18.3 - Chronic kidney disease, stage 3 (moderate) (6) Diabetes Current Visit: Yes Status: Chronic Assessment and plan: continue sliding scale insulin algorithm monitor FS and BG ADA diet Qualifiers: Diabetes mellitus type: type 2 Diabetes mellitus complication status: with skin complications Diabetes mellitus complication detail: with other skin ulcer Diabetes mellitus moth exterminator insulin use: unspecified moth exterminator insulin use status Qualified Code(s): E11.622 - Type 2 diabetes mellitus with other skin ulcer; L98.499 - Non-pressure chronic ulcer of skin of other sites with unspecified severity; L98.499 - Non-pressure chronic ulcer of skin of other sites with unspecified severity; L98.499 - Non-pressure chronic ulcer of skin of other sites with unspecified severity; L98.499 - Non-pressure chronic ulcer of skin of other sites with unspecified severity (7) DVT prophylaxis Current Visit: Yes Status: Acute Assessment and plan: SCD (8) Goals of care, counseling/discussion Current Visit: Yes Status: Acute Assessment and plan: Palliative care consultation appreciated pt's code status changed to DNR/DNI pt to seek hospice care at [facility] after discharge (9) HTN (hypertension) Current Visit: Yes Status: Chronic Assessment and plan: BP within acceptable range continue home meds Qualifiers: Hypertension type: essential hypertension Qualified Code(s): I10 - Essential (primary) hypertension (10) Left kidney mass Current Visit: Yes Status: Acute Assessment and plan: Oncology evaluation appreciated pt wishes to not undergo any diagnostic or therapeutic interventions she wishes to restart hospice care (11) UTI (urinary tract infection) Current Visit: No Status: Acute Assessment and plan: Switched to Doxycycline pt tolerating therapy well urine culture reported E.coli Qualifiers: Urinary tract infection type: site unspecified Hematuria presence: without hematuria Qualified Code(s): N39.0 - Urinary tract infection, site not specified - Subjective Interval history: Patient is an 82y/o female admitted for acute change in mental status secondary to UTI. She was found to have an incidental finding of a renal mass concerning for malignancy due to which Oncology evaluation was requested. Pt seen and examined at bedside. resting in bed and denies any discomfort at this time PT evaluation recommended ECF and pt willing to go to ECF and transition to hospice care from there D/C to ECF pending finalization of wound culture reports - Constitutional Vitals: Temp Pulse Resp BP Pulse Ox 97.9 F 62 17 147/70 97 08/08/17 08:04 08/08/17 08:04 08/08/17 08:04 08/08/17 08:04 08/08/17 08:04 General appearance: Present: cooperative, A&O X 3, pleasant, no acute distress, obese, answers questions appropriately - Head Head exam: Present: atraumatic, normocephalic - Eye Eye exam: Present: conjuntiva pink, sclera anicteric - Respiratory Respiratory exam: Absent: respiratory distress, wheezes - Cardiovascular Cardiovascular exam: Present: RRR, +S1, +S2 - GI/Abdominal GI/Abdominal exam: Present: normal bowel sounds, soft, no peritoneal signs. Absent: distended, tenderness - Extremities Exam Extremities exam: Present: warm, radial pulses palpable and symmetrical (Distal RLE dressing intact ). Absent: calf tenderness - Neurological Exam Neurological exam: Present: alert, oriented X3 - Psychiatric Psychiatric exam: Present: normal affect, normal mood Internal Medicine: Result - Labs CBC & Chem 7: 08/08/17 03:21 08/08/17 03:21 Labs: Short CBC 08/08/17 Range/Units 03:21 WBC 3.5 L (4.3-11.1) K/mcL Hgb 8.0 L (11.5-15.4) g/dL Hct 26.4 L (35.3-44.9) % Plt Count 144 (140-400) K/mcL Neutrophils # 2.3 (1.6-8.9) K/mcL BMP 08/08/17 03:21 Sodium 142 Potassium 3.6 Chloride 106 Carbon Dioxide 30 H BUN 34 H Creatinine 1.22 H Glucose 156 H Calcium 8.1 L Liver Function 08/08/17 Range/Units 03:21 Total Bilirubin 0.4 (0.3-1.0) mg/dL AST 34 (13-39) Units/L ALT 22 (7-52) Units/L Alkaline Phosphatase 184 H (34-104) Units/L Albumin 2.8 L (3.5-5.7) g/dL - ABG Interpretation ABG results: PT/INR, D-dimer PT 12.8 Seconds (9.4-12.1) H 08/05/17 10:37 Consult Discharge Plan - Plan Referrals: Jamarcus Pedro DO [Primary Care Provider] -
[2017-08-08] MEDS: cefTRIAXone 1,000 MG in Water for inj. (sterile) 20 ML 10 ML IVP SCH (12:11)
[2017-08-09 05:10] LABS: Basophils % 0.3 %; Eosinophils % 0.3 %; Hematocrit 30.2 % (35.3-44.9); Hemoglobin 9.1 g/dL (11.5-15.4); Immature Granulocytes % 0.5 % (0-4); Lymphocytes % 24.8 %; Mean Corpuscular HGB Conc 30.1 g/dL (31.6-35.5); Mean Corpuscular Hemoglobin 28.2 pg (28.0-33.3); Mean Corpuscular Volume 93.5 fL (83.0-100.0); Mean Platelet Volume 10.9 fL (9.4-12.4); Monocytes # 0.3 K/mcL (0.0-1.3); Monocytes % 8.3 %; Neutrophils # 2.6 K/mcL (1.6-8.9); Platelet Count 174 K/mcL (140-400); Red Blood Count 3.23 M/mcL (3.82-4.97); Red Cell Distribution Width 15.4 % (11.5-14.5); Segmented Neutrophils % 65.8 %
[2017-08-09 05:46] LABS: Albumin/Globulin Ratio 0.9 (1.1-2.2); Bilirubin,Total 0.4 mg/dL (0.3-1.0); Calcium 8.6 mg/dL (8.6-10.3); Globulin 3.2 g/dL (2.4-3.5); Magnesium 1.7 mg/dL (1.6-2.6); Phosphorous 2.9 mg/dL (2.7-4.5); Potassium 3.8 mEq/L (3.5-5.1); Total Protein 6.2 g/dL (6.4-8.9)
[2017-08-09] MEDS: Insulin LISPRO 300 UNITS/3 ML VIAL SQ SCH ×4 (08:43→21:15)
[2017-08-09] MEDS: Doxycycline 100 MG CAPSULE PO SCH (08:44)
[2017-08-09] MEDS: Famotidine 20 MG TABLET PO SCH ×2 (08:44→21:13)
[2017-08-09] MEDS: Multivit/Ca/Min/Fe/FA 1 TAB TABLET PO SCH (08:44)
[2017-08-09] MEDS: Bumetanide 1 MG TABLET PO SCH ×2 (08:44→16:40)
[2017-08-09] MEDS: Gabapentin 100 MG CAPSULE PO SCH ×2 (08:45→21:15)
[2017-08-09] MEDS: Sennosides 8.6 MG TABLET PO SCH ×2 (08:45→21:14)
[2017-08-09] MEDS: cefTRIAXone 1,000 MG in Water for inj. (sterile) 20 ML 10 ML IVP SCH (08:45)
[2017-08-09] MEDS: Insulin DETEMIR 100 UNIT/ML X5UNITS SQ SCH (09:06)
--- NOTE | 2017-08-09 09:20 | Internal Med Progress Note ---
Date of Encounter: 08/09/17 Time of Encounter: 09:18 - Assessment and plan (1) Anemia Current Visit: Yes Status: Chronic Assessment and plan: s/p 2unit PRBC transfusion (08/06/17) Repeat H&H within acceptable limits will closely monitor H&H Qualifiers: Anemia type: unspecified type Qualified Code(s): D64.9 - Anemia, unspecified (2) Atrial fibrillation Current Visit: Yes Status: Chronic Assessment and plan: rate controlled with BB and cardizem not on AC due to anemia continue home dose of Plavix Qualifiers: Atrial fibrillation type: chronic Qualified Code(s): I48.2 - Chronic atrial fibrillation (3) Cellulitis Current Visit: Yes Status: Chronic Assessment and plan: improved from previous day venous doppler negative for DVT RLE wound culture positive for MRSA, Pseudomonas, and Citrobactor Intermediate sensitivity to doxycycline will d/c doxycycline and start Zyvox and Levofloxacin will treat for total of 10 days. tentative d/c to ECF in am daily wound care Qualifiers: Site of cellulitis: extremity Site of cellulitis of extremity: lower extremity Laterality: right Qualified Code(s): L03.115 - Cellulitis of right lower limb (4) CHF (congestive heart failure) Current Visit: No Status: Chronic Assessment and plan: no clinical signs of CHF decompensation continue home meds Qualifiers: Congestive heart failure type: diastolic Congestive heart failure chronicity: chronic Qualified Code(s): I50.32 - Chronic diastolic (congestive ) heart failure (5) CKD (chronic kidney disease) Current Visit: No Status: Chronic Assessment and plan: renal function at baseline continue to monitor Qualifiers: Chronic kidney disease stage: stage 3 (moderate) Qualified Code(s): N18.3 - Chronic kidney disease, stage 3 (moderate) (6) Diabetes Current Visit: Yes Status: Chronic Assessment and plan: continue sliding scale insulin algorithm monitor FS and BG ADA diet Qualifiers: Diabetes mellitus type: type 2 Diabetes mellitus complication status: with skin complications Diabetes mellitus complication detail: with other skin ulcer Diabetes mellitus pinner printed circuit boards insulin use: unspecified pinner printed circuit boards insulin use status Qualified Code(s): E11.622 - Type 2 diabetes mellitus with other skin ulcer; L98.499 - Non-pressure chronic ulcer of skin of other sites with unspecified severity; L98.499 - Non-pressure chronic ulcer of skin of other sites with unspecified severity; L98.499 - Non-pressure chronic ulcer of skin of other sites with unspecified severity; L98.499 - Non-pressure chronic ulcer of skin of other sites with unspecified severity (7) DVT prophylaxis Current Visit: Yes Status: Acute Assessment and plan: SCD (8) Goals of care, counseling/discussion Current Visit: Yes Status: Acute Assessment and plan: Palliative care consultation appreciated pt's code status changed to DNR/DNI pt to seek hospice care at [facility] after discharge (9) HTN (hypertension) Current Visit: Yes Status: Chronic Assessment and plan: Noted to be hypertensive this morning clinically asymptomatic will repeat BP after receiving home meds will closely monitor Qualifiers: Hypertension type: essential hypertension Qualified Code(s): I10 - Essential (primary) hypertension (10) Left kidney mass Current Visit: Yes Status: Acute Assessment and plan: Oncology evaluation appreciated pt wishes to not undergo any diagnostic or therapeutic interventions she wishes to restart hospice care (11) UTI (urinary tract infection) Current Visit: No Status: Acute Assessment and plan: continue oral abx pt tolerating therapy well urine culture reported E.coli Qualifiers: Urinary tract infection type: site unspecified Hematuria presence: without hematuria Qualified Code(s): N39.0 - Urinary tract infection, site not specified - Subjective Interval history: Patient is an 82y/o female admitted for acute change in mental status secondary to UTI. She was found to have an incidental finding of a renal mass concerning for malignancy due to which Oncology evaluation was requested. Patient seen and examined at bedside, resting in chair and reports of feeling better compared to previous day. Pt's wound cultures positive for MRSA, Pseudomonas, Citrobacter. Abx adjusted as per sensitivities. Given pt's drug allergy list, will monitor pt on Zyvox and Levofloxacin overnight. If remains clinically stable, tentative d/c to ECF in am - Constitutional Vitals: Temp Pulse Resp BP Pulse Ox 97.6 F 69 16 165/61 97 08/09/17 08:07 08/09/17 08:07 08/09/17 08:07 08/09/17 08:07 08/09/17 08:07 General appearance: Present: cooperative, A&O X 3, pleasant, no acute distress, obese, answers questions appropriately - Head Head exam: Present: atraumatic, normocephalic - Eye Eye exam: Present: conjuntiva pink, sclera anicteric - Respiratory Respiratory exam: Absent: respiratory distress, wheezes - Cardiovascular Cardiovascular exam: Present: RRR, +S1, +S2. Absent: diastolic murmur, gallop, rubs, systolic murmur - GI/Abdominal GI/Abdominal exam: Present: normal bowel sounds, soft, no peritoneal signs. Absent: distended, tenderness - Extremities Exam Extremities exam: Present: warm, radial pulses palpable and symmetrical. Absent : calf tenderness (RLE dressing intact ) - Neurological Exam Neurological exam: Present: alert, oriented X3 - Psychiatric Psychiatric exam: Present: normal affect, normal mood Internal Medicine: Result - Labs CBC & Chem 7: 08/09/17 05:00 08/09/17 05:00 Labs: Short CBC 08/09/17 Range/Units 05:00 WBC 4.0 L (4.3-11.1) K/mcL Hgb 9.1 L (11.5-15.4) g/dL Hct 30.2 L (35.3-44.9) % Plt Count 174 (140-400) K/mcL Neutrophils # 2.6 (1.6-8.9) K/mcL BMP 08/09/17 05:00 Sodium 141 Potassium 3.8 Chloride 104 Carbon Dioxide 31 H BUN 33 H Creatinine 1.25 H Glucose 130 H Calcium 8.6 Liver Function 08/09/17 Range/Units 05:00 Total Bilirubin 0.4 (0.3-1.0) mg/dL AST 28 (13-39) Units/L ALT 24 (7-52) Units/L Alkaline Phosphatase 204 H (34-104) Units/L Albumin 3.0 L (3.5-5.7) g/dL - ABG Interpretation ABG results: PT/INR, D-dimer PT 12.8 Seconds (9.4-12.1) H 08/05/17 10:37 Consult Discharge Plan - Plan Referrals: Jamarcus Pedro DO [Primary Care Provider] -
[2017-08-09] MEDS: Linezolid 600 MG TABLET PO SCH ×2 (10:11→21:13)
[2017-08-10 06:08] LABS: Alanine Aminotransferase 18 Units/L (7-52); Albumin 2.7 g/dL (3.5-5.7); Alkaline Phosphatase 171 Units/L (34-104); Aspartate Amino Transferase 19 Units/L (13-39); BUN/Creatinine Ratio 27 (6-26); Bilirubin,Total 0.4 mg/dL (0.3-1.0); Blood Urea Nitrogen 29 mg/dL (8-23); Calcium 8.1 mg/dL (8.6-10.3); Carbon Dioxide 30 mEq/L (23-29); Chloride 105 mEq/L (98-107); Globulin 2.8 g/dL (2.4-3.5); Glucose 175 mg/dL (70-105); Magnesium 1.6 mg/dL (1.6-2.6); Osmolality,Calculated 304 (280-300); Phosphorous 3.1 mg/dL (2.7-4.5); Potassium 3.6 mEq/L (3.5-5.1); Sodium 142 mEq/L (136-145); Total Protein 5.5 g/dL (6.4-8.9); eGFR For African Americans > 60 (> 60); eGFR For Non-African Americans 50 (> 60)
[2017-08-10 06:10] LABS: Basophils % 0.3 %; Eosinophils % 0.3 %; Hematocrit 27.9 % (35.3-44.9); Hemoglobin 8.3 g/dL (11.5-15.4); Immature Granulocytes % 0.5 % (0-4); Lymphocytes # 0.8 K/mcL (0.6-4.6); Lymphocytes % 21.7 %; Mean Corpuscular HGB Conc 29.7 g/dL (31.6-35.5); Mean Corpuscular Hemoglobin 27.8 pg (28.0-33.3); Mean Corpuscular Volume 93.3 fL (83.0-100.0); Mean Platelet Volume 10.9 fL (9.4-12.4); Monocytes # 0.3 K/mcL (0.0-1.3); Monocytes % 8.7 %; Neutrophils # 2.6 K/mcL (1.6-8.9); Platelet Count 168 K/mcL (140-400); Red Blood Count 2.99 M/mcL (3.82-4.97); Red Cell Distribution Width 15.5 % (11.5-14.5); Segmented Neutrophils % 68.5 %
[2017-08-10] MEDS: Insulin LISPRO 300 UNITS/3 ML VIAL SQ SCH ×2 (08:45→12:41)
[2017-08-10] MEDS: Famotidine 20 MG TABLET PO SCH (08:46)
[2017-08-10] MEDS: Gabapentin 100 MG CAPSULE PO SCH (08:46)
[2017-08-10] MEDS: Bumetanide 1 MG TABLET PO SCH (08:46)
[2017-08-10] MEDS: Sennosides 8.6 MG TABLET PO SCH (08:46)
[2017-08-10] MEDS: Multivit/Ca/Min/Fe/FA 1 TAB TABLET PO SCH (08:46)
[2017-08-10] MEDS: Linezolid 600 MG TABLET PO SCH (08:46)
[2017-08-10] MEDS: Insulin DETEMIR 100 UNIT/ML X5UNITS SQ SCH (08:51)
[2017-08-10] MEDS ORDERED: levoFLOXacin 250 MG TABLET PO SCH (09:00)
[2017-08-10] MEDS ORDERED: levoFLOXacin 500 MG TABLET PO ONE (09:12)
--- NOTE | 2017-08-10 09:42 | Discharge Summary ---
Date of Encounter: 08/10/17 Time of Encounter: 09:25 - Discharge Diagnosis (1) Anemia Priority: Secondary Status: Chronic Qualifiers: Anemia type: unspecified type Qualified Code(s): D64.9 - Anemia, unspecified (2) Atrial fibrillation Priority: Secondary Status: Chronic Qualifiers: Atrial fibrillation type: chronic Qualified Code(s): I48.2 - Chronic atrial fibrillation (3) Cellulitis Priority: Primary Status: Acute Qualifiers: Site of cellulitis: extremity Site of cellulitis of extremity: lower extremity Laterality: right Qualified Code(s): L03.115 - Cellulitis of right lower limb (4) CHF (congestive heart failure) Priority: Secondary Status: Chronic Qualifiers: Congestive heart failure type: diastolic Congestive heart failure chronicity: chronic Qualified Code(s): I50.32 - Chronic diastolic (congestive ) heart failure (5) CKD (chronic kidney disease) Priority: Secondary Status: Chronic Qualifiers: Chronic kidney disease stage: stage 3 (moderate) Qualified Code(s): N18.3 - Chronic kidney disease, stage 3 (moderate) (6) Diabetes Priority: Secondary Status: Chronic Qualifiers: Diabetes mellitus type: type 2 Diabetes mellitus complication status: with skin complications Diabetes mellitus complication detail: with other skin ulcer Diabetes mellitus correction insulin use: unspecified correction insulin use status Qualified Code(s): E11.622 - Type 2 diabetes mellitus with other skin ulcer; L98.499 - Non-pressure chronic ulcer of skin of other sites with unspecified severity; L98.499 - Non-pressure chronic ulcer of skin of other sites with unspecified severity; L98.499 - Non-pressure chronic ulcer of skin of other sites with unspecified severity; L98.499 - Non-pressure chronic ulcer of skin of other sites with unspecified severity (7) DVT prophylaxis Priority: Secondary Status: Acute (8) Goals of care, counseling/discussion Priority: Secondary Status: Acute (9) HTN (hypertension) Priority: Secondary Status: Chronic Qualifiers: Hypertension type: essential hypertension Qualified Code(s): I10 - Essential (primary) hypertension (10) Left kidney mass Priority: Secondary Status: Acute (11) UTI (urinary tract infection) Priority: Primary Status: Acute Qualifiers: Urinary tract infection type: site unspecified Hematuria presence: without hematuria Qualified Code(s): N39.0 - Urinary tract infection, site not specified - Discharge Medications Prescriptions: levoFLOXacin [Levaquin] 250 mg PO DAILY #8 tablet Linezolid [Zyvox] 600 mg PO BID #17 tablet Home Medications: Cilostazol [Pletal] 100 mg PO BID 03/25/15 [History] Clopidogrel [Plavix] 75 mg PO DAILY 03/25/15 [History] Gabapentin [Neurontin] 100 mg PO BID 03/25/15 [History] Oxybutynin Chloride [Ditropan Xl] 5 mg PO DAILY 03/25/15 [History] Ranitidine HCl [Zantac] 150 mg PO BID 03/25/15 [History] Acetaminophen [Tylenol] 1,000 mg PO Q6HR PRN 06/21/16 [History] Carvedilol 12.5 mg PO BID 06/21/16 [History] dilTIAZem HCl [Diltiazem HCl] 90 mg PO TID 06/21/16 [History] Insulin Glargine,Hum.rec.anlog [Basaglar Kwikpen U-100] 30 units SQ QAM [History] Bumetanide [Bumex] 1 mg PO BID 07/28/17 [History] Docusate [Colace] 100 mg PO BID 07/28/17 [History] Insulin LISPRO [HumaLOG] 5 units SQ TIDWM 07/28/17 [History] Sennosides [Senokot] 8.6 mg PO BID 07/28/17 [History] Vit C/E/Zn/Coppr/Lutein/Zeaxan [Preservision Areds 2 Softgel] 1 drop BOTH EYES DAILY 07/28/17 [History] Linezolid [Zyvox] 600 mg PO BID #17 tablet 08/10/17 [Rx] levoFLOXacin [Levaquin] 250 mg PO DAILY #8 tablet 08/10/17 [Rx] Allergies/Adverse Reactions: 3 Allergy/AdvReac Type Severity Reaction Status Date / Time EDY Inhibitors Allergy Unknown See Verified 03/04/17 15:01 Comments Amoxicillin Allergy Unknown See Verified 03/04/17 15:01 Comments azithromycin Allergy Unknown See Verified 03/04/17 15:01 Comments cefuroxime Allergy Unknown See Verified 03/04/17 15:01 Comments cephalexin Allergy Unknown See Verified 03/04/17 15:01 Comments Cephalosporins Allergy Unknown See Verified 03/04/17 15:01 Comments clindamycin Allergy Unknown See Verified 03/04/17 15:01 Comments codeine Allergy Unknown See Verified 03/04/17 15:01 Comments furosemide Allergy Unknown See Verified 03/04/17 15:01 Comments hydrocodone Allergy Unknown See Verified 03/04/17 15:01 Comments Penicillins Allergy Unknown See Verified 03/04/17 15:01 Comments prednisone Allergy Unknown Hives Verified 03/04/17 15:01 silver sulfadiazine Allergy Unknown See Verified 03/04/17 15:01 [From Silvadene] Comments Ishlkde-Ugl-Rqx Reductase Allergy Unknown See Verified 03/04/17 15:01 Inhibitor Comments [Statins] Sulfa (Sulfonamide Allergy Unknown See Verified 03/04/17 15:01 Antibiotics) Comments diuretic Allergy Unknown See Uncoded 03/04/17 15:01 Comments Date of admission: 08/05/17 15:03 Primary care physician: Jamarcus Pedro Consults: 08/06/17 09:35 Consult to Palliative Care [CONS] Routine Comment: Consulting Provider: Palliative Care Isaura Reason for Consult: hospice care Call Completed: Yes Discharging clinician: Makayla Chávez Anticipated date of discharge: 08/10/17 - Patient Status Disposition: Transfer SNF Condition: Good Functional capacity at discharge: uses cane/walker Overall status at discharge: patient is back to baseline - Discharge Instructions Follow Up With: Jamarcus Pedro DO [Primary Care Provider] - Additional Instructions: Please follow up with your primary care physician within one week after your discharge from the hospital. Please continue oral antibiotics as prescribed. Please resume all other medications as prescribed by your primary care physician. - Diet and Activity Activity: as per physical therapy Diet: diabetic diet, low fat, low cholesterol, low salt diet Hospital course: Ms. Chatman is a 82 year old female with PMH Of Afib, CHF, lymphoma, COPD on LTOT, DM, HTN, CKD who was admitted for AMS secondary to LE cellulitis and UTI. SHe was started on broad spectrum abx and daily wound care was done on the LE. Pt had an incidental finding of an abnormal CT abd/pelvis during the initial work up in the ER. She was found to have a renal mass concerning for malignancy. Her mental status returned to baseline and oncology evaluation was requested. As per patient's wishes, no further work up was done for the renal mass and palliative care consultation was requested. As per patient's wishes, her code status was changed to DNR/DNI. She wishes to pursue hospice care which will be arranged at the ECF after her discharge. Her abx have been adjusted as per her wound cultures. She is tolerating abx appropriately. She will be discharged to ECF today. - Time Spent with Patient Total time spent providing and/or coordinating discharge services: Less than 30 minutes - Constitutional Vitals: Temp Pulse Resp BP Pulse Ox 97.6 F 63 16 159/82 97 08/10/17 07:22 08/10/17 07:22 08/10/17 07:22 08/10/17 07:22 08/10/17 08:55 General appearance: Present: cooperative, A&O X 3, pleasant, no acute distress, obese, answers questions appropriately - Head Head exam: Present: atraumatic, normocephalic - Eye Eye exam: Present: conjuntiva pink, sclera anicteric - Respiratory Respiratory exam: Absent: respiratory distress, wheezes - Cardiovascular Cardiovascular exam: Present: RRR, +S1, +S2. Absent: diastolic murmur, gallop, rubs, systolic murmur - GI/Abdominal GI/Abdominal exam: Present: normal bowel sounds, soft, no peritoneal signs. Absent: distended, tenderness - Extremities Exam Extremities exam: Present: warm, radial pulses palpable and symmetrical. Absent : calf tenderness Additional comments: RLE dressing intact - Neurological Exam Neurological exam: Present: alert, oriented X3
--- NOTE | 2017-08-10 10:01 | Physician Discharge Referral ---
ExtendedCare Referral Info Transfer To: F Provider in Charge after Transfer: PCP - Diagnosis (1) Anemia Priority: Secondary Status: Chronic (2) Atrial fibrillation Priority: Secondary Status: Chronic (3) Cellulitis Priority: Primary Status: Acute (4) CHF (congestive heart failure) Priority: Secondary Status: Chronic (5) CKD (chronic kidney disease) Priority: Secondary Status: Chronic (6) Diabetes Priority: Secondary Status: Chronic (7) DVT prophylaxis Priority: Secondary Status: Acute (8) Goals of care, counseling/discussion Priority: Secondary Status: Acute (9) HTN (hypertension) Priority: Secondary Status: Chronic (10) Left kidney mass Priority: Secondary Status: Acute (11) UTI (urinary tract infection) Priority: Primary Status: Acute - Transfer Medications Prescriptions: levoFLOXacin [Levaquin] 250 mg PO DAILY #8 tablet Linezolid [Zyvox] 600 mg PO BID #17 tablet Home Medications: Cilostazol [Pletal] 100 mg PO BID 03/25/15 [History] Clopidogrel [Plavix] 75 mg PO DAILY 03/25/15 [History] Gabapentin [Neurontin] 100 mg PO BID 03/25/15 [History] Oxybutynin Chloride [Ditropan Xl] 5 mg PO DAILY 03/25/15 [History] Ranitidine HCl [Zantac] 150 mg PO BID 03/25/15 [History] Acetaminophen [Tylenol] 1,000 mg PO Q6HR PRN 06/21/16 [History] Carvedilol 12.5 mg PO BID 06/21/16 [History] dilTIAZem HCl [Diltiazem HCl] 90 mg PO TID 06/21/16 [History] Insulin Glargine,Hum.rec.anlog [Basaglar Kwikpen U-100] 30 units SQ QAM [History] Bumetanide [Bumex] 1 mg PO BID 07/28/17 [History] Docusate [Colace] 100 mg PO BID 07/28/17 [History] Insulin LISPRO [HumaLOG] 5 units SQ TIDWM 07/28/17 [History] Sennosides [Senokot] 8.6 mg PO BID 07/28/17 [History] Vit C/E/Zn/Coppr/Lutein/Zeaxan [Preservision Areds 2 Softgel] 1 drop BOTH EYES DAILY 07/28/17 [History] Linezolid [Zyvox] 600 mg PO BID #17 tablet 08/10/17 [Rx] levoFLOXacin [Levaquin] 250 mg PO DAILY #8 tablet 08/10/17 [Rx] Allergies/Adverse Reactions: 3 Allergy/AdvReac Type Severity Reaction Status Date / Time EDY Inhibitors Allergy Unknown See Verified 03/04/17 15:01 Comments Amoxicillin Allergy Unknown See Verified 03/04/17 15:01 Comments azithromycin Allergy Unknown See Verified 03/04/17 15:01 Comments cefuroxime Allergy Unknown See Verified 03/04/17 15:01 Comments cephalexin Allergy Unknown See Verified 03/04/17 15:01 Comments Cephalosporins Allergy Unknown See Verified 03/04/17 15:01 Comments clindamycin Allergy Unknown See Verified 03/04/17 15:01 Comments codeine Allergy Unknown See Verified 03/04/17 15:01 Comments furosemide Allergy Unknown See Verified 03/04/17 15:01 Comments hydrocodone Allergy Unknown See Verified 03/04/17 15:01 Comments Penicillins Allergy Unknown See Verified 03/04/17 15:01 Comments prednisone Allergy Unknown Hives Verified 03/04/17 15:01 silver sulfadiazine Allergy Unknown See Verified 03/04/17 15:01 [From Silvadene] Comments Gpeofoo-Rqr-Kwa Reductase Allergy Unknown See Verified 03/04/17 15:01 Inhibitor Comments [Statins] Sulfa (Sulfonamide Allergy Unknown See Verified 03/04/17 15:01 Antibiotics) Comments diuretic Allergy Unknown See Uncoded 03/04/17 15:01 Comments - Respiratory Orders Smoking Cessation: Smoking cessation has been advised. For more information, call the [place] Tobacco Quit Line at 5-041-NUYB-NOW. - Rehabiliation Orders Other: FOLLOW UP WITH HOSPICE CARE AFTER TRANSFER TO [facility] CODE STATUS: DNR/DNI CONTINUE DAILY WOUND CARE CERTIFICATION: I certify that the transfer of the above named patient to an Extended Care Facility is necessary for the continuing treatment of the diagnosis listed. The above information is true and accurate reflection of patient's current condition. Confidential - Redisclosure prohibited without a patient's written consent.
[2017-08-10 12:11] VITALS: BP 135/70
== END 2017-08-10 16:10 | DRG 603 ==
LOC: 3BNU 10:03 → EMEROO 10:03 → 3BNU 14:37 → SUATTDRO 15:03 → 3BNU 08-09 20:35
PROVIDERS: ADMIT Internal Medicine; ATTEND Internal Medicine

== ENCOUNTER 2017-09-09 09:38 | Inpatient (IN) ==
--- NOTE | 2017-09-09 09:54 | Emergency Department Note ---
Disposition Clinical Impression: Rectal bleeding Anemia Qualifiers: Anemia type: unspecified type Qualified Code(s): D64.9 - Anemia, unspecified Disposition: Admitted As Inpatient Condition: Serious Time of Disposition: 12:49 GI Bleed HPI - General Chief complaint: ED GI Bleed Time Seen by Provider: 09/09/17 09:51 Source: patient, EMS Mode of arrival: ambulatory Limitations: no limitations Nursing Notes Reviewed: Yes Vital Signs Reviewed: Yes - History of Present Illness HPI Narrative: 82-year-old stated that she started having rectal bleeding last p.m. with large clots. Patient does not have a history of rectal bleeding according to patient. Does have a recent diagnosis of possible recurrent lymphoma versus a new primary of renal carcinoma. The patient does take Plavix. Patient is a DNR CC arrest, no intubation her records from the long-term. 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5 mg PO BID 06/21/16 09/09/17 dilTIAZem HCl [Diltiazem HCl] 90 mg PO TID 06/21/16 09/09/17 Insulin Glargine,Hum.rec.anlog 30 units SQ QAM 08/18/16 09/09/17 [Basaglar Kwikpen U-100] Bumetanide [Bumex] 1 mg PO BID 07/28/17 09/09/17 Docusate [Colace] 100 mg PO BID 07/28/17 09/09/17 Insulin LISPRO [HumaLOG] 5 units SQ TIDWM 07/28/17 09/09/17 Sennosides [Senokot] 8.6 mg PO BID 07/28/17 09/09/17 Vit C/E/Zn/Coppr/Lutein/Zeaxan 1 tab PO DAILY 07/28/17 09/09/17 [Preservision Areds 2 Softgel] Allopurinol [Zyloprim 100 MG] 100 mg PO DAILY 09/09/17 09/09/17 Glucagon,Human Recombinant 1 mg IJ AD 09/09/17 09/09/17 [Glucagen] Nystatin POWDER [Nystop] 1 appl TP BID PRN 09/09/17 09/09/17 Allergies Allergy/AdvReac Type Severity Reaction Status Date / Time EDY Inhibitors Allergy Unknown See Verified 03/04/17 15:01 Comments Amoxicillin Allergy Unknown See Verified 03/04/17 15:01 Comments azithromycin Allergy Unknown See Verified 03/04/17 15:01 Comments cefuroxime Allergy Unknown See Verified 03/04/17 15:01 Comments cephalexin Allergy Unknown See Verified 03/04/17 15:01 Comments Cephalosporins Allergy Unknown See Verified 03/04/17 15:01 Comments clindamycin Allergy Unknown See Verified 03/04/17 15:01 Comments codeine Allergy Unknown See Verified 03/04/17 15:01 Comments furosemide Allergy Unknown See Verified 03/04/17 15:01 Comments hydrocodone Allergy Unknown See Verified 03/04/17 15:01 Comments Penicillins Allergy Unknown See Verified 03/04/17 15:01 Comments prednisone Allergy Unknown Hives Verified 03/04/17 15:01 silver sulfadiazine Allergy Unknown See Verified 03/04/17 15:01 [From Silvadene] Comments Zrbzhrx-Udk-Liv Reductase Allergy Unknown See Verified 03/04/17 15:01 Inhibitor Comments [Statins] Sulfa (Sulfonamide Allergy Unknown See Verified 03/04/17 15:01 Antibiotics) Comments diuretic Allergy Unknown See Uncoded 03/04/17 15:01 Comments All systems ED: reviewed and negative except as stated. Constitutional: Denies: fever, chills, weakness, weight change Eyes: Denies: eye pain, eye discharge, vision change ENT ED: Denies: ear pain, throat pain, dental pain, hearing loss, epistaxis, congestion, dysphagia Cardiovascular: Denies: chest pain, palpitations, dyspnea on exertion, edema, syncope Respiratory: Denies: cough, dyspnea, wheezes, hemoptysis, stridor Gastrointestinal: Reports: abdominal pain, hematochezia. Denies: nausea, vomiting, diarrhea, constipation, hematemesis, melena Genitourinary: Denies: dysuria, frequency, hematuria, discharge Musculoskeletal: Denies: back pain, neck pain, arthralgia, myalgia Integumentary: Denies: rash, abrasion, lesions Neurological: Denies: headache, weakness, numbness, paresthesias, confusion, abnormal gait, vertigo Psychiatric: Denies: anxiety, depression, suicidal thoughts, homicidal thoughts , auditory hallucinations, visual hallucinations Endocrine: Denies: fatigue Hematological/Lymphatic: Denies: easy bleeding, easy bruising Allergic/Immunologic: Denies: facial swelling, urticaria Past Medical History - Past Medical History Medical history: Reports: arthritis, atrial fibrillation, cancer, cardiomyopathy , CHF, COPD, DVT, diabetes, GERD, hyperlipidemia, hypertension, renal disease, other Surgical history: Reports: appendectomy, cancer surgery (Removal of lymph nodes) , AICD, pacemaker Psychiatric history: Reports: no psych history 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: Reports: no 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 - Social History Smoking Status: Never smoker Smokeless Tobacco Status: No Alcohol use: Reports: none Drug use: Reports: none Physical Exam - General Limitations: no limitations General appearance: alert, in no apparent distress - Head Head exam: atraumatic, normocephalic, normal inspection - Eye Eye exam: Present: normal appearance, PERRL, EOMI - ENT ENT exam: normal exam, normal oropharynx, mucous membranes moist - Neck Neck exam: Present: normal inspection, full ROM, trachea midline - Chest Chest inspection: Present: normal inspection, symmetric chest wall rise - Respiratory Respiratory exam: Present: normal lung sounds bilaterally - Cardiovascular Cardiovascular exam: Present: regular rate, normal rhythm, normal heart sounds - Abdominal Exam Abdominal exam: Present: soft, Non-Tender. Absent: tenderness, distention, guarding, rebound, rigidity - Rectal Exam Pediatric Registered Nurse present during exam: Yes Rectal exam: Present: heme (+) stool - Extremities Exam Extremities exam: Present: normal inspection, full ROM. Absent: tenderness, pedal edema - Expanded Lower Extremity Exam Neurovascular/Tendon exam: Absent: motor deficit, sensory deficit, tendon deficit Gait: not tested/not observed - Back Exam Back exam: Present: normal inspection, full ROM. Absent: tenderness - Neurological Exam Neurological exam: Present: alert, oriented X3 - Psychiatric Psychiatric exam: Present: normal affect, normal mood - Skin Skin exam: Present: warm, dry, intact, normal color Course - Reevaluation(s) Reevaluation #1: 82-year-old comes in with bleeding per rectum. Patient has a history of lymphoma and had recent evaluation which showed a new mass in her kidney which may be a primary of renal cell versus lymphoma. She is currently not being treated for that she is a DNR CC arrest. Her initial hemoglobin is 8.6 but that is not out of range of recent hemoglobins. Time: 12:45 - Consultations Consultation #1: Discussed with , admit. T Time: 12:45 Vital Signs Temperature 98.3 F 09/09/17 09:45 Pulse Rate 67 09/09/17 09:45 Respiratory Rate 18 09/09/17 09:45 Blood Pressure 153/80 09/09/17 09:45 O2 Sat by Pulse Oximetry 100 09/09/17 09:45 Temperature 97.8 F 09/10/17 16:05 Pulse Rate 62 09/10/17 16:05 Respiratory Rate 16 09/10/17 16:05 Blood Pressure 119/72 09/10/17 16:05 O2 Sat by Pulse Oximetry 100 09/10/17 16:05 Oxygen Delivery Oxygen Delivery Nasal Cannula GI Bleed - Lab Data Lab results reviewed: Yes I reviewed the patient's lab results. Result diagrams: 09/10/17 11:36 09/10/17 01:00 Lab Results 09/09/17 09/09/17 09/09/17 Range/Units 09:58 10:03 10:03 WBC 5.3 (4.3-11.1) K/mcL RBC 3.11 L (3.82-4.97) M/mcL Hgb 8.6 L (11.5-15.4) g/dL Hct 29.1 L (35.3-44.9) % MCV 93.6 (83.0-100.0) fL MCH 27.7 L (28.0-33.3) pg MCHC 29.6 L (31.6-35.5) g/dL RDW 19.4 H (11.5-14.5) % Plt Count 215 (140-400) K/mcL MPV 10.6 (9.4-12.4) fL Immature Gran % 0.6 (0-4) % Seg Neutrophils % 70.0 % Lymphocytes % 21.5 % Monocytes % 7.7 % Eosinophils % 0.2 % Basophils % 0.0 % Neutrophils # 3.7 (1.6-8.9) K/mcL Lymphocytes # 1.1 (0.6-4.6) K/mcL Monocytes # 0.4 (0.0-1.3) K/mcL Eosinophils # 0.0 (0.0-0.6) K/mcL Basophils # 0.0 (0.0-0.2) K/mcL PT 13.3 H (9.4-12.1) Seconds INR 1.2 APTT 42.5 H (26.0-36.0) Seconds Sodium (136-145) mEq/L Potassium (3.5-5.1) mEq/L Chloride (98-107) mEq/L Carbon Dioxide (23-29) mEq/L BUN (8-23) mg/dL Creatinine (0.60-1.20) mg/dL Est GFR ( Amer) (> 60) Est GFR (Non-Af Amer) (> 60) BUN/Creatinine Ratio (6-26) Glucose (70-105) mg/dL Calculated Osmolality (280-300) Lactic Acid (0.5-2.2) mmol/L Calcium (8.6-10.3) mg/dL Blood Type O POSITIVE Antibody Screen NEGATIVE 09/09/17 09/09/17 Range/Units 10:03 10:03 WBC (4.3-11.1) K/mcL RBC (3.82-4.97) M/mcL Hgb (11.5-15.4) g/dL Hct (35.3-44.9) % MCV (83.0-100.0) fL MCH (28.0-33.3) pg MCHC (31.6-35.5) g/dL RDW (11.5-14.5) % Plt Count (140-400) K/mcL MPV (9.4-12.4) fL Immature Gran % (0-4) % Seg Neutrophils % % Lymphocytes % % Monocytes % % Eosinophils % % Basophils % % Neutrophils # (1.6-8.9) K/mcL Lymphocytes # (0.6-4.6) K/mcL Monocytes # (0.0-1.3) K/mcL Eosinophils # (0.0-0.6) K/mcL Basophils # (0.0-0.2) K/mcL PT (9.4-12.1) Seconds INR APTT (26.0-36.0) Seconds Sodium 138 (136-145) mEq/L Potassium 3.7 (3.5-5.1) mEq/L Chloride 95 L (98-107) mEq/L Carbon Dioxide 38 H (23-29) mEq/L BUN 38 H (8-23) mg/dL Creatinine 1.00 (0.60-1.20) mg/dL Est GFR ( Amer) > 60 (> 60) Est GFR (Non-Af Amer) 53 L (> 60) BUN/Creatinine Ratio 38 H (6-26) Glucose 91 (70-105) mg/dL Calculated Osmolality 295 (280-300) Lactic Acid 0.5 (0.5-2.2) mmol/L Calcium 9.1 (8.6-10.3) mg/dL Blood Type Antibody Screen - Radiology Data Radiology results reviewed: Yes I reviewed the patient's radiology results. - EKG Data EKG attestation: Yes I reviewed and interpreted this EKG. Rate: normal Rhythm: A.Fib [place]/QRS: normal Interpretation: no acute changes
[2017-09-09 10:21] LABS: Eosinophils % 0.2 %; Hematocrit 29.1 % (35.3-44.9); Hemoglobin 8.6 g/dL (11.5-15.4); Immature Granulocytes % 0.6 % (0-4); Lymphocytes # 1.1 K/mcL (0.6-4.6); Lymphocytes % 21.5 %; Mean Corpuscular HGB Conc 29.6 g/dL (31.6-35.5); Mean Corpuscular Hemoglobin 27.7 pg (28.0-33.3); Mean Corpuscular Volume 93.6 fL (83.0-100.0); Mean Platelet Volume 10.6 fL (9.4-12.4); Monocytes # 0.4 K/mcL (0.0-1.3); Monocytes % 7.7 %; Neutrophils # 3.7 K/mcL (1.6-8.9); Platelet Count 215 K/mcL (140-400); Red Blood Count 3.11 M/mcL (3.82-4.97); Red Cell Distribution Width 19.4 % (11.5-14.5)
[2017-09-09 10:26] LABS: INR 1.2; Prothrombin Time 13.3 Seconds (9.4-12.1)
[2017-09-09 10:29] LABS: Activated Partial Thrombo Time 42.5 Seconds (26.0-36.0)
[2017-09-09 10:34] LABS: BUN/Creatinine Ratio 38 (6-26); Blood Urea Nitrogen 38 mg/dL (8-23); Calcium 9.1 mg/dL (8.6-10.3); Carbon Dioxide 38 mEq/L (23-29); Chloride 95 mEq/L (98-107); Glucose 91 mg/dL (70-105); Osmolality,Calculated 295 (280-300); Potassium 3.7 mEq/L (3.5-5.1); Sodium 138 mEq/L (136-145); eGFR For African Americans > 60 (> 60); eGFR For Non-African Americans 53 (> 60)
[2017-09-09] MEDS ORDERED: Naloxone 0.4 MG/ML INJ IVP PRN (13:04)
[2017-09-09] MEDS ORDERED: Dextrose Gel 15 GM/37.5 ML TUBE PO PRN ×2 (13:04)
--- NOTE | 2017-09-09 13:11 | Internal Med History&Physical ---
<Dom Davila - Last Filed: 09/09/17 16:28> Date of Encounter: 09/09/17 Time of Encounter: 13:09 Assessment and Plan (1) Rectal bleeding Current visit: Yes Status: Acute New bright red blood per rectum which began yesterday evening. Etiology unclear at this time. No prior h/o GI bleed, but she is taking plavix. Last blood BM this afternoon while in the ED. She remains hemodynamically stable -hold Plavix -Q6hr H&H -PPI BID -Consult GI -[facility]/Oncology-Spoke with Daphne Jimenes who has agreed to see the patient -Type and screen -IVF -NPO -O2 to keep SpO2 > 92% -CBCD, BMP, INR/PTT in AM -EPCD's for DVT prophylaxis (2) Sacral decubitus ulcer, stage II Current visit: Yes Status: Acute Consult wound care team (3) Anemia Current visit: Yes Status: Chronic Chronic anemia. She does have new bright red blood per rectum which began yesterday evening. Last bloody BM today while in the ED. H&H stable this afternoon at 8.6/29.1. Continue to monitor H&H Q6hrs. See further planning above Qualifiers: Anemia type: unspecified type Qualified Code(s): D64.9 - Anemia, unspecified (4) Atrial fibrillation Current visit: Yes Status: Chronic stable, continue CCB Qualifiers: Atrial fibrillation type: chronic Qualified Code(s): I48.2 - Chronic atrial fibrillation (5) Diabetes Current visit: Yes Status: Chronic Continue basal insulin, and start sliding scale coverage Qualifiers: Diabetes mellitus type: type 2 Diabetes mellitus complication status: with skin complications Diabetes mellitus complication detail: with other skin ulcer Diabetes mellitus correction insulin use: with human services program specialist use Qualified Code(s): E11.622 - Type 2 diabetes mellitus with other skin ulcer; Z79.4 - penitentiary (current) use of insulin (6) HTN (hypertension) Current visit: Yes Status: Chronic stable, continue CCB and BB Qualifiers: Hypertension type: essential hypertension Qualified Code(s): I10 - Essential (primary) hypertension (7) Malignant lymphoma Current visit: Yes Status: Chronic Recent DX of lymphoma. She was seeing [facility] but as of Aug, 2017 she has decided to pursue hospice and declined any further treatments. 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 Chatman is a 82 year old female with a PMH of arthritis, a-fib, colon cancer, lymphoma, cardiomyopathy, CHF, COPD, DVT, DM, GERD, HLD, HTN, and renal disease. She presents to [facility] today with bright red blood per rectum which began yesterday evening. She denies any prior H/o GI bleed, but is on plavix. Her Son is at the bedside to assist with the history. He reports that [facility] reports that last night they began to notice bright red blood in her stools. Additionally, she reports that she has had diarrhea. She denies any fevers, chills, weight-loss, night sweats, chest pain, shortness of breath, nausea or vomiting. She admits to abdominal pain, and diarrhea. The workup on the ED found anemia. The ED physician is reporting seeing bright red blood in her stool. Past Med Surg Social Fam HX - Past Medical History Medical history: arthritis, atrial fibrillation, cancer, cardiomyopathy, CHF, COPD, DVT, diabetes, GERD, hyperlipidemia, hypertension, renal disease, other Psychiatric history: no psych history - Past Surgical History Surgical History: appendectomy, cancer surgery (Removal of lymph nodes), AICD, pacemaker - Social History Smoking Status: Never smoker Smokeless Tobacco Status: No Alcohol use: none Drug use: none - Family History Brother Family Member Ethnicity: Non- Living Status: Hx Family Cardiac Disorders: Yes (HTN) Hx Family Respiratory Disorders: No Hx Family Cancer: Yes Hx Family GI Disorders: No Hx Family Endocrine Disorder: No Hx Family Neuromuscular Disorders: No Hx Family Neurologic Disorders: No Hx Family HEENT Disorders: No Hx Family Autoimmune Disorders: No Father Family Member Ethnicity: Non- Living Status: Hx Family Cardiac Disorders: Yes (A-Fib) Hx Family Respiratory Disorders: No Hx Family Cancer: Yes (Type unknown) Hx Family GI Disorders: No Hx Family Endocrine Disorder: No Hx Family Neuromuscular Disorders: No Hx Family Neurologic Disorders: No Hx Family HEENT Disorders: No Hx Family Autoimmune Disorders: No Mother Family Member Ethnicity: Non- Living Status: Sister Family Member Ethnicity: Non- Living Status: Hx Family Cancer: Yes Internal Medicine - H&P: Meds Cilostazol [Pletal] 100 mg PO BID 03/25/15 [History] Clopidogrel [Plavix] 75 mg PO DAILY 03/25/15 [History] Gabapentin [Neurontin] 100 mg PO BID 03/25/15 [History] Oxybutynin Chloride [Ditropan Xl] 5 mg PO DAILY 03/25/15 [History] Ranitidine HCl [Zantac] 150 mg PO BID 03/25/15 [History] Acetaminophen [Tylenol] 1,000 mg PO Q6HR PRN 06/21/16 [History] Carvedilol 12.5 mg PO BID 06/21/16 [History] dilTIAZem HCl [Diltiazem HCl] 90 mg PO TID 06/21/16 [History] Insulin Glargine,Hum.rec.anlog [Basaglar Kwikpen U-100] 30 units SQ QAM [History] Bumetanide [Bumex] 1 mg PO BID 07/28/17 [History] Docusate [Colace] 100 mg PO BID 07/28/17 [History] Insulin LISPRO [HumaLOG] 5 units SQ TIDWM 07/28/17 [History] Sennosides [Senokot] 8.6 mg PO BID 07/28/17 [History] Vit C/E/Zn/Coppr/Lutein/Zeaxan [Preservision Areds 2 Softgel] 1 tab PO DAILY [History] Allopurinol [Zyloprim 100 MG] 100 mg PO DAILY 09/09/17 [History] Glucagon,Human Recombinant [Glucagen] 1 mg IJ AD 09/09/17 [History] Nystatin POWDER [Nystop] 1 appl TP BID PRN 09/09/17 [History] 3 Allergy/AdvReac Type Severity Reaction Status Date / Time EDY Inhibitors Allergy Unknown See Verified 03/04/17 15:01 Comments Amoxicillin Allergy Unknown See Verified 03/04/17 15:01 Comments azithromycin Allergy Unknown See Verified 03/04/17 15:01 Comments cefuroxime Allergy Unknown See Verified 03/04/17 15:01 Comments cephalexin Allergy Unknown See Verified 03/04/17 15:01 Comments Cephalosporins Allergy Unknown See Verified 03/04/17 15:01 Comments clindamycin Allergy Unknown See Verified 03/04/17 15:01 Comments codeine Allergy Unknown See Verified 03/04/17 15:01 Comments furosemide Allergy Unknown See Verified 03/04/17 15:01 Comments hydrocodone Allergy Unknown See Verified 03/04/17 15:01 Comments Penicillins Allergy Unknown See Verified 03/04/17 15:01 Comments prednisone Allergy Unknown Hives Verified 03/04/17 15:01 silver sulfadiazine Allergy Unknown See Verified 03/04/17 15:01 [From Silvadene] Comments Njukmfo-Ucc-Ldn Reductase Allergy Unknown See Verified 03/04/17 15:01 Inhibitor Comments [Statins] Sulfa (Sulfonamide Allergy Unknown See Verified 03/04/17 15:01 Antibiotics) Comments diuretic Allergy Unknown See Uncoded 03/04/17 15:01 Comments All Systems PM: A 10-system review of systems was performed and is negative for pertinent findings except as documented above in the HPI. - Constitutional Constitutional: fatigue, weakness, no chills, no fever(s), no weight loss - Cardiovascular Cardiovascular ROS IM: no chest pain, no diaphoresis, no dyspnea, no lightheadedness, no palpitations, no syncope - Respiratory Respiratory: no cough, no dyspnea, no wheezing, no excessive phlegm production - Gastrointestinal Gastrointestinal: abdominal pain (RLQ), diarrhea, hematochezia, no change in bowel habits, no change in stool character, no coffee ground emesis, no hematemesis, no melena, no nausea, no vomiting - Genitourinary Genitourinary: no change in urinary stream, no dysuria, no flank pain, no hematuria - Musculoskeletal Musculoskeletal ROS IM: no numbness, no tingling - Integumentary Integumentary IM: no rash, no unusual bruising - Neurological Neurological ROS: no confusion, no convulsions, no focal weakness, no numbness, no tingling, no tremor(s) - Constitutional Vitals: Temp Pulse Resp BP Pulse Ox 98.3 F 64 15 138/61 100 09/09/17 09:45 09/09/17 12:07 09/09/17 12:07 09/09/17 12:07 09/09/17 12:07 General appearance: Present: cooperative, A&O X 3, no acute distress, answers questions appropriately - Head Head exam: Present: atraumatic, normocephalic - Eye Pupils: Present: PERRL - Neck Neck exam general surgery: Present: supple, trachea midline. Absent: lymphadenopathy - Respiratory Respiratory exam: Present: decreased breath sounds, CTAB. Absent: accessory muscle use, rales, rhonchi, wheezes, tachypnea - Cardiovascular Cardiovascular exam: Present: irregular rhythm. Absent: diastolic murmur, gallop, JVD, RRR, rubs, systolic murmur, tachycardia - GI/Abdominal GI/Abdominal exam: Present: hyperactive bowel sounds, soft, tenderness. Absent : firm, guarding, rigid - Extremities Exam Extremities exam: Present: normal capillary refill - Expanded Lower Extremities Exam Lower Leg exam: Present: erythema, swelling. Absent: tenderness 1 - mild erythema, BLE, wound on RLE with dressing in place - Neurological Exam Neurological exam: Present: alert, oriented X3. Absent: facial droop, speech deficit - Skin Skin exam: Present: dry, erythema (RLE). Absent: intact Internal Med - H&P Results - Labs CBC & Chem 7: 09/09/17 10:03 09/09/17 10:03 - EKG Data -: EKG Interpreted by Myself Rate: normal - EKG Data EKG comments: Atrial fibrillation with rate of 71 09/09/17 13:13 - Impressions Impressions Chest X-Ray 09/09/17 09:51 IMPRESSION: No evidence for acute cardiopulmonary process. Stable cardiomegaly. D/ / 09/09/2017 10:15:26 Paramjit Wagner MD / Shira Marie Interpreting Provider: Paramjit Wagner MD <Zeb Joya - Last Filed: 09/09/17 18:28> Date of Encounter: 09/09/17 Internal Medicine - H&P: HPI History of present illness: Ms. Chatman is a 82 year old female All Systems PM: A 10-system review of systems was performed and is negative for pertinent findings except as documented above in the HPI. - Constitutional Vitals: Temp Pulse Resp BP Pulse Ox 98.1 F 64 17 136/60 100 09/09/17 15:20 09/09/17 15:20 09/09/17 15:20 09/09/17 15:20 09/09/17 15:20 Internal Med - H&P Results - Labs CBC & Chem 7: 09/09/17 10:03 09/09/17 10:03 - Attending Attestation I have personally performed a face to face evaluation on this patient. I have reviewed and agree with the care plan provided by ROSELIA Davila. History and Exam by me shows: Ms. Chatman is a 82 year old female with a PMH of arthritis, a-fib, colon cancer, lymphoma, cardiomyopathy, CHF, COPD, DVT, DM, GERD, HLD, HTN, and renal disease. [facility] today with bright red blood per rectum which began yesterday evening. She denies any prior H/o GI bleed, but is on plavix. Pt denied any CP / SOB. Gen: A, A, O x 3 Chest: Diminished BS b/l basal regions..mild wheezing Heart: S1S2+ RRR No murmurs Abd: Soft, NT, BS + a/p 1. Acute BRBPR NPO IV hydration GI consulted possible EGD and Colonoscopy in AM PPI BID
[2017-09-09] MEDS: 0.9 % Sodium Chloride 1,000 ML IVC SCH (15:50)
[2017-09-09] MEDS: Pantoprazole 40 MG VIAL IVP SCH ×2 (15:51→18:20)
[2017-09-09] MEDS: Bumetanide 1 MG TABLET PO SCH (16:01)
[2017-09-09] MEDS ORDERED: SODIUM CHLORIDE/NAHCO3/KCL/PEG 4,000 ML SOLN.RECON PO ONE (17:00)
[2017-09-09 18:41] LABS: Hematocrit 27.4 % (35.3-44.9); Hemoglobin 8.2 g/dL (11.5-15.4)
[2017-09-09] MEDS: Insulin LISPRO 300 UNITS/3 ML VIAL SQ SCH (18:53)
[2017-09-09] MEDS: Sennosides 8.6 MG TABLET PO SCH (22:11)
[2017-09-09] MEDS: Gabapentin 100 MG CAPSULE PO SCH (22:11)
[2017-09-10] MEDS: 0.9 % Sodium Chloride 1,000 ML IVC SCH (01:19)
[2017-09-10 01:47] LABS: Basophils % 0.2 %; Eosinophils % 0.2 %; Hematocrit 27.1 % (35.3-44.9); Hemoglobin 7.9 g/dL (11.5-15.4); Immature Granulocytes % 0.5 % (0-4); Lymphocytes # 1.2 K/mcL (0.6-4.6); Lymphocytes % 27.5 %; Mean Corpuscular HGB Conc 29.2 g/dL (31.6-35.5); Mean Corpuscular Hemoglobin 27.5 pg (28.0-33.3); Mean Corpuscular Volume 94.4 fL (83.0-100.0); Mean Platelet Volume 10.6 fL (9.4-12.4); Monocytes # 0.4 K/mcL (0.0-1.3); Monocytes % 8.9 %; Neutrophils # 2.6 K/mcL (1.6-8.9); Platelet Count 197 K/mcL (140-400); Red Blood Count 2.87 M/mcL (3.82-4.97); Red Cell Distribution Width 19.3 % (11.5-14.5); Segmented Neutrophils % 62.7 %
[2017-09-10 01:51] LABS: INR 1.2; Prothrombin Time 12.8 Seconds (9.4-12.1)
[2017-09-10 02:05] LABS: BUN/Creatinine Ratio 34 (6-26); Blood Urea Nitrogen 32 mg/dL (8-23); Calcium 8.3 mg/dL (8.6-10.3); Carbon Dioxide 33 mEq/L (23-29); Chloride 98 mEq/L (98-107); Glucose 102 mg/dL (70-105); Osmolality,Calculated 291 (280-300); Potassium 3.4 mEq/L (3.5-5.1); Sodium 137 mEq/L (136-145); eGFR For African Americans > 60 (> 60); eGFR For Non-African Americans 58 (> 60)
[2017-09-10] MEDS: Insulin LISPRO 300 UNITS/3 ML VIAL SQ SCH ×4 (02:20→17:06)
[2017-09-10] MEDS: Pantoprazole 40 MG VIAL IVP SCH ×2 (06:03→17:05)
[2017-09-10 06:25] LABS: Hematocrit 27.9 % (35.3-44.9); Hemoglobin 8.3 g/dL (11.5-15.4)
[2017-09-10] MEDS ORDERED: *HR* FentaNYL (PF) 100 MCG/2 ML VIAL ONE (08:25)
[2017-09-10] MEDS ORDERED: *HR* Midazolam HCl 5 MG/5 ML VIAL IVP ONE (08:25)
[2017-09-10] MEDS: Bumetanide 1 MG TABLET PO SCH ×2 (09:07→17:05)
[2017-09-10] MEDS: Gabapentin 100 MG CAPSULE PO SCH ×2 (09:09→21:14)
[2017-09-10] MEDS: Sennosides 8.6 MG TABLET PO SCH ×2 (09:09→21:14)
[2017-09-10] MEDS: Multivit/Ca/Min/Fe/FA 1 TAB TABLET PO SCH (09:10)
--- NOTE | 2017-09-10 10:13 | Internal Med Progress Note ---
Date of Encounter: 09/10/17 Time of Encounter: 10:12 - Assessment and plan (1) Rectal bleeding Current Visit: Yes Status: Acute Assessment and plan: continue PPI, bowel prep, monitor H/H Possibly hemorrhoidal, patient is hemodynamically stable (2) Anemia Current Visit: Yes Status: Chronic Assessment and plan: Chronic anemia. She does have new bright red blood per rectum which began prior to presentation HB stable at 8 Continue to monitor patient is hemodynamically stable Qualifiers: Anemia type: unspecified type Qualified Code(s): D64.9 - Anemia, unspecified (3) Atrial fibrillation Current Visit: Yes Status: Chronic Assessment and plan: stable, continue CCB Qualifiers: Atrial fibrillation type: chronic Qualified Code(s): I48.2 - Chronic atrial fibrillation (4) Chronic venous hypertension w/ulcer and inflammation involv both sides Current Visit: Yes Status: Chronic Assessment and plan: chronic, stable (5) Diabetes Current Visit: Yes Status: Chronic Assessment and plan: Continue basal insulin, and sliding scale coverage Hold levemir for procedure a.m Qualifiers: Diabetes mellitus type: type 2 Diabetes mellitus complication status: with skin complications Diabetes mellitus complication detail: with other skin ulcer Diabetes mellitus residential insulin use: with residential use Qualified Code(s): E11.622 - Type 2 diabetes mellitus with other skin ulcer; 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 She was seeing [facility] but as of Aug, 2017 she has decided to pursue hospice and declined any further treatments. 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, unspecified site (9) Sacral decubitus ulcer, stage II Current Visit: Yes Status: Acute Assessment and plan: continue wound care - Subjective Interval history: 82 F resident of [facility] admitted and being managed for suspected LGIB She is hemodynamically stable She is pending GI eval and seems to have been started on bowel prep for possible colonoscopy - Constitutional Vitals: Temp Pulse Resp BP Pulse Ox 98.2 F 62 16 174/62 100 09/10/17 07:15 09/10/17 07:15 09/10/17 07:15 09/10/17 07:15 09/10/17 07:15 General appearance: Present: cooperative, A&O X 3, no acute distress, answers questions appropriately - Head Head exam: Present: atraumatic, normocephalic - Eye Eye exam: Present: PERRL, conjuntiva pink, sclera anicteric Pupils: Present: PERRL - Neck Neck exam general surgery: Present: supple, trachea midline. Absent: lymphadenopathy - Respiratory Respiratory exam: Present: CTAB. Absent: accessory muscle use, rales, rhonchi, wheezes - Cardiovascular Cardiovascular exam: Present: RRR, +S1, +S2. Absent: diastolic murmur, gallop, rubs, systolic murmur - GI/Abdominal GI/Abdominal exam: Present: normal bowel sounds, soft, no peritoneal signs. Absent: distended, tenderness - Extremities Exam Additional comments: Right leg in Dwight dressing. Left leg with chronic venostasis changes and trace pedal edema. - Neurological Exam Neurological exam: Present: alert, CN II-XII intact, oriented X3, no focal deficits. Absent: pronater drift, facial droop, speech deficit - Skin Skin exam: Present: dry, intact Internal Medicine: Result - Labs CBC & Chem 7: 09/10/17 11:36 09/10/17 01:00 Labs: Short CBC 09/09/17 09/10/17 09/10/17 Range/Units 18:30 01:00 06:00 WBC 4.2 L (4.3-11.1) K/mcL Hgb 8.2 L 7.9 L 8.3 L (11.5-15.4) g/dL Hct 27.4 L 27.1 L 27.9 L (35.3-44.9) % Plt Count 197 (140-400) K/mcL Neutrophils # 2.6 (1.6-8.9) K/mcL BMP 09/10/17 01:00 Sodium 137 Potassium 3.4 L Chloride 98 Carbon Dioxide 33 H BUN 32 H Creatinine 0.93 Glucose 102 Calcium 8.3 L - ABG Interpretation ABG results: PT/INR, D-dimer PT 12.8 Seconds (9.4-12.1) H 09/10/17 01:00 Consult Discharge Plan - Plan Referrals: Jamarcus Pedro DO [Primary Care Provider] -
[2017-09-10] MEDS: Insulin DETEMIR 100 UNIT/ML X5UNITS SQ SCH (10:38)
[2017-09-10 12:10] LABS: Hematocrit 29.3 % (35.3-44.9); Hemoglobin 8.8 g/dL (11.5-15.4)
[2017-09-10] MEDS ORDERED: SODIUM CHLORIDE/NAHCO3/KCL/PEG 4,000 ML SOLN.RECON PO ONE (13:23)
--- NOTE | 2017-09-10 14:02 | Gastroenterology Consult Note ---
<LindaHarley Dailey - Last Filed: 09/10/17 13:58> Date of Encounter: 09/10/17 Time of Encounter: 12:50 - Assessment and plan (1) Anemia Current Visit: Yes Status: Chronic Assessment and plan: Hgb on admission 8.6 and this AM Hgb 8.3. Continue to monitor CBC and transfuse PRBC as needed. Qualifiers: Anemia type: unspecified type Qualified Code(s): D64.9 - Anemia, unspecified (2) Rectal bleeding Current Visit: Yes Status: Acute Assessment and plan: Pt with BRBPR that started the day prior to admission. Planned to complete colonoscopy today, but colon prep was not completed overnight. Plan for colon prep today and colonoscopy tomorrow. Clear liquid diet today, no red or purple. NPO at midnight. If unable tolerate NuLytely please use MiraLAX prep. If not clear by 6 AM, give 2 tap water enemas. - Time Spent With Patient Total time spent is greater than 50% in coordination of care (as documented) at patient's floor/unit and/or counseling patient: GI History of Present Illness - Data of Consult Patient: new to practice Consult date: 09/10/17 Requesting Physician: Mart Bell MD - Consult Narrative Reason for consult: BRBPR History of present illness: Ms. Chatman is a 82 year old female with PMHx of arthritis, Afib, colon cancer , lymphoma, cardiomyopathy, CHF, COPD, DVT, DM, GERD, HLD, HTN, and renal disease who presented with BRBPR that started the day prior to admission. She denies any history of GI bleed. She denies any fever, chills, chest pain, shortness of breath, nausea, vomiting, constipation, or melena. She does report abdominal pain and diarrhea. She was recently diagnosed with lymphoma and in 2017 she decided to pursue Hospice care. Hgb on admission 8.6 and this AM Hgb 8.3. Procedures: Colonoscopy 09/15/2008 Dr. Pedro: Tubular adenoma NSAIDs: None Anticoagulation: Plavix, Pletal Past Med Surg Social Fam HX - Past Medical History Medical history: arthritis, atrial fibrillation, cancer, cardiomyopathy, CHF, COPD, DVT, diabetes, GERD, hyperlipidemia, hypertension, renal disease, other Psychiatric history: no psych history - Past Surgical History Surgical History: appendectomy, cancer surgery (Removal of lymph nodes), AICD, pacemaker - Social History Smoking Status: Never smoker Smokeless Tobacco Status: No Alcohol use: none Drug use: none - Family History Brother Family Member Ethnicity: Non- Living Status: Hx Family Cardiac Disorders: Yes (HTN) Hx Family Respiratory Disorders: No Hx Family Cancer: Yes Hx Family GI Disorders: No Hx Family Endocrine Disorder: No Hx Family Neuromuscular Disorders: No Hx Family Neurologic Disorders: No Hx Family HEENT Disorders: No Hx Family Autoimmune Disorders: No Father Family Member Ethnicity: Non- Living Status: Hx Family Cardiac Disorders: Yes (A-Fib) Hx Family Respiratory Disorders: No Hx Family Cancer: Yes (Type unknown) Hx Family GI Disorders: No Hx Family Endocrine Disorder: No Hx Family Neuromuscular Disorders: No Hx Family Neurologic Disorders: No Hx Family HEENT Disorders: No Hx Family Autoimmune Disorders: No Mother Family Member Ethnicity: Non- Living Status: Sister Family Member Ethnicity: Non- Living Status: Hx Family Cancer: Yes - Gastrointestinal Gastrointestinal: Present: as per HPI - Constitutional Constitutional: as per HPI - EENT Eyes: as per HPI Ears: Present: as per HPI Nose, mouth and throat: Present: as per HPI - Cardiovascular Cardiovascular ROS: Present: as per HPI - Respiratory Respiratory IM: Present: as per HPI - Genitourinary Genitourinary: Absent: change in color, Urinary frequency - Neurological ROS Neurological GI: Present: as per HPI - Hematologic/Lymphatic Hematologic/Lymphatic pediatric: Present: as per HPI - Musculoskeletal Musculoskeletal ROS GI: Present: as per HPI - Integumentary Integumentary GI: Present: as per HPI - Psychiatric ROS Psychiatric GI: Present: as per HPI - Endocrine Endocrine IM: Present: as per HPI - Constitutional Vitals: Temp Pulse Resp BP Pulse Ox 98.9 F 59 18 137/67 99 09/10/17 13:26 09/10/17 13:26 09/10/17 13:26 09/10/17 13:26 09/10/17 13:26 General appearance: Present: cooperative, A&O X 3, no acute distress, answers questions appropriately - Head Head exam: Present: atraumatic, normocephalic - Eye Eye exam: Present: normal appearance, sclera anicteric - ENT ENT exam: Present: mucous membranes moist - Neck Neck exam general surgery: Present: normal inspection, trachea midline - Respiratory Respiratory exam: Present: decreased breath sounds, CTAB - Cardiovascular Cardiovascular exam: Present: RRR, +S1, +S2 - GI/Abdominal GI/Abdominal exam: Present: soft, no peritoneal signs. Absent: distended, firm , guarding, tenderness - Rectal Rectal exam: Present: deferred - Extremities Exam Extremities exam: Present: warm - Neurological Exam Neurological exam: Present: no focal deficits - Psychiatric Psychiatric exam: Present: normal affect, normal mood - Skin Skin exam: Present: dry, intact, normal color, warm Results - Labs CBC & Chem 7: 09/10/17 11:36 09/10/17 01:00 Labs: Last Result Calcium 8.3 mg/dL (8.6-10.3) L 09/10/17 01:00 Entire Visit Hgb 8.8 g/dL (11.5-15.4) L 09/10/17 11:36 Hct 29.3 % (35.3-44.9) L 09/10/17 11:36 PT 12.8 Seconds (9.4-12.1) H 09/10/17 01:00 - ABG ABG results: PT/INR, D-dimer PT 12.8 Seconds (9.4-12.1) H 09/10/17 01:00 Consult Discharge Plan - Plan Referrals: Jamarcus Pedro DO [Primary Care Provider] - <Jared Fallon - Last Filed: 09/10/17 19:55> Date of Encounter: 09/10/17 Time of Encounter: 19:00 - Time Spent With Patient Total time spent is greater than 50% in coordination of care (as documented) at patient's floor/unit and/or counseling patient: GI History of Present Illness - Data of Consult Requesting Physician: Mart Bell MD - Consult Narrative History of present illness: Ms. Chatman is a 82 year old female - Constitutional Vitals: Temp Pulse Resp BP Pulse Ox 97.8 F 62 16 119/72 100 09/10/17 16:05 09/10/17 16:05 09/10/17 16:05 09/10/17 16:05 09/10/17 16:05 Results - Labs CBC & Chem 7: 09/10/17 18:00 09/10/17 01:00 Labs: Last Result Calcium 8.3 mg/dL (8.6-10.3) L 09/10/17 01:00 Entire Visit Hgb 8.6 g/dL (11.5-15.4) L 09/10/17 18:00 Hct 29.0 % (35.3-44.9) L 09/10/17 18:00 PT 12.8 Seconds (9.4-12.1) H 09/10/17 01:00 - ABG ABG results: PT/INR, D-dimer PT 12.8 Seconds (9.4-12.1) H 09/10/17 01:00 - Attending Attestation I have personally performed a face to face evaluation on this patient. I have reviewed and agree with the care plan. History and Exam by me shows:
[2017-09-10 18:58] LABS: Hemoglobin 8.6 g/dL (11.5-15.4)
[2017-09-10] MEDS: *HR* Dextrose 50 % in Water (Syg) 50 ML SYRINGE IVP PRN ×2 (19:43→23:19)
[2017-09-10] MEDS: D5% in Water 1,000 ML IVC PRN (19:59)
[2017-09-11 00:43] LABS: Hematocrit 29.5 % (35.3-44.9); Hemoglobin 8.9 g/dL (11.5-15.4)
[2017-09-11 04:17] LABS: Basophils % 0.2 %; Eosinophils % 0.2 %; Hematocrit 30.3 % (35.3-44.9); Hemoglobin 9.1 g/dL (11.5-15.4); Immature Granulocytes % 0.4 % (0-4); Lymphocytes # 0.9 K/mcL (0.6-4.6); Lymphocytes % 17.7 %; Mean Corpuscular Hemoglobin 28.1 pg (28.0-33.3); Mean Corpuscular Volume 93.5 fL (83.0-100.0); Mean Platelet Volume 10.5 fL (9.4-12.4); Monocytes # 0.4 K/mcL (0.0-1.3); Monocytes % 6.6 %; Platelet Count 207 K/mcL (140-400); Red Blood Count 3.24 M/mcL (3.82-4.97); Red Cell Distribution Width 18.6 % (11.5-14.5); Segmented Neutrophils % 74.9 %
[2017-09-11 04:33] LABS: Calcium 8.5 mg/dL (8.6-10.3); Potassium 3.7 mEq/L (3.5-5.1)
[2017-09-11] MEDS: Pantoprazole 40 MG VIAL IVP SCH ×2 (07:11→18:00)
[2017-09-11] MEDS: Insulin LISPRO 300 UNITS/3 ML VIAL SQ SCH ×4 (09:33→17:55)
[2017-09-11] MEDS: Bumetanide 1 MG TABLET PO SCH ×2 (09:44→17:58)
[2017-09-11] MEDS: Gabapentin 100 MG CAPSULE PO SCH (09:44)
[2017-09-11] MEDS: Multivit/Ca/Min/Fe/FA 1 TAB TABLET PO SCH (09:45)
[2017-09-11] MEDS: Sennosides 8.6 MG TABLET PO SCH (09:45)
--- NOTE | 2017-09-11 11:24 | Internal Med Progress Note ---
Date of Encounter: 09/11/17 Time of Encounter: 11:24 - Assessment and plan (1) Rectal bleeding Current Visit: Yes Status: Acute Assessment and plan: continue PPI, bowel prep, monitor H/H Colonoscopy today Possibly hemorrhoidal, patient is hemodynamically stable (2) Anemia Current Visit: Yes Status: Chronic Assessment and plan: Chronic anemia. She does have new bright red blood per rectum which began prior to presentation HB stable at 8-9 Continue to monitor patient is hemodynamically stable Qualifiers: Anemia type: unspecified type Qualified Code(s): D64.9 - Anemia, unspecified (3) Atrial fibrillation Current Visit: Yes Status: Chronic Assessment and plan: stable, continue CCB Qualifiers: Atrial fibrillation type: chronic Qualified Code(s): I48.2 - Chronic atrial fibrillation (4) Chronic venous hypertension w/ulcer and inflammation involv both sides Current Visit: Yes Status: Chronic Assessment and plan: chronic, stable (5) Diabetes Current Visit: Yes Status: Chronic Assessment and plan: Hold levemir for procedure today, 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, resolved with D5 Continue to monitor FS q6h till patient is able to tolerate po Qualifiers: Diabetes mellitus type: type 2 Diabetes mellitus complication status: with skin complications Diabetes mellitus complication detail: with other skin ulcer 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 She was seeing [facility] but as of Aug, 2017 she has decided to pursue hospice and declined any further treatments. 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 admitted and being managed for suspected LGIB She is hemodynamically stable For colonoscopy today She denies new complains - Constitutional Vitals: Temp Pulse Resp BP Pulse Ox 97.8 F 60 18 136/86 100 09/11/17 11:19 09/11/17 11:19 09/11/17 11:19 09/11/17 11:19 09/11/17 11:19 General appearance: Present: cooperative, A&O X 3, no acute distress, answers questions appropriately - Head Head exam: Present: atraumatic, normocephalic - Eye Eye exam: Present: PERRL, conjuntiva pink, sclera anicteric Pupils: Present: PERRL - Neck Neck exam general surgery: Present: supple, trachea midline. Absent: lymphadenopathy - Respiratory Respiratory exam: Present: CTAB. Absent: accessory muscle use, rales, rhonchi, wheezes - Cardiovascular Cardiovascular exam: Present: RRR, +S1, +S2. Absent: diastolic murmur, gallop, rubs, systolic murmur - GI/Abdominal GI/Abdominal exam: Present: normal bowel sounds, soft, no peritoneal signs. Absent: distended, tenderness - Extremities Exam Additional comments: chronic venous stasis with dermatitis, R leg with allevyn - Neurological Exam Neurological exam: Present: alert, CN II-XII intact, oriented X3, no focal deficits. Absent: pronater drift, facial droop, speech deficit - Skin Skin exam: Present: dry, intact Internal Medicine: Result - Labs CBC & Chem 7: 09/11/17 04:00 09/11/17 04:00 Labs: Short CBC 09/10/17 09/10/17 09/11/17 Range/Units 11:36 18:00 00:24 WBC (4.3-11.1) K/mcL Hgb 8.8 L 8.6 L 8.9 L (11.5-15.4) g/dL Hct 29.3 L 29.0 L 29.5 L (35.3-44.9) % Plt Count (140-400) K/mcL Neutrophils # (1.6-8.9) K/mcL 09/11/17 Range/Units 04:00 WBC 5.3 (4.3-11.1) K/mcL Hgb 9.1 L (11.5-15.4) g/dL Hct 30.3 L (35.3-44.9) % Plt Count 207 (140-400) K/mcL Neutrophils # 4.0 (1.6-8.9) K/mcL BMP 09/11/17 04:00 Sodium 135 L Potassium 3.7 Chloride 99 Carbon Dioxide 30 H BUN 27 H Creatinine 1.11 Glucose 87 Calcium 8.5 L - ABG Interpretation ABG results: PT/INR, D-dimer PT 12.8 Seconds (9.4-12.1) H 09/10/17 01:00 Consult Discharge Plan - Plan Referrals: Jamarcus Pedro DO [Primary Care Provider] -
--- NOTE | 2017-09-11 13:43 | Anesthesia Evaluation PreOp ---
Date of Encounter: 09/11/17 Time of Encounter: 13:40 - Past History Planned Operation: colonoscopy (GI bleed) Cardiac History: CHF (cardiomyopathy), HTN, Hyperlipidemia, Arrhythmia (A fib), Pacemaker/ICD (both pacemaker and a defibrillator - being interrogated prior to surgery; patient remembers being shocked a month ago for unknown reason) Pulmonary History: COPD MEDICAL RECORDS MANAGER History: Denies Any Significant HX Other Medical History: Bleeding (GI bleed), Diabetes Type II (insulin dependent) , Other (malignant lymphoma s/p chemo-therapy) Anesthesia History: No Prior Anesthetic Complications Alcohol Use: none Drug use: none Medications and Allergies Cilostazol [Pletal] 100 mg PO BID 03/25/15 [History] Clopidogrel [Plavix] 75 mg PO DAILY 03/25/15 [History] Gabapentin [Neurontin] 100 mg PO BID 03/25/15 [History] Oxybutynin Chloride [Ditropan Xl] 5 mg PO DAILY 03/25/15 [History] Ranitidine HCl [Zantac] 150 mg PO BID 03/25/15 [History] Acetaminophen [Tylenol] 1,000 mg PO Q6HR PRN 06/21/16 [History] Carvedilol 12.5 mg PO BID 06/21/16 [History] dilTIAZem HCl [Diltiazem HCl] 90 mg PO TID 06/21/16 [History] Insulin Glargine,Hum.rec.anlog [Basaglar Kwikpen U-100] 30 units SQ QAM [History] Bumetanide [Bumex] 1 mg PO BID 07/28/17 [History] Docusate [Colace] 100 mg PO BID 07/28/17 [History] Insulin LISPRO [HumaLOG] 5 units SQ TIDWM 07/28/17 [History] Sennosides [Senokot] 8.6 mg PO BID 07/28/17 [History] Vit C/E/Zn/Coppr/Lutein/Zeaxan [Preservision Areds 2 Softgel] 1 tab PO DAILY [History] Allopurinol [Zyloprim 100 MG] 100 mg PO DAILY 09/09/17 [History] Glucagon,Human Recombinant [Glucagen] 1 mg IJ AD 09/09/17 [History] Nystatin POWDER [Nystop] 1 appl TP BID PRN 09/09/17 [History] 3 Allergy/AdvReac Type Severity Reaction Status Date / Time EDY Inhibitors Allergy Unknown See Verified 03/04/17 15:01 Comments Amoxicillin Allergy Unknown See Verified 03/04/17 15:01 Comments azithromycin Allergy Unknown See Verified 03/04/17 15:01 Comments cefuroxime Allergy Unknown See Verified 03/04/17 15:01 Comments cephalexin Allergy Unknown See Verified 03/04/17 15:01 Comments Cephalosporins Allergy Unknown See Verified 03/04/17 15:01 Comments clindamycin Allergy Unknown See Verified 03/04/17 15:01 Comments codeine Allergy Unknown See Verified 03/04/17 15:01 Comments furosemide Allergy Unknown See Verified 03/04/17 15:01 Comments hydrocodone Allergy Unknown See Verified 03/04/17 15:01 Comments Penicillins Allergy Unknown See Verified 03/04/17 15:01 Comments prednisone Allergy Unknown Hives Verified 03/04/17 15:01 silver sulfadiazine Allergy Unknown See Verified 03/04/17 15:01 [From Silvadene] Comments Ullekfn-Ouu-Qew Reductase Allergy Unknown See Verified 03/04/17 15:01 Inhibitor Comments [Statins] Sulfa (Sulfonamide Allergy Unknown See Verified 03/04/17 15:01 Antibiotics) Comments diuretic Allergy Unknown See Uncoded 03/04/17 15:01 Comments - Meds/Allergy Pre-op Review Medications Reviewed: Yes Allergies Reviewed: Yes Beta Blockers on Current Med List: Yes (coreg) If Beta Blockers taken, Date/Time (Last Dose taken): 09-11-17 9:45 Anesthesia Results - Labs 09/11/17 04:00 09/11/17 04:00 - Imaging EKG: report reviewed, image reviewed (electronic ventricular pacemaker) Additional studies: TTE: Impressions: Technically sub-optimal due to poor echocardiographic windows. LVEF 55-60%. Grossly normal LV chamber size, wall thickness and function. Atypical septal motion consistent with paced rhythm. Indeterminate diastolic function. Normal right ventricular structure and function. Moderately dilated left atrium. Grossly, mildly calcified aortic valve leaflets. Mild aortic regurgitation. Mild aortic stenosis. Mild mitral regurgitation. Mild pulmonary hypertension. Estimated RVSP is 42 mmHg. Anesthesia Exam Last Vital Signs Temp 97.8 F 09/11/17 11:19 Pulse 60 09/11/17 11:19 Resp 18 09/11/17 11:19 BP 136/86 09/11/17 11:19 Pulse Ox 100 09/11/17 11:19 Weight: 86 kg NPO (# of Hours): > 8 hrs - HEENT Pupil (Motor): Pupils equal, EOMI Mallampati: III Teeth: Poor dentition Oral Opening: Greater than 3 - MEDICAL RECORDS MANAGER LOC: Oriented - Cardiac Rhythm: Regular - Pulmonary Breath Sounds: bilateral Clear Anesthesia Assess/Plan ASA Score: 4 Modified Milton Scale for Level of Consciousness: Cooperative, oriented, and tranquil Anesthetic Plan: MAC Monitoring Plan: Standard Monitors Recovery Plan: PACU
[2017-09-11] MEDS ORDERED: *HR* Propofol 200 MG/20 ML VIAL IVP ONE ×2 (14:56→15:25)
[2017-09-11] MEDS ORDERED: Lidocaine -MPF 2% 2 ML VIAL ONE (15:04)
[2017-09-12] MEDS: Sennosides 8.6 MG TABLET PO SCH ×3 (00:57→20:53)
[2017-09-12] MEDS: Gabapentin 100 MG CAPSULE PO SCH ×3 (00:57→20:54)
[2017-09-12] MEDS: Insulin LISPRO 300 UNITS/3 ML VIAL SQ SCH ×5 (02:33→23:50)
[2017-09-12 04:48] LABS: Basophils % 0.2 %; Hematocrit 25.5 % (35.3-44.9); Hemoglobin 7.6 g/dL (11.5-15.4); Immature Granulocytes % 0.2 % (0-4); Lymphocytes # 1.1 K/mcL (0.6-4.6); Lymphocytes % 20.6 %; Mean Corpuscular HGB Conc 29.8 g/dL (31.6-35.5); Mean Corpuscular Hemoglobin 27.9 pg (28.0-33.3); Mean Corpuscular Volume 93.8 fL (83.0-100.0); Mean Platelet Volume 10.4 fL (9.4-12.4); Monocytes # 0.3 K/mcL (0.0-1.3); Monocytes % 5.8 %; Neutrophils # 3.9 K/mcL (1.6-8.9); Platelet Count 173 K/mcL (140-400); Red Blood Count 2.72 M/mcL (3.82-4.97); Red Cell Distribution Width 19.2 % (11.5-14.5); Segmented Neutrophils % 73.2 %
[2017-09-12] MEDS: Pantoprazole 40 MG VIAL IVP SCH ×2 (06:34→18:02)
[2017-09-12] MEDS: Multivit/Ca/Min/Fe/FA 1 TAB TABLET PO SCH (09:36)
[2017-09-12] MEDS: Bumetanide 1 MG TABLET PO SCH ×2 (09:36→18:01)
[2017-09-12] MEDS: Insulin DETEMIR 100 UNIT/ML X5UNITS SQ SCH (09:37)
--- NOTE | 2017-09-12 15:39 | Internal Med Progress Note ---
Date of Encounter: 09/12/17 Time of Encounter: 15:37 - Assessment and plan (1) Rectal bleeding Current Visit: Yes Status: Acute Assessment and plan: Continue PPI, monitor hemodynamically as well as monitor H&H serially. Colonoscopy was done yesterday and shows a fungating, infiltrative and ulcerated partially obstructing large mass at the hepatic flexure. This was biopsied with a cold large capacity forceps and otology is pending at this point She was made aware of this mass and the result of the pending biopsy. Patient really does not want to pursue investigation at all I will respect her decision making and we will make sure that her primary care physician follows up on the biopsy results. (2) Anemia Current Visit: Yes Status: Chronic Assessment and plan: Chronic anemia. She does have new bright red blood per rectum which began prior to presentation HB stable at 8-9 Continue to monitor patient is hemodynamically stable 09/12/2017-11 today is down to 7.6. Recheck hemoglobin again in the morning and if below 7 would consider transfusion. She does have a fungating mass as explained above that could be contributing to this. Patient however does not want to aggressively pursue further management of this mass. I would defer to outpatient but would still like to hemodynamically manage her care while she is in here Qualifiers: Anemia type: unspecified type Qualified Code(s): D64.9 - Anemia, unspecified (3) Atrial fibrillation Current Visit: Yes Status: Chronic Assessment and plan: stable, continue CCB Qualifiers: Atrial fibrillation type: chronic Qualified Code(s): I48.2 - Chronic atrial fibrillation (4) Chronic venous hypertension w/ulcer and inflammation involv both sides Current Visit: Yes Status: Chronic Assessment and plan: chronic, stable (5) Diabetes Current Visit: Yes Status: Chronic Assessment and plan: Hold levemir for procedure today, 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 She was seeing [facility] but as of Aug, 2017 she has decided to pursue hospice and declined any further treatments. 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 Denies any new fevers or chills denies any further bleeding - Constitutional Vitals: Temp Pulse Resp BP Pulse Ox 98.8 F 61 16 128/71 100 09/12/17 12:07 09/12/17 12:07 09/12/17 12:07 09/12/17 12:07 09/12/17 12:07 General appearance: Present: cooperative, A&O X 3, no acute distress, answers questions appropriately Exam: GENERAL: Alert, no distress, cooperative EYES: PERRLA, EOMI EARS: External ears normal, canals clear OROPHARYNX: Lips, mucosa, and tongue normal. Teeth and gums normal. Oropharynx normal. NECK: No jugulovenous distention, No carotid bruits, Carotid pulse normal contour, Supple LUNGS: Lungs clear to auscultation, Good diaphragmatic excursion CARDIAC: Normal S1 and S2; no rubs, murmurs, or gallops ABDOMEN: Abdomen soft, non-tender, BS normal, No masses or organomegaly EXTREMITIES: Pitting edema level I BACK-stage II sacral decubitus NEURO: Gait normal. Reflexes normal and symmetric. Sensation grossly intact, Cranial nerves II-XII intact PULSES: 2+ radial, 2+ carotid Rest of the exam is non contributory Internal Medicine: Result - Labs CBC & Chem 7: 09/12/17 04:00 09/11/17 04:00 Labs: Short CBC 09/12/17 Range/Units 04:00 WBC 5.3 (4.3-11.1) K/mcL Hgb 7.6 L D (11.5-15.4) g/dL Hct 25.5 L (35.3-44.9) % Plt Count 173 (140-400) K/mcL Neutrophils # 3.9 (1.6-8.9) K/mcL - ABG Interpretation ABG results: PT/INR, D-dimer PT 12.8 Seconds (9.4-12.1) H 09/10/17 01:00 - VTE Documentation of Mechanical Device: Intermittent pneumatic compression device Consult Discharge Plan - Plan Referrals: Jamarcus Pedro DO [Primary Care Provider] -
[2017-09-13 04:41] LABS: Calcium 8.4 mg/dL (8.6-10.3); Potassium 3.4 mEq/L (3.5-5.1)
[2017-09-13 04:46] LABS: Basophils % 0.2 %; Eosinophils % 0.2 %; Hematocrit 25.5 % (35.3-44.9); Hemoglobin 7.8 g/dL (11.5-15.4); Immature Granulocytes % 0.2 % (0-4); Lymphocytes # 1.1 K/mcL (0.6-4.6); Lymphocytes % 19.3 %; Mean Corpuscular HGB Conc 30.6 g/dL (31.6-35.5); Mean Corpuscular Hemoglobin 28.7 pg (28.0-33.3); Mean Corpuscular Volume 93.8 fL (83.0-100.0); Monocytes # 0.5 K/mcL (0.0-1.3); Monocytes % 8.1 %; Neutrophils # 4.2 K/mcL (1.6-8.9); Platelet Count 156 K/mcL (140-400); Red Blood Count 2.72 M/mcL (3.82-4.97); Red Cell Distribution Width 19.2 % (11.5-14.5)
[2017-09-13] MEDS: Pantoprazole 40 MG VIAL IVP SCH ×2 (05:47→18:19)
[2017-09-13] MEDS: Insulin LISPRO 300 UNITS/3 ML VIAL SQ SCH ×3 (05:47→18:20)
[2017-09-13] MEDS: Bumetanide 1 MG TABLET PO SCH ×2 (07:59→18:19)
[2017-09-13] MEDS: Insulin DETEMIR 100 UNIT/ML X5UNITS SQ SCH (09:51)
[2017-09-13] MEDS: Gabapentin 100 MG CAPSULE PO SCH ×2 (09:53→19:47)
[2017-09-13] MEDS: Multivit/Ca/Min/Fe/FA 1 TAB TABLET PO SCH (09:53)
[2017-09-13] MEDS: Sennosides 8.6 MG TABLET PO SCH ×2 (09:53→19:48)
[2017-09-13] MEDS: 0.9 % Sodium Chloride 1,000 ML IVC SCH ×2 (10:55→19:48)
--- NOTE | 2017-09-13 10:56 | Internal Med Progress Note ---
Date of Encounter: 09/13/17 Time of Encounter: 10:54 - Assessment and plan (1) Hepatic flexure mass Current Visit: Yes Status: Acute Assessment and plan: As noted yesterday that is a fungating mass in the hepatic flexure that was seen on the colonoscopy this is most likely the reason for her GI bleed. Biopsies have been done this is very suspicious for a malignancy. She was made aware of this yesterday and she has not made up her mind as to what she was done with this mass. Now she is awaiting the pathology reports will be back on Friday to make further decisions (2) Diarrhea Current Visit: Yes Status: Acute Assessment and plan: Presumed to be infectious. The suspicion for C. 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 I will check for C. difficile PCR and give her gentle hydration. Qualifiers: Diarrhea type: presumed infectious Qualified Code(s): R19.7 - Diarrhea, unspecified (3) Rectal bleeding Current Visit: Yes Status: Acute Assessment and plan: Continue PPI, monitor hemodynamically as well as monitor H&H serially. Colonoscopy was done yesterday and shows a fungating, infiltrative and ulcerated partially obstructing large mass at the hepatic flexure. This was biopsied with a cold large capacity forceps and otology is pending at this point This appears to be the most likely etiology for her GI bleed (4) Anemia Current Visit: Yes Status: Chronic Assessment and plan: Chronic anemia. She does have new bright red blood per rectum which began prior to presentation HB stable at 8-9 Continue to monitor patient is hemodynamically stable 09/12/2017-11 today is down to 7.6. Recheck hemoglobin again in the morning and if below 7 would consider transfusion. She does have a fungating mass as explained above that could be contributing to this. Patient however does not want to aggressively pursue further management of this mass. I would defer to outpatient but would still like to hemodynamically manage her care while she is in here 09/13/2017-hemoglobin continues to be stable. 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 She was seeing [facility] but as of Aug, 2017 she has decided to pursue hospice and declined any further treatments. 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 Patient does complain of some right upper quadrant tenderness at this point. She also has been having multiple loose stools she has had at least 4 in the last 2 hours. - Constitutional Vitals: Temp Pulse Resp BP Pulse Ox 99.0 F 66 16 132/66 99 09/13/17 08:18 09/13/17 08:18 09/13/17 08:18 09/13/17 08:18 09/13/17 08:18 General appearance: Present: cooperative, A&O X 3, no acute distress, answers questions appropriately Exam: GENERAL: Alert, moderate distress, cooperative EYES: PERRLA, EOMI EARS: External ears normal, canals clear OROPHARYNX: Lips, mucosa, and tongue normal. Teeth and gums normal. Oropharynx normal. NECK: No jugulovenous distention, No carotid bruits, Carotid pulse normal contour, Supple LUNGS: Lungs clear to auscultation, Good diaphragmatic excursion CARDIAC: Normal S1 and S2; no rubs, murmurs, or gallops ABDOMEN: Abdomen soft, tenderness to palpation in the right upper quadrant, BS normal, No masses or organomegaly EXTREMITIES: Pitting edema level I BACK-stage II sacral decubitus NEURO: Gait normal. Reflexes normal and symmetric. Sensation grossly intact, Cranial nerves II-XII intact PULSES: 2+ radial, 2+ carotid Rest of the exam is non contributory Internal Medicine: Result - Labs CBC & Chem 7: 09/13/17 04:21 09/13/17 03:50 Labs: Short CBC 09/13/17 Range/Units 04:21 WBC 5.8 (4.3-11.1) K/mcL Hgb 7.8 L (11.5-15.4) g/dL Hct 25.5 L (35.3-44.9) % Plt Count 156 (140-400) K/mcL Neutrophils # 4.2 (1.6-8.9) K/mcL BMP 09/13/17 03:50 Sodium 137 Potassium 3.4 L Chloride 100 Carbon Dioxide 31 H BUN 27 H Creatinine 1.39 H Glucose 108 H Calcium 8.4 L - ABG Interpretation ABG results: PT/INR, D-dimer PT 12.8 Seconds (9.4-12.1) H 09/10/17 01:00 - VTE Documentation of Mechanical Device: Intermittent pneumatic compression device Consult Discharge Plan - Plan Referrals: Jamarcus Pedro DO [Primary Care Provider] -
[2017-09-13] MEDS ORDERED: metroNIDAZOLE 500 MG TABLET PO SCH (19:30)
[2017-09-14] MEDS: Insulin LISPRO 300 UNITS/3 ML VIAL SQ SCH ×5 (00:40→20:55)
[2017-09-14] MEDS: Pantoprazole 40 MG VIAL IVP SCH ×2 (04:58→16:59)
[2017-09-14] MEDS: 0.9 % Sodium Chloride 1,000 ML IVC SCH (07:55)
[2017-09-14] MEDS: Bumetanide 1 MG TABLET PO SCH ×2 (09:17→16:57)
[2017-09-14] MEDS: Multivit/Ca/Min/Fe/FA 1 TAB TABLET PO SCH (09:19)
[2017-09-14] MEDS: Sennosides 8.6 MG TABLET PO SCH ×2 (09:19→20:14)
[2017-09-14] MEDS: Insulin DETEMIR 100 UNIT/ML X5UNITS SQ SCH (09:19)
[2017-09-14] MEDS: Gabapentin 100 MG CAPSULE PO SCH ×2 (09:19→20:14)
[2017-09-14 09:42] LABS: Basophils % 0.2 %; Eosinophils % 0.3 %; Hemoglobin 7.6 g/dL (11.5-15.4); Immature Granulocytes % 0.3 % (0-4); Lymphocytes # 0.9 K/mcL (0.6-4.6); Lymphocytes % 14.8 %; Mean Corpuscular HGB Conc 29.2 g/dL (31.6-35.5); Mean Corpuscular Hemoglobin 27.9 pg (28.0-33.3); Mean Corpuscular Volume 95.6 fL (83.0-100.0); Mean Platelet Volume 10.8 fL (9.4-12.4); Monocytes # 0.3 K/mcL (0.0-1.3); Neutrophils # 4.8 K/mcL (1.6-8.9); Platelet Count 133 K/mcL (140-400); Red Blood Count 2.72 M/mcL (3.82-4.97); Segmented Neutrophils % 79.4 %
[2017-09-14 10:05] LABS: Albumin 2.3 g/dL (3.5-5.7); Albumin/Globulin Ratio 0.9 (1.1-2.2); Bilirubin,Total 0.5 mg/dL (0.3-1.0); Calcium 7.8 mg/dL (8.6-10.3); Globulin 2.6 g/dL (2.4-3.5); Potassium 3.5 mEq/L (3.5-5.1); Total Protein 4.9 g/dL (6.4-8.9)
[2017-09-14] MEDS: Vancomycin Oral Soln 250 MG/5 ML UDC PO SCH ×4 (10:36→20:15)
--- NOTE | 2017-09-14 10:41 | Internal Med Progress Note ---
Date of Encounter: 09/14/17 Time of Encounter: 10:41 - Assessment and plan (1) C. difficile diarrhea Current Visit: Yes Status: Acute Assessment and plan: Patient has tested positive for C. difficile. I will start her on by mouth vancomycin 4 times a day. (2) Hepatic flexure mass Current Visit: Yes Status: Acute Assessment and plan: As noted yesterday that is a fungating mass in the hepatic flexure that was seen on the colonoscopy this is most likely the reason for her GI bleed. Biopsies have been done this is very suspicious for a malignancy. She was made aware of this yesterday and she has not made up her mind as to what she was done with this mass. Now she is awaiting the pathology reports will be back on Friday to make further decisions (3) Rectal bleeding Current Visit: Yes Status: Acute Assessment and plan: Continue PPI, monitor hemodynamically as well as monitor H&H serially. Colonoscopy was done in this hospitalization and shows a fungating, infiltrative and ulcerated partially obstructing large mass at the hepatic flexure. This was biopsied with a cold large capacity forceps and otology is pending at this point This appears to be the most likely etiology for her GI bleed (4) Anemia Current Visit: Yes Status: Chronic Assessment and plan: Chronic anemia. She does have new bright red blood per rectum which began prior to presentation HB stable at 8-9 Continue to monitor patient is hemodynamically stable 09/12/2017-11 today is down to 7.6. Recheck hemoglobin again in the morning and if below 7 would consider transfusion. She does have a fungating mass as explained above that could be contributing to this. Patient however does not want to aggressively pursue further management of this mass. I would defer to outpatient but would still like to hemodynamically manage her care while she is in here 09/13/2017-hemoglobin continues to be stable. Continue to monitor Qualifiers: Anemia type: unspecified type Qualified Code(s): D64.9 - Anemia, unspecified (5) Atrial fibrillation Current Visit: Yes Status: Chronic Assessment and plan: stable, continue CCB Qualifiers: Atrial fibrillation type: chronic Qualified Code(s): I48.2 - Chronic atrial fibrillation (6) Chronic venous hypertension w/ulcer and inflammation involv both sides Current Visit: Yes Status: Chronic Assessment and plan: chronic, stable (7) Diabetes Current Visit: Yes Status: Chronic Assessment and plan: Hold levemir for procedure today, patient with low blood sugars in the director of early childhood, resolved with D5 Continue to monitor FS q6h till patient is able to tolerate po 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marine oil terminal insulin use: with superintendent marine oil terminal use Diabetes mellitus complication status: with skin complications Diabetes mellitus complication detail: with other skin ulcer Qualified Code(s): E11.622 - Type 2 diabetes mellitus with other skin ulcer; Z79.4 - snf (current) use of insulin (8) Malignant lymphoma Current Visit: Yes Status: Chronic Assessment and plan: Recent DX of lymphoma. She was seeing [facility] but as of Aug, 2017 she has decided to pursue hospice and declined any further treatments. 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 Continues to have the right upper quadrant pain. Diarrhea seems to have gotten better - Constitutional Vitals: Temp Pulse Resp BP Pulse Ox 97.7 F 66 18 130/64 100 09/14/17 07:45 09/14/17 07:45 09/14/17 07:45 09/14/17 07:45 09/14/17 07:45 General appearance: Present: cooperative, A&O X 3, no acute distress, answers questions appropriately Exam: GENERAL: Alert, moderate distress, cooperative EYES: PERRLA, EOMI EARS: External ears normal, canals clear OROPHARYNX: Lips, mucosa, and tongue normal. Teeth and gums normal. Oropharynx normal. NECK: No jugulovenous distention, No carotid bruits, Carotid pulse normal contour, Supple LUNGS: Lungs clear to auscultation, Good diaphragmatic excursion CARDIAC: Normal S1 and S2; no rubs, murmurs, or gallops ABDOMEN: Abdomen soft, tenderness to palpation in the right upper quadrant, BS normal, No masses or organomegaly EXTREMITIES: Pitting edema level I BACK-stage II sacral decubitus NEURO: Gait normal. Reflexes normal and symmetric. Sensation grossly intact, Cranial nerves II-XII intact PULSES: 2+ radial, 2+ carotid Rest of the exam is non contributory Internal Medicine: Result - Labs CBC & Chem 7: 09/14/17 09:30 09/14/17 09:30 Labs: Short CBC 09/14/17 Range/Units 09:30 WBC 6.0 (4.3-11.1) K/mcL Hgb 7.6 L (11.5-15.4) g/dL Hct 26.0 L (35.3-44.9) % Plt Count 133 L (140-400) K/mcL Neutrophils # 4.8 (1.6-8.9) K/mcL BMP 09/14/17 09:30 Sodium 134 L Potassium 3.5 Chloride 103 Carbon Dioxide 28 BUN 26 H Creatinine 1.47 H Glucose 207 H Calcium 7.8 L Liver Function 09/14/17 Range/Units 09:30 Total Bilirubin 0.5 (0.3-1.0) mg/dL AST 15 (13-39) Units/L ALT 13 (7-52) Units/L Alkaline Phosphatase 272 H (34-104) Units/L Albumin 2.3 L (3.5-5.7) g/dL - ABG Interpretation ABG results: PT/INR, D-dimer PT 12.8 Seconds (9.4-12.1) H 09/10/17 01:00 - VTE Documentation of Mechanical Device: Intermittent pneumatic compression device Consult Discharge Plan - Plan Referrals: Jamarcus Pedro DO [Primary Care Provider] -
[2017-09-15] MEDS: 0.9 % Sodium Chloride 1,000 ML IVC SCH ×4 (01:58→22:37)
[2017-09-15] MEDS: Pantoprazole 40 MG VIAL IVP SCH (05:04)
[2017-09-15] MEDS: Sennosides 8.6 MG TABLET PO SCH ×2 (08:24→22:09)
[2017-09-15] MEDS: Bumetanide 1 MG TABLET PO SCH ×2 (08:25→16:51)
[2017-09-15] MEDS: Gabapentin 100 MG CAPSULE PO SCH ×2 (08:25→22:09)
[2017-09-15] MEDS: Insulin DETEMIR 100 UNIT/ML X5UNITS SQ SCH (08:25)
[2017-09-15] MEDS: Multivit/Ca/Min/Fe/FA 1 TAB TABLET PO SCH (08:25)
[2017-09-15] MEDS: Insulin LISPRO 300 UNITS/3 ML VIAL SQ SCH ×4 (08:26→22:14)
[2017-09-15] MEDS: Vancomycin Oral Soln 250 MG/5 ML UDC PO SCH ×4 (08:27→22:09)
--- NOTE | 2017-09-15 09:19 | Internal Med Progress Note ---
Date of Encounter: 09/15/17 Time of Encounter: 09:15 - Assessment and plan (1) Hepatic flexure mass Current Visit: Yes Status: Acute Assessment and plan: As noted yesterday that is a fungating mass in the hepatic flexure that was seen on the colonoscopy this is most likely the reason for her GI bleed. Biopsies have been done . Awaiting biopsy results. The family is aware of this being a likely malignancy. There is documentations regarding hospice enrollment, however, the family would like to hear options regarding this first. We will ask oncology to see the patient. (2) Rectal bleeding Current Visit: Yes Status: Acute Assessment and plan: Switch PPI to oral. Colonoscopy was done in this hospitalization and shows a fungating, infiltrative and ulcerated partially obstructing large mass at the hepatic flexure. This was biopsied with a cold large capacity forceps . Pathology is pending. This appears to be the most likely etiology for her GI bleed (3) MALLY (acute kidney injury) Current Visit: Yes Status: Acute Assessment and plan: Creatinine is mildly elevated above baseline. Continue IV fluids. Avoid nephrotoxins. Likely secondary to GI losses. Diarrhea is improving. (4) C. difficile diarrhea Current Visit: Yes Status: Acute Assessment and plan: Patient has tested positive for C. difficile. Continue with vancomycin 4 times a day. Day 2. Diarrhea improving. (5) Non-Hodgkin lymphoma Current Visit: No Status: Chronic Assessment and plan: Has had chemotherapy in the past in 2010 for this. Qualifiers: Non-Hodgkin lymphoma type: unspecified type Lymphoma site: unspecified region Qualified Code(s): C85.90 - Non-Hodgkin lymphoma, unspecified, unspecified site (6) Left kidney mass Current Visit: No Status: Acute Assessment and plan: Increased in size based on CT abdomen and pelvis done the stay. Oncology to comment on this. (7) Diabetes Current Visit: Yes Status: Chronic Assessment and plan: Continue Levemir 30 units. Continue Accu-Cheks. Continue insulin sliding scale. Qualifiers: Diabetes mellitus type: type 2 Diabetes mellitus managed care director insulin use: with managed care director use Diabetes mellitus complication status: with skin complications Diabetes mellitus complication detail: with other skin ulcer Qualified Code(s): E11.622 - Type 2 diabetes mellitus with other skin ulcer; Z79.4 - slate worker (current) use of insulin (8) Severe protein-calorie malnutrition Current Visit: Yes Status: Acute Assessment and plan: dietary following. (9) DVT prophylaxis Current Visit: Yes Status: Acute Assessment and plan: SCDS (10) Goals of care, counseling/discussion Current Visit: No Status: Acute Assessment and plan: Patient has had hospice services in the past. They are not against the idea of reenroll in into hospice. The daughter and the patient would like to hear their options first regarding the new findings of the colon mass as well as increased size of the kidney mass. I doubt that the patient would be a candidate for any treatment in terms of chemotherapy given her performance status. - Subjective Interval history: No acute events. The patient says she is feeling somewhat better. Tolerating diet. Afebrile. Still having somewhat of bloody stools. Hemoglobin was 7.6 yesterday but no labs this morning. Her daughter Tammi is bedside. Discussed findings of colonoscopy with them. They are aware of the findings.. - Constitutional Vitals: Temp Pulse Resp BP Pulse Ox 98.2 F 60 16 136/76 100 09/15/17 07:06 09/15/17 08:10 09/15/17 07:06 09/15/17 08:10 09/15/17 07:06 General appearance: Present: cooperative, A&O X 3, no acute distress, answers questions appropriately Exam: GEN: NAD CVS: RRR. S1, S2, No m/r/g RESP: CTAB ABD: Soft, NT, ND, +BS EXT: No edema. 2+ DP. No rashes NEURO: Nonfocal Internal Medicine: Result - Labs CBC & Chem 7: 09/15/17 11:25 09/15/17 11:25 Labs: Short CBC 09/14/17 Range/Units 09:30 WBC 6.0 (4.3-11.1) K/mcL Hgb 7.6 L (11.5-15.4) g/dL Hct 26.0 L (35.3-44.9) % Plt Count 133 L (140-400) K/mcL Neutrophils # 4.8 (1.6-8.9) K/mcL BMP 09/14/17 09:30 Sodium 134 L Potassium 3.5 Chloride 103 Carbon Dioxide 28 BUN 26 H Creatinine 1.47 H Glucose 207 H Calcium 7.8 L Liver Function 03/11/18 Range/Units 09:30 Total Bilirubin 0.5 (0.3-1.0) mg/dL AST 15 (13-39) Units/L ALT 13 (7-52) Units/L Alkaline Phosphatase 272 H (34-104) Units/L Albumin 2.3 L (3.5-5.7) g/dL - ABG Interpretation ABG results: PT/INR, D-dimer PT 12.8 Seconds (9.4-12.1) H 09/10/17 01:00 - VTE Documentation of Mechanical Device: Intermittent pneumatic compression device Consult Discharge Plan - Plan Referrals: Jamarcus Pedro DO [Primary Care Provider] -
[2017-09-15 11:38] LABS: Basophils % 0.2 %; Eosinophils % 0.4 %; Hematocrit 25.4 % (35.3-44.9); Hemoglobin 7.5 g/dL (11.5-15.4); Immature Granulocytes % 0.7 % (0-4); Lymphocytes % 17.4 %; Mean Corpuscular HGB Conc 29.5 g/dL (31.6-35.5); Mean Corpuscular Hemoglobin 28.3 pg (28.0-33.3); Mean Corpuscular Volume 95.8 fL (83.0-100.0); Mean Platelet Volume 10.4 fL (9.4-12.4); Monocytes # 0.3 K/mcL (0.0-1.3); Monocytes % 5.1 %; Neutrophils # 4.2 K/mcL (1.6-8.9); Platelet Count 138 K/mcL (140-400); Red Blood Count 2.65 M/mcL (3.82-4.97); Red Cell Distribution Width 18.9 % (11.5-14.5); Segmented Neutrophils % 76.2 %
[2017-09-15 11:59] LABS: Magnesium 1.4 mg/dL (1.6-2.6); Potassium 3.5 mEq/L (3.5-5.1)
--- NOTE | 2017-09-15 15:27 | Oncology Inp Consult Note ---
<Daphne Jimenes L - Last Filed: 09/16/17 10:47> Date of Encounter: 09/16/17 Time of Encounter: 15:27 Assessment and Plan (1) Abnormal CT of the abdomen Status: Acute Assessment and plan: CT findings as discussed in history of present illness concerning for potential lymphoma recurrence, renal cell carcinoma or metastases with now newly diagnosed colon adenocarcinoma (discussed below). Given her history of Large B Cell Lymphoma she does have the potential to also have a low grade recurrence in addition to her colon cancer. Of note, she had a very complicated course of treatment for her lymphoma which and required multiple inpatient admissions, she ultimately did not fully complete her treatment course however, serial scans had shown control of her disease prior to recent images. Dr. Hung and I discussed CT findings in detail with patient and patient 's daughter. She now wishes to pursue biopsy and explore options for treatment. We discussed options for biopsy. Per Dr. Hung's recommendation we will like to pursue a biopsy of potential area of lymph node metastasis, patient will be made nothing by mouth after midnight for CT-guided core needle biopsy of lymph node in the morning. Further treatment options to be discussed following pathology report results. Of note, patient does have quite poor physical performance status, multiple comorbidities and given her past issues with treatment, I am concerned over her performance. She has not ambulated since July. She requires max assist for transfers. I encouraged her to work with therapy to gain strength for future treatment options. [facility] , patients daughter is hopeful that her rehabilitation will be short in duration and that she may return home within a few weeks once she regains strength. I discussed with patient and patients daughter that she will likely have a long road to recovery with extended rehabilitation, they however remain very hopeful that she will increase her performance status soon. If she however , does request hospice and wish to not pursue further treatment options, she is aware of this option and she would be hospice eligible at any time. (2) Hepatic flexure mass Status: Acute Assessment and plan: Following patients presentation for anemia and BRBPR, Colonoscopy did locate a malignant appearing, partially obstructing mass near the hepatic flexure, which was biopsied, pathology report does reveal invasive adenocarcinoma, which is well differentiated. Her CEA is 40.9. CT images of abdomen/pelvis with no contrast as discussed above concerning for colon metastases or recurrence of lymphoma. She is planned for lymph node biopsy today. She has not had recent CT chest imaging, may discuss role for PET scan as outpatient. She cannot have IV contrast due to kidney function, GFR around 32, she has stage III CKD. Treatment options to be discussed following biopsy/pathology results and further staging work up. She has not had any further melena or hematochezia since her admission although she continues to have mucous like diarrhea. She has tested positive for c diff and receiving PO vancomycin. (3) Rectal bleeding Status: Acute Assessment and plan: No record of recent hematochezia/melena since ER admission ~09/10. She continues to have diarrhea as discussed above. Hgb slowly declining, may consider PRBC transfusion. Would not recommend iron transfusion given h/o hemochromatosis and ferritin of 199 - Data of Consult Patient: known to practice within the last 3 years Consult date: 09/15/17 Requesting Physician: Luis De La Rosa Primary Care Provider: Jamarcus Pedro - Consult Narrative Reason for consult: Colon adenocarcinoma History of present illness: Ms. Chatman is a 82 year old female with oncologic history significant for large B-cell lymphoma, primary myelofibrosis, homozygous for hemachromatosis gene. For lymphoma she received Cytoxan, VP16, procarbazine and prednisone combination. Adriamycin was not used due to previous therapy and underlying cardiac disease. Treatment was complicated by neutropenic sepsis despite Neulasta and required admission to ICU she was unable to resume chemotherapy due to prolonged convalescence and serial imaging over a year and a half which had shown considerable disease control without treatment. Further discussions between patient and family led to ultimate decision to continue to monitor imaging studies. She was not a candidate for further aggressive chemotherapy due to her poor performance status and extensive medical comorbidities, she had a slow steady road to recovery. Despite the duration of her diagnosis of primary myelofibrosis she has not developed any significant cytopenias or evidence of burn out myelofibrosis which is the typical progression and natural history of myelofibrosis in general. Due to this her treating oncologist at the time Dr. Hawk led to question this diagnosis. She is homozygous for hemachromatosis gene and at one point had a ferritin as high as 70,000 in the past. Her ferritin gradually decreased without specific chelating therapy. She has not had a phlebotomy last several years and has been on surveillance. Ms. Chatman was admitted inpatient around end of July 2017. At this time CT of the abdomen and pelvis had noted an enlarging left lower pole renal mass and new enlarging lymphadenopathy along with pelvic and bilateral adnexal fluid , oncology was consulted for further workup and discussion. At this time patient had decided that she did not wish to pursue further biopsy or treatment discussion and she had hoped to return back to home with hospice, palliative care was consulted at this time and had arranged for discharge home with hospice. Patient's daughter has now explained to me that during this time following her discharge she had revoked hospice and has been residing at [facility] for rehabilitation. She presented to [place] ER on 09/09/2017 when [facility] had noticed BRBPR and bloody bowel movements. Her plavix was placed on hold. Hgb was around 8.6 in ER, this is below patients usual baseline of around 9-10 secondary to CKD. GI was consulted and patient was prepped for colonoscopy. Colonoscopy did locate a malignant appearing, partially obstructing mass near the hepatic flexure, which was biopsied, pathology report does reveal invasive adenocarcinoma which is well differentiated. Oncology has been consulted for further discussion on workup, management and treatment options. Past Med Surg Social Fam HX - Past Medical History Medical history: arthritis, atrial fibrillation, cancer, cardiomyopathy, CHF, COPD, DVT, diabetes, GERD, hyperlipidemia, hypertension, renal disease, other Psychiatric history: no psych history - Past Surgical History Surgical History: appendectomy, cancer surgery (Removal of lymph nodes), AICD, pacemaker - Social History Smoking Status: Never smoker Smokeless Tobacco Status: No Alcohol use: none Drug use: none - Family History Brother Family Member Ethnicity: Non- Living Status: Hx Family Cardiac Disorders: Yes (HTN) Hx Family Respiratory Disorders: No Hx Family Cancer: Yes Hx Family GI Disorders: No Hx Family Endocrine Disorder: No Hx Family Neuromuscular Disorders: No Hx Family Neurologic Disorders: No Hx Family HEENT Disorders: No Hx Family Autoimmune Disorders: No Father Family Member Ethnicity: Non- Living Status: Hx Family Cardiac Disorders: Yes (A-Fib) Hx Family Respiratory Disorders: No Hx Family Cancer: Yes (Type unknown) Hx Family GI Disorders: No Hx Family Endocrine Disorder: No Hx Family Neuromuscular Disorders: No Hx Family Neurologic Disorders: No Hx Family HEENT Disorders: No Hx Family Autoimmune Disorders: No Mother Family Member Ethnicity: Non- Living Status: Sister Family Member Ethnicity: Non- Living Status: Hx Family Cancer: Yes Medications and Allergies Cilostazol [Pletal] 100 mg PO BID 03/25/15 [History] Clopidogrel [Plavix] 75 mg PO DAILY 03/25/15 [History] Gabapentin [Neurontin] 100 mg PO BID 03/25/15 [History] Oxybutynin Chloride [Ditropan Xl] 5 mg PO DAILY 03/25/15 [History] Ranitidine HCl [Zantac] 150 mg PO BID 03/25/15 [History] Acetaminophen [Tylenol] 1,000 mg PO Q6HR PRN 06/21/16 [History] Carvedilol 12.5 mg PO BID 06/21/16 [History] dilTIAZem HCl [Diltiazem HCl] 90 mg PO TID 06/21/16 [History] Insulin Glargine,Hum.rec.anlog [Basaglar Kwikpen U-100] 30 units SQ QAM [History] Bumetanide [Bumex] 1 mg PO BID 07/28/17 [History] Docusate [Colace] 100 mg PO BID 07/28/17 [History] Insulin LISPRO [HumaLOG] 5 units SQ TIDWM 07/28/17 [History] Sennosides [Senokot] 8.6 mg PO BID 07/28/17 [History] Vit C/E/Zn/Coppr/Lutein/Zeaxan [Preservision Areds 2 Softgel] 1 tab PO DAILY [History] Allopurinol [Zyloprim 100 MG] 100 mg PO DAILY 09/09/17 [History] Glucagon,Human Recombinant [Glucagen] 1 mg IJ AD 09/09/17 [History] Nystatin POWDER [Nystop] 1 appl TP BID PRN 09/09/17 [History] 3 Allergy/AdvReac Type Severity Reaction Status Date / Time EDY Inhibitors Allergy Unknown See Verified 03/04/17 15:01 Comments Amoxicillin Allergy Unknown See Verified 03/04/17 15:01 Comments azithromycin Allergy Unknown See Verified 03/04/17 15:01 Comments cefuroxime Allergy Unknown See Verified 03/04/17 15:01 Comments cephalexin Allergy Unknown See Verified 03/04/17 15:01 Comments Cephalosporins Allergy Unknown See Verified 03/04/17 15:01 Comments clindamycin Allergy Unknown See Verified 03/04/17 15:01 Comments codeine Allergy Unknown See Verified 03/04/17 15:01 Comments furosemide Allergy Unknown See Verified 03/04/17 15:01 Comments hydrocodone Allergy Unknown See Verified 03/04/17 15:01 Comments Penicillins Allergy Unknown See Verified 03/04/17 15:01 Comments prednisone Allergy Unknown Hives Verified 03/04/17 15:01 silver sulfadiazine Allergy Unknown See Verified 03/04/17 15:01 [From Silvadene] Comments Eracrny-Dps-Nsn Reductase Allergy Unknown See Verified 03/04/17 15:01 Inhibitor Comments [Statins] Sulfa (Sulfonamide Allergy Unknown See Verified 03/04/17 15:01 Antibiotics) Comments diuretic Allergy Unknown See Uncoded 03/04/17 15:01 Comments Oncology - Exam - Constitutional Vitals: Temp Pulse Resp BP Pulse Ox 99.7 F H 61 15 144/60 100 09/15/17 15:02 09/15/17 15:02 09/15/17 15:02 09/15/17 15:02 09/15/17 15:02 Oncology - Results Labs: Short CBC 09/15/17 Range/Units 11:25 WBC 5.5 (4.3-11.1) K/mcL Hgb 7.5 L (11.5-15.4) g/dL Hct 25.4 L (35.3-44.9) % Plt Count 138 L (140-400) K/mcL Neutrophils # 4.2 (1.6-8.9) K/mcL BMP 09/15/17 11:25 Sodium 137 Potassium 3.5 Chloride 105 Carbon Dioxide 26 BUN 28 H Creatinine 1.56 H Glucose 176 H Calcium 8.0 L Consult Discharge Plan - Plan Referrals: Jamarcus Pedro DO [Primary Care Provider] - <Rey Hung - Last Filed: 09/16/17 12:31> Date of Encounter: 09/16/17 - Data of Consult Requesting Physician: Johnny Bunch Primary Care Provider: Jamarcus Pedro - Consult Narrative History of present illness: I examined this patient and my medical decision-making was reviewed with the Advanced Practice Nurse, Daphne Jimenes. I agree with the documented findings, disposition and treatment plan as described except to the extent set forth below. Multiple retroperitoneal adenopathy, left renal mass, s/p colonoscopy for bleeding well diff adenocarcinoma. She has hx treated lymphoma-recurrent twice, at that time decline further chemo and wanted hospice. Metastatic adenopathy from colon, kidney vs low grade component of large cell lymphom ain differential. LN bx to be pursued if she agrees for diagnosis and staging. She has tested for C diff. Surgical evaluation due to partially obstructing mass/ bleeding. Palliative care consult will be appropriate due to generally declined condition. Plan as above discussed with patient and daughter. Review of systems: significant for bleeding, abd distension, SOB, fatigue Oncology - Exam - Constitutional Vitals: Temp Pulse Resp BP Pulse Ox 98.0 F 59 18 130/73 100 09/16/17 10:26 09/16/17 10:26 09/16/17 10:26 09/16/17 10:26 09/16/17 10:26 General appearance: obese - Head Head exam: Present: atraumatic, normal inspection - Eye Eye exam: Present: sclera anicteric - Neck Neck exam: Present: full ROM - Respiratory Respiratory exam: Present: CTAB - Cardiovascular Cardiovascular exam: Present: +S1, +S2 - GI/Abdominal GI/Abdominal exam: Present: normal bowel sounds, soft - Extremities Exam Extremities exam: Present: pedal edema - Neurological Exam Neurological exam: Present: alert, CN II-XII intact, oriented X3 - Psychiatric Psychiatric exam: Present: normal mood - Skin Skin exam: Present: abrasion Oncology - Results Labs: Short CBC 09/16/17 Range/Units 04:09 WBC 5.0 (4.3-11.1) K/mcL Hgb 7.2 L (11.5-15.4) g/dL Hct 24.1 L (35.3-44.9) % Plt Count 149 (140-400) K/mcL Neutrophils # 3.6 (1.6-8.9) K/mcL BMP 09/15/17 09/16/17 11:25 04:09 Sodium 137 138 Potassium 3.5 3.5 Chloride 105 107 Carbon Dioxide 26 26 BUN 28 H 28 H Creatinine 1.56 H 1.35 H Glucose 176 H 146 H Calcium 8.0 L 8.1 L
[2017-09-15 16:15] LABS: % Iron Saturation 7 % (15-50); Ferritin 199 ng/ml (10-120); Iron 10 mcg/dL (50-170); Transferrin 107 mg/dL (203-362)
[2017-09-15 17:42] LABS: Carcinoembryonic Antigen 40.9 ng/mL (Less than 5.0)
[2017-09-16 04:42] LABS: Eosinophils % 0.2 %; Hematocrit 24.1 % (35.3-44.9); Hemoglobin 7.2 g/dL (11.5-15.4); Immature Granulocytes % 0.4 % (0-4); Lymphocytes % 20.5 %; Mean Corpuscular HGB Conc 29.9 g/dL (31.6-35.5); Mean Corpuscular Hemoglobin 28.3 pg (28.0-33.3); Mean Corpuscular Volume 94.9 fL (83.0-100.0); Mean Platelet Volume 11.3 fL (9.4-12.4); Monocytes # 0.3 K/mcL (0.0-1.3); Neutrophils # 3.6 K/mcL (1.6-8.9); Platelet Count 149 K/mcL (140-400); Red Blood Count 2.54 M/mcL (3.82-4.97); Red Cell Distribution Width 18.9 % (11.5-14.5); Segmented Neutrophils % 72.9 %
[2017-09-16 04:45] LABS: Calcium 8.1 mg/dL (8.6-10.3); Magnesium 1.4 mg/dL (1.6-2.6); Potassium 3.5 mEq/L (3.5-5.1)
[2017-09-16] MEDS: Insulin DETEMIR 100 UNIT/ML X5UNITS SQ SCH (08:23)
[2017-09-16] MEDS: Vancomycin Oral Soln 250 MG/5 ML UDC PO SCH ×4 (08:23→21:50)
[2017-09-16] MEDS: Bumetanide 1 MG TABLET PO SCH ×2 (08:24→16:01)
[2017-09-16] MEDS: Multivit/Ca/Min/Fe/FA 1 TAB TABLET PO SCH (08:24)
[2017-09-16] MEDS: 0.9 % Sodium Chloride 1,000 ML IVC SCH ×2 (08:24→22:47)
[2017-09-16] MEDS: Gabapentin 100 MG CAPSULE PO SCH ×2 (08:24→21:51)
[2017-09-16] MEDS: Sennosides 8.6 MG TABLET PO SCH ×2 (08:24→21:50)
[2017-09-16] MEDS: Insulin LISPRO 300 UNITS/3 ML VIAL SQ SCH ×4 (08:35→22:52)
--- NOTE | 2017-09-16 14:35 | Oncology Inp Progress Note ---
Date of Encounter: 09/16/17 Time of Encounter: 14:34 (1) Abnormal CT of the abdomen Current Visit: No Status: Acute Assessment and plan: CT findings as discussed in history of present illness concerning for potential lymphoma recurrence, renal cell carcinoma or metastases with now newly diagnosed colon adenocarcinoma (discussed below). Given her history of Large B Cell Lymphoma she does have the potential to also have a low grade recurrence in addition to her colon cancer. Of note, she had a very complicated course of treatment for her lymphoma which and required multiple inpatient admissions, she ultimately did not fully complete her treatment course however, serial scans had shown control of her disease until recently. Ms. Chatman is of quite poor physical performance status, multiple comorbidities and given her past issues with treatment, I am concerned over her ability to safely receive cancer treatment. She has not ambulated since July. She requires max assist for transfers. She had resided in a long term prior to her admission and family cannot offer 24 hour care at home of which she needs. Initial plan today was for biopsy of lymph node, however, procedure was not able to be performed today due to equipment malfunction. In further discussion with patient and patients son along with multiple conversations with other providers as discussed below, the decision was made to hold off on lymph node biopsy at this time while we establish firm goals of care and assess the care of patients more immediate threat which would be her colon mass causing her pain , anemia and potential risk for obstruction. 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 Her CEA is 40.9. She cannot have IV contrast due to kidney function, GFR around 32, she has stage III CKD. She has not had any further melena or hematochezia since her admission although she continues to have mucous like diarrhea. She has tested positive for c diff and receiving PO vancomycin. I consulted surgery today and discussed case with Dr. Moss for further surgical assessment of patients colon mass, causing her anemia/rectal bleeding. Discussed patient is of a complex case, with multiple comorbidities. Greatly appreciate surgical consult with patient and the multiple discussions help with family and radiology regarding imaging results. After further discussion, it was decided to consult palliative care for further patient/ family meeting on goals of care. I called Xiomara DAILEY with palliative care and discussed patients case in detail. I met with patients son, Yuniel, who is also POA today in room with patient. We had a long discussion on recent findings and prognosis. Yuniel is very realistic and understands that overall prognosis is poor, and patients ability to undergo surgical intervention or chemotherapy is of very high risk. He agrees that further discussion with patient and patients family regarding overall prognosis would be helpful and ultimately wishes to do what's best for his mother. Patient states she does not know what to do regarding her care right now and feels pulled in different directions. She feels as though a family discussion with all her children and healthcare providers would be helpful to get everyone on the same page. I appreciate palliative care's assistance with this and would be happy to be a part of the future meeting if needed. I spent greater than 60 minutes in caring for this patient, consulting with multiple providers and discussing case/prognosis with patient and patients son at bedside today. (3) Rectal bleeding Current Visit: Yes Status: Acute Assessment and plan: No record of recent hematochezia/melena since ER admission ~09/10. She continues to have diarrhea as discussed above but per report this appears to be improving. Hgb slowly declining, may consider PRBC transfusion, continue to monitor at this time. Hgb 7.2 today Would not recommend iron transfusion given h/o hemochromatosis and ferritin of 199 Oncology: Subj Interval history: Ms. Chatman is resting in bed. Her son Yuniel is at bedside. She reports pain, but states she has chronic pain every day and this is currently at a manageable level. She denies chest pain or SOB. No neurological changes noted. - Constitutional Vitals: Vital Signs Temp Pulse Resp BP Pulse Ox 09/16/17 10:26 98.0 F 59 18 130/73 100 09/16/17 07:40 98.1 F 60 22 138/68 95 09/16/17 03:33 97.9 F 60 15 123/67 100 09/15/17 23:34 98.9 F 62 15 132/72 100 09/15/17 19:31 97.9 F 64 15 137/61 99 09/15/17 15:02 99.7 F H 61 15 144/60 100 Intake and Output 09/15/17 09/16/17 09/16/17 23:59 07:59 15:59 Intake Total 1120 / 1120 0 / 0 1000 / 1000 Balance 1120 / 1120 0 / 0 1000 / 1000 Intake: IV Fluids 1000 / 1000 1000 / 1000 0.9 % Sodium Chloride 1,000 ML 1000 / 1000 1000 / 1000 @ 100 mls/hr IVC .Q10H SUSANNE Rx#: [id number] Oral 120 / 120 0 / 0 0 / 0 Other: Meal Dinner NPO Breakfast Percent of Meal Consumed 50% # Voids 1 # Urine Diapers 1 1 1 # Bowel Movements 2 Weight 86.5 kg Blood Glucose* 137 171 134 Patient Weight 09/16/17 23:59 Weight 86.5 kg General appearance: cooperative, no acute distress, no febrile Exam: frail, chronically ill appearing - Head Head exam: Present: atraumatic - ENT ENT exam: Present: mucous membranes moist - Respiratory Respiratory exam: Present: CTAB. Absent: respiratory distress - Cardiovascular Cardiovascular exam: Present: RRR, +S1, +S2 - GI/Abdominal GI/Abdominal exam: Present: normal bowel sounds, soft, tenderness Additional comments: mild tenderness to RUQ, obese - Extremities Exam Extremities exam: Absent: calf tenderness Additional comments: chronic skin changes to BLE secondary to venous stasis with ulceration - Neurological Exam Neurological exam: Present: alert, oriented X3, no focal deficits, strengths equal and symetr throughout - Psychiatric Psychiatric exam: Present: normal affect, normal mood - Skin Skin exam: Present: pallor, warm Oncology: Obj Data - Labs CBC & Chem 7: 09/16/17 04:09 09/16/17 04:09 - ABG Interpretation ABG results: PT/INR, D-dimer PT 12.8 Seconds (9.4-12.1) H 09/10/17 01:00 Consult Discharge Plan - Plan Referrals: Jamarcus Pedro DO [Primary Care Provider] -
--- NOTE | 2017-09-16 15:32 | General Surgery Consult Note ---
Date of Encounter: 09/16/17 Time of Encounter: 14:54 History of Present Illness Consult date: 09/16/17 Requesting physician: Rey Hung History of present illness: 82-year-old female referred for surgical evaluation of right-sided abdominal pain, rectal bleeding, and laterally differentiated adenocarcinoma of the colon. The patient's significant medical history includes a diagnosis of lymphoma which was diagnosed approximately 10 years ago; a left renal mass representing either a renal cell carcinoma or lymphoma of the kidney and newly diagnosed well -differentiated adenocarcinoma of the colon. The patient was admitted after presenting to the [facility] ED with new onset bright red rectal bleeding. CT of the abdomen/pelvis showed progressive retroperitoneal adenopathy, a left renal mass which has slowly enlarged in the past year; and evidence of a cecal lesion. Colonoscopy was completed, 09/11/17, by Dr Fallon demonstrating a fungating infiltrative and ulcerated partially obstructing mass at the hepatic flexure. Biopsies showed this to be a well- differentiated, invasive adenocarcinoma. Laboratories are notable for an anemia with hemoglobin around 7.6 with hematocrit 26.0; platelet count ranging 133,000-149,000; BUN 28, creatinine ranging from 1.35-1.56 (eGFR 38-45). CEA 40.9. It is my understanding that prior to the patient's hospital presentation she was a hospice patient d/t cardiac failure. Medical records indicate additional medical history: diabetes mellitus; chronic renal disease; atrial fibrillation cardiomyopathy/CHF; COPD; DVT; hypertension. The patient is frail and unable to get OOB without assistance; she is unable to stand at bedside. She is non ambulatory. The patient has also been diagnosed with C dificile colitis and is currently being treated for profuse diarrhea. The diarrhea is reported to have diminished in the last 2-3 days. Surgical history include previous appendectomy; axillary lymph node dissection to diagnose the lymphoma; Aport placement x 2; pacer/AICD. Surgery has been consulted to assist with the management of this complex patient. The patient was examined. She is quite frail, with multiple medical co morbidities that increase her risk of any invasive intervention. To my examination: Frail, obese, elderly female. The patient is 1.57 m tall , 86.5 kg, BMI 34.9 Skin: Warm, no obvious jaundice Lungs: Notable for bibasal rales, poor inspiratory effort Cardiac: Irregular rate Abdomen: Obese, soft with questionable tenderness in the right upper quadrant - my exam did not reliably reproduce right-sided tenderness. I was not able to detect any hepatosplenomegaly or intra-abdominal masses. Exam was limited by the patient's body habitus Extremities: Fairly large venous stasis ulcer Impression - 82 yo frail patient with multiple issues: #1 history of lymphoma with prior chemotherapy poorly tolerated. Attempted chemotherapy reported to have resulted in severe pneumomia / respiratory compromise #2 left renal mass - present for at least a year with slow progressive enlargement. Not an immediate threat to this patient's life. #3 new onset rectal bleeding / anemia with newly detected moderately differentiated adenocarcinoma of the cecum or hepatic flexure. CT shows the mass in the cecum with new mesenteric LN enlargement suggestive of metastatic disease / at least involvement regional LN. The anemia and rectal bleeding posing a threat to the patient's life. This would necessitate a right colectomy with either ileocolic anastomosis v ileostomy. #4 hospice status which has recently been terminated #5 DNI status. A right colectomy cannot be completed without general anesthesia/intubation. The patient is considered a high risk for respiratory failure, or prolonged mechanical ventilation. Recommendation: consult Palliative Care Family Conference (with at least patient and her POA/son ) to determine best course of treatment. The evaluation of this patient required prolonged (>90 minutes) contact with the patient, [facility], the patient's granddaughter, Dr Bunch and Daphne Jimenes, [facility], [facility]. Past Med Surg Social Fam HX - Past Medical History Medical history: arthritis, atrial fibrillation, cancer, cardiomyopathy, CHF, COPD, DVT, diabetes, GERD, hyperlipidemia, hypertension, renal disease, other Psychiatric history: no psych history - Past Surgical History Surgical History: appendectomy, cancer surgery (Removal of lymph nodes), AICD, pacemaker - Social History Smoking Status: Never smoker Smokeless Tobacco Status: No Alcohol use: none Drug use: none - Family History Brother Family Member Ethnicity: Non- Living Status: Hx Family Cardiac Disorders: Yes (HTN) Hx Family Respiratory Disorders: No Hx Family Cancer: Yes Hx Family GI Disorders: No Hx Family Endocrine Disorder: No Hx Family Neuromuscular Disorders: No Hx Family Neurologic Disorders: No Hx Family HEENT Disorders: No Hx Family Autoimmune Disorders: No Father Family Member Ethnicity: Non- Living Status: Hx Family Cardiac Disorders: Yes (A-Fib) Hx Family Respiratory Disorders: No Hx Family Cancer: Yes (Type unknown) Hx Family GI Disorders: No Hx Family Endocrine Disorder: No Hx Family Neuromuscular Disorders: No Hx Family Neurologic Disorders: No Hx Family HEENT Disorders: No Hx Family Autoimmune Disorders: No Mother Family Member Ethnicity: Non- Living Status: Sister Family Member Ethnicity: Non- Living Status: Hx Family Cancer: Yes Medications and Allergies Cilostazol [Pletal] 100 mg PO BID 03/25/15 [History] Clopidogrel [Plavix] 75 mg PO DAILY 03/25/15 [History] Gabapentin [Neurontin] 100 mg PO BID 03/25/15 [History] Oxybutynin Chloride [Ditropan Xl] 5 mg PO DAILY 03/25/15 [History] Ranitidine HCl [Zantac] 150 mg PO BID 03/25/15 [History] Acetaminophen [Tylenol] 1,000 mg PO Q6HR PRN 06/21/16 [History] Carvedilol 12.5 mg PO BID 06/21/16 [History] dilTIAZem HCl [Diltiazem HCl] 90 mg PO TID 06/21/16 [History] Insulin Glargine,Hum.rec.anlog [Basaglar Kwikpen U-100] 30 units SQ QAM [History] Bumetanide [Bumex] 1 mg PO BID 07/28/17 [History] Docusate [Colace] 100 mg PO BID 07/28/17 [History] Insulin LISPRO [HumaLOG] 5 units SQ TIDWM 07/28/17 [History] Sennosides [Senokot] 8.6 mg PO BID 07/28/17 [History] Vit C/E/Zn/Coppr/Lutein/Zeaxan [Preservision Areds 2 Softgel] 1 tab PO DAILY [History] Allopurinol [Zyloprim 100 MG] 100 mg PO DAILY 09/09/17 [History] Glucagon,Human Recombinant [Glucagen] 1 mg IJ AD 09/09/17 [History] Nystatin POWDER [Nystop] 1 appl TP BID PRN 09/09/17 [History] 3 Allergy/AdvReac Type Severity Reaction Status Date / Time EDY Inhibitors Allergy Unknown See Verified 03/04/17 15:01 Comments Amoxicillin Allergy Unknown See Verified 03/04/17 15:01 Comments azithromycin Allergy Unknown See Verified 03/04/17 15:01 Comments cefuroxime Allergy Unknown See Verified 03/04/17 15:01 Comments cephalexin Allergy Unknown See Verified 03/04/17 15:01 Comments Cephalosporins Allergy Unknown See Verified 03/04/17 15:01 Comments clindamycin Allergy Unknown See Verified 03/04/17 15:01 Comments codeine Allergy Unknown See Verified 03/04/17 15:01 Comments furosemide Allergy Unknown See Verified 03/04/17 15:01 Comments hydrocodone Allergy Unknown See Verified 03/04/17 15:01 Comments Penicillins Allergy Unknown See Verified 03/04/17 15:01 Comments prednisone Allergy Unknown Hives Verified 03/04/17 15:01 silver sulfadiazine Allergy Unknown See Verified 03/04/17 15:01 [From Silvadene] Comments Ameschu-Bbg-Aby Reductase Allergy Unknown See Verified 03/04/17 15:01 Inhibitor Comments [Statins] Sulfa (Sulfonamide Allergy Unknown See Verified 03/04/17 15:01 Antibiotics) Comments diuretic Allergy Unknown See Uncoded 03/04/17 15:01 Comments Review of Systems All systems PM: The remainder of the systems were reviewed and are negative General Surgery Exam Initial Vital Signs Temp Pulse Resp BP Pulse Ox 98.3 F 67 18 153/80 100 09/09/17 09:45 09/09/17 09:45 09/09/17 09:45 09/09/17 09:45 09/09/17 09:45 Exam Initial Vital Signs Temp Pulse Resp BP Pulse Ox 98.3 F 67 18 153/80 100 09/09/17 09:45 09/09/17 09:45 09/09/17 09:45 09/09/17 09:45 09/09/17 09:45 Results - Labs 09/16/17 04:09 09/16/17 04:09 Abnormal lab results RBC 2.54 M/mcL (3.82-4.97) L 09/16/17 04:09 Hgb 7.2 g/dL (11.5-15.4) L 09/16/17 04:09 Hct 24.1 % (35.3-44.9) L 09/16/17 04:09 MCHC 29.9 g/dL (31.6-35.5) L 09/16/17 04:09 RDW 18.9 % (11.5-14.5) H 09/16/17 04:09 PT 12.8 Seconds (9.4-12.1) H 09/10/17 01:00 APTT 42.5 Seconds (26.0-36.0) H 09/09/17 10:03 BUN 28 mg/dL (8-23) H 09/16/17 04:09 Creatinine 1.35 mg/dL (0.60-1.20) H 09/16/17 04:09 Est GFR ( Amer) 45 (> 60) L 09/16/17 04:09 Est GFR (Non-Af Amer) 37 (> 60) L 09/16/17 04:09 Glucose 146 mg/dL (70-105) H 09/16/17 04:09 POC Glucose 134 (58-89) H 09/16/17 11:41 Calcium 8.1 mg/dL (8.6-10.3) L 09/16/17 04:09 Magnesium 1.4 mg/dL (1.6-2.6) L 09/16/17 04:09 Iron 10 mcg/dL (50-170) L 09/15/17 15:41 % Saturation 7 % (15-50) L 09/15/17 15:41 Transferrin 107 mg/dL (203-362) L 09/15/17 15:41 Ferritin 199 ng/ml (10-120) H 09/15/17 15:41 Alkaline Phosphatase 272 Units/L (34-104) H 09/14/17 09:30 Serum Total Protein 4.9 g/dL (6.4-8.9) L 09/14/17 09:30 Albumin 2.3 g/dL (3.5-5.7) L 09/14/17 09:30 Albumin/Globulin Ratio 0.9 (1.1-2.2) L 09/14/17 09:30 Carcinoembryonic Ag 40.9 ng/mL (Less than 5.0) H 09/15/17 11:25 Diabetes panel 09/15/17 09/16/17 Range/Units 11:25 04:09 Sodium 137 138 (136-145) mEq/L Potassium 3.5 3.5 (3.5-5.1) mEq/L Chloride 105 107 (98-107) mEq/L Carbon Dioxide 26 26 (23-29) mEq/L BUN 28 H 28 H (8-23) mg/dL Creatinine 1.56 H 1.35 H (0.60-1.20) mg/dL Glucose 176 H 146 H (70-105) mg/dL Calcium 8.0 L 8.1 L (8.6-10.3) mg/dL Calcium panel 09/15/17 09/16/17 Range/Units 11:25 04:09 Calcium 8.0 L 8.1 L (8.6-10.3) mg/dL Pituitary panel 09/15/17 09/16/17 Range/Units 11:25 04:09 Sodium 137 138 (136-145) mEq/L Potassium 3.5 3.5 (3.5-5.1) mEq/L Chloride 105 107 (98-107) mEq/L Carbon Dioxide 26 26 (23-29) mEq/L BUN 28 H 28 H (8-23) mg/dL Creatinine 1.56 H 1.35 H (0.60-1.20) mg/dL Glucose 176 H 146 H (70-105) mg/dL Calcium 8.0 L 8.1 L (8.6-10.3) mg/dL Adrenal panel 09/15/17 09/16/17 Range/Units 11:25 04:09 Sodium 137 138 (136-145) mEq/L Potassium 3.5 3.5 (3.5-5.1) mEq/L Chloride 105 107 (98-107) mEq/L Carbon Dioxide 26 26 (23-29) mEq/L BUN 28 H 28 H (8-23) mg/dL Creatinine 1.56 H 1.35 H (0.60-1.20) mg/dL Glucose 176 H 146 H (70-105) mg/dL Calcium 8.0 L 8.1 L (8.6-10.3) mg/dL All other labs normal. Consult Discharge Plan - Plan Referrals: Jamarcus Pedro DO [Primary Care Provider] -
--- NOTE | 2017-09-16 16:01 | Palliative - Consult Note ---
Date of Encounter: 09/16/17 Time of Encounter: 15:15 - Assessment and Plan (1) Pain Current Visit: Yes Status: Acute Assessment and plan: Rates pain a 7/10; sharp. Refused advancement of pain medications, wishes to continue tylenol. (2) Debility, unspecified Current Visit: Yes Status: Acute Assessment and plan: Bedbound. Will consider consulting PT/OT after biopsy. (3) Malignant lymphoma Current Visit: Yes Status: Chronic Assessment and plan: Oncology following. 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 Patient AOX3, consented to conversation. Discussed plan of care, related to CT guided biopsy of hepatoflexular tumor. Patient aware of overall condition and wishes to proceed with CT biopsy. While in room, daughter Tammi called and obtained update , also in agreement of biopsy, explained patient's fragile state as issue for treatment. Patient frail and unable to have active movement. Attempted to reach both daughter Bernarda and son Yuniel, left message will attempt contact tomorrow to set up family meeting. Bernarda Will will be traveling from [place] , expected arrival late evening. Wish to pursuit family meeting on friday. Patient DNR CCA/DNI. Will continue to follow course of treatment. Medical record reviewed. Daphne Jimenes of Oncology updated. Bernarda Alexander [phone] Tammi [phone] (c) [phone] (w) [facility]. (5) CKD (chronic kidney disease) Current Visit: No Status: Chronic Qualifiers: Chronic kidney disease stage: stage 3 (moderate) Qualified Code(s): N18.3 - Chronic kidney disease, stage 3 (moderate) Palliative-CN HPI - Data of Consult Patient: new to practice Consult date: 09/16/17 Requesting Physician: Johnny Bunch Primary Care Provider: Jamarcus Pedro - Consult Narrative Palliative Care/Comfort Measures: Palliative care Reason for consult: Goals of care History of present illness: Ms. Chatman is a 82 year old female arrived to [place] from [place] with bright red stool per rectum, beginning the evening of 09/08/2017. Initial xray showed stable cardiomyopathy. Abdominal CT performed showing: Re- demonstration of a solid mass involving the inferior aspect of left kidney, which appears increased in size. Redemonstration of retroperitoneal and iliac chain lymphadenopathy, which for the most part is stable, with the exception of a lymph node conglomerate in the left periaortic region which is mildly increased in size. Inguinal lymphadenopathy, which is stable to mildly decreased in size. Right middle lobe nodule, which appears stable. Interval resolution of pelvic free fluid. Layering cholelithiasis. Small left pleural effusion with adjacent airspace disease. Colonoscopy performed. Plan to complete CT guided biopsy. Patient has PMH of arthritis, a-fib, colon cancer, lymphoma, cardiomyopathy, CHF, COPD, DVT, DM, GERD, HLD, HTN, and renal disease. Report received that family wishes to have biopsy results prior to making decision. Palliative care consult for evaluation of treatment plan. During assessment, patient's daughter Tammi called and update given. Patient's daughter Bernarda is coming to [facility] from [place] on . Patient has been bedbound since July. Patient laying in bed with eyes closed upon entrance to room, awoken easily. Patient alert and oriented X3. Patient informed financial writer that patient's son Yuniel is first ELIANE, then Bernarda, and finally Tammi. Patient reports continued pain in back and ankles; reported as an 7/10 and sharp. Wishes for no other medication than Tylenol at this time. No anxiety or nausea reported. CC: Johnny Bunch Past Med Surg Social Fam HX - Past Medical History Medical history: arthritis, atrial fibrillation, cancer, cardiomyopathy, CHF, COPD, DVT, diabetes, GERD, hyperlipidemia, hypertension, renal disease, other Psychiatric history: no psych history - Past Surgical History Surgical History: appendectomy, cancer surgery (Removal of lymph nodes), AICD, pacemaker - Social History Smoking Status: Never smoker Smokeless Tobacco Status: No Alcohol use: none Drug use: none - Family History Brother Family Member Ethnicity: Non- Living Status: Hx Family Cardiac Disorders: Yes (HTN) Hx Family Respiratory Disorders: No Hx Family Cancer: Yes Hx Family GI Disorders: No Hx Family Endocrine Disorder: No Hx Family Neuromuscular Disorders: No Hx Family Neurologic Disorders: No Hx Family HEENT Disorders: No Hx Family Autoimmune Disorders: No Father Family Member Ethnicity: Non- Living Status: Hx Family Cardiac Disorders: Yes (A-Fib) Hx Family Respiratory Disorders: No Hx Family Cancer: Yes (Type unknown) Hx Family GI Disorders: No Hx Family Endocrine Disorder: No Hx Family Neuromuscular Disorders: No Hx Family Neurologic Disorders: No Hx Family HEENT Disorders: No Hx Family Autoimmune Disorders: No Mother Family Member Ethnicity: Non- Living Status: Sister Family Member Ethnicity: Non- Living Status: Hx Family Cancer: Yes Medications and Allergies Cilostazol [Pletal] 100 mg PO BID 03/25/15 [History] Clopidogrel [Plavix] 75 mg PO DAILY 03/25/15 [History] Gabapentin [Neurontin] 100 mg PO BID 03/25/15 [History] Oxybutynin Chloride [Ditropan Xl] 5 mg PO DAILY 03/25/15 [History] Ranitidine HCl [Zantac] 150 mg PO BID 03/25/15 [History] Acetaminophen [Tylenol] 1,000 mg PO Q6HR PRN 06/21/16 [History] Carvedilol 12.5 mg PO BID 06/21/16 [History] dilTIAZem HCl [Diltiazem HCl] 90 mg PO TID 06/21/16 [History] Insulin Glargine,Hum.rec.anlog [Basaglar Kwikpen U-100] 30 units SQ QAM [History] Bumetanide [Bumex] 1 mg PO BID 07/28/17 [History] Docusate [Colace] 100 mg PO BID 07/28/17 [History] Insulin LISPRO [HumaLOG] 5 units SQ TIDWM 07/28/17 [History] Sennosides [Senokot] 8.6 mg PO BID 07/28/17 [History] Vit C/E/Zn/Coppr/Lutein/Zeaxan [Preservision Areds 2 Softgel] 1 tab PO DAILY [History] Allopurinol [Zyloprim 100 MG] 100 mg PO DAILY 09/09/17 [History] Glucagon,Human Recombinant [Glucagen] 1 mg IJ AD 09/09/17 [History] Nystatin POWDER [Nystop] 1 appl TP BID PRN 09/09/17 [History] 3 Allergy/AdvReac Type Severity Reaction Status Date / Time EDY Inhibitors Allergy Unknown See Verified 03/04/17 15:01 Comments Amoxicillin Allergy Unknown See Verified 03/04/17 15:01 Comments azithromycin Allergy Unknown See Verified 03/04/17 15:01 Comments cefuroxime Allergy Unknown See Verified 03/04/17 15:01 Comments cephalexin Allergy Unknown See Verified 03/04/17 15:01 Comments Cephalosporins Allergy Unknown See Verified 03/04/17 15:01 Comments clindamycin Allergy Unknown See Verified 03/04/17 15:01 Comments codeine Allergy Unknown See Verified 03/04/17 15:01 Comments furosemide Allergy Unknown See Verified 03/04/17 15:01 Comments hydrocodone Allergy Unknown See Verified 03/04/17 15:01 Comments Penicillins Allergy Unknown See Verified 03/04/17 15:01 Comments prednisone Allergy Unknown Hives Verified 03/04/17 15:01 silver sulfadiazine Allergy Unknown See Verified 03/04/17 15:01 [From Silvadene] Comments Mhurmit-Xdl-Fhv Reductase Allergy Unknown See Verified 03/04/17 15:01 Inhibitor Comments [Statins] Sulfa (Sulfonamide Allergy Unknown See Verified 03/04/17 15:01 Antibiotics) Comments diuretic Allergy Unknown See Uncoded 03/04/17 15:01 Comments - Constitutional Constitutional ROS PAL: fatigue, lethargy - Respiratory Respiratory: dyspnea - Gastrointestinal Gastrointestinal: abdominal pain, cramping, diarrhea, melena - Genitourinary Palliative ROS female: urinary frequency, urinary incontinence, urinary urgency - Musculoskeletal Musculoskeletal ROS IM: back pain - Integumentary ROS Integumentary: wounds Palliative Care-Exam - Constitutional Vitals: Temp Pulse Resp BP Pulse Ox 97.4 F L 64 16 126/64 98 09/16/17 14:00 09/16/17 14:00 09/16/17 14:00 09/16/17 14:00 09/16/17 14:00 General appearance: Present: cooperative, no acute distress, obese - Head Head Exam: Present: atraumatic, normocephalic - Eye Eye exam: Present: normal appearance Additional comments: drooping left eye. - Neck Neck exam: Present: normal inspection - Respiratory Respiratory exam: Present: CTAB - Cardiovascular Cardiovascular exam: Present: +S1, +S2 - GI/Abdominal Exam GI/Abdominal exam: Present: hyperactive bowel sounds, soft, tenderness - Additional comments: brief/ incontinent - Extremities Exam Extremities exam: Present: joint swelling, pedal edema - Neurological Exam Neurological exam: Present: alert, oriented X3 - Psychiatric Psychiatric exam: Present: normal affect, normal mood - Skin Additional comments: stage 2 on coccyx, venous ulcer wounds. Internal Medicine - CN: Reslt - Labs CBC & Chem 7: 09/16/17 04:09 09/16/17 04:09 Labs: Short CBC 09/16/17 Range/Units 04:09 WBC 5.0 (4.3-11.1) K/mcL Hgb 7.2 L (11.5-15.4) g/dL Hct 24.1 L (35.3-44.9) % Plt Count 149 (140-400) K/mcL Neutrophils # 3.6 (1.6-8.9) K/mcL BMP 09/15/17 09/16/17 11:25 04:09 Sodium 137 138 Potassium 3.5 3.5 Chloride 105 107 Carbon Dioxide 26 26 BUN 28 H 28 H Creatinine 1.56 H 1.35 H Glucose 176 H 146 H Calcium 8.0 L 8.1 L - ABG Interpretation ABG results: PT/INR, D-dimer PT 12.8 Seconds (9.4-12.1) H 09/10/17 01:00 Consult Discharge Plan - Plan Referrals: Jamarcus Pedro DO [Primary Care Provider] - Palliative Quality Palliative Quality: Screen for Code Status: Yes, Screen for Goals of Care: Yes, Screen for Pain: Yes, If Pain Regimen Started, Initiate Bowel Regimen: NA, Screen for Nausea/Vomitting: Yes
--- NOTE | 2017-09-16 17:53 | Internal Med Progress Note ---
Date of Encounter: 09/16/17 Time of Encounter: 11:00 - Assessment and plan (1) Hepatic flexure mass Current Visit: Yes Status: Acute Assessment and plan: Patient has a history of malignant lymphoma CT of the abdomen showed the followin. Re- demonstration of a solid mass involving the inferior aspect of left kidney, which appears increased in size when compared to the previous exam. 2. Re- demonstration of retroperitoneal and iliac chain lymphadenopathy, which for the most part is stable, with the exception of a lymph node conglomerate in the left periaortic region which is mildly increased in size. 3. Inguinal lymphadenopathy, which is stable to mildly decreased in size when compared to the previous exam. -Gen. surgery consult with recommendations to consider palliative care given patient being a poor surgical candidate -Palliative care consult to discuss goals of care with family; oncology also following (2) Rectal bleeding Current Visit: Yes Status: Acute Assessment and plan: Secondary to the above Hemodynamically stable; will continue to check H&H (3) Malignant lymphoma Current Visit: Yes Status: Chronic Assessment and plan: Patient with history of malignant lymphoma; incomplete chemotherapy Qualifiers: Lymphoma type: non-Hodgkin Non-Hodgkin lymphoma type: B-cell B-cell lymphoma type: small cell B-cell Lymphoma site: unspecified region Qualified Code(s): 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, unspecified site (4) CKD (chronic kidney disease) stage 3, GFR 30-59 ml/min Current Visit: No Status: Chronic Assessment and plan: Creatinine at baseline; continue to monitor (5) Goals of care, counseling/discussion Current Visit: No Status: Acute Assessment and plan: Palliative care consult to discuss goals of care with family - Subjective Interval history: Patient resting comfortably this morning Family meeting being planned by palliative care to discuss goals of care with patient's new findings of colonic mass in the setting of history of malignant lymphoma compounded with her fragility of her overall health - Constitutional Vitals: Temp Pulse Resp BP Pulse Ox 97.4 F L 64 16 126/64 98 09/16/17 14:00 09/16/17 14:00 09/16/17 14:00 09/16/17 14:00 09/16/17 14:00 General appearance: Present: cooperative, A&O X 3, no acute distress, answers questions appropriately - Respiratory Respiratory exam: Present: CTAB. Absent: accessory muscle use, rales, rhonchi, wheezes - Cardiovascular Cardiovascular exam: Present: RRR, +S1, +S2. Absent: diastolic murmur, gallop, rubs, systolic murmur - GI/Abdominal GI/Abdominal exam: Present: normal bowel sounds, soft, no peritoneal signs. Absent: distended, tenderness Internal Medicine: Result - Labs CBC & Chem 7: 09/16/17 04:09 09/16/17 04:09 Labs: Short CBC 09/16/17 Range/Units 04:09 WBC 5.0 (4.3-11.1) K/mcL Hgb 7.2 L (11.5-15.4) g/dL Hct 24.1 L (35.3-44.9) % Plt Count 149 (140-400) K/mcL Neutrophils # 3.6 (1.6-8.9) K/mcL BMP 09/16/17 04:09 Sodium 138 Potassium 3.5 Chloride 107 Carbon Dioxide 26 BUN 28 H Creatinine 1.35 H Glucose 146 H Calcium 8.1 L - ABG Interpretation ABG results: PT/INR, D-dimer PT 12.8 Seconds (9.4-12.1) H 09/10/17 01:00 - VTE Documentation of Mechanical Device: Intermittent pneumatic compression device Consult Discharge Plan - Plan Referrals: Jamarcus Pedro DO [Primary Care Provider] -
[2017-09-17] MEDS: Sennosides 8.6 MG TABLET PO SCH (08:14)
[2017-09-17] MEDS: Gabapentin 100 MG CAPSULE PO SCH (08:15)
[2017-09-17] MEDS: Bumetanide 1 MG TABLET PO SCH ×2 (08:15→16:56)
[2017-09-17] MEDS: Multivit/Ca/Min/Fe/FA 1 TAB TABLET PO SCH (08:15)
[2017-09-17] MEDS: Vancomycin Oral Soln 250 MG/5 ML UDC PO SCH ×3 (08:36→16:57)
[2017-09-17] MEDS: Insulin LISPRO 300 UNITS/3 ML VIAL SQ SCH ×4 (08:43→22:59)
[2017-09-17] MEDS: Insulin DETEMIR 100 UNIT/ML X5UNITS SQ SCH (11:48)
--- NOTE | 2017-09-17 15:32 | Palliative Progress Note ---
Date of Encounter: 09/17/17 Time of Encounter: 14:00 - Assessment and plan (1) Goals of care, counseling/discussion Current Visit: Yes Status: Acute Assessment and plan: Conducted phone conference with daughters Tammi and Celsa. Son Yuniel and Granddaughter aCrolyn physically present. Pablo Mittal, bed worker, Linn Mendoza CNP present. Pablo Mittal discussed discharge plan regarding skilled ECF, home hospice or hospice placement and financial concerns. Discussed patients poor overall prognosis and discussed goals of care. Family to consider options. Daphne Jimenes CNP Oncology updated and will follow recommendations from Oncology regarding treatment options. Family agrees that patient is to fragile to undergo any surgical intervention requiring general anesthesia and intubation. Updated on current labs and diagnostics. Family to consider options and discuss. Daughter Celsa to arrive from [facility] late tomorrow evening. Will await Oncology recommendations for possible chemo. (2) C. difficile diarrhea Current Visit: Yes Status: Acute Assessment and plan: PO Vancomycin, few loose stools today. (3) Cancer associated pain Current Visit: Yes Status: Acute Assessment and plan: Patient states pain managed tylenol. - Time Spent With Patient Total time spent is greater than 50% in coordination of care (as documented) at patient's floor/unit and/or counseling patient: 25 - 35 minutes (Family meeting) - Subjective Interval history: Patient sleeping, awakens easy. States feeling tired and weak. States that pain to right ankle is ache. Relieved with tylenol. - Constitutional Vitals: Abnormal lab results RBC 2.54 M/mcL (3.82-4.97) L 09/16/17 04:09 Hgb 7.2 g/dL (11.5-15.4) L 09/16/17 04:09 Hct 24.1 % (35.3-44.9) L 09/16/17 04:09 MCHC 29.9 g/dL (31.6-35.5) L 09/16/17 04:09 RDW 18.9 % (11.5-14.5) H 09/16/17 04:09 PT 12.8 Seconds (9.4-12.1) H 09/10/17 01:00 APTT 42.5 Seconds (26.0-36.0) H 09/09/17 10:03 BUN 28 mg/dL (8-23) H 09/16/17 04:09 Creatinine 1.35 mg/dL (0.60-1.20) H 09/16/17 04:09 Est GFR ( Amer) 45 (> 60) L 09/16/17 04:09 Est GFR (Non-Af Amer) 37 (> 60) L 09/16/17 04:09 Glucose 146 mg/dL (70-105) H 09/16/17 04:09 POC Glucose 137 (58-89) H 09/17/17 11:30 Calcium 8.1 mg/dL (8.6-10.3) L 09/16/17 04:09 Magnesium 1.4 mg/dL (1.6-2.6) L 09/16/17 04:09 Iron 10 mcg/dL (50-170) L 09/15/17 15:41 % Saturation 7 % (15-50) L 09/15/17 15:41 Transferrin 107 mg/dL (203-362) L 09/15/17 15:41 Ferritin 199 ng/ml (10-120) H 09/15/17 15:41 Alkaline Phosphatase 272 Units/L (34-104) H 09/14/17 09:30 Serum Total Protein 4.9 g/dL (6.4-8.9) L 09/14/17 09:30 Albumin 2.3 g/dL (3.5-5.7) L 09/14/17 09:30 Albumin/Globulin Ratio 0.9 (1.1-2.2) L 09/14/17 09:30 Carcinoembryonic Ag 40.9 ng/mL (Less than 5.0) H 09/15/17 11:25 - Head Head exam: Present: atraumatic, normal inspection - Eye Eye exam: Present: PERRL - ENT ENT exam: Present: mucous membranes moist - Neck Neck exam: Present: tenderness - Respiratory Respiratory exam: Present: decreased breath sounds - Expanded Respiratory Exam Location: decreased breath sounds: Left, Right, Lower - Cardiovascular Cardiovascular exam: Present: RRR, +S1, +S2 - GI/Abdominal GI/Abdominal exam: Present: normal bowel sounds, soft, tenderness - Extremities Exam Extremities exam: Present: pedal edema, tenderness Additional comments: 3+ ankle edema - Back Exam Back exam: Present: tenderness - Neurological Exam Neurological exam: Present: alert, oriented X3 - Psychiatric Psychiatric exam: Present: normal affect - Skin Skin exam: Present: pallor, warm Palliative Quality Palliative Quality: Screen for Code Status: Yes, Screen for Goals of Care: Yes, Screen for Pain: Yes, If Pain Regimen Started, Initiate Bowel Regimen: NA, Screen for Nausea/Vomitting: Yes - Labs CBC & Chem 7: 09/16/17 04:09 09/16/17 04:09 Labs: Laboratory Results - last 24 hr 09/16/17 09/16/17 09/17/17 15:55 21:11 08:38 POC Glucose 158 H 106 H 101 H 09/17/17 11:30 POC Glucose 137 H - ABG Interpretation ABG results: PT/INR, D-dimer PT 12.8 Seconds (9.4-12.1) H 09/10/17 01:00 Consult Discharge Plan - Plan Referrals: Jamarcus Pedro DO [Primary Care Provider] -
--- NOTE | 2017-09-17 16:08 | Event Note ---
Date of Encounter: 09/17/17 Time of Encounter: 15:45 Bedside meeting held with son/RODShereen rBice and patient and Broadcast Technician Albino Lopez. Bedside prayer completed and discussed CT guided biopsy. Patient verbalized that she did not want to pursue biopsy at present. She expressed that she did not feel like it would make a difference in outcome. Son Yuniel supported patients request. Will continue to follow recommendations from Oncology and patient is aware that hospice care is certainly an option. Family to discuss.
--- NOTE | 2017-09-17 18:26 | Internal Med Progress Note ---
Date of Encounter: 09/17/17 Time of Encounter: 11:00 - Assessment and plan (1) Rectal bleeding Current Visit: Yes Status: Acute Assessment and plan: Secondary to the above Hemodynamically stable; will continue to check H&H (2) Hepatic flexure mass Current Visit: Yes Status: Acute Assessment and plan: Patient has a history of malignant lymphoma CT of the abdomen showed the followin. Re- demonstration of a solid mass involving the inferior aspect of left kidney, which appears increased in size when compared to the previous exam. 2. Re- demonstration of retroperitoneal and iliac chain lymphadenopathy, which for the most part is stable, with the exception of a lymph node conglomerate in the left periaortic region which is mildly increased in size. 3. Inguinal lymphadenopathy, which is stable to mildly decreased in size when compared to the previous exam. -Gen. surgery consult with recommendations to consider palliative care given patient being a poor surgical candidate -Palliative care consult to discuss goals of care with family; oncology also following (3) Malignant lymphoma Current Visit: Yes Status: Chronic Assessment and plan: Patient with history of malignant lymphoma; incomplete chemotherapy Qualifiers: Lymphoma type: non-Hodgkin Non-Hodgkin lymphoma type: B-cell B-cell lymphoma type: unspecified B-cell Lymphoma site: unspecified region Qualified Code(s): C85.10 - Unspecified B-cell lymphoma, unspecified site (4) Goals of care, counseling/discussion Current Visit: Yes Status: Acute Assessment and plan: Palliative care consult with family meeting planned today to discuss goals of care. (5) C. difficile diarrhea Current Visit: Yes Status: Acute Assessment and plan: -Decreased stools on oral vancomycin -Continue current management (6) CKD (chronic kidney disease) stage 3, GFR 30-59 ml/min Current Visit: No Status: Chronic Assessment and plan: Creatinine at baseline; continue to monitor - Subjective Interval history: Patient resting comfortably this morning Family meeting being planned by palliative care to discuss goals of care with patient's new findings of colonic mass in the setting of history of malignant lymphoma compounded with her fragility of her overall health - Constitutional Vitals: Temp Pulse Resp BP Pulse Ox 98.4 F 60 16 117/66 100 09/17/17 15:20 09/17/17 15:20 09/17/17 15:20 09/17/17 15:20 09/17/17 15:20 General appearance: Present: cooperative, A&O X 3, no acute distress, answers questions appropriately - Respiratory Respiratory exam: Present: CTAB. Absent: accessory muscle use, rales, rhonchi, wheezes - Cardiovascular Cardiovascular exam: Present: RRR, +S1, +S2. Absent: diastolic murmur, gallop, rubs, systolic murmur Internal Medicine: Result - Labs CBC & Chem 7: 09/16/17 04:09 09/16/17 04:09 - ABG Interpretation ABG results: PT/INR, D-dimer PT 12.8 Seconds (9.4-12.1) H 09/10/17 01:00 - VTE Documentation of Mechanical Device: Intermittent pneumatic compression device Consult Discharge Plan - Plan Referrals: Jamarcus Pedro DO [Primary Care Provider] -
[2017-09-17] MEDS: 0.9 % Sodium Chloride 1,000 ML IVC SCH (18:29)
[2017-09-17] MEDS: Ondansetron 4 MG/2 ML VIAL IVP PRN (18:30)
[2017-09-17] MEDS: *HR* Dextrose 50 % in Water (Syg) 50 ML SYRINGE IVP PRN (19:45)
[2017-09-17] MEDS: D5% in Water 1,000 ML IVC PRN (21:45)
[2017-09-18] MEDS: Gabapentin 100 MG CAPSULE PO SCH ×3 (00:06→22:42)
[2017-09-18] MEDS: Sennosides 8.6 MG TABLET PO SCH ×3 (00:06→22:43)
[2017-09-18] MEDS: Vancomycin Oral Soln 250 MG/5 ML UDC PO SCH ×5 (00:07→22:43)
[2017-09-18] MEDS: *HR* Dextrose 50 % in Water (Syg) 50 ML SYRINGE IVP PRN ×2 (00:39→02:54)
[2017-09-18] MEDS: Ondansetron 4 MG/2 ML VIAL IVP PRN ×2 (04:22→13:01)
[2017-09-18 04:23] LABS: Basophils % 0.2 %; Eosinophils % 0.1 %; Hematocrit 26.9 % (35.3-44.9); Immature Granulocytes % 0.6 % (0-4); Lymphocytes # 0.9 K/mcL (0.6-4.6); Lymphocytes % 9.1 %; Mean Corpuscular HGB Conc 29.7 g/dL (31.6-35.5); Mean Corpuscular Hemoglobin 27.9 pg (28.0-33.3); Mean Corpuscular Volume 93.7 fL (83.0-100.0); Mean Platelet Volume 10.8 fL (9.4-12.4); Monocytes # 0.5 K/mcL (0.0-1.3); Monocytes % 5.7 %; Nucleated Red Blood Cells 0.2 /100 WBC (0); Platelet Count 179 K/mcL (140-400); Red Blood Count 2.87 M/mcL (3.82-4.97); Red Cell Distribution Width 18.6 % (11.5-14.5); Segmented Neutrophils % 84.3 %
[2017-09-18 04:43] LABS: BUN/Creatinine Ratio 23 (6-26); Blood Urea Nitrogen 23 mg/dL (8-23); Calcium 8.4 mg/dL (8.6-10.3); Carbon Dioxide 27 mEq/L (23-29); Chloride 104 mEq/L (98-107); Glucose 106 mg/dL (70-105); Osmolality,Calculated 290 (280-300); Potassium 3.5 mEq/L (3.5-5.1); Sodium 138 mEq/L (136-145); eGFR For African Americans > 60 (> 60); eGFR For Non-African Americans 54 (> 60)
[2017-09-18] MEDS: Insulin LISPRO 300 UNITS/3 ML VIAL SQ SCH ×4 (08:04→20:30)
[2017-09-18] MEDS: 0.9 % Sodium Chloride 1,000 ML IVC SCH (08:04)
[2017-09-18] MEDS: Bumetanide 1 MG TABLET PO SCH ×2 (08:12→16:45)
[2017-09-18] MEDS: Multivit/Ca/Min/Fe/FA 1 TAB TABLET PO SCH (08:12)
[2017-09-18] MEDS: D5% in Water 1,000 ML IVC PRN (09:22)
[2017-09-18] MEDS ORDERED: Scopolamine Patch 1.5 MG PATCH.TD72 TD ONE (10:30)
--- NOTE | 2017-09-18 14:28 | Palliative Progress Note ---
Date of Encounter: 09/18/17 Time of Encounter: 12:10 - Assessment and plan (1) Nausea & vomiting Current Visit: Yes Status: Acute Assessment and plan: Patient with nausea and vomiting today. Reports stomach upset. Currently NPO, will change Zofran to scheduled dosing and IV fluids [id number] for hydration. Positioned for comfort. Patient with C-diff - po Vanco Patient with large cecal mass - nonoperative due to frail state May add reglan if no improvement. Updated lolis Brice with plan. Discussed NG or further testing but doubt it will add much change to clinical picture given poor fragile state. Patient remains NPO. Qualifiers: Vomiting type: unspecified (2) Goals of care, counseling/discussion Current Visit: Yes Status: Acute Assessment and plan: Called to update Lolis Brice. He reports that all kids will be in tonight for visit. Sister Celsa to arrive from [place] after 6pm. Updated on patients NPO status with nausea. Discussed scheduling nausea Zofran medications and will see if this helps. Family to decide on plan of action for DC planning. They are aware that hospice care is an option and Oncology may have recommendations for treatment. Patient is frail, poor performance status 40% PPS scale. Case discussed with Dr. Bunch. (3) C. difficile diarrhea Current Visit: Yes Status: Acute Assessment and plan: PO Vancomycin, few loose stools today. No with nausea. Will monitor. (4) Cancer associated pain Current Visit: Yes Status: Acute Assessment and plan: Patient states pain managed tylenol. (5) Sacral decubitus ulcer, stage II Current Visit: Yes Status: Chronic (6) Hepatic flexure mass Current Visit: Yes Status: Acute (7) Severe protein-calorie malnutrition Current Visit: Yes Status: Acute - Time Spent With Patient Total time spent is greater than 50% in coordination of care (as documented) at patient's floor/unit and/or counseling patient: 25 - 35 minutes - Subjective Interval history: Patient sleeping, awakens easy. States feeling sick to stomach with nausea. Reports no dizziness just upset stomach. Events of hypoglycemia noted from last night. - Constitutional Vitals: Abnormal lab results RBC 2.87 M/mcL (3.82-4.97) L 09/18/17 04:00 Hgb 8.0 g/dL (11.5-15.4) L 09/18/17 04:00 Hct 26.9 % (35.3-44.9) L 09/18/17 04:00 MCH 27.9 pg (28.0-33.3) L 09/18/17 04:00 MCHC 29.7 g/dL (31.6-35.5) L 09/18/17 04:00 RDW 18.6 % (11.5-14.5) H 09/18/17 04:00 Nucleated RBCs/100 WBC 0.2 /100 WBC (0) H 09/18/17 04:00 PT 12.8 Seconds (9.4-12.1) H 09/10/17 01:00 APTT 42.5 Seconds (26.0-36.0) H 09/09/17 10:03 Est GFR (Non-Af Amer) 54 (> 60) L 09/18/17 04:00 Glucose 106 mg/dL (70-105) H 09/18/17 04:00 POC Glucose 124 (58-89) H 09/18/17 10:48 Calcium 8.4 mg/dL (8.6-10.3) L 09/18/17 04:00 Magnesium 1.4 mg/dL (1.6-2.6) L 09/16/17 04:09 Iron 10 mcg/dL (50-170) L 09/15/17 15:41 % Saturation 7 % (15-50) L 09/15/17 15:41 Transferrin 107 mg/dL (203-362) L 09/15/17 15:41 Ferritin 199 ng/ml (10-120) H 09/15/17 15:41 Alkaline Phosphatase 272 Units/L (34-104) H 09/14/17 09:30 Serum Total Protein 4.9 g/dL (6.4-8.9) L 09/14/17 09:30 Albumin 2.3 g/dL (3.5-5.7) L 09/14/17 09:30 Albumin/Globulin Ratio 0.9 (1.1-2.2) L 09/14/17 09:30 Carcinoembryonic Ag 40.9 ng/mL (Less than 5.0) H 09/15/17 11:25 - Head Head exam: Present: atraumatic, normal inspection - Eye Eye exam: Present: PERRL - ENT ENT exam: Present: mucous membranes moist - Neck Neck exam: Present: full ROM - Respiratory Respiratory exam: Present: decreased breath sounds - Expanded Respiratory Exam Location: decreased breath sounds: Left, Right, Lower - Cardiovascular Cardiovascular exam: Present: RRR, +S1, +S2 - GI/Abdominal GI/Abdominal exam: Present: normal bowel sounds, soft, tenderness Additional comments: passing few liquid stools. - Extremities Exam Extremities exam: Present: pedal edema Additional comments: general weakness. Bedbound - Neurological Exam Neurological exam: Present: alert, oriented X3 - Psychiatric Psychiatric exam: Present: normal affect - Skin Skin exam: Present: pallor, warm Palliative Quality Palliative Quality: Screen for Code Status: Yes, Screen for Goals of Care: Yes, Screen for Pain: Yes, If Pain Regimen Started, Initiate Bowel Regimen: NA, Screen for Nausea/Vomitting: Yes - Labs CBC & Chem 7: 09/18/17 04:00 09/18/17 04:00 Labs: Laboratory Results - last 24 hr 09/17/17 09/17/17 09/17/17 16:23 19:42 20:07 WBC RBC Hgb Hct MCV MCH MCHC RDW Plt Count MPV Immature Gran % Seg Neutrophils % Lymphocytes % Monocytes % Eosinophils % Basophils % Neutrophils # Lymphocytes # Monocytes # Eosinophils # Basophils # Nucleated RBCs/100 WBC Sodium Potassium Chloride Carbon Dioxide BUN Creatinine Est GFR ( Amer) Est GFR (Non-Af Amer) BUN/Creatinine Ratio Glucose POC Glucose 88 36 L* 89 Calculated Osmolality Calcium 09/18/17 09/18/17 09/18/17 00:30 01:22 02:06 WBC RBC Hgb Hct MCV MCH MCHC RDW Plt Count MPV Immature Gran % Seg Neutrophils % Lymphocytes % Monocytes % Eosinophils % Basophils % Neutrophils # Lymphocytes # Monocytes # Eosinophils # Basophils # Nucleated RBCs/100 WBC Sodium Potassium Chloride Carbon Dioxide BUN Creatinine Est GFR ( Amer) Est GFR (Non-Af Amer) BUN/Creatinine Ratio Glucose POC Glucose 36 L* 87 72 Calculated Osmolality Calcium 09/18/17 09/18/17 09/18/17 02:51 03:50 04:00 WBC 9.5 D RBC 2.87 L Hgb 8.0 L Hct 26.9 L MCV 93.7 MCH 27.9 L MCHC 29.7 L RDW 18.6 H Plt Count 179 MPV 10.8 Immature Gran % 0.6 Seg Neutrophils % 84.3 Lymphocytes % 9.1 Monocytes % 5.7 Eosinophils % 0.1 Basophils % 0.2 Neutrophils # 8.0 Lymphocytes # 0.9 Monocytes # 0.5 Eosinophils # 0.0 Basophils # 0.0 Nucleated RBCs/100 WBC 0.2 H Sodium Potassium Chloride Carbon Dioxide BUN Creatinine Est GFR ( Amer) Est GFR (Non-Af Amer) BUN/Creatinine Ratio Glucose POC Glucose 64 114 H Calculated Osmolality Calcium 09/18/17 09/18/17 09/18/17 04:00 06:59 10:48 WBC RBC Hgb Hct MCV MCH MCHC RDW Plt Count MPV Immature Gran % Seg Neutrophils % Lymphocytes % Monocytes % Eosinophils % Basophils % Neutrophils # Lymphocytes # Monocytes # Eosinophils # Basophils # Nucleated RBCs/100 WBC Sodium 138 Potassium 3.5 Chloride 104 Carbon Dioxide 27 BUN 23 Creatinine 0.98 Est GFR ( Amer) > 60 Est GFR (Non-Af Amer) 54 L BUN/Creatinine Ratio 23 Glucose 106 H POC Glucose 116 H 124 H Calculated Osmolality 290 Calcium 8.4 L - ABG Interpretation ABG results: PT/INR, D-dimer PT 12.8 Seconds (9.4-12.1) H 09/10/17 01:00 Consult Discharge Plan - Plan Referrals: Jamarcus Pedro DO [Primary Care Provider] -
[2017-09-18] MEDS ORDERED: Metoclopramide 10 MG/2 ML VIAL IVP PRN (14:54)
[2017-09-18] MEDS: D5% in 0.45% NACL 1,000 ML IVC SCH (15:12)
[2017-09-18] MEDS: Ondansetron 4 MG/2 ML VIAL IVP SCH ×2 (16:52→20:28)
--- NOTE | 2017-09-18 17:21 | Event Note ---
Date of Encounter: 09/18/17 Time of Encounter: 17:00 Patients case discussed with Yesenia Jimenes CNP for Oncology services. Updated on patients condition and results of family meeting from yesterday. Current plan is that all 3 children (Yuniel, Celsa and Tammi) will visit this evening and talk with patient about desires. Celsa to arrive from [place]. Patient may be candidate for Xeloda chemotherapy. Yesenia Jimenes will f/u with family and Dr. Bunch to discuss options. Appreciate Oncology input on this case.
--- NOTE | 2017-09-18 17:58 | Oncology Inp Progress Note ---
Date of Encounter: 09/18/17 Time of Encounter: 17:58 (1) Abnormal CT of the abdomen Current Visit: No Status: Acute Assessment and plan: CT findings as discussed in history of present illness concerning for potential lymphoma recurrence, renal cell carcinoma or metastases with now newly diagnosed colon adenocarcinoma (discussed below). Given her history of Large B Cell Lymphoma she does have the potential to also have a low grade recurrence in addition to her colon cancer. Multiple family discussions have followed since our last discussion over the past few days. Palliative care team have worked to discuss patients prognosis and options for discharge which may include home with hospice, ECF skilled or with hospice. I met with patient along with patients children Yuniel, Tammi and Celsa at bedside today. We had a detailed discussion regarding patients recent imaging findings, pathology report, lab results, prognosis, poor physical performance status and options for treatments either supportively, palliatively or aggressively. Following 45 minute discussion, consensus was made to: 1. Not pursue biopsy of abdominal lymphadenopathy at this time as it appears to be of slow growing process and likely malignant, it does not pose an absolute threat to patients life at this time. 2. Discussed option for oral Xeloda as recommended by Dr. Leggett for palliative treatment for colon cancer. This would be partial treatment as Xeloda is typically prescribed in combination with other therapies. She is not a candidate for Xeloda at this time and would need her c diff symptoms to resolve along with pursuing more aggressive physical therapy to regain strength prior to initiating therapy (if patient so chooses this route). I discussed, and side effects associated with Xeloda therapy which include bone marrow suppression requiring frequent lab draws, hand-foot syndrome, nausea, vomiting, diarrhea, stomatitis, cardiotoxicity and hepatotoxicity. I voiced my concern that this option may not be an obtainable goal. They understand she will not be a candidate for Xeloda therapy at this time and this will need to be discussed further dependant upon their discharge goals. 3. They will continue to discuss plans for discharge, options were given per palliative team. Now that patients daughter Celsa has arrived from out of state they will deliberate and decide with patient. 4. I am concerned that patient may be obstructing and/or bleeding given her nausea, vomiting, and report or melena like stool. I have ordered stat CBC. Discussed with Dr. Bunch. Patient is amendable to NG placement for comfort. 5. Surgery discussion- Await KUB results. Patient and patients family may wish to discus surgical options with Dr. Moss himself. I summarized my discussions and information gained from Dr. Moss's consult note. They understand that this would be severely high risk procedure, but are concerned over taking no intervention if patient obstructs and continues to bleed. Further discussions to follow tomorrow along side of palliative care to more definitely determine goals of care and discharge planning. I spent greater than 60 minutes in combination of care at bedside, discussions with patient and patients family, collaborating with patients care team and in total care for this patient. 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 Her CEA is 40.9. She cannot have IV contrast due to kidney function, GFR around 32, she has stage III CKD. Dr. Moss with surgery has been consulted on patients case, more details as described above. (3) Rectal bleeding Current Visit: Yes Status: Acute Assessment and plan: Patient and patients family report recent onset of melena like diarrhea. Hgb 8 this am, ordered repeat stat CBC Transfuse for hgb <7 Would not recommend iron transfusion given h/o hemochromatosis and ferritin of 199 Oncology: Subj Interval history: Ms. Chatman is resting in bed. She is feeling quite ill today. She is nauseated and has vomited about 4-5 times throughout the course of the day. She continues to have loose stool which according to family reports is now dark in color. Her abdomen is tender to the RUQ. She has received a number of anti nausea medications. Her children are at bedside. - Constitutional Vitals: Vital Signs Temp Pulse Resp BP Pulse Ox 09/18/17 15:02 97.8 F 62 20 151/69 93 09/18/17 10:54 98.1 F 88 18 146/70 92 09/18/17 09:25 97 09/18/17 07:08 97.6 F 64 22 139/77 97 09/18/17 05:00 98 09/18/17 04:50 97.9 F 59 16 121/78 98 09/18/17 00:39 97.7 F 59 16 133/49 97 09/17/17 20:32 98.7 F 58 16 116/70 99 09/17/17 19:45 97 Intake and Output 09/18/17 09/18/17 09/18/17 07:59 15:59 23:59 Intake Total 1240 / 1240 585 / 585 Output Total 200 / 200 300 / 300 Balance 1040 / 1040 285 / 285 Intake: IV Fluids 1000 / 1000 585 / 585 Dextrose 5% 1,000 ML @ 100 mls/ 1000 / 1000 585 / 585 hr IVC .Q10H PRN Rx#:[id number] Oral 240 / 240 0 / 0 Output: Urine/Stool Mix 200 / 200 Emesis 300 / 300 Other: Meal Lunch Percent of Meal Consumed 25% Stool Size Small Moderate Stool Consistency loose liquid liquid Stool Characteristics Mucoid Stool Color Brown # Urine Diapers 2 1 # Bowel Movement Diapers 1 1 Weight 87.1 kg Blood Glucose* 116 124 189 Patient Weight 09/18/17 23:59 Weight 87.1 kg General appearance: cooperative, no febrile, no no acute distress Exam: nauseated, closes eyes often, no vomiting at this time but holding emesis bag to mouth because she feels as though she could vomit at anytime. - Head Head exam: Present: atraumatic - ENT ENT exam: Present: mucous membranes dry - Respiratory Respiratory exam: Present: CTAB. Absent: respiratory distress - Cardiovascular Cardiovascular exam: Present: RRR, +S1, +S2 - GI/Abdominal GI/Abdominal exam: Present: soft, tenderness Additional comments: diminished bowel sounds to RUQ - Extremities Exam Extremities exam: Absent: calf tenderness Additional comments: chronic skin changes related to venous insufficiency with associated dermatitis and ulceration - Neurological Exam Neurological exam: Present: alert, oriented X3, no focal deficits, strengths equal and symetr throughout - Psychiatric Psychiatric exam: Present: normal affect, normal mood - Skin Skin exam: Present: dry, pallor, warm Oncology: Obj Data - Labs CBC & Chem 7: 09/19/17 04:00 09/19/17 04:00 - ABG Interpretation ABG results: PT/INR, D-dimer PT 12.8 Seconds (9.4-12.1) H 09/10/17 01:00 Consult Discharge Plan - Plan Referrals: Jamarcus Pedro DO [Primary Care Provider] -
--- NOTE | 2017-09-18 18:07 | Internal Med Progress Note ---
Date of Encounter: 09/18/17 Time of Encounter: 11:00 - Assessment and plan (1) Nausea & vomiting Current Visit: Yes Status: Acute Assessment and plan: Patient with persistent nausea and vomiting in spite of Zofran and Reglan Will place NG tube to low wall intermittent suction and order an acute abdominal series She will be made nothing by mouth Qualifiers: Vomiting type: unspecified Qualified Code(s): R11.2 - Nausea with vomiting , unspecified (2) Hepatic flexure mass Current Visit: Yes Status: Acute Assessment and plan: Patient has a history of malignant lymphoma CT of the abdomen showed the followin. Re- demonstration of a solid mass involving the inferior aspect of left kidney, which appears increased in size when compared to the previous exam. 2. Re- demonstration of retroperitoneal and iliac chain lymphadenopathy, which for the most part is stable, with the exception of a lymph node conglomerate in the left periaortic region which is mildly increased in size. 3. Inguinal lymphadenopathy, which is stable to mildly decreased in size when compared to the previous exam. -Gen. surgery consult with recommendations to consider palliative care given patient being a poor surgical candidate -Palliative care consult to discuss goals of care with family; oncology also following (3) Rectal bleeding Current Visit: Yes Status: Acute Assessment and plan: Secondary to the above Hemodynamically stable; will continue to check H&H (4) Malignant lymphoma Current Visit: Yes Status: Chronic Assessment and plan: Patient with history of malignant lymphoma; incomplete chemotherapy Qualifiers: Lymphoma type: non-Hodgkin Non-Hodgkin lymphoma type: B-cell B-cell lymphoma type: unspecified B-cell Lymphoma site: unspecified region Qualified Code(s): C85.10 - Unspecified B-cell lymphoma, unspecified site (5) Goals of care, counseling/discussion Current Visit: Yes Status: Acute Assessment and plan: Palliative care consult with family meeting planned today to discuss goals of care. (6) C. difficile diarrhea Current Visit: Yes Status: Acute Assessment and plan: -Decreased stools on oral vancomycin -Continue current management (7) CKD (chronic kidney disease) stage 3, GFR 30-59 ml/min Current Visit: No Status: Chronic Assessment and plan: Creatinine at baseline; continue to monitor - Subjective Interval history: Patient with nausea and vomiting this morning and afternoon Family meeting being planned by palliative care to discuss goals of care with patient's new findings of colonic mass in the setting of history of malignant lymphoma compounded with her fragility of her overall health - Constitutional Vitals: Temp Pulse Resp BP Pulse Ox 97.8 F 62 20 151/69 93 09/18/17 15:02 09/18/17 15:02 09/18/17 15:02 09/18/17 15:02 09/18/17 15:02 General appearance: Present: cooperative, A&O X 3, no acute distress, answers questions appropriately - Respiratory Respiratory exam: Present: CTAB. Absent: accessory muscle use, rales, rhonchi, wheezes - Cardiovascular Cardiovascular exam: Present: RRR, +S1, +S2. Absent: diastolic murmur, gallop, rubs, systolic murmur - GI/Abdominal GI/Abdominal exam: Present: distended, soft, tenderness Internal Medicine: Result - Labs CBC & Chem 7: 09/18/17 04:00 09/18/17 04:00 Labs: Short CBC 09/18/17 Range/Units 04:00 WBC 9.5 D (4.3-11.1) K/mcL Hgb 8.0 L (11.5-15.4) g/dL Hct 26.9 L (35.3-44.9) % Plt Count 179 (140-400) K/mcL Neutrophils # 8.0 (1.6-8.9) K/mcL BMP 09/18/17 04:00 Sodium 138 Potassium 3.5 Chloride 104 Carbon Dioxide 27 BUN 23 Creatinine 0.98 Glucose 106 H Calcium 8.4 L - ABG Interpretation ABG results: PT/INR, D-dimer PT 12.8 Seconds (9.4-12.1) H 09/10/17 01:00 - VTE Documentation of Mechanical Device: Intermittent pneumatic compression device Consult Discharge Plan - Plan Referrals: Jamarcus Pedro DO [Primary Care Provider] -
[2017-09-18 19:06] LABS: Basophils % 0.1 %; Eosinophils % 0.1 %; Hemoglobin 7.5 g/dL (11.5-15.4); Immature Granulocytes % 0.8 % (0-4); Lymphocytes # 0.9 K/mcL (0.6-4.6); Lymphocytes % 12.2 %; Mean Corpuscular Volume 93.3 fL (83.0-100.0); Mean Platelet Volume 10.9 fL (9.4-12.4); Monocytes # 0.4 K/mcL (0.0-1.3); Monocytes % 5.8 %; Neutrophils # 6.2 K/mcL (1.6-8.9); Platelet Count 173 K/mcL (140-400); Red Blood Count 2.68 M/mcL (3.82-4.97); Red Cell Distribution Width 18.3 % (11.5-14.5)
[2017-09-18] MEDS: Ketorolac 15 MG/ML VIAL IVP PRN (23:20)
[2017-09-19] MEDS: Ondansetron 4 MG/2 ML VIAL IVP SCH ×6 (00:22→20:45)
[2017-09-19 05:12] LABS: BUN/Creatinine Ratio 9 (6-26); Blood Urea Nitrogen 6 mg/dL (8-23); Calcium 8.5 mg/dL (8.6-10.3); Carbon Dioxide 28 mEq/L (23-29); Chloride 101 mEq/L (98-107); Glucose 158 mg/dL (70-105); Osmolality,Calculated 281 (280-300); Potassium 3.5 mEq/L (3.5-5.1); Sodium 135 mEq/L (136-145); eGFR For African Americans > 60 (> 60); eGFR For Non-African Americans > 60 (> 60)
[2017-09-19 05:16] LABS: Basophils # 0.1 K/mcL (0.0-0.2); Basophils % 0.5 %; Eosinophils # 0.2 K/mcL (0.0-0.6); Eosinophils % 2.1 %; Hematocrit 24.9 % (35.3-44.9); Hemoglobin 7.7 g/dL (11.5-15.4); Immature Granulocytes % 12.2 % (0-4); Lymphocytes % 19.2 %; Mean Corpuscular HGB Conc 30.9 g/dL (31.6-35.5); Mean Corpuscular Volume 87.4 fL (83.0-100.0); Mean Platelet Volume 8.8 fL (9.4-12.4); Monocytes # 0.6 K/mcL (0.0-1.3); Monocytes % 5.4 %; Neutrophils # 6.4 K/mcL (1.6-8.9); Platelet Count 150 K/mcL (140-400); Red Blood Count 2.85 M/mcL (3.82-4.97); Red Cell Distribution Width 17.6 % (11.5-14.5); Segmented Neutrophils % 60.6 %
[2017-09-19 07:55] LABS: Platelet Estimate Normal (Normal)
[2017-09-19] MEDS: Insulin LISPRO 300 UNITS/3 ML VIAL SQ SCH ×4 (10:01→20:46)
[2017-09-19] MEDS: Bumetanide 1 MG TABLET PO SCH ×2 (10:02→17:05)
[2017-09-19] MEDS: Gabapentin 100 MG CAPSULE PO SCH ×2 (10:02→20:36)
[2017-09-19] MEDS: Sennosides 8.6 MG TABLET PO SCH ×2 (10:03→20:36)
[2017-09-19] MEDS: Vancomycin Oral Soln 250 MG/5 ML UDC PO SCH ×2 (10:03→12:21)
[2017-09-19] MEDS: Multivit/Ca/Min/Fe/FA 1 TAB TABLET PO SCH (10:03)
[2017-09-19] MEDS: D5% in 0.45% NACL 1,000 ML IVC SCH (11:35)
[2017-09-19] MEDS: Ketorolac 15 MG/ML VIAL IVP PRN ×2 (11:35→20:44)
--- NOTE | 2017-09-19 16:10 | Palliative Progress Note ---
Date of Encounter: 09/19/17 Time of Encounter: 15:45 - Assessment and plan (1) Pain Current Visit: Yes Status: Acute Assessment and plan: Patient reports continued abdominal discomfort. Continue orders for Reglan and Zofran. Also had one dose of Toradol in last 24 hours, family reports improvement in pain control. (2) Debility, unspecified Current Visit: Yes Status: Acute Assessment and plan: Continued inability to care for self. Continue to assist with ADLs and PT/OT once medically stable. (3) Malignant lymphoma Current Visit: Yes Status: Chronic Qualifiers: Lymphoma type: non-Hodgkin Non-Hodgkin lymphoma type: B-cell B-cell lymphoma type: unspecified B-cell Lymphoma site: unspecified region Qualified Code(s): C85.10 - Unspecified B-cell lymphoma, unspecified site (4) Goals of care, counseling/discussion Current Visit: Yes Status: Acute Assessment and plan: Discussed with Daughter, Bernarda, and patient plan of care at discharge. Bernarda had many questions regarding [facility], reached out to [facility] and meeting set for this evening to discuss arrangements at discharge. At this time family is undecided for skilled versus hospice care. No coverage for palliative care this , to follow up friday. (5) CKD (chronic kidney disease) Current Visit: No Status: Chronic Qualifiers: Chronic kidney disease stage: stage 3 (moderate) Qualified Code(s): N18.3 - Chronic kidney disease, stage 3 (moderate) - Time Spent With Patient Total time spent is greater than 50% in coordination of care (as documented) at patient's floor/unit and/or counseling patient: Greater than 35 minutes - Subjective Interval history: Patient laying in bed with eyes closed on arrival. No complaints of anxiety. Reports a small amount of abdominal discomfort and nausea has subsided some with NG tube placement. Daughter, Bernarda, is at bedside. Patient questioned her plan of care at discharge, reports unknown at this time. Conferenced exam and meeting with Yesenia Jimenes CNP Oncology. Discussed plan of care and treatment options as patient is a poor surgical candidate. Patient remains NPO with NG to intermittent suction today. Per daughter, plan to remain NPO and attempt to have sips and chips tomorrow. - Constitutional Vitals: Abnormal lab results RBC 2.85 M/mcL (3.82-4.97) L 09/19/17 04:00 Hgb 7.7 g/dL (11.5-15.4) L 09/19/17 04:00 Hct 24.9 % (35.3-44.9) L 09/19/17 04:00 MCH 27.0 pg (28.0-33.3) L 09/19/17 04:00 MCHC 30.9 g/dL (31.6-35.5) L 09/19/17 04:00 RDW 17.6 % (11.5-14.5) H 09/19/17 04:00 MPV 8.8 fL (9.4-12.4) L 09/19/17 04:00 Immature Gran % 12.2 % (0-4) H 09/19/17 04:00 Nucleated RBCs/100 WBC 1.0 /100 WBC (0) H 09/19/17 04:00 PT 12.8 Seconds (9.4-12.1) H 09/10/17 01:00 APTT 42.5 Seconds (26.0-36.0) H 09/09/17 10:03 Sodium 135 mEq/L (136-145) L 09/19/17 04:00 BUN 6 mg/dL (8-23) L 09/19/17 04:00 Glucose 158 mg/dL (70-105) H 09/19/17 04:00 POC Glucose 155 (58-89) H 09/19/17 07:49 Calcium 8.5 mg/dL (8.6-10.3) L 09/19/17 04:00 Magnesium 1.4 mg/dL (1.6-2.6) L 09/16/17 04:09 Iron 10 mcg/dL (50-170) L 09/15/17 15:41 % Saturation 7 % (15-50) L 09/15/17 15:41 Transferrin 107 mg/dL (203-362) L 09/15/17 15:41 Ferritin 199 ng/ml (10-120) H 09/15/17 15:41 Alkaline Phosphatase 272 Units/L (34-104) H 09/14/17 09:30 Serum Total Protein 4.9 g/dL (6.4-8.9) L 09/14/17 09:30 Albumin 2.3 g/dL (3.5-5.7) L 09/14/17 09:30 Albumin/Globulin Ratio 0.9 (1.1-2.2) L 09/14/17 09:30 Carcinoembryonic Ag 40.9 ng/mL (Less than 5.0) H 09/15/17 11:25 - Head Head exam: Present: normal inspection - ENT ENT exam: Present: mucous membranes dry - Neck Neck exam: Present: full ROM, normal inspection - Respiratory Respiratory exam: Present: CTAB. Absent: respiratory distress - Cardiovascular Cardiovascular exam: Present: +S1, +S2 - Expanded Cardiovascular Exam Peripheral pulses: 1+: Carotid (R) PM, Dorsalis Pedis (L) PM, Dorsalis Pedis (R ) PM, 2+: Carotid (L) PM - Rectal Rectal exam: Present: deferred - Neurological Exam Neurological exam: Present: alert, oriented X3 - Psychiatric Psychiatric exam: Present: normal affect, normal mood Palliative Quality Palliative Quality: Screen for Code Status: Yes, Screen for Goals of Care: Yes, Screen for Pain: Yes, If Pain Regimen Started, Initiate Bowel Regimen: NA, Screen for Nausea/Vomitting: Yes - Labs CBC & Chem 7: 09/19/17 04:00 09/19/17 04:00 Labs: Laboratory Results - last 24 hr 09/18/17 09/18/17 09/18/17 16:35 17:59 20:17 WBC 7.6 RBC 2.68 L Hgb 7.5 L Hct 25.0 L MCV 93.3 MCH 28.0 MCHC 30.0 L RDW 18.3 H Plt Count 173 MPV 10.9 Immature Gran % 0.8 Seg Neutrophils % 81.0 Lymphocytes % 12.2 Monocytes % 5.8 Eosinophils % 0.1 Basophils % 0.1 Neutrophils # 6.2 Lymphocytes # 0.9 Monocytes # 0.4 Eosinophils # 0.0 Basophils # 0.0 Nucleated RBCs/100 WBC Platelet Estimate Sodium Potassium Chloride Carbon Dioxide BUN Creatinine Est GFR ( Amer) Est GFR (Non-Af Amer) BUN/Creatinine Ratio Glucose POC Glucose 189 H 200 H Calculated Osmolality Calcium 09/19/17 09/19/17 09/19/17 01:11 04:00 04:00 WBC 10.5 RBC 2.85 L Hgb 7.7 L Hct 24.9 L MCV 87.4 MCH 27.0 L MCHC 30.9 L RDW 17.6 H Plt Count 150 MPV 8.8 L Immature Gran % 12.2 H Seg Neutrophils % 60.6 Lymphocytes % 19.2 Monocytes % 5.4 Eosinophils % 2.1 Basophils % 0.5 Neutrophils # 6.4 Lymphocytes # 2.0 Monocytes # 0.6 Eosinophils # 0.2 Basophils # 0.1 Nucleated RBCs/100 WBC 1.0 H Platelet Estimate Normal Sodium 135 L Potassium 3.5 Chloride 101 Carbon Dioxide 28 BUN 6 L Creatinine 0.66 Est GFR ( Amer) > 60 Est GFR (Non-Af Amer) > 60 BUN/Creatinine Ratio 9 Glucose 158 H POC Glucose 212 H Calculated Osmolality 281 Calcium 8.5 L 09/19/17 09/19/17 05:42 07:49 WBC RBC Hgb Hct MCV MCH MCHC RDW Plt Count MPV Immature Gran % Seg Neutrophils % Lymphocytes % Monocytes % Eosinophils % Basophils % Neutrophils # Lymphocytes # Monocytes # Eosinophils # Basophils # Nucleated RBCs/100 WBC Platelet Estimate Sodium Potassium Chloride Carbon Dioxide BUN Creatinine Est GFR ( Amer) Est GFR (Non-Af Amer) BUN/Creatinine Ratio Glucose POC Glucose 174 H 155 H Calculated Osmolality Calcium - Impressions Impressions KUB X-Ray 09/18/17 18:14 IMPRESSION: Nasogastric tube in appropriate position. D/ : / 09/18/2017 19:01:08 Shawn Hope MD / [facility] Interpreting Provider: Shawn Hope MD - ABG Interpretation ABG results: PT/INR, D-dimer PT 12.8 Seconds (9.4-12.1) H 09/10/17 01:00 Consult Discharge Plan - Plan Referrals: Jamarcus Pedro DO [Primary Care Provider] -
--- NOTE | 2017-09-19 16:26 | Oncology Inp Progress Note ---
Date of Encounter: 09/19/17 Time of Encounter: 15:45 (1) Abnormal CT of the abdomen Current Visit: No Status: Acute Assessment and plan: CT findings concerning for potential lymphoma recurrence, renal cell carcinoma or metastases with now newly diagnosed colon adenocarcinoma (discussed below). Given her history of Large B Cell Lymphoma she does have the potential to also have a low grade recurrence in addition to her colon cancer. I met with patient and patients daughter Celsa today alongside Palliative Care Team for further discussion. Following further discussion today with patient, patients daughter Celsa and palliative care team [employer], patient has decided not to pursue lymph node biopsy at this time. She also understands that the option for single agent Xeloda therapy would need to be discussed at a later date following discharge (once c diff symptoms improve and following rehabilitation) if she decides to pursue route of more aggressive treatment approach. Patient and patients family are not interested in pursuing surgical intervention at this time, understanding that colon mass may cause life threatening circumstances such as bleeding or obstruction, but surgical intervention is too high risk for patient. Further discussion and decision making to be made for discharge planning. Palliative care team has discussed all options for discharge with patient and patients family. At this time, patient is leaning towards the idea of discharge to [facility]CF with skilled versus hospice care. 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 Her CEA is 40.9. She cannot have IV contrast due to kidney function, GFR around 32, she has stage III CKD. NG tube to intermittent suction for suspected ileus/obstruction. KUB revealed on gas-filled loops of bowel in the upper abdomen. NG has helped to symptomatically relieve nausea and vomiting. Will likely transition to clamping NG with sips/ice chips soon. (3) Rectal bleeding Current Visit: Yes Status: Acute Assessment and plan: Hgb stable, continue to monitor Transfuse for hgb <7 Would not recommend iron transfusion given h/o hemochromatosis and ferritin of 199 Oncology: Subj Interval history: Carlos Enrique Chatman is resting in bed with daughter Celsa at bedside. NG to intermittent suction with dark green/brown fluid draining. She reports nausea symptoms under control with no vomiting. Chronic pain controlled. Discussed treatment options and options for discharge alongside palliative care team - Constitutional Vitals: Vital Signs Temp Pulse Resp BP Pulse Ox 09/19/17 15:54 98.4 F 70 18 133/76 95 09/19/17 10:38 98.2 F 62 18 136/72 100 09/19/17 07:56 98.1 F 72 18 142/63 98 09/19/17 00:49 100 09/18/17 19:33 98.6 F 61 16 98 Intake and Output 09/19/17 09/19/17 09/19/17 07:59 15:59 23:59 Intake Total 1000 / 1000 Balance 1000 / 1000 Intake: IV Fluids 1000 / 1000 D5% And 0.45% Nacl 1000 Ml Bag 1000 / 1000 1,000 ML @ 50 mls/hr IVC .Q20H SUSANNE Rx#:[id number] Other: Meal npo Blood Glucose* 155 189 General appearance: cooperative, no acute distress, no febrile Exam: chronically ill appearing - Head Head exam: Present: atraumatic - Respiratory Respiratory exam: Present: CTAB. Absent: respiratory distress - Cardiovascular Cardiovascular exam: Present: RRR, +S1, +S2 - GI/Abdominal GI/Abdominal exam: Present: diminished bowel sounds, soft, tenderness - Extremities Exam Extremities exam: Absent: calf tenderness Additional comments: skin changes secondary to chronic venous stasis - Neurological Exam Neurological exam: Present: alert, oriented X3, no focal deficits, strengths equal and symetr throughout - Psychiatric Psychiatric exam: Present: normal affect, normal mood - Skin Skin exam: Present: dry, pallor, warm Oncology: Obj Data - Labs CBC & Chem 7: 09/21/17 04:00 09/21/17 04:00 - Impressions Impressions KUB X-Ray 09/18/17 18:14 IMPRESSION: Nasogastric tube in appropriate position. D/ /18/2017 19:01:08 Shawn Hope MD / [facility] Interpreting Provider: Shawn Hope MD - ABG Interpretation ABG results: PT/INR, D-dimer PT 12.8 Seconds (9.4-12.1) H 09/10/17 01:00 Consult Discharge Plan - Plan Referrals: Jamarcus Pedro DO [Primary Care Provider] -
[2017-09-19] MEDS: MetroNIDAZOLE 500 MG/100 ML 500 MG/100 ML BAG IVPB SCH (16:50)
--- NOTE | 2017-09-19 18:02 | Internal Med Progress Note ---
Date of Encounter: 09/19/17 Time of Encounter: 11:00 - Assessment and plan (1) Nausea & vomiting Current Visit: Yes Status: Acute Assessment and plan: -Improvement status post NG tube -Will continue to have patient nothing by mouth with NG tube in place Qualifiers: Vomiting type: unspecified Qualified Code(s): R11.2 - Nausea with vomiting , unspecified (2) Hepatic flexure mass Current Visit: Yes Status: Acute Assessment and plan: Patient has a history of malignant lymphoma CT of the abdomen showed the followin. Re- demonstration of a solid mass involving the inferior aspect of left kidney, which appears increased in size when compared to the previous exam. 2. Re- demonstration of retroperitoneal and iliac chain lymphadenopathy, which for the most part is stable, with the exception of a lymph node conglomerate in the left periaortic region which is mildly increased in size. 3. Inguinal lymphadenopathy, which is stable to mildly decreased in size when compared to the previous exam. -Gen. surgery consult with recommendations to consider palliative care given patient being a poor surgical candidate -Palliative care consult to discuss goals of care with family; oncology also following (3) Rectal bleeding Current Visit: Yes Status: Acute Assessment and plan: Secondary to the above Hemodynamically stable; will continue to check H&H (4) Malignant lymphoma Current Visit: Yes Status: Chronic Assessment and plan: Patient with history of malignant lymphoma; incomplete chemotherapy Qualifiers: Lymphoma type: non-Hodgkin Non-Hodgkin lymphoma type: B-cell B-cell lymphoma type: unspecified B-cell Lymphoma site: unspecified region Qualified Code(s): C85.10 - Unspecified B-cell lymphoma, unspecified site (5) Goals of care, counseling/discussion Current Visit: Yes Status: Acute Assessment and plan: Family meeting being planned with [facility] at [facility] to discuss goals of care with patient's new findings of colonic mass in the setting of history of malignant lymphoma compounded with her fragility of her overall health Patient undecided about having patient skilled versus hospice care (6) C. difficile diarrhea Current Visit: Yes Status: Acute Assessment and plan: -Decreased stools on oral vancomycin that has been switched to IV Flagyl secondary to patient being nothing by mouth -Continue current management (7) CKD (chronic kidney disease) stage 3, GFR 30-59 ml/min Current Visit: No Status: Chronic Assessment and plan: Creatinine at baseline; continue to monitor - Subjective Interval history: Patient with improvement in abdominal discomfort in addition to nausea and vomiting after placement of NG tube Family meeting being planned with [facility] at [facility] to discuss goals of care with patient's new findings of colonic mass in the setting of history of malignant lymphoma compounded with her fragility of her overall health Patient undecided about having patient skilled versus hospice care - Constitutional Vitals: Temp Pulse Resp BP Pulse Ox 98.4 F 70 18 133/76 95 09/19/17 15:54 09/19/17 15:54 09/19/17 15:54 09/19/17 15:54 09/19/17 15:54 General appearance: Present: cooperative, A&O X 3, no acute distress, answers questions appropriately - Cardiovascular Cardiovascular exam: Present: RRR, +S1, +S2. Absent: diastolic murmur, gallop, rubs, systolic murmur - GI/Abdominal GI/Abdominal exam: Present: distended (Decreased abdominal distention status post NG tube), soft Internal Medicine: Result - Labs CBC & Chem 7: 09/19/17 04:00 09/19/17 04:00 Labs: Short CBC 09/18/17 09/19/17 Range/Units 17:59 04:00 WBC 7.6 10.5 (4.3-11.1) K/mcL Hgb 7.5 L 7.7 L (11.5-15.4) g/dL Hct 25.0 L 24.9 L (35.3-44.9) % Plt Count 173 150 (140-400) K/mcL Neutrophils # 6.2 6.4 (1.6-8.9) K/mcL BMP 09/19/17 04:00 Sodium 135 L Potassium 3.5 Chloride 101 Carbon Dioxide 28 BUN 6 L Creatinine 0.66 Glucose 158 H Calcium 8.5 L - ABG Interpretation ABG results: PT/INR, D-dimer PT 12.8 Seconds (9.4-12.1) H 09/10/17 01:00 - Impressions Impressions KUB X-Ray 09/18/17 18:14 IMPRESSION: Nasogastric tube in appropriate position. D/ /18/2017 19:01:08 Shawn Hope MD / [facility] Interpreting Provider: Shawn Hope MD - VTE Documentation of Mechanical Device: Intermittent pneumatic compression device Consult Discharge Plan - Plan Referrals: Jamarcus Pedro DO [Primary Care Provider] -
[2017-09-20] MEDS: MetroNIDAZOLE 500 MG/100 ML 500 MG/100 ML BAG IVPB SCH ×4 (01:18→23:39)
[2017-09-20] MEDS: Ondansetron 4 MG/2 ML VIAL IVP SCH ×6 (01:18→21:09)
[2017-09-20] MEDS: Ketorolac 15 MG/ML VIAL IVP PRN ×4 (03:48→23:40)
[2017-09-20 04:15] LABS: Basophils % 0.2 %; Hematocrit 24.2 % (35.3-44.9); Hemoglobin 7.1 g/dL (11.5-15.4); Immature Granulocytes % 0.7 % (0-4); Lymphocytes # 0.8 K/mcL (0.6-4.6); Mean Corpuscular HGB Conc 29.3 g/dL (31.6-35.5); Mean Corpuscular Hemoglobin 27.5 pg (28.0-33.3); Mean Platelet Volume 10.8 fL (9.4-12.4); Monocytes # 0.4 K/mcL (0.0-1.3); Monocytes % 5.8 %; Neutrophils # 4.9 K/mcL (1.6-8.9); Platelet Count 178 K/mcL (140-400); Red Blood Count 2.58 M/mcL (3.82-4.97); Red Cell Distribution Width 18.3 % (11.5-14.5); Segmented Neutrophils % 80.3 %
[2017-09-20 04:17] LABS: Mean Corpuscular Volume 93.8 fL (83.0-100.0)
[2017-09-20 04:32] LABS: BUN/Creatinine Ratio 21 (6-26); Blood Urea Nitrogen 22 mg/dL (8-23); Calcium 8.1 mg/dL (8.6-10.3); Carbon Dioxide 29 mEq/L (23-29); Chloride 104 mEq/L (98-107); Glucose 170 mg/dL (70-105); Osmolality,Calculated 293 (280-300); Potassium 3.5 mEq/L (3.5-5.1); Sodium 138 mEq/L (136-145); eGFR For African Americans > 60 (> 60); eGFR For Non-African Americans 50 (> 60)
[2017-09-20] MEDS: Bumetanide 1 MG TABLET PO SCH ×2 (07:52→16:19)
[2017-09-20] MEDS: Insulin LISPRO 300 UNITS/3 ML VIAL SQ SCH ×4 (07:52→21:21)
[2017-09-20] MEDS: Multivit/Ca/Min/Fe/FA 1 TAB TABLET PO SCH (07:52)
[2017-09-20] MEDS: Sennosides 8.6 MG TABLET PO SCH ×2 (07:52→21:10)
[2017-09-20] MEDS: Gabapentin 100 MG CAPSULE PO SCH ×2 (08:38→21:09)
[2017-09-20] MEDS: D5% in 0.45% NACL 1,000 ML IVC SCH (08:54)
--- NOTE | 2017-09-20 18:34 | Internal Med Progress Note ---
Date of Encounter: 09/20/17 Time of Encounter: 11:00 - Assessment and plan (1) Nausea & vomiting Current Visit: Yes Status: Acute Assessment and plan: -Improvement status post NG tube -We will clamp NG tube today and try patient with ice chips Qualifiers: Vomiting type: unspecified Qualified Code(s): R11.2 - Nausea with vomiting , unspecified (2) Hepatic flexure mass Current Visit: Yes Status: Acute Assessment and plan: Patient has a history of malignant lymphoma CT of the abdomen showed the followin. Re- demonstration of a solid mass involving the inferior aspect of left kidney, which appears increased in size when compared to the previous exam. 2. Re- demonstration of retroperitoneal and iliac chain lymphadenopathy, which for the most part is stable, with the exception of a lymph node conglomerate in the left periaortic region which is mildly increased in size. 3. Inguinal lymphadenopathy, which is stable to mildly decreased in size when compared to the previous exam. -Gen. surgery consult with recommendations to consider palliative care given patient being a poor surgical candidate -Palliative care consult to discuss goals of care with family; oncology also following (3) Rectal bleeding Current Visit: Yes Status: Acute Assessment and plan: Secondary to the above Hemodynamically stable; will continue to check H&H (4) Malignant lymphoma Current Visit: Yes Status: Chronic Assessment and plan: Patient with history of malignant lymphoma; incomplete chemotherapy Qualifiers: Lymphoma type: non-Hodgkin Non-Hodgkin lymphoma type: B-cell B-cell lymphoma type: unspecified B-cell Lymphoma site: unspecified region Qualified Code(s): C85.10 - Unspecified B-cell lymphoma, unspecified site (5) Goals of care, counseling/discussion Current Visit: Yes Status: Acute Assessment and plan: Family meeting being planned with [facility] at [facility] to discuss goals of care with patient's new findings of colonic mass in the setting of history of malignant lymphoma compounded with her fragility of her overall health Patient undecided about having patient skilled versus hospice care (6) C. difficile diarrhea Current Visit: Yes Status: Acute Assessment and plan: -Decreased stools on oral vancomycin that has been switched to IV Flagyl secondary to patient being nothing by mouth -Continue current management (7) CKD (chronic kidney disease) stage 3, GFR 30-59 ml/min Current Visit: No Status: Chronic Assessment and plan: Creatinine at baseline; continue to monitor - Subjective Interval history: Patient with improvement in abdominal discomfort in addition to nausea and vomiting after placement of NG tube NG tube will be clamped today and patient will be started with ice chips - Constitutional Vitals: Temp Pulse Resp BP Pulse Ox 98.1 F 60 18 148/73 93 09/20/17 16:21 09/20/17 16:21 09/20/17 16:21 09/20/17 16:21 09/20/17 16:21 General appearance: Present: cooperative, A&O X 3, no acute distress, answers questions appropriately - Cardiovascular Cardiovascular exam: Present: RRR, +S1, +S2. Absent: diastolic murmur, gallop, rubs, systolic murmur - GI/Abdominal GI/Abdominal exam: Present: tenderness (Right upper quadrant tenderness with decreased abdominal distention) Internal Medicine: Result - Labs CBC & Chem 7: 09/20/17 03:48 09/20/17 03:48 Labs: Short CBC 09/20/17 Range/Units 03:48 WBC 6.1 (4.3-11.1) K/mcL Hgb 7.1 L (11.5-15.4) g/dL Hct 24.2 L (35.3-44.9) % Plt Count 178 (140-400) K/mcL Neutrophils # 4.9 (1.6-8.9) K/mcL BMP 09/20/17 03:48 Sodium 138 Potassium 3.5 Chloride 104 Carbon Dioxide 29 BUN 22 Creatinine 1.05 Glucose 170 H Calcium 8.1 L - ABG Interpretation ABG results: PT/INR, D-dimer PT 12.8 Seconds (9.4-12.1) H 09/10/17 01:00 - Impressions Impressions KUB X-Ray 09/18/17 18:14 IMPRESSION: Nasogastric tube in appropriate position. D/ /18/2017 19:01:08 Shawn Hope MD / [facility] Interpreting Provider: Shawn Hope MD - VTE Documentation of Mechanical Device: Intermittent pneumatic compression device Consult Discharge Plan - Plan Referrals: Jamarcus Pedro DO [Primary Care Provider] -
[2017-09-20] MEDS ORDERED: Chloraseptic Spray 177 ML BOTTLE MM PRN (18:55)
[2017-09-21] MEDS: Ondansetron 4 MG/2 ML VIAL IVP SCH ×6 (04:20→20:00)
[2017-09-21 04:38] LABS: Basophils % 0.1 %; Hemoglobin 7.1 g/dL (11.5-15.4); Monocytes % 3.7 %; Segmented Neutrophils % 84.8 %
[2017-09-21 04:39] LABS: Hematocrit 23.6 % (35.3-44.9); Immature Granulocytes % 0.4 % (0-4); Lymphocytes # 0.8 K/mcL (0.6-4.6); Mean Corpuscular HGB Conc 30.1 g/dL (31.6-35.5); Mean Corpuscular Volume 92.9 fL (83.0-100.0); Mean Platelet Volume 10.6 fL (9.4-12.4); Monocytes # 0.3 K/mcL (0.0-1.3); Platelet Count 182 K/mcL (140-400); Red Blood Count 2.54 M/mcL (3.82-4.97); Red Cell Distribution Width 17.9 % (11.5-14.5)
[2017-09-21 04:50] LABS: Neutrophils # 5.9 K/mcL (1.6-8.9)
[2017-09-21 04:57] LABS: Calcium 8.4 mg/dL (8.6-10.3); Potassium 3.3 mEq/L (3.5-5.1)
[2017-09-21 05:20] LABS: Anisocytosis 1+ (Not Present); Macrocytosis Present (Not Present); Microcytosis Present (Not Present); Platelet Estimate Normal (Normal); Polychromasia 1+ (Not Present)
[2017-09-21] MEDS: Insulin LISPRO 300 UNITS/3 ML VIAL SQ SCH ×4 (08:28→23:42)
[2017-09-21] MEDS: Gabapentin 100 MG CAPSULE PO SCH ×2 (08:41→23:42)
[2017-09-21] MEDS: Multivit/Ca/Min/Fe/FA 1 TAB TABLET PO SCH (08:41)
[2017-09-21] MEDS: Bumetanide 1 MG TABLET PO SCH ×2 (08:41→16:22)
[2017-09-21] MEDS: Sennosides 8.6 MG TABLET PO SCH ×2 (08:41→23:42)
[2017-09-21] MEDS: MetroNIDAZOLE 500 MG/100 ML 500 MG/100 ML BAG IVPB SCH ×2 (08:42→16:17)
[2017-09-21] MEDS: Ketorolac 15 MG/ML VIAL IVP PRN ×2 (08:42→17:20)
--- NOTE | 2017-09-21 17:56 | Internal Med Progress Note ---
Date of Encounter: 09/21/17 Time of Encounter: 11:00 - Assessment and plan (1) Nausea & vomiting Current Visit: Yes Status: Acute Assessment and plan: -Patient with no further nausea and vomiting and decreased output of NG tube -Will pull NG tube today and place patient on clears Qualifiers: Vomiting type: unspecified Qualified Code(s): R11.2 - Nausea with vomiting , unspecified (2) Hepatic flexure mass Current Visit: Yes Status: Acute Assessment and plan: Patient has a history of malignant lymphoma CT of the abdomen showed the followin. Re- demonstration of a solid mass involving the inferior aspect of left kidney, which appears increased in size when compared to the previous exam. 2. Re- demonstration of retroperitoneal and iliac chain lymphadenopathy, which for the most part is stable, with the exception of a lymph node conglomerate in the left periaortic region which is mildly increased in size. 3. Inguinal lymphadenopathy, which is stable to mildly decreased in size when compared to the previous exam. -Gen. surgery consult with recommendations to consider palliative care given patient being a poor surgical candidate -Palliative care consult to discuss goals of care with family; oncology also following (3) Rectal bleeding Current Visit: Yes Status: Acute Assessment and plan: Secondary to the above Hemodynamically stable; will continue to check H&H (4) Malignant lymphoma Current Visit: Yes Status: Chronic Assessment and plan: Patient with history of malignant lymphoma; incomplete chemotherapy Qualifiers: Lymphoma type: non-Hodgkin Non-Hodgkin lymphoma type: B-cell B-cell lymphoma type: unspecified B-cell Lymphoma site: unspecified region Qualified Code(s): C85.10 - Unspecified B-cell lymphoma, unspecified site (5) Goals of care, counseling/discussion Current Visit: Yes Status: Acute Assessment and plan: Family meeting being planned with [facility] hospice [facility] to discuss goals of care with patient's new findings of colonic mass in the setting of history of malignant lymphoma compounded with her fragility of her overall health Patient undecided about having patient skilled versus hospice care (6) C. difficile diarrhea Current Visit: Yes Status: Acute Assessment and plan: -Decreased stools on oral vancomycin that has been switched to IV Flagyl secondary to patient being nothing by mouth -Continue current management (7) CKD (chronic kidney disease) stage 3, GFR 30-59 ml/min Current Visit: No Status: Chronic Assessment and plan: Creatinine at baseline; continue to monitor - Subjective Interval history: Patient without any nausea and vomiting and decreased output from NG tube NG-tube will be pulled today and patient placed on clears - Constitutional Vitals: Temp Pulse Resp BP Pulse Ox 97.5 F L 61 18 161/72 99 09/21/17 08:25 09/21/17 08:25 09/21/17 08:25 09/21/17 08:25 09/21/17 08:25 General appearance: Present: cooperative, A&O X 3, no acute distress, answers questions appropriately - Respiratory Respiratory exam: Present: CTAB. Absent: accessory muscle use, rales, rhonchi, wheezes - Cardiovascular Cardiovascular exam: Present: RRR, +S1, +S2. Absent: diastolic murmur, gallop, rubs, systolic murmur - GI/Abdominal GI/Abdominal exam: Present: hypoactive bowel sounds, soft, tenderness (Right upper quadrant/right lower quadrant). Absent: distended, rigid Internal Medicine: Result - Labs CBC & Chem 7: 09/21/17 04:00 09/21/17 04:00 Labs: Short CBC 09/21/17 Range/Units 04:00 WBC 7.0 (4.3-11.1) K/mcL Hgb 7.1 L (11.5-15.4) g/dL Hct 23.6 L (35.3-44.9) % Plt Count 182 (140-400) K/mcL Neutrophils # 5.9 (1.6-8.9) K/mcL BMP 09/21/17 04:00 Sodium 137 Potassium 3.3 L Chloride 105 Carbon Dioxide 28 BUN 21 Creatinine 1.09 Glucose 208 H Calcium 8.4 L - ABG Interpretation ABG results: PT/INR, D-dimer PT 12.8 Seconds (9.4-12.1) H 09/10/17 01:00 - VTE Documentation of Mechanical Device: Intermittent pneumatic compression device Consult Discharge Plan - Plan Referrals: Jamarcus Pedro DO [Primary Care Provider] -
[2017-09-21] MEDS ORDERED: Bumetanide 1 MG/4 ML VIAL IVP ONE (20:29)
[2017-09-22] MEDS: Ketorolac 15 MG/ML VIAL IVP PRN ×2 (00:12→09:13)
--- NOTE | 2017-09-22 00:24 | Event Note ---
Date of Encounter: 09/21/17 Time of Encounter: 23:55 Concern for patient aspirating expressed by family and pts. nurse. CXR ordered which shows bibasilar airspace the patient is worse on the left, potentially atelectasis, pneumonia, and/or aspiration. Bilateral effusions, larger on the left. Pulmonary vascular congestion with suspicion of perihilar edema suggesting congestive heart failure in the setting of mild cardiomegaly. Pt. has been hospitalized since 09/09/17. Must consider HCAP versus aspiration pneumonia. IVPB vancomycin with pharmacy pulse dosing and monitoring as well as IVPB Levaquin 750 mg every 48 based on patient's current renal dysfunction. Pt. has lengthy list of abx allergies, so pt. to be monitored closely for any rxns to ordered IVPB abx. Vanc to be administered slowly to avoid Dolores Syndrome. Blood cultures 2 ordered. Patient to be monitored closely for signs of increasing infection and/or sepsis criteria. Continuing concern for aspiration so pt. to be NPO w/swallow evaluation by Speech to be completed in a.m. Continue to monitor pt. closely.
[2017-09-22] MEDS: MetroNIDAZOLE 500 MG/100 ML 500 MG/100 ML BAG IVPB SCH ×4 (00:25→23:17)
[2017-09-22] MEDS: Ondansetron 4 MG/2 ML VIAL IVP SCH ×6 (00:26→23:04)
[2017-09-22] MEDS: Levofloxacin 750 MG/150 ML 750 MG/150 ML BAG IVPB SCH (03:00)
[2017-09-22] MEDS ORDERED: Acetaminophen IV 500 MG/50 ML INFUS..BTL IVPB ONE (04:39)
[2017-09-22] MEDS ORDERED: Aminoglycoside Consult 1 EACH MC ONE (07:26)
[2017-09-22] MEDS: Bumetanide 1 MG/4 ML VIAL IVP SCH ×2 (09:04→17:49)
[2017-09-22] MEDS: Gabapentin 100 MG CAPSULE PO SCH ×2 (09:10→23:16)
[2017-09-22] MEDS: Insulin LISPRO 300 UNITS/3 ML VIAL SQ SCH ×4 (09:10→23:15)
[2017-09-22] MEDS: Bumetanide 1 MG TABLET PO SCH ×2 (09:10→17:49)
[2017-09-22] MEDS: Multivit/Ca/Min/Fe/FA 1 TAB TABLET PO SCH (09:11)
[2017-09-22] MEDS: Sennosides 8.6 MG TABLET PO SCH ×2 (09:11→23:16)
--- NOTE | 2017-09-22 10:03 | Palliative Progress Note ---
Date of Encounter: 09/22/17 Time of Encounter: 08:40 - Assessment and plan (1) Pain Current Visit: Yes Status: Acute Assessment and plan: Patient reports continued abdominal discomfort. Rates RUQ pain/tenderness a . Patient has had one dose of Toradol in last 72 hours. Notified student nurse/instructor of need for additional PRN Toradol at this time due to current pain. (2) Debility, unspecified Current Visit: Yes Status: Acute Assessment and plan: Continued inability to care for self. Continue to assist with ADLs. Discussed plan for discharge as unable to care for self, patient agrees to go to [facility] for therapy to improve strength upon discharge. (3) Malignant lymphoma Current Visit: Yes Status: Chronic Qualifiers: Lymphoma type: non-Hodgkin Non-Hodgkin lymphoma type: B-cell B-cell lymphoma type: unspecified B-cell Lymphoma site: unspecified region Qualified Code(s): C85.10 - Unspecified B-cell lymphoma, unspecified site (4) Goals of care, counseling/discussion Current Visit: Yes Status: Acute Assessment and plan: Discussed with Daughter, Bernarda, and patient plan of care at discharge. Patient verbalizes plan to go to [place] for rehab to use remainder of skilled days prior to making decisions regarding when to enter hospice. Reports she now feels strong enough to participate in some form of therapy. Bernarda questioned ability to have Hospice while in [facility] for skilled rehab. Informed this is not possible. Bernarda requests ability to have private duty sitter with patient to help with care while at skilled nursing, for in addition to facility provided nursing care. SW following. Further discharge planning to take place post Speech Therapy Evaluation for deciding nutrition arrangements prior to discharge. Bernarda wishes to evaluate whether patient would be candidiate for TPN versus tube feeding. Informed Bernarda unable to complete TPN for nutrition management for long time periods. Will based recommendations on tube feeding post results of Speech Evaluation. (5) CKD (chronic kidney disease) Current Visit: No Status: Chronic Qualifiers: Chronic kidney disease stage: stage 3 (moderate) Qualified Code(s): N18.3 - Chronic kidney disease, stage 3 (moderate) (6) Pneumonia, aspiration Current Visit: Yes Status: Acute Assessment and plan: Patient receiving IV antibiotics to treat possible aspiration pneumonia. Speech therapy evaluating for aspiration when eating. Patient and family to make decisions regarding plan for discharge upon results of evaluation. - Time Spent With Patient Total time spent is greater than 50% in coordination of care (as documented) at patient's floor/unit and/or counseling patient: - Subjective Interval history: Patient awake, alert and oriented upon arrival. Taking medications. Appears to be in pleasant mood, visiting daughter whom is rubbing lotion to patients feet. Daughter Bernarda, student nurse, and manager nursing at bedside. Daughter reports new episode of aspiration pneumonia over the weekend; asked about the possibility of TPN versus Tube feeding. Patient reports some abdominal pain in the RUQ, rated a 7/10. Patient has received 1 dose of Toradol in last 24 hours , getting additional dose now. Denies nausea at present time, ten doses of Zofran in last 72 hours. Denies anxiety. Daughter questions discharge planning with new onset of aspiration pneumonia; reassured that patient would be evaluated by speech prior to resuming diet and antibiotics are already in place for treatment. Patient being evaluated by speech therapy today to evaluate for aspiration. Patient remains NPO at this time, until evaluation completed by speech. Daughter Bernarda reports that she will be leaving today and filing FMLA so can return as needed; requested to be kept up to date regarding discharge planning. - Constitutional Vitals: Abnormal lab results RBC 2.54 M/mcL (3.82-4.97) L 09/21/17 04:00 Hgb 7.1 g/dL (11.5-15.4) L 09/21/17 04:00 Hct 23.6 % (35.3-44.9) L 09/21/17 04:00 MCHC 30.1 g/dL (31.6-35.5) L 09/21/17 04:00 RDW 17.9 % (11.5-14.5) H 09/21/17 04:00 Nucleated RBCs/100 WBC 1.0 /100 WBC (0) H 09/19/17 04:00 Polychromasia 1+ (Not Present) A 09/21/17 04:00 Anisocytosis 1+ (Not Present) A 09/21/17 04:00 Microcytosis Present (Not Present) A 09/21/17 04:00 Macrocytosis Present (Not Present) A 09/21/17 04:00 PT 12.8 Seconds (9.4-12.1) H 09/10/17 01:00 APTT 42.5 Seconds (26.0-36.0) H 09/09/17 10:03 Potassium 3.3 mEq/L (3.5-5.1) L 09/21/17 04:00 Est GFR ( Amer) 58 (> 60) L 09/21/17 04:00 Est GFR (Non-Af Amer) 48 (> 60) L 09/21/17 04:00 Glucose 208 mg/dL (70-105) H 09/21/17 04:00 POC Glucose 254 (58-89) H 09/21/17 23:53 Calcium 8.4 mg/dL (8.6-10.3) L 09/21/17 04:00 Magnesium 1.4 mg/dL (1.6-2.6) L 09/16/17 04:09 Iron 10 mcg/dL (50-170) L 09/15/17 15:41 % Saturation 7 % (15-50) L 09/15/17 15:41 Transferrin 107 mg/dL (203-362) L 09/15/17 15:41 Ferritin 199 ng/ml (10-120) H 09/15/17 15:41 Alkaline Phosphatase 272 Units/L (34-104) H 09/14/17 09:30 Serum Total Protein 4.9 g/dL (6.4-8.9) L 09/14/17 09:30 Albumin 2.3 g/dL (3.5-5.7) L 09/14/17 09:30 Albumin/Globulin Ratio 0.9 (1.1-2.2) L 09/14/17 09:30 Carcinoembryonic Ag 40.9 ng/mL (Less than 5.0) H 09/15/17 11:25 - Head Head exam: Present: normal inspection - Eye Eye exam: Present: normal appearance Additional comments: Right eye drooping, per patient's baseline. - Neck Neck exam: Present: full ROM, normal inspection - Respiratory Respiratory exam: Present: rhonchi, wheezes - Cardiovascular Cardiovascular exam: Present: +S1, +S2 - GI/Abdominal GI/Abdominal exam: Present: hypoactive bowel sounds, tenderness Additional comments: RUQ. - Rectal Rectal exam: Present: deferred - Neurological Exam Neurological exam: Present: alert, oriented X3 - Psychiatric Psychiatric exam: Present: normal affect, normal mood Palliative Quality Palliative Quality: Screen for Code Status: Yes, Screen for Goals of Care: Yes, Screen for Pain: Yes, If Pain Regimen Started, Initiate Bowel Regimen: NA, Screen for Nausea/Vomitting: Yes - Labs CBC & Chem 7: 09/21/17 04:00 09/21/17 04:00 Labs: Laboratory Results - last 24 hr 09/21/17 23:53 POC Glucose 254 H - Impressions Impressions Chest X-Ray 09/21/17 19:54 IMPRESSION: 1. Bibasilar airspace opacities worse on the left, potentially atelectasis, pneumonia, and/or aspiration. 2. Bilateral effusions, larger on the left. 3. Pulmonary vascular congestion with suspicion for perihilar edema, suggesting congestive heart failure in the setting of mild cardiomegaly. D/ / Harley Rangel MD / Harley Rangel MD Interpreting Provider: Harley Rangel MD - ABG Interpretation ABG results: PT/INR, D-dimer PT 12.8 Seconds (9.4-12.1) H 09/10/17 01:00 Consult Discharge Plan - Plan Referrals: Jamarcus Pedro DO [Primary Care Provider] -
[2017-09-22 16:15] LABS: Basophils % 0.2 %; Immature Granulocytes % 1.5 % (0-4); Lymphocytes # 0.6 K/mcL (0.6-4.6); Mean Corpuscular HGB Conc 29.6 g/dL (31.6-35.5); Mean Corpuscular Hemoglobin 28.2 pg (28.0-33.3); Mean Corpuscular Volume 95.1 fL (83.0-100.0); Mean Platelet Volume 10.7 fL (9.4-12.4); Monocytes # 0.4 K/mcL (0.0-1.3); Monocytes % 3.8 %; Platelet Count 249 K/mcL (140-400); Red Blood Count 2.84 M/mcL (3.82-4.97); Red Cell Distribution Width 18.5 % (11.5-14.5); Segmented Neutrophils % 88.5 %
[2017-09-22 16:31] LABS: Calcium 8.6 mg/dL (8.6-10.3); Potassium 3.5 mEq/L (3.5-5.1)
[2017-09-22] MEDS: D5% in 0.45% NACL 1,000 ML IVC SCH ×2 (17:52→20:08)
--- NOTE | 2017-09-22 18:41 | Internal Med Progress Note ---
Date of Encounter: 09/22/17 Time of Encounter: 11:00 - Assessment and plan (1) Goals of care, counseling/discussion Current Visit: Yes Status: Acute Assessment and plan: Family meeting with palliative care to determine goals of care [facility] [place] [facility] (2) Pneumonia, aspiration Current Visit: Yes Status: Acute Assessment and plan: -Patient with respiratory distress last evening chest x-ray showed concerns for aspiration pneumonia -Patient no longer in respiratory distress and on baseline supplemental oxygenation -Will continue IV Levaquin and azithromycin Qualifiers: Aspiration pneumonia type: unspecified Qualified Code(s): J69.0 - Pneumonitis due to inhalation of food and vomit (3) Nausea & vomiting Current Visit: Yes Status: Acute Assessment and plan: -NG tube pulled; patient with intermittent nausea -Suspect secondary to hepatic flexure mass -Supportive care with nausea meds as needed Qualifiers: Vomiting type: unspecified Vomiting Intractability: unspecified Qualified Code(s): R11.2 - Nausea with vomiting, unspecified (4) Hepatic flexure mass Current Visit: Yes Status: Acute Assessment and plan: Patient has a history of malignant lymphoma CT of the abdomen showed the followin. Re- demonstration of a solid mass involving the inferior aspect of left kidney, which appears increased in size when compared to the previous exam. 2. Re- demonstration of retroperitoneal and iliac chain lymphadenopathy, which for the most part is stable, with the exception of a lymph node conglomerate in the left periaortic region which is mildly increased in size. 3. Inguinal lymphadenopathy, which is stable to mildly decreased in size when compared to the previous exam. -Gen. surgery consult with recommendations to consider palliative care given patient being a poor surgical candidate -Palliative care consult to discuss goals of care with family; oncology also following (5) Rectal bleeding Current Visit: Yes Status: Acute Assessment and plan: Secondary to the above Hemodynamically stable; will continue to check H&H (6) Malignant lymphoma Current Visit: Yes Status: Chronic Assessment and plan: Patient with history of malignant lymphoma; incomplete chemotherapy Qualifiers: Lymphoma type: non-Hodgkin Non-Hodgkin lymphoma type: B-cell B-cell lymphoma type: unspecified B-cell Lymphoma site: unspecified region Qualified Code(s): C85.10 - Unspecified B-cell lymphoma, unspecified site (7) C. difficile diarrhea Current Visit: Yes Status: Acute Assessment and plan: -Decreased stools on oral vancomycin that has been switched to IV Flagyl -Continue current management (8) CKD (chronic kidney disease) stage 3, GFR 30-59 ml/min Current Visit: No Status: Chronic Assessment and plan: Creatinine at baseline; continue to monitor - Subjective Interval history: NG tube was removed on 09/21/17 Patient still with right upper quadrant abdominal pain secondary to hepatic flexure mass which was found to be placed in case adenocarcinoma She difficulty swallowing so speech was consult with recommendations for barium swallow;penetration with thin and nectar thick liquids. No aspiration. Family deciding about placement at ECF with hospice versus skilled rehabilitation - Constitutional Vitals: Temp Pulse Resp BP Pulse Ox 97.4 F L 78 18 161/87 96 09/22/17 14:44 09/22/17 14:44 09/22/17 14:44 09/22/17 14:44 09/22/17 14:44 General appearance: Present: cooperative, A&O X 3, no acute distress, answers questions appropriately - Cardiovascular Cardiovascular exam: Present: RRR, +S1, +S2. Absent: diastolic murmur, gallop, rubs, systolic murmur - GI/Abdominal GI/Abdominal exam: Present: normal bowel sounds, soft, tenderness (Right upper quadrant tenderness), no peritoneal signs. Absent: distended Internal Medicine: Result - Labs CBC & Chem 7: 09/22/17 14:32 09/22/17 14:32 Labs: Short CBC 09/22/17 Range/Units 14:32 WBC 10.1 (4.3-11.1) K/mcL Hgb 8.0 L (11.5-15.4) g/dL Hct 27.0 L (35.3-44.9) % Plt Count 249 (140-400) K/mcL Neutrophils # 9.0 H (1.6-8.9) K/mcL BMP 09/22/17 14:32 Sodium 141 Potassium 3.5 Chloride 105 Carbon Dioxide 29 BUN 20 Creatinine 1.29 H Glucose 238 H Calcium 8.6 - ABG Interpretation ABG results: PT/INR, D-dimer PT 12.8 Seconds (9.4-12.1) H 09/10/17 01:00 - Impressions Impressions Chest X-Ray 09/21/17 19:54 IMPRESSION: 1. Bibasilar airspace opacities worse on the left, potentially atelectasis, pneumonia, and/or aspiration. 2. Bilateral effusions, larger on the left. 3. Pulmonary vascular congestion with suspicion for perihilar edema, suggesting congestive heart failure in the setting of mild cardiomegaly. D/ / Harley Rangel MD / Harley Rangel MD Interpreting Provider: Harley Rangel MD Videofluoroscopic Swallow 09/22/17 09:48 IMPRESSION: Penetration with thin and nectar thick liquids. No aspiration. Please see separate speech pathology report for full discussion of findings and recommendations. D/ / Dennis Wooten MD / Dennis Wooten MD Interpreting Provider: Dennis Wooten MD - VTE Documentation of Mechanical Device: Intermittent pneumatic compression device Consult Discharge Plan - Plan Referrals: Jamarcus Pedro DO [Primary Care Provider] -
[2017-09-23] MEDS: Ketorolac 15 MG/ML VIAL IVP PRN ×2 (00:15→10:24)
[2017-09-23] MEDS: Ondansetron 4 MG/2 ML VIAL IVP SCH ×4 (01:09→11:36)
[2017-09-23] MEDS ORDERED: Insulin DETEMIR 100 UNIT/ML X5UNITS SQ SCH (10:00)
[2017-09-23] MEDS: Insulin LISPRO 300 UNITS/3 ML VIAL SQ SCH ×4 (10:23→21:52)
[2017-09-23] MEDS: MetroNIDAZOLE 500 MG/100 ML 500 MG/100 ML BAG IVPB SCH ×2 (10:23→17:30)
[2017-09-23] MEDS: Gabapentin 100 MG CAPSULE PO SCH ×2 (10:30→21:51)
[2017-09-23] MEDS: Multivit/Ca/Min/Fe/FA 1 TAB TABLET PO SCH (10:30)
[2017-09-23] MEDS: Bumetanide 1 MG TABLET PO SCH ×2 (10:30→17:30)
[2017-09-23] MEDS: Sennosides 8.6 MG TABLET PO SCH (10:30)
--- NOTE | 2017-09-23 11:23 | Palliative Progress Note ---
Date of Encounter: 09/23/17 Time of Encounter: 10:50 - Assessment and plan (1) Pain Current Visit: Yes Status: Acute Assessment and plan: Patient reports continued abdominal discomfort. Rates RUQ pain/tenderness an 8/ 10. Patient has had 2 doses of Toradol in last 72 hours. Notified nurse of pain, informed patient was just given dose of Toradol and reports no longer effective. Pharmacist reported worsening kidney function with Toradol. Discontinued Toradol, added Tramadol. Will re-evaluate if effective. (2) Debility, unspecified Current Visit: Yes Status: Acute Assessment and plan: Continued inability to care for self. Continue to assist with ADLs. Discussed plan for discharge as unable to care for self, patient concern about ability to participate in rehab at [facility]; reports will give her best effort. (3) Malignant lymphoma Current Visit: Yes Status: Chronic Qualifiers: Lymphoma type: non-Hodgkin Non-Hodgkin lymphoma type: B-cell B-cell lymphoma type: unspecified B-cell Lymphoma site: unspecified region Qualified Code(s): C85.10 - Unspecified B-cell lymphoma, unspecified site (4) Goals of care, counseling/discussion Current Visit: Yes Status: Acute Assessment and plan: Discussed plan of care at discharge. Patient agrees to go to [facility] for rehabilitation. SW making arrangements. (5) CKD (chronic kidney disease) Current Visit: No Status: Chronic Assessment and plan: Worsening kidney function. Changed Toradol to Tramadol. Qualifiers: Chronic kidney disease stage: stage 3 (moderate) Qualified Code(s): N18.3 - Chronic kidney disease, stage 3 (moderate) (6) Pneumonia, aspiration Current Visit: Yes Status: Acute Qualifiers: Aspiration pneumonia type: unspecified Qualified Code(s): J69.0 - Pneumonitis due to inhalation of food and vomit - Time Spent With Patient Total time spent is greater than 50% in coordination of care (as documented) at patient's floor/unit and/or counseling patient: - Subjective Interval history: Patient awake, alert and oriented upon arrival. Finishing up breakfast. When approached and asked how she was doing today, patient responded, "I am dying." Patient informed commercial real estate underwriter than plan is to go to [facility] for rehab at discharge. Patient reports continued pain after Toradol, rated an 8/10; 2 doses of Toradol in last 24 hours. Patient reports continued nausea; 4 doses in last 24 hours. No family at bedside. Patient finished eating breakfast, approximately 50% consumed. Denies anxiety. Discussed current status with Patient's Nurse Hawa, whom informed commercial real estate underwriter that patient continues to complain of pain with Toradol. Nurse expressed concern as patient had difficulty swallowing AM medications. Informed nurse that can crush PO pain medication, Tramadol, and incorporate into applesauce or pudding as needed. Pharmacist request re-evaluation of pain medication as worsening kidney functioning. - Constitutional Vitals: Abnormal lab results RBC 2.84 M/mcL (3.82-4.97) L 09/22/17 14:32 Hgb 8.0 g/dL (11.5-15.4) L 09/22/17 14:32 Hct 27.0 % (35.3-44.9) L 09/22/17 14:32 MCHC 29.6 g/dL (31.6-35.5) L 09/22/17 14:32 RDW 18.5 % (11.5-14.5) H 09/22/17 14:32 Neutrophils # 9.0 K/mcL (1.6-8.9) H 09/22/17 14:32 Nucleated RBCs/100 WBC 1.0 /100 WBC (0) H 09/19/17 04:00 Polychromasia 1+ (Not Present) A 09/21/17 04:00 Anisocytosis 1+ (Not Present) A 09/21/17 04:00 Microcytosis Present (Not Present) A 09/21/17 04:00 Macrocytosis Present (Not Present) A 09/21/17 04:00 PT 12.8 Seconds (9.4-12.1) H 09/10/17 01:00 APTT 42.5 Seconds (26.0-36.0) H 09/09/17 10:03 Creatinine 1.29 mg/dL (0.60-1.20) H 09/22/17 14:32 Est GFR ( Amer) 48 (> 60) L 09/22/17 14:32 Est GFR (Non-Af Amer) 39 (> 60) L 09/22/17 14:32 Glucose 238 mg/dL (70-105) H 09/22/17 14:32 POC Glucose 245 (58-89) H 09/23/17 07:44 Calculated Osmolality 302 (280-300) H 09/22/17 14:32 Magnesium 1.4 mg/dL (1.6-2.6) L 09/16/17 04:09 Iron 10 mcg/dL (50-170) L 09/15/17 15:41 % Saturation 7 % (15-50) L 09/15/17 15:41 Transferrin 107 mg/dL (203-362) L 09/15/17 15:41 Ferritin 199 ng/ml (10-120) H 09/15/17 15:41 Alkaline Phosphatase 272 Units/L (34-104) H 09/14/17 09:30 Serum Total Protein 4.9 g/dL (6.4-8.9) L 09/14/17 09:30 Albumin 2.3 g/dL (3.5-5.7) L 09/14/17 09:30 Albumin/Globulin Ratio 0.9 (1.1-2.2) L 09/14/17 09:30 Carcinoembryonic Ag 40.9 ng/mL (Less than 5.0) H 09/15/17 11:25 - Head Head exam: Present: normal inspection - Eye Eye exam: Present: normal appearance Additional comments: Right eye drooping per patient's baseline. - ENT ENT exam: Present: mucous membranes moist, normal exam - Neck Neck exam: Present: full ROM, normal inspection - Respiratory Respiratory exam: Present: CTAB. Absent: accessory muscle use - Cardiovascular Cardiovascular exam: Present: +S1, +S2 - GI/Abdominal GI/Abdominal exam: Present: diminished bowel sounds, firm, tenderness. Absent: soft - Rectal Rectal exam: Present: deferred - Extremities Exam Extremities exam: Present: normal inspection - Neurological Exam Neurological exam: Present: alert, oriented X3 - Psychiatric Psychiatric exam: Present: depressed, flat affect Palliative Quality Palliative Quality: Screen for Code Status: Yes, Screen for Goals of Care: Yes, Screen for Pain: Yes, If Pain Regimen Started, Initiate Bowel Regimen: NA, Screen for Nausea/Vomitting: Yes - Labs CBC & Chem 7: 09/22/17 14:32 09/22/17 14:32 Labs: Laboratory Results - last 24 hr 09/22/17 09/22/17 09/22/17 07:14 10:59 14:32 WBC RBC Hgb Hct MCV MCH MCHC RDW Plt Count MPV Immature Gran % Seg Neutrophils % Lymphocytes % Monocytes % Eosinophils % Basophils % Neutrophils # Lymphocytes # Monocytes # Eosinophils # Basophils # Sodium 141 Potassium 3.5 Chloride 105 Carbon Dioxide 29 BUN 20 Creatinine 1.29 H Est GFR ( Amer) 48 L Est GFR (Non-Af Amer) 39 L BUN/Creatinine Ratio 16 Glucose 238 H POC Glucose 212 H 210 H Calculated Osmolality 302 H Calcium 8.6 Random Vancomycin 09/22/17 09/22/17 09/22/17 14:32 15:45 17:21 WBC 10.1 RBC 2.84 L Hgb 8.0 L Hct 27.0 L MCV 95.1 MCH 28.2 MCHC 29.6 L RDW 18.5 H Plt Count 249 MPV 10.7 Immature Gran % 1.5 Seg Neutrophils % 88.5 Lymphocytes % 6.0 Monocytes % 3.8 Eosinophils % 0.0 Basophils % 0.2 Neutrophils # 9.0 H Lymphocytes # 0.6 Monocytes # 0.4 Eosinophils # 0.0 Basophils # 0.0 Sodium Potassium Chloride Carbon Dioxide BUN Creatinine Est GFR ( Amer) Est GFR (Non-Af Amer) BUN/Creatinine Ratio Glucose POC Glucose 222 H Calculated Osmolality Calcium Random Vancomycin 14.0 09/22/17 09/23/17 20:15 07:44 WBC RBC Hgb Hct MCV MCH MCHC RDW Plt Count MPV Immature Gran % Seg Neutrophils % Lymphocytes % Monocytes % Eosinophils % Basophils % Neutrophils # Lymphocytes # Monocytes # Eosinophils # Basophils # Sodium Potassium Chloride Carbon Dioxide BUN Creatinine Est GFR ( Amer) Est GFR (Non-Af Amer) BUN/Creatinine Ratio Glucose POC Glucose 260 H 245 H Calculated Osmolality Calcium Random Vancomycin - Impressions Impressions Videofluoroscopic Swallow 09/22/17 09:48 IMPRESSION: Penetration with thin and nectar thick liquids. No aspiration. Please see separate speech pathology report for full discussion of findings and recommendations. D/ / Dennis Wooten MD / Dennis Wooten MD Interpreting Provider: Dennis Wooten MD - ABG Interpretation ABG results: PT/INR, D-dimer PT 12.8 Seconds (9.4-12.1) H 09/10/17 01:00 Consult Discharge Plan - Plan Referrals: Jamarcus Pedro DO [Primary Care Provider] -
[2017-09-23] MEDS: traMADol 50 MG TABLET PO PRN (11:36)
[2017-09-23] MEDS ORDERED: Ondansetron 4 MG/2 ML VIAL IVP PRN (13:21)
--- NOTE | 2017-09-23 14:43 | Internal Med Progress Note ---
Date of Encounter: 09/23/17 Time of Encounter: 10:00 - Assessment and plan (1) Adenocarcinoma Current Visit: Yes Status: Acute Assessment and plan: Underwent colonoscopy as part of workup for anemia and GI bleed, noted to have a fungating hepatic flexure mass, pathology confirmed invasive adenocarcinoma. Oncology has been consulted, recommended no further chemotherapy at this time. Surgery did not recommend acute surgical intervention due to multiple comorbidities and poor functional status. Palliative care. (2) C. difficile diarrhea Current Visit: Yes Status: Acute Assessment and plan: Patient has tested positive for stool Clostridium difficile toxin. Has been started on treatment for this, initially with oral vancomycin, then IV Flagyl. Discontinue IV vancomycin and continue IV Flagyl-day 10 of antibiotics. Continue supportive care and probiotics. (3) Cancer associated pain Current Visit: Yes Status: Acute Assessment and plan: Palliative care on board. Reportedly has pain despite Toradol, which cannot be continued due to chronic kidney disease. Pain medication has been changed to when necessary tramadol at this time. Continue to monitor. (4) Goals of care, counseling/discussion Current Visit: Yes Status: Acute Assessment and plan: Multiple discussions have been held with the patient and her family by previous hospitalist and palliative care team. Family unable to decide regarding hospice enrollment. CODE STATUS has been changed to DNR comfort care arrest/ DNI. Disposition-plan to transfer to [facility] when stable. (5) Pneumonia, aspiration Current Visit: Yes Status: Acute Assessment and plan: Patient had an episode of acute respiratory distress 3 days ago. Chest x-ray showed bibasal infiltrates, atelectasis versus aspiration along with perihilar congestion and cardiomegaly. 2 sets of blood cultures remain negative. Continue IV Levaquin and Flagyl, will hold vancomycin. Supportive care and supplemental oxygen. Continues to require 3 L/m via nasal cannula. Qualifiers: Aspiration pneumonia type: unspecified Laterality: bilateral Lung location: lower lobe of lung Qualified Code(s): J69.0 - Pneumonitis due to inhalation of food and vomit (6) Rectal bleeding Current Visit: Yes Status: Acute Assessment and plan: Secondary to colon cancer. Improved now. Continue to monitor hemoglobin. (7) Severe protein-calorie malnutrition Current Visit: Yes Status: Chronic (8) Anemia Current Visit: Yes Status: Chronic Qualifiers: Anemia type: iron deficiency Iron deficiency anemia type: chronic blood loss Qualified Code(s): D50.0 - Iron deficiency anemia secondary to blood loss (chronic) (9) Atrial fibrillation Current Visit: Yes Status: Chronic Assessment and plan: Rate controlled. Continue beta sergio and calcium channel sergio. Not on anticoagulation due to GI bleed. Qualifiers: Atrial fibrillation type: chronic Qualified Code(s): I48.2 - Chronic atrial fibrillation (10) Diabetes Current Visit: Yes Status: Chronic Assessment and plan: Blood sugars noted to be elevated, we will hold 5% dextrose fluids for now. Diabetic diet as tolerated. Continue Accu-Chek blood glucose monitoring and sliding scale insulin as needed. We will hold basal insulin due to poor appetite. Qualifiers: Diabetes mellitus type: type 2 Diabetes mellitus technician terminal and repeater insulin use: with technician terminal and repeater use Diabetes mellitus complication status: with kidney complications Diabetes mellitus complication detail: with chronic kidney disease Chronic kidney disease stage: stage 3 (moderate) Qualified Code(s): E11.22 - Type 2 diabetes mellitus with diabetic chronic kidney disease; N18.3 - Chronic kidney disease, stage 3 (moderate); N18.3 - Chronic kidney disease, stage 3 (moderate); Z79.4 - long-term (current) use of insulin; Z79.4 - long-term (current) use of insulin; Z79.4 - supervisor intermediates (current) use of insulin; Z79.4 - supervisor intermediates (current) use of insulin (11) HTN (hypertension) Current Visit: Yes Status: Chronic Qualifiers: Hypertension type: essential hypertension Qualified Code(s): I10 - Essential (primary) hypertension (12) Malignant lymphoma Current Visit: Yes Status: Chronic Assessment and plan: Oncology on board. Patient chose to be under palliative care, discontinued chemotherapy in August 2017. Qualifiers: Lymphoma type: non-Hodgkin Non-Hodgkin lymphoma type: B-cell B-cell lymphoma type: unspecified B-cell Lymphoma site: unspecified region Qualified Code(s): C85.10 - Unspecified B-cell lymphoma, unspecified site (13) Failure to thrive Current Visit: Yes Status: Chronic Assessment and plan: Due to malignancy. Continue protein supplements and diet as tolerated. Major Gifts Director on board. Qualifiers: Failure to thrive age range: in adult Qualified Code(s): R62.7 - Adult failure to thrive (14) CKD (chronic kidney disease) stage 3, GFR 30-59 ml/min Current Visit: Yes Status: Chronic Assessment and plan: Serum creatinine consistent with baseline. Avoid nephrotoxic agents. - Subjective Interval history: Reports fatigue, generalized weakness. Improving appetite. Reports diarrhea, unsure of the number of bowel movements. Blood sugars noted to be elevated. - Constitutional Vitals: Temp Pulse Resp BP Pulse Ox 97.9 F 60 16 124/83 96 09/23/17 04:27 09/23/17 04:27 09/23/17 04:27 09/23/17 04:27 09/23/17 04:27 General appearance: Present: cooperative, A&O X 3 (appears fatigued), no acute distress, answers questions appropriately - Respiratory Respiratory exam: Present: CTAB (coarse breath sounds B/L). Absent: accessory muscle use, rales, rhonchi, wheezes - Cardiovascular Cardiovascular exam: Present: RRR, +S1, +S2. Absent: diastolic murmur, gallop, rubs, systolic murmur - GI/Abdominal GI/Abdominal exam: Present: normal bowel sounds, soft, no peritoneal signs. Absent: distended, tenderness - Extremities Exam Extremities exam: Present: warm, radial pulses palpable and symmetrical. Absent : calf tenderness, cyanotic, pedal edema - Neurological Exam Neurological exam: Present: CN II-XII intact, oriented X3, no focal deficits. Absent: pronater drift, facial droop, speech deficit Internal Medicine: Result - Labs CBC & Chem 7: 09/22/17 14:32 09/22/17 14:32 Labs: Short CBC 09/22/17 Range/Units 14:32 WBC 10.1 (4.3-11.1) K/mcL Hgb 8.0 L (11.5-15.4) g/dL Hct 27.0 L (35.3-44.9) % Plt Count 249 (140-400) K/mcL Neutrophils # 9.0 H (1.6-8.9) K/mcL BMP 09/22/17 14:32 Sodium 141 Potassium 3.5 Chloride 105 Carbon Dioxide 29 BUN 20 Creatinine 1.29 H Glucose 238 H Calcium 8.6 - ABG Interpretation ABG results: PT/INR, D-dimer PT 12.8 Seconds (9.4-12.1) H 09/10/17 01:00 - VTE Documentation of Mechanical Device: Intermittent pneumatic compression device Consult Discharge Plan - Plan Referrals: Jamarcus Pedro DO [Primary Care Provider] -
[2017-09-23] MEDS: Lactobacillus 1 EACH CAP.SPRINK PO SCH (21:51)
[2017-09-23] MEDS: D5% in 0.45% NACL 1,000 ML IVC SCH (23:37)
[2017-09-24] MEDS: traMADol 50 MG TABLET PO PRN ×4 (00:06→22:55)
[2017-09-24] MEDS: Levofloxacin 750 MG/150 ML 750 MG/150 ML BAG IVPB SCH (00:07)
[2017-09-24] MEDS: MetroNIDAZOLE 500 MG/100 ML 500 MG/100 ML BAG IVPB SCH ×4 (00:07→19:46)
[2017-09-24] MEDS: Insulin LISPRO 300 UNITS/3 ML VIAL SQ SCH ×4 (09:02→21:38)
[2017-09-24] MEDS: Multivit/Ca/Min/Fe/FA 1 TAB TABLET PO SCH (09:03)
[2017-09-24] MEDS: Bumetanide 1 MG TABLET PO SCH ×2 (09:03→16:57)
[2017-09-24] MEDS: Lactobacillus 1 EACH CAP.SPRINK PO SCH ×2 (09:03→21:36)
[2017-09-24] MEDS: Gabapentin 100 MG CAPSULE PO SCH ×2 (09:03→21:37)
--- NOTE | 2017-09-24 09:05 | Palliative Progress Note ---
Date of Encounter: 09/24/17 Time of Encounter: 08:45 - Assessment and plan (1) Pain Current Visit: Yes Status: Acute Assessment and plan: Patient reports continued abdominal discomfort. Rates RUQ pain/tenderness an 8/ 10. Patient has had 1 dose of Tylenol in last 24 hours; 2 doses of Tramadol in last 24 hours. Notified nurse of pain, informed nurse bringing pain medication at time of assessment. Will re-evaluate if effective. (2) Debility, unspecified Current Visit: Yes Status: Acute Assessment and plan: Continued inability to care for self. Continue to assist with ADLs. Patient to return to [facility] for skilled rehab today. (3) Malignant lymphoma Current Visit: Yes Status: Chronic Qualifiers: Lymphoma type: non-Hodgkin Non-Hodgkin lymphoma type: B-cell B-cell lymphoma type: unspecified B-cell Lymphoma site: unspecified region Qualified Code(s): C85.10 - Unspecified B-cell lymphoma, unspecified site (4) Goals of care, counseling/discussion Current Visit: Yes Status: Acute Assessment and plan: Patient to return to [facility] for skilled rehab today. (5) CKD (chronic kidney disease) Current Visit: No Status: Chronic Qualifiers: Chronic kidney disease stage: stage 3 (moderate) Qualified Code(s): N18.3 - Chronic kidney disease, stage 3 (moderate) (6) Pneumonia, aspiration Current Visit: Yes Status: Acute Assessment and plan: Patient receiving IV Flagyl and Levaquin. Mechanical soft diet with thickened liquids. Patient and family to make decisions regarding plan for discharge upon results of evaluation. Qualifiers: Aspiration pneumonia type: unspecified Laterality: bilateral Lung location: lower lobe of lung Qualified Code(s): J69.0 - Pneumonitis due to inhalation of food and vomit - Time Spent With Patient Total time spent is greater than 50% in coordination of care (as documented) at patient's floor/unit and/or counseling patient: - Subjective Interval history: Patient awake, alert and oriented upon arrival. Finishing up breakfast, with assistance of private sitter. When approached and asked how she was doing today , patient responded, "not too good, but I am alright." Patient plans to return to [facility] for skilled rehab later today. Reports pain 8/10 currently, patient states it is helping the pain. No family at bedside. Denies anxiety. Discussed current status with Patient's Nurse Mel, as patient requested jingle writer ask nurse to bring pain medicine. - Constitutional Vitals: Abnormal lab results RBC 2.84 M/mcL (3.82-4.97) L 09/22/17 14:32 Hgb 8.0 g/dL (11.5-15.4) L 09/22/17 14:32 Hct 27.0 % (35.3-44.9) L 09/22/17 14:32 MCHC 29.6 g/dL (31.6-35.5) L 09/22/17 14:32 RDW 18.5 % (11.5-14.5) H 09/22/17 14:32 Neutrophils # 9.0 K/mcL (1.6-8.9) H 09/22/17 14:32 Nucleated RBCs/100 WBC 1.0 /100 WBC (0) H 09/19/17 04:00 Polychromasia 1+ (Not Present) A 09/21/17 04:00 Anisocytosis 1+ (Not Present) A 09/21/17 04:00 Microcytosis Present (Not Present) A 09/21/17 04:00 Macrocytosis Present (Not Present) A 09/21/17 04:00 PT 12.8 Seconds (9.4-12.1) H 09/10/17 01:00 APTT 42.5 Seconds (26.0-36.0) H 09/09/17 10:03 Creatinine 1.29 mg/dL (0.60-1.20) H 09/22/17 14:32 Est GFR ( Amer) 48 (> 60) L 09/22/17 14:32 Est GFR (Non-Af Amer) 39 (> 60) L 09/22/17 14:32 Glucose 238 mg/dL (70-105) H 09/22/17 14:32 POC Glucose 159 (58-89) H 09/24/17 07:39 Calculated Osmolality 302 (280-300) H 09/22/17 14:32 Magnesium 1.4 mg/dL (1.6-2.6) L 09/16/17 04:09 Iron 10 mcg/dL (50-170) L 09/15/17 15:41 % Saturation 7 % (15-50) L 09/15/17 15:41 Transferrin 107 mg/dL (203-362) L 09/15/17 15:41 Ferritin 199 ng/ml (10-120) H 09/15/17 15:41 Alkaline Phosphatase 272 Units/L (34-104) H 09/14/17 09:30 Serum Total Protein 4.9 g/dL (6.4-8.9) L 09/14/17 09:30 Albumin 2.3 g/dL (3.5-5.7) L 09/14/17 09:30 Albumin/Globulin Ratio 0.9 (1.1-2.2) L 09/14/17 09:30 Carcinoembryonic Ag 40.9 ng/mL (Less than 5.0) H 09/15/17 11:25 - Head Head exam: Present: normal inspection - Eye Eye exam: Present: normal appearance Additional comments: Right eye drooping per patient's baseline. - ENT ENT exam: Present: mucous membranes moist, normal exam - Neck Neck exam: Present: full ROM, normal inspection - Respiratory Respiratory exam: Present: CTAB. Absent: respiratory distress - Cardiovascular Cardiovascular exam: Present: +S1, +S2 - GI/Abdominal GI/Abdominal exam: Present: normal bowel sounds - Rectal Rectal exam: Present: deferred - Extremities Exam Extremities exam: Present: normal inspection - Neurological Exam Neurological exam: Present: alert, oriented X3 - Psychiatric Psychiatric exam: Present: normal affect, normal mood. Absent: anxious Palliative Quality Palliative Quality: Screen for Code Status: Yes, Screen for Goals of Care: Yes, Screen for Pain: Yes, If Pain Regimen Started, Initiate Bowel Regimen: NA, Screen for Nausea/Vomitting: Yes - Labs CBC & Chem 7: 09/22/17 14:32 09/22/17 14:32 Labs: Laboratory Results - last 24 hr 09/23/17 09/23/17 09/23/17 11:52 17:02 20:17 POC Glucose 263 H 212 H 200 H 09/24/17 09/24/17 06:17 07:39 POC Glucose 158 H 159 H - ABG Interpretation ABG results: PT/INR, D-dimer PT 12.8 Seconds (9.4-12.1) H 09/10/17 01:00 Consult Discharge Plan - Plan Referrals: Jamarcus Pedro DO [Primary Care Provider] -
--- NOTE | 2017-09-24 11:43 | Discharge Summary ---
Orders not resulted at time of discharge: Pending orders 09/21/17 20:31 Bedside Swallowing Evaluation [EVAL] Routine 09/22/17 00:54 Culture,Blood [BC] Stat 09/22/17 00:58 Culture,Blood,Additional [BC] Stat Date of Encounter: 09/24/17 Time of Encounter: 10:15 - Discharge Diagnosis (1) Adenocarcinoma Priority: Primary Status: Acute (2) C. 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 (4) Goals of care, counseling/discussion Priority: Primary Status: Acute (5) Pneumonia, aspiration Priority: Primary Status: Acute Qualifiers: Aspiration pneumonia type: unspecified Laterality: bilateral Lung location: lower lobe of lung Qualified Code(s): J69.0 - Pneumonitis due to inhalation of food and vomit (6) Rectal bleeding Priority: Primary Status: Acute (7) Severe protein-calorie malnutrition Priority: Secondary Status: Chronic (8) Anemia Priority: Secondary Status: Chronic Qualifiers: Anemia type: iron deficiency Iron deficiency anemia type: chronic blood loss Qualified Code(s): D50.0 - Iron deficiency anemia secondary to blood loss (chronic) (9) Atrial fibrillation Priority: Secondary Status: Chronic Qualifiers: Atrial fibrillation type: chronic Qualified Code(s): I48.2 - Chronic atrial fibrillation (10) Diabetes Priority: Secondary Status: Chronic Qualifiers: Diabetes mellitus type: type 2 Diabetes mellitus terminal manager insulin use: with terminal manager use Diabetes mellitus complication status: with kidney complications Diabetes mellitus complication detail: with chronic kidney disease Chronic kidney disease stage: stage 3 (moderate) Qualified Code(s): E11.22 - Type 2 diabetes mellitus with diabetic chronic kidney disease; N18.3 - Chronic kidney disease, stage 3 (moderate); N18.3 - Chronic kidney disease, stage 3 (moderate); Z79.4 - intermediate (current) use of insulin; Z79.4 - intermediate (current) use of insulin; Z79.4 - intermediate (current) use of insulin; Z79.4 - intermediate (current) use of insulin (11) HTN (hypertension) Priority: Secondary Status: Chronic Qualifiers: Hypertension type: essential hypertension Qualified Code(s): I10 - Essential (primary) hypertension (12) Malignant lymphoma Priority: Secondary Status: Chronic Qualifiers: Lymphoma type: non-Hodgkin Non-Hodgkin lymphoma type: B-cell B-cell lymphoma type: unspecified B-cell Lymphoma site: unspecified region Qualified Code(s): C85.10 - Unspecified B-cell lymphoma, unspecified site (13) Failure to thrive Priority: Primary Status: Chronic Qualifiers: Failure to thrive age range: in adult Qualified Code(s): R62.7 - Adult failure to thrive (14) CKD (chronic kidney disease) stage 3, GFR 30-59 ml/min Priority: Secondary Status: Chronic Hospital course: Ms. Chatman is a 82 year old female with multiple medical problems, who [facility] for evaluation of rectal bleeding. She was noted to be on Plavix and Pletal, which were held at admission. CT abdomen/ pelvis showed persistent left renal mass, retroperitoneal and iliac lymphadenopathy, slight increase in size of left periaortic lymph nodes. Gastroenterology was consulted, he should not underwent colonoscopy, which showed partially obstructing fungating mass at the hepatic flexure, melanosis in the colon. Pathology report of this colonic mass eventually showed invasive adenocarcinoma. Gen. surgery was consulted-patient would require a right hemicolectomy with ileocolic anastomosis versus ileostomy. Patient wished to be DNR/DNI and this has not been further pursued during this admission. Oncology was consulted, in light of patient's poor functional status and multiple malignancies, she will follow-up with oncology as outpatient for discussion regarding further workup like lymph node biopsy and chemotherapy. Multiple discussions have been held between oncology, palliative care team, the patient and her family, no consensus has been reached regarding future plan. However, her CODE STATUS has been changed to DNR comfort care arrest/DNI. Patient was noted to have diarrhea while in the hospital, stool tested positive for Clostridium difficile I will, she received treatment with oral vancomycin and IV Flagyl for 10 days. She was also noted to have an episode of respiratory distress during this hospitalization, and she was started on IV Levaquin and Flagyl for concern of aspiration pneumonia. I have seen this patient during the last 2 days of this hospitalization. Her Hb remains stable, did not require PRBC transfusion during this admission. She is doing better, noted to have improved appetite, although she continues to report persistent fatigue and generalized weakness with right upper quadrant discomfort /pain. She is otherwise medically stable for discharge and is encouraged to make a decision regarding hospice enrollment when she recovers from this acute illness. Discharge discussed with: patient - Time Spent with Patient Total time spent providing and/or coordinating discharge services: Greater than 30 minutes (55 min) - Discharge Medications Prescriptions: Levofloxacin [Levaquin] 750 mg PO Q48H #2 tablet metroNIDAZOLE [Flagyl] 500 mg PO TID #12 tablet Tramadol HCl [Ultram] 50 mg PO Q8H PRN 5 Days #15 tab PRN Reason: Pain Home Medications: Gabapentin [Neurontin] 100 mg PO BID 03/25/15 [History] Oxybutynin Chloride [Ditropan Xl] 5 mg PO DAILY 03/25/15 [History] Acetaminophen [Tylenol] 1,000 mg PO Q6HR PRN 06/21/16 [History] Carvedilol 12.5 mg PO BID 06/21/16 [History] dilTIAZem HCl [Diltiazem HCl] 90 mg PO TID 06/21/16 [History] Bumetanide [Bumex] 1 mg PO BID 07/28/17 [History] Docusate [Colace] 100 mg PO BID 07/28/17 [History] Insulin LISPRO [HumaLOG] 5 units SQ TIDWM 07/28/17 [History] Sennosides [Senokot] 8.6 mg PO BID 07/28/17 [History] Vit C/E/Zn/Coppr/Lutein/Zeaxan [Preservision Areds 2 Softgel] 1 tab PO DAILY [History] Allopurinol [Zyloprim 100 MG] 100 mg PO DAILY 09/09/17 [History] Glucagon,Human Recombinant [Glucagen] 1 mg IJ AD 09/09/17 [History] Nystatin POWDER [Nystop] 1 appl TP BID PRN 09/09/17 [History] Lactobacillus [Culturelle] 1 each PO BID capbonnie 09/24/17 [Rx] Levofloxacin [Levaquin] 750 mg PO Q48H #2 tablet 09/24/17 [Rx] Omeprazole [PriLOSEC] 20 mg PO DAILY@0630 capsule. 09/24/17 [Rx] Tramadol HCl [Ultram] 50 mg PO Q8H PRN 5 Days #15 tab 09/24/17 [Rx] metroNIDAZOLE [Flagyl] 500 mg PO TID #12 tablet 09/24/17 [Rx] Allergies/Adverse Reactions: 3 Allergy/AdvReac Type Severity Reaction Status Date / Time EDY Inhibitors Allergy Unknown See Verified 03/04/17 15:01 Comments Amoxicillin Allergy Unknown See Verified 03/04/17 15:01 Comments azithromycin Allergy Unknown See Verified 03/04/17 15:01 Comments cefuroxime Allergy Unknown See Verified 03/04/17 15:01 Comments cephalexin Allergy Unknown See Verified 03/04/17 15:01 Comments Cephalosporins Allergy Unknown See Verified 03/04/17 15:01 Comments clindamycin Allergy Unknown See Verified 03/04/17 15:01 Comments codeine Allergy Unknown See Verified 03/04/17 15:01 Comments furosemide Allergy Unknown See Verified 03/04/17 15:01 Comments hydrocodone Allergy Unknown See Verified 03/04/17 15:01 Comments Penicillins Allergy Unknown See Verified 03/04/17 15:01 Comments prednisone Allergy Unknown Hives Verified 03/04/17 15:01 silver sulfadiazine Allergy Unknown See Verified 03/04/17 15:01 [From Silvadene] Comments Afbvxdv-Ool-Yef Reductase Allergy Unknown See Verified 03/04/17 15:01 Inhibitor Comments [Statins] Sulfa (Sulfonamide Allergy Unknown See Verified 03/04/17 15:01 Antibiotics) Comments diuretic Allergy Unknown See Uncoded 03/04/17 15:01 Comments Date of admission: 09/09/17 13:04 Primary care physician: Jamarcus Pedro Consults: 09/09/17 13:43 Consult to Wound Care [CONS] Routine Reason for Consult: recommendation for wound care for sacral ulcer and RLE wound Time Notified: 13:44 Call Completed: Yes 09/09/17 14:11 Consult to Nutrition [CONS] Routine Comment: Consulting Provider: NUTRITION Reason for Dietary Consult: PO Supplementation 09/11/17 08:21 Consult to Commercial Sales Director [CONS] Routine Reason for SW Consult: D/c planning 09/16/17 11:04 Consult to Surgery [CONS] Routine Consulting Provider: Surgery Denisse Moss Reason for Consult: Hepatic flexure mass, d/w Dr. Moss for inpatient vs outpatient management, multiple comorbidities and current c diff infection Call Completed: Yes 09/16/17 15:57 Consult to Palliative Care [CONS] Routine Comment: Consulting Provider: Pall[facility] [place] Reason for Consult: goals of care discussion Call Completed: Yes 09/23/17 18:58 Consult to Pastoral Services [CONS] Routine Comment: Discharging clinician: Azalia Amin Anticipated date of discharge: 09/24/17 - Constitutional Vitals: Temp Pulse Resp BP Pulse Ox 98.5 F 85 18 131/71 93 09/24/17 11:30 09/24/17 11:30 09/24/17 11:30 09/24/17 11:30 09/24/17 11:30 General appearance: Present: cooperative, A&O X 3 (appears fatigued), answers questions appropriately - Cardiovascular Cardiovascular exam: Present: RRR, +S1, +S2, systolic murmur. Absent: diastolic murmur, gallop, rubs - Patient Status Disposition: Transfer SNF Condition: Fair Functional capacity at discharge: bed bound Overall status at discharge: patient is not back to baseline - Discharge Instructions Follow Up With: Jamarcus Pedro DO [Primary Care Provider] - Additional Instructions: F/up with PCP in1-2 weeks - Diet and Activity Activity: as per physical therapy, wear oxygen at all times Diet: diabetic diet, low fat, low cholesterol, low salt diet, other (renal diet) - VTE Documentation of Mechanical Device: Intermittent pneumatic compression device
--- NOTE | 2017-09-24 12:10 | Physician Discharge Referral ---
ExtendedCare Referral Info Transfer To: [facility] Provider in Charge: Azalia Amin Provider in Charge after Transfer: PCP Institutional Level of Care: Skilled - Diagnosis (1) Adenocarcinoma Priority: Primary Status: Acute (2) C. 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 (4) Goals of care, counseling/discussion Priority: Primary Status: Acute (5) Pneumonia, aspiration Priority: Primary Status: Acute (6) Rectal bleeding Priority: Primary Status: Acute (7) Severe protein-calorie malnutrition Priority: Secondary Status: Chronic (8) Anemia Priority: Secondary Status: Chronic (9) Atrial fibrillation Priority: Secondary Status: Chronic (10) Diabetes Priority: Secondary Status: Chronic (11) HTN (hypertension) Priority: Secondary Status: Chronic (12) Malignant lymphoma Priority: Secondary Status: Chronic (13) Failure to thrive Priority: Secondary Status: Chronic (14) CKD (chronic kidney disease) stage 3, GFR 30-59 ml/min Priority: Secondary Status: Chronic Expected Duration of Placement: 4 weeks Prognosis: Poor Aware of Diagnosis: Patient Aware of Prognosis: Patient - Transfer Medications Prescriptions: Levofloxacin [Levaquin] 750 mg PO Q48H #2 tablet metroNIDAZOLE [Flagyl] 500 mg PO TID #12 tablet Tramadol HCl [Ultram] 50 mg PO Q8H PRN 5 Days #15 tab PRN Reason: Pain Home Medications: Gabapentin [Neurontin] 100 mg PO BID 03/25/15 [History] Oxybutynin Chloride [Ditropan Xl] 5 mg PO DAILY 03/25/15 [History] Acetaminophen [Tylenol] 1,000 mg PO Q6HR PRN 06/21/16 [History] Carvedilol 12.5 mg PO BID 06/21/16 [History] dilTIAZem HCl [Diltiazem HCl] 90 mg PO TID 06/21/16 [History] Bumetanide [Bumex] 1 mg PO BID 07/28/17 [History] Docusate [Colace] 100 mg PO BID 07/28/17 [History] Insulin LISPRO [HumaLOG] 5 units SQ TIDWM 07/28/17 [History] Sennosides [Senokot] 8.6 mg PO BID 07/28/17 [History] Vit C/E/Zn/Coppr/Lutein/Zeaxan [Preservision Areds 2 Softgel] 1 tab PO DAILY [History] Allopurinol [Zyloprim 100 MG] 100 mg PO DAILY 09/09/17 [History] Glucagon,Human Recombinant [Glucagen] 1 mg IJ AD 09/09/17 [History] Nystatin POWDER [Nystop] 1 appl TP BID PRN 09/09/17 [History] Lactobacillus [Culturelle] 1 each PO BID cap.sprink 09/24/17 [Rx] Levofloxacin [Levaquin] 750 mg PO Q48H #2 tablet 09/24/17 [Rx] Omeprazole [PriLOSEC] 20 mg PO DAILY@0630 capsule. 09/24/17 [Rx] Tramadol HCl [Ultram] 50 mg PO Q8H PRN 5 Days #15 tab 09/24/17 [Rx] metroNIDAZOLE [Flagyl] 500 mg PO TID #12 tablet 09/24/17 [Rx] Allergies/Adverse Reactions: 3 Allergy/AdvReac Type Severity Reaction Status Date / Time EDY Inhibitors Allergy Unknown See Verified 03/04/17 15:01 Comments Amoxicillin Allergy Unknown See Verified 03/04/17 15:01 Comments azithromycin Allergy Unknown See Verified 03/04/17 15:01 Comments cefuroxime Allergy Unknown See Verified 03/04/17 15:01 Comments cephalexin Allergy Unknown See Verified 03/04/17 15:01 Comments Cephalosporins Allergy Unknown See Verified 03/04/17 15:01 Comments clindamycin Allergy Unknown See Verified 03/04/17 15:01 Comments codeine Allergy Unknown See Verified 03/04/17 15:01 Comments furosemide Allergy Unknown See Verified 03/04/17 15:01 Comments hydrocodone Allergy Unknown See Verified 03/04/17 15:01 Comments Penicillins Allergy Unknown See Verified 03/04/17 15:01 Comments prednisone Allergy Unknown Hives Verified 03/04/17 15:01 silver sulfadiazine Allergy Unknown See Verified 03/04/17 15:01 [From Jorge] Comments Lxizwan-Itp-Zvx Reductase Allergy Unknown See Verified 03/04/17 15:01 Inhibitor Comments [Statins] Sulfa (Sulfonamide Allergy Unknown See Verified 03/04/17 15:01 Antibiotics) Comments diuretic Allergy Unknown See Uncoded 03/04/17 15:01 Comments - Respiratory Orders Oxygen / L per min (2L/min via NC) Smoking Cessation: Smoking cessation has been advised. For more information, call the [place] Tobacco Quit Line at 7-164-AWYQ-NOW. - Advance Directives Living Will: Yes Power of Wet Pan Mixer: Yes (Son) Code Status: DNR-Arrest/Don't Intubate - Rehabiliation Orders Rehab Potential: Poor Rehab Orders: ROM Exercises, Evaluation for Physical Therapy, Evaluation for Occupational Therapy - Diet Orders Mechanical Soft (nectar thick liquids), No Concentrated Sweets (diabetic), Renal , Cardiac CERTIFICATION: I certify that the transfer of the above named patient to an Extended Care Facility is necessary for the continuing treatment of the diagnosis listed. The above information is true and accurate reflection of patient's current condition. Confidential - Redisclosure prohibited without a patient's written consent.
[2017-09-24] MEDS ORDERED: levoFLOXacin 750 MG TABLET PO SCH (17:30)
[2017-09-24] MEDS: metroNIDAZOLE 500 MG TABLET PO SCH ×2 (17:39→21:36)
[2017-09-25] MEDS: Insulin LISPRO 300 UNITS/3 ML VIAL SQ SCH ×4 (08:29→20:38)
[2017-09-25] MEDS: Gabapentin 100 MG CAPSULE PO SCH ×2 (08:30→20:37)
[2017-09-25] MEDS: Bumetanide 1 MG TABLET PO SCH ×2 (08:30→17:26)
[2017-09-25] MEDS: Multivit/Ca/Min/Fe/FA 1 TAB TABLET PO SCH (08:30)
[2017-09-25] MEDS: Lactobacillus 1 EACH CAP.SPRINK PO SCH ×2 (08:30→20:37)
[2017-09-25] MEDS: traMADol 50 MG TABLET PO PRN ×2 (08:31→17:25)
[2017-09-25] MEDS: metroNIDAZOLE 500 MG TABLET PO SCH ×3 (08:31→20:37)
[2017-09-25] MEDS ORDERED: levoFLOXacin 750 MG TABLET PO SCH (09:00)
--- NOTE | 2017-09-25 11:05 | Event Note ---
Date of Encounter: 09/25/17 Time of Encounter: 10:15 Nursing students and Nurse at bedside upon arrival completing am hygiene. Patient alert and oriented times three. Patient reports some continued pain, but expresses concern of ability to complete therapy if too tired if patient is taking stronger pain medications. Discussed plan of care, patient to go to rehab at [facility]; unable to go to [facility] until Friday as no isolation bed. Patient denies any new symptoms. Spoke with Kylie, patient's granddaughter, reported concern that patient is choosing not to feed self; interrogated patient regarding ability to feed self and patient reports that by not feeding herself she is getting the company of nursing staff that would not otherwise take the time to visit her. Acknowledges need of feed herself to increase strength; patient agreed. As goals of care have been met and no further symptoms to manage Palliative care will sign off at this time; reconsult as needed. Thank you for including in the opportunity to care for this patient.
--- NOTE | 2017-09-25 15:59 | Internal Med Progress Note ---
Date of Encounter: 09/25/17 Time of Encounter: 10:40 - Assessment and plan (1) Adenocarcinoma Current Visit: Yes Status: Acute Assessment and plan: Underwent colonoscopy as part of workup for anemia and GI bleed, noted to have a fungating hepatic flexure mass, pathology confirmed invasive adenocarcinoma. Oncology has been consulted, recommended no further chemotherapy at this time. Surgery did not recommend acute surgical intervention due to multiple comorbidities and poor functional status, being DNI. Palliative care. Patient ready for discharge, awaiting isolation bed at rehab; (2) C. difficile diarrhea Current Visit: Yes Status: Acute Assessment and plan: Patient has tested positive for stool Clostridium difficile toxin. Has been started on treatment for this, initially with oral vancomycin, then IV Flagyl. Discontinue IV vancomycin and continue PO Flagyl-day 12 of antibiotics. Continue supportive care and probiotics. (3) Cancer associated pain Current Visit: Yes Status: Chronic Assessment and plan: Palliative care on board. continue when necessary tramadol at this time. Continue to monitor. (4) Goals of care, counseling/discussion Current Visit: Yes Status: Acute (5) Pneumonia, aspiration Current Visit: Yes Status: Acute Assessment and plan: Patient had an episode of acute respiratory distress few days ago. Chest x-ray showed bibasal infiltrates, atelectasis versus aspiration along with perihilar congestion and cardiomegaly. 2 sets of blood cultures remain negative. Continue PO Levaquin and Flagyl. Supportive care and supplemental oxygen. Continues to require 2 L/m via nasal cannula. Qualifiers: Aspiration pneumonia type: unspecified Laterality: bilateral Lung location: lower lobe of lung Qualified Code(s): J69.0 - Pneumonitis due to inhalation of food and vomit (6) Rectal bleeding Current Visit: Yes Status: Acute (7) Severe protein-calorie malnutrition Current Visit: Yes Status: Chronic (8) Anemia Current Visit: Yes Status: Chronic Qualifiers: Anemia type: iron deficiency Iron deficiency anemia type: chronic blood loss Qualified Code(s): D50.0 - Iron deficiency anemia secondary to blood loss (chronic) (9) Atrial fibrillation Current Visit: Yes Status: Chronic Qualifiers: Atrial fibrillation type: chronic Qualified Code(s): I48.2 - Chronic atrial fibrillation (10) Diabetes Current Visit: Yes Status: Chronic Qualifiers: Diabetes mellitus type: type 2 Diabetes mellitus senior living insulin use: with senior living use Diabetes mellitus complication status: with kidney complications Diabetes mellitus complication detail: with chronic kidney disease Chronic kidney disease stage: stage 3 (moderate) Qualified Code(s): E11.22 - Type 2 diabetes mellitus with diabetic chronic kidney disease; N18.3 - Chronic kidney disease, stage 3 (moderate); N18.3 - Chronic kidney disease, stage 3 (moderate); Z79.4 - intermediate accountant (current) use of insulin; Z79.4 - intermediate accountant (current) use of insulin; Z79.4 - intermediate accountant (current) use of insulin; Z79.4 - intermediate accountant (current) use of insulin (11) HTN (hypertension) Current Visit: Yes Status: Chronic Qualifiers: Hypertension type: essential hypertension Qualified Code(s): I10 - Essential (primary) hypertension (12) Malignant lymphoma Current Visit: Yes Status: Chronic Qualifiers: Lymphoma type: non-Hodgkin Non-Hodgkin lymphoma type: B-cell B-cell lymphoma type: unspecified B-cell Lymphoma site: unspecified region Qualified Code(s): C85.10 - Unspecified B-cell lymphoma, unspecified site (13) Failure to thrive Current Visit: Yes Status: Chronic Qualifiers: Failure to thrive age range: in adult Qualified Code(s): R62.7 - Adult failure to thrive (14) CKD (chronic kidney disease) stage 3, GFR 30-59 ml/min Current Visit: Yes Status: Chronic - Subjective Interval history: Reports feeling better today; improved diarrhea; not out of bed yet; has been ready for discharge yesterday, but awaiting isolation bed at the custodial; - Constitutional Vitals: Temp Pulse Resp BP Pulse Ox 97.5 F L 60 18 136/66 99 09/25/17 10:44 09/25/17 10:44 09/25/17 10:44 09/25/17 10:44 09/25/17 10:44 General appearance: Present: cooperative, A&O X 3, answers questions appropriately - Cardiovascular Cardiovascular exam: Present: RRR, +S1, +S2. Absent: diastolic murmur, gallop, rubs, systolic murmur - GI/Abdominal GI/Abdominal exam: Present: normal bowel sounds, soft (obese), no peritoneal signs. Absent: distended, tenderness Internal Medicine: Result - Labs CBC & Chem 7: 09/22/17 14:32 09/22/17 14:32 - ABG Interpretation ABG results: PT/INR, D-dimer PT 12.8 Seconds (9.4-12.1) H 09/10/17 01:00 - VTE Documentation of Mechanical Device: Intermittent pneumatic compression device Consult Discharge Plan - Plan Additional Instructions: F/up with PCP in1-2 weeks Referrals: Jamarcus Pedro DO [Primary Care Provider] - Prescriptions: Levofloxacin [Levaquin] 750 mg PO Q48H #2 tablet metroNIDAZOLE [Flagyl] 500 mg PO TID #12 tablet Tramadol HCl [Ultram] 50 mg PO Q8H PRN 5 Days #15 tab PRN Reason: Pain
[2017-09-25] MEDS: Insulin DETEMIR 100 UNIT/ML X5UNITS SQ SCH (21:36)
[2017-09-26] MEDS: Gabapentin 100 MG CAPSULE PO SCH (08:50)
[2017-09-26] MEDS: Multivit/Ca/Min/Fe/FA 1 TAB TABLET PO SCH (08:50)
[2017-09-26] MEDS: Lactobacillus 1 EACH CAP.SPRINK PO SCH (08:51)
[2017-09-26] MEDS: metroNIDAZOLE 500 MG TABLET PO SCH ×2 (08:51→15:55)
[2017-09-26] MEDS: Bumetanide 1 MG TABLET PO SCH (08:51)
[2017-09-26 10:01] LABS: Calcium 8.8 mg/dL (8.6-10.3); Potassium 3.9 mEq/L (3.5-5.1)
[2017-09-26 10:43] VITALS: BP 108/68
[2017-09-26] MEDS: Insulin LISPRO 300 UNITS/3 ML VIAL SQ SCH (14:24)
[2017-09-26] MEDS: Insulin DETEMIR 100 UNIT/ML X5UNITS SQ SCH (14:24)
--- NOTE | 2017-09-26 15:30 | Internal Med Progress Note ---
Date of Encounter: 09/26/17 Time of Encounter: 10:00 - Assessment and plan (1) CKD (chronic kidney disease) stage 3, GFR 30-59 ml/min Current Visit: Yes Status: Chronic Assessment and plan: Noted to have slight worsening in creatinine; electrolytes stable; hold Bumex and repeat BMP in 4-5 days; this has been updated in the continuity if care and updated to [facility]; (2) Adenocarcinoma Current Visit: Yes Status: Acute Assessment and plan: Underwent colonoscopy as part of workup for anemia and GI bleed, noted to have a fungating hepatic flexure mass, pathology confirmed invasive adenocarcinoma. Oncology has been consulted, recommended no further chemotherapy at this time. Surgery did not recommend acute surgical intervention due to multiple comorbidities and poor functional status, being DNI. Palliative care. Patient ready for discharge, has been awaiting isolation bed at rehab; (3) C. difficile diarrhea Current Visit: Yes Status: Acute Assessment and plan: Patient has tested positive for stool Clostridium difficile toxin. Requires 2 more days of treatment with PO Flagyl for this. (4) Cancer associated pain Current Visit: Yes Status: Chronic Assessment and plan: Palliative care on board. continue when necessary tramadol at this time. Continue to monitor. (5) Goals of care, counseling/discussion Current Visit: Yes Status: Acute (6) Pneumonia, aspiration Current Visit: Yes Status: Acute Assessment and plan: Patient had an episode of acute respiratory distress few days ago. Chest x-ray showed bibasal infiltrates, atelectasis versus aspiration along with perihilar congestion and cardiomegaly. 2 sets of blood cultures remain negative. Continue PO Levaquin and Flagyl for 2 more days. Supportive care and supplemental oxygen. Continues to require 2 L/m via nasal cannula. Qualifiers: Aspiration pneumonia type: unspecified Laterality: bilateral Lung location: lower lobe of lung Qualified Code(s): J69.0 - Pneumonitis due to inhalation of food and vomit (7) Rectal bleeding Current Visit: Yes Status: Acute (8) Severe protein-calorie malnutrition Current Visit: Yes Status: Chronic (9) Anemia Current Visit: Yes Status: Chronic Qualifiers: Anemia type: iron deficiency Iron deficiency anemia type: chronic blood loss Qualified Code(s): D50.0 - Iron deficiency anemia secondary to blood loss (chronic) (10) Atrial fibrillation Current Visit: Yes Status: Chronic Qualifiers: Atrial fibrillation type: chronic Qualified Code(s): I48.2 - Chronic atrial fibrillation (11) Diabetes Current Visit: Yes Status: Chronic Assessment and plan: Blood sugars noted to be better controlled, but occasionally high; is being discharged on Levemir 12units BID, to be up-titrated as needed; this has been updated on continuity of care; Qualifiers: Diabetes mellitus type: type 2 Diabetes mellitus assisted insulin use: with assisted use Diabetes mellitus complication status: with kidney complications Diabetes mellitus complication detail: with chronic kidney disease Chronic kidney disease stage: stage 3 (moderate) Qualified Code(s): E11.22 - Type 2 diabetes mellitus with diabetic chronic kidney disease; N18.3 - Chronic kidney disease, stage 3 (moderate); N18.3 - Chronic kidney disease, stage 3 (moderate); 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; Z79.4 - shelter (current) use of insulin; Z79.4 - shelter (current) use of insulin; Z79.4 - shelter (current) use of insulin (12) HTN (hypertension) Current Visit: Yes Status: Chronic Qualifiers: Hypertension type: essential hypertension Qualified Code(s): I10 - Essential (primary) hypertension (13) Malignant lymphoma Current Visit: Yes Status: Chronic Qualifiers: Lymphoma type: non-Hodgkin Non-Hodgkin lymphoma type: B-cell B-cell lymphoma type: unspecified B-cell Lymphoma site: unspecified region Qualified Code(s): C85.10 - Unspecified B-cell lymphoma, unspecified site (14) Failure to thrive Current Visit: Yes Status: Chronic Qualifiers: Failure to thrive age range: in adult Qualified Code(s): R62.7 - Adult failure to thrive - Subjective Interval history: Reports fatigue and states she does not feel too good because she is dying; no specific pain, dyspnea, chest pain reported; tolerates oral diet; improved diarrhea; awaiting rehab placement; - Constitutional Vitals: Temp Pulse Resp BP Pulse Ox 98.1 F 60 18 108/68 96 09/26/17 10:37 09/26/17 10:37 09/26/17 10:37 09/26/17 10:37 09/26/17 10:37 General appearance: Present: cooperative, A&O X 2, answers questions appropriately - Respiratory Respiratory exam: Present: CTAB (coarse breath sounds B/L). Absent: accessory muscle use, rales, rhonchi, wheezes - Cardiovascular Cardiovascular exam: Present: RRR, +S1, +S2. Absent: diastolic murmur, gallop, rubs, systolic murmur - GI/Abdominal GI/Abdominal exam: Present: normal bowel sounds, soft, no peritoneal signs. Absent: distended, tenderness - Extremities Exam Extremities exam: Present: pedal edema (peripheral edema in all 4 extremities), warm, radial pulses palpable and symmetrical. Absent: calf tenderness, cyanotic - Neurological Exam Neurological exam: Present: CN II-XII intact, oriented X3, no focal deficits ( generalized weakness and decreased motor power). Absent: pronater drift, facial droop, speech deficit Internal Medicine: Result - Labs CBC & Chem 7: 09/22/17 14:32 09/26/17 08:37 Labs: BMP 09/26/17 08:37 Sodium 145 Potassium 3.9 Chloride 110 H Carbon Dioxide 30 H BUN 25 H Creatinine 1.74 H Glucose 165 H Calcium 8.8 - ABG Interpretation ABG results: PT/INR, D-dimer PT 12.8 Seconds (9.4-12.1) H 09/10/17 01:00 - VTE Documentation of Mechanical Device: Intermittent pneumatic compression device Consult Discharge Plan - Plan Additional Instructions: F/up with PCP in1-2 weeks Referrals: Jamarcus Pedro DO [Primary Care Provider] - Prescriptions: Levofloxacin [Levaquin] 750 mg PO Q48H #2 tablet metroNIDAZOLE [Flagyl] 500 mg PO TID #12 tablet Tramadol HCl [Ultram] 50 mg PO Q8H PRN 5 Days #15 tab PRN Reason: Pain
== END 2017-09-26 17:19 | DRG 377 ==
LOC: EMEROO 09:38 → 2SOUTHHOLD 09:38 → SUATTDRO 13:04 → 2SOUTHHOLD 13:18 → 3ANU 18:09
PROVIDERS: ADMIT Family Medicine; ATTEND Internal Medicine
PROC: ENDOCBX (2017-09-11 13:30)

== ENCOUNTER 2017-10-01 00:58 | Inpatient (IN) ==
[2017-10-01] MEDS ORDERED: *HR* FentaNYL (PF) 100 MCG/2 ML VIAL IVP ONE (01:36)
[2017-10-01] MEDS ORDERED: *HR* Nalbuphine 10 MG/ML AMPUL IV ONE (01:40)
[2017-10-01 02:13] LABS: Bilirubin,Urine Small (Negative); Blood,Urine Negative (Negative); Clarity,Urine Cloudy (Clear); Color,Urine Dark Yellow (Yellow); Glucose,Urine (UA) 100 mg/dL (Normal); Ketones,Urine Negative (Negative); Leukocyte Esterase,Urine Small (Negative); Nitrite,Urine Negative (Negative); Protein,Urine 30 mg/dL (Neg-Trace); Specific Gravity,Urine 1.026 (1.010-1.025); Urobilinogen,Urine Normal (Normal)
[2017-10-01 02:16] LABS: RBC,Urine 0-3 per hpf (0-3); Squamous Epithelial Cell,Urine Many per lpf (None-Few)
[2017-10-01 02:30] LABS: Calcium 8.5 mg/dL (8.6-10.3); Hyaline Casts,Urine None Seen per lpf (None-Few); Renal Epithelial Cells,Urine Few per hpf (None-Few)
[2017-10-01 02:31] LABS: Bacteria,Urine Few per hpf (None-Few)
[2017-10-01 03:06] LABS: Basophils % 0.1 %; Red Cell Distribution Width 23.6 % (11.5-14.5)
[2017-10-01 03:07] LABS: Hematocrit 30.4 % (35.3-44.9); Hemoglobin 8.5 g/dL (11.5-15.4); Immature Granulocytes % 1.2 % (0-4); Lymphocytes % 11.8 %; Mean Corpuscular Hemoglobin 28.6 pg (28.0-33.3); Mean Corpuscular Volume 102.4 fL (83.0-100.0); Mean Platelet Volume 11.2 fL (9.4-12.4); Monocytes # 0.4 K/mcL (0.0-1.3); Monocytes % 4.6 %; Neutrophils # 6.6 K/mcL (1.6-8.9); Nucleated Red Blood Cells 0.5 /100 WBC (0); Platelet Count 170 K/mcL (140-400); Red Blood Count 2.97 M/mcL (3.82-4.97); Segmented Neutrophils % 82.3 %
--- NOTE | 2017-10-01 03:08 | Emergency Department Note ---
Disposition Clinical Impression: Pain Disposition: Admitted As Inpatient Condition: Undetermined Referrals: Jamarcus Pedro DO [Primary Care Provider] - Forms: Work/School Release, ED Satisfaction Letter General Adult HPI - General Chief complaint: ED General Medical Stated complaint: AMS Time Seen by Provider: 10/01/17 01:00 Source: family, EMS Mode of arrival: EMS Limitations: altered mental status Nursing Notes Reviewed: Yes Vital Signs Reviewed: Yes - History of Present Illness HPI Narrative: 82-year-old patient presents from a local [facility] for altered mental status with family. Family states last known well around 8 PM does approximate 6 hours before presentation. Patient with a history of hyperlipidemia, renal mass, non- Hodgkin's lymphoma, diabetes, hypertension, CHF, chronic any disease, DVTs, hyperkalemia. She was recently admitted and discharged on Flagyl for C. difficile to the halfway. Patient with recurrent non-Hodgkin's lymphoma, POShereen is soncarlie have meeting with palliative care in the morning. This evening patient was unable to speak, appeared very weak, unable to follow commands after having been at her baseline for the last 3 days. Cipro her to the emergency department for evaluation. They also state that the only thing she is have her pain controlled Tylenol that she has been absolutely miserable, they state dissatisfaction with care from the halfway. Patient is a DNR CCA, DNI. Onset (ago): hour(s) Pain Scale: 0 Improves with: nothing Worsens with: nothing - Related Data Home Medications Medication Instructions Recorded Confirmed Gabapentin [Neurontin] 100 mg PO BID 03/25/15 09/09/17 Oxybutynin Chloride [Ditropan Xl] 5 mg PO DAILY 03/25/15 09/09/17 Acetaminophen [Tylenol] 1,000 mg PO Q6HR PRN 06/21/16 09/09/17 Carvedilol 12.5 mg PO BID 06/21/16 09/09/17 dilTIAZem HCl [Diltiazem HCl] 90 mg PO TID 06/21/16 09/09/17 Bumetanide [Bumex] 1 mg PO BID 07/28/17 09/09/17 Docusate [Colace] 100 mg PO BID 07/28/17 09/09/17 Insulin LISPRO [HumaLOG] 5 units SQ TIDWM 07/28/17 09/09/17 Sennosides [Senokot] 8.6 mg PO BID 07/28/17 09/09/17 Vit C/E/Zn/Coppr/Lutein/Zeaxan 1 tab PO DAILY 07/28/17 09/09/17 [Preservision Areds 2 Softgel] Allopurinol [Zyloprim 100 MG] 100 mg PO DAILY 09/09/17 09/09/17 Glucagon,Human Recombinant 1 mg IJ AD 09/09/17 09/09/17 [Glucagen] Nystatin POWDER [Nystop] 1 appl TP BID PRN 09/09/17 09/09/17 Previous Rx's Medication Instructions Recorded Lactobacillus [Culturelle] 1 each PO BID cap.sprink 09/24/17 Levofloxacin [Levaquin] 750 mg PO Q48H #2 tablet 09/24/17 Omeprazole [PriLOSEC] 20 mg PO DAILY@0630 capsule. 09/24/17 Tramadol HCl [Ultram] 50 mg PO Q8H PRN 5 Days #15 tab 09/24/17 metroNIDAZOLE [Flagyl] 500 mg PO TID #12 tablet 09/24/17 Insulin DETEMIR [Levemir] 10 unit SQ BID [id number] 09/26/17 Allergies Allergy/AdvReac Type Severity Reaction Status Date / Time EDY Inhibitors Allergy Unknown See Verified 10/01/17 01:03 Comments Amoxicillin Allergy Unknown See Verified 10/01/17 01:03 Comments azithromycin Allergy Unknown See Verified 10/01/17 01:03 Comments cefuroxime Allergy Unknown See Verified 10/01/17 01:03 Comments cephalexin Allergy Unknown See Verified 10/01/17 01:03 Comments Cephalosporins Allergy Unknown See Verified 10/01/17 01:03 Comments clindamycin Allergy Unknown See Verified 10/01/17 01:03 Comments codeine Allergy Unknown See Verified 10/01/17 01:03 Comments furosemide Allergy Unknown See Verified 10/01/17 01:03 Comments hydrocodone Allergy Unknown See Verified 10/01/17 01:03 Comments Penicillins Allergy Unknown See Verified 10/01/17 01:03 Comments prednisone Allergy Unknown Hives Verified 10/01/17 01:03 silver sulfadiazine Allergy Unknown See Verified 10/01/17 01:03 [From Jorge] Comments Ejqrmeo-Ile-Ynl Reductase Allergy Unknown See Verified 10/01/17 01:03 Inhibitor Comments [Statins] Sulfa (Sulfonamide Allergy Unknown See Verified 10/01/17 01:03 Antibiotics) Comments diuretic Allergy Unknown See Uncoded 10/01/17 01:03 Comments All systems ED: reviewed and negative except as stated. Review of Systems: As Per HPI Constitutional: Denies: fever, chills, weakness, weight change Cardiovascular: Denies: chest pain, palpitations, dyspnea on exertion, edema, syncope Respiratory: Denies: cough, dyspnea, wheezes, hemoptysis, stridor Gastrointestinal: Denies: abdominal pain, nausea, vomiting, diarrhea, constipation, hematemesis, melena, hematochezia Genitourinary: Denies: dysuria, frequency, hematuria, discharge Neurological: Reports: confusion, other (AMS). Denies: headache, weakness, numbness, paresthesias, abnormal gait, vertigo Past Medical History - Past Medical History Attestation: Yes The following information was validated with the patient. 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 Absent: EOMI ( unable to follow commands for EOMIs), conjunctival injection - ENT ENT exam: mucous membranes moist - Neck Neck exam: Present: normal inspection, full ROM, trachea midline - Chest Chest inspection: Present: normal inspection, symmetric chest wall rise - Respiratory Respiratory exam: Present: normal lung sounds bilaterally - Cardiovascular Cardiovascular exam: Present: regular rate, normal rhythm, normal heart sounds - Abdominal Exam Abdominal exam: Present: soft, Non-Tender. Absent: tenderness, distention, guarding, rebound, rigidity - Expanded Lower Extremity Exam Neurovascular/Tendon exam: Present: normal capillary refill - Neurological Exam Neurological exam: Present: alert (but sluggish) - Expanded Neurological Exam Speech: Present: expressive aphasia (Able to say hi when spoken to but unable to answer questions, appears to be thinking about answers and unable to come up with them) Cranial nerves: EOM function (II, III, IV, ): Abnormal Left, Abnormal Right, facial sensation (V): Abnormal Left, Abnormal Right, facial palsy (VII): Abnormal Left, Abnormal Right, gag reflex (IX): Abnormal Left, Abnormal Right, spinal accessory function (XI): Abnormal Left, Abnormal Right, tongue deviation (XII): Abnormal Left, Abnormal Right Cerebellar function: finger to nose: Abnormal Right, Abnormal Left (Unable), heel to [place]: Abnormal Right, Abnormal Left (Unable) Motor strength - LUE: 1/5 Motor strength - RUE: 1/5 Motor strength - LLE: 0/5 Motor strength - RLE: 0/5 Coma Scale Eye Opening: To Voice Coma Scale Motor Response: Localizes to Pain Coma Scale Verbal Response: Incomprehensible Coma Scale Total: 10 - Skin Skin exam: Present: warm, dry, intact, normal color, other (Edema) Course Course Narrative: 82-year-old patient presents from a local [facility] for altered mental status with family. Family states last known well around 8 PM does approximate 6 hours before presentation. Patient with a history of hyperlipidemia, renal mass, non- Hodgkin's lymphoma, diabetes, hypertension, CHF, chronic any disease, DVTs, hyperkalemia. She was recently admitted and discharged on Flagyl for C. difficile to the halfway. Patient with recurrent non-Hodgkin's lymphoma, NOHELIA is narendra have meeting with palliative care in the morning. Patient baseline The child is alert and oriented 3 and able to speak and answer all questions, she does not walk any longer but does have full strength in bilateral upper extremities This evening patient was unable to speak, appeared very weak, unable to follow commands after having been at her baseline for the last 3 days. Cipro her to the emergency department for evaluation. They also state that the only thing she is have her pain controlled Tylenol that she has been absolutely miserable, they state dissatisfaction with care from the halfway. Patient is a DNR CCA, DNI. Patient resting on the cot. She does look a U whenever you speak to her and she was able to say hi to me that she is unable to follow commands. Pupils equal round and reactive, noted with right-sided facial drooping however apparently this is not new or increased. Patient unable to follow commands, very weak barely able to move fingers and attempted to make a fist, unable to his feet at all. Third spacing, 2+ pitting edema to all extremities, various blisters on extremities healing. Wound to right lower extremity with minimal bloody drainage. Lungs clear to auscultate, heart rate regular rhythm. Conversation of stroke alert, daughter at bedside at this time with POA and on his way in route. We knew patient was a DNR CCA, kya POZO phoned by daughter and I spoke with him regarding risks and benefits of stroke alert versus a Comfort Care measure. The patient and son said Comfort Care measures as well as his mother would want, he does not feel that she would survive long for a stroke alert and he does not want to unnecessarily harm her, I do agree with this as patient life expectancy is considerably shorter due to diagnoses. Stroke alert not called, son arrived and with further discussion we decided DNR CC at this time for patient. Family would like the head CT that was initially ordered completed, and basic labs and UA derelict. I will fully catheter she is completely incontinent and she is now unable to assist at all. Agreeable monitor labs, head CT. - Reevaluation(s) Reevaluation #1: Head CT negative, labs benign. Patient has been treated with 1 dose 5 mg Nubain , she has been very comfortable resting quietly, facial features relaxed. Noted with apneic episodes, respirations ranging from 9-20 a minute. SPO2 continues to range 94-95% on room air. Patient still opens eyes and will look into and say hi occasionally when spoken to otherwise remains nonverbal. Family afraid of pain management back at the halfway states that they are unable to help her with pain management, she is unable to swallow therefore would not be able to have her Ultram spoke about sublingual oxycodone, fever again is for her not getting it. We can plan to admit for pain management and they can see palliative care here in the morning. Family agreeable to plan. Time: 05:00 Vital Signs Temperature 97.4 F L 10/01/17 01:03 Pulse Rate 60 10/01/17 01:03 Respiratory Rate 16 10/01/17 01:03 Blood Pressure 126/61 10/01/17 01:03 O2 Sat by Pulse Oximetry 99 10/01/17 01:03 Temperature 97.4 F L 10/01/17 01:03 Pulse Rate 59 10/01/17 05:42 Respiratory Rate 14 10/01/17 05:42 Blood Pressure 133/85 10/01/17 05:42 O2 Sat by Pulse Oximetry 94 10/01/17 05:42 Oxygen Delivery Oxygen Delivery Nasal Cannula Medical Decision Making - Medical Records Medical records reviewed: Yes I reviewed the patient's medical records. - Lab Data Lab results reviewed: Yes I reviewed the patient's lab results. Result diagrams: 10/01/17 03:00 10/01/17 01:55 Lab Results 10/01/17 10/01/17 10/01/17 Range/Units 01:55 01:55 02:38 WBC (4.3-11.1) K/mcL RBC (3.82-4.97) M/mcL Hgb (11.5-15.4) g/dL Hct (35.3-44.9) % MCV (83.0-100.0) fL MCH (28.0-33.3) pg MCHC (31.6-35.5) g/dL RDW (11.5-14.5) % Plt Count (140-400) K/mcL MPV (9.4-12.4) fL Immature Gran % (0-4) % Seg Neutrophils % % Lymphocytes % % Monocytes % % Eosinophils % % Basophils % % Neutrophils # (1.6-8.9) K/mcL Lymphocytes # (0.6-4.6) K/mcL Monocytes # (0.0-1.3) K/mcL Eosinophils # (0.0-0.6) K/mcL Basophils # (0.0-0.2) K/mcL Nucleated RBCs/100 WBC (0) /100 WBC Sodium 145 (136-145) mEq/L Potassium 5.0 (3.5-5.1) mEq/L Chloride 109 H (98-107) mEq/L Carbon Dioxide 32 H (23-29) mEq/L BUN 36 H (8-23) mg/dL Creatinine 1.46 H (0.60-1.20) mg/dL Est GFR ( Amer) 41 L (> 60) Est GFR (Non-Af Amer) 34 L (> 60) BUN/Creatinine Ratio 25 (6-26) Glucose 392 H (70-105) mg/dL Calculated Osmolality 325 H (280-300) Calcium 8.5 L (8.6-10.3) mg/dL Urine Color Dark Yellow (Yellow) Urine Clarity Cloudy A (Clear) Urine pH 5.0 (5.0-8.0) pH Units Ur Specific [place] 1.026 H (1.010-1.025) Urine Protein 30 H (Neg-Trace) mg/dL Urine Glucose (UA) 100 H (Normal) mg/dL Urine Ketones Negative (Negative) mg/dL Urine Blood Negative (Negative) Urine Nitrite Negative (Negative) Urine Bilirubin Small H (Negative) Urine Urobilinogen Normal (Normal) mg/dL Ur Leukocyte Esterase Small H (Negative) Urine Microscopic RBC 0-3 (0-3) per hpf Urine Microscopic WBC 5-15 H (0-3) per hpf Ur Squamous Epith Cells Many H (None-Few) per lpf Ur Renal Epithelial Cell Few (None-Few) per hpf Urine Bacteria Few (None-Few) per hpf Hyaline Casts None Seen (None-Few) per lpf Specimen Rejected MCV Delta 10/01/17 Range/Units 03:00 WBC 8.0 (4.3-11.1) K/mcL RBC 2.97 L (3.82-4.97) M/mcL Hgb 8.5 L (11.5-15.4) g/dL Hct 30.4 L (35.3-44.9) % MCV 102.4 H D (83.0-100.0) fL MCH 28.6 (28.0-33.3) pg MCHC 28.0 L (31.6-35.5) g/dL RDW 23.6 H (11.5-14.5) % Plt Count 170 (140-400) K/mcL MPV 11.2 (9.4-12.4) fL Immature Gran % 1.2 (0-4) % Seg Neutrophils % 82.3 % Lymphocytes % 11.8 % Monocytes % 4.6 % Eosinophils % 0.0 % Basophils % 0.1 % Neutrophils # 6.6 (1.6-8.9) K/mcL Lymphocytes # 0.9 (0.6-4.6) K/mcL Monocytes # 0.4 (0.0-1.3) K/mcL Eosinophils # 0.0 (0.0-0.6) K/mcL Basophils # 0.0 (0.0-0.2) K/mcL Nucleated RBCs/100 WBC 0.5 H (0) /100 WBC Sodium (136-145) mEq/L Potassium (3.5-5.1) mEq/L Chloride (98-107) mEq/L Carbon Dioxide (23-29) mEq/L BUN (8-23) mg/dL Creatinine (0.60-1.20) mg/dL Est GFR ( Amer) (> 60) Est GFR (Non-Af Amer) (> 60) BUN/Creatinine Ratio (6-26) Glucose (70-105) mg/dL Calculated Osmolality (280-300) Calcium (8.6-10.3) mg/dL Urine Color (Yellow) Urine Clarity (Clear) Urine pH (5.0-8.0) pH Units Ur Specific [place] (1.010-1.025) Urine Protein (Neg-Trace) mg/dL Urine Glucose (UA) (Normal) mg/dL Urine Ketones (Negative) mg/dL Urine Blood (Negative) Urine Nitrite (Negative) Urine Bilirubin (Negative) Urine Urobilinogen (Normal) mg/dL Ur Leukocyte Esterase (Negative) Urine Microscopic RBC (0-3) per hpf Urine Microscopic WBC (0-3) per hpf Ur Squamous Epith Cells (None-Few) per lpf Ur Renal Epithelial Cell (None-Few) per hpf Urine Bacteria (None-Few) per hpf Hyaline Casts (None-Few) per lpf Specimen Rejected - Radiology Data Radiology results reviewed: Yes I reviewed the patient's radiology results. - EKG Data EKG #1 EKG attestation: Yes I reviewed and interpreted this EKG. EKG results narrative: Vent paced, 60bpm,
[2017-10-01 03:09] LABS: Lymphocytes # 0.9 K/mcL (0.6-4.6)
[2017-10-01] MEDS ORDERED: OXYCODONE Oral CONC 10 MG/0.5 ML ORAL.SYG SL PRN (05:08)
[2017-10-01] MEDS ORDERED: Naloxone 0.4 MG/ML INJ IVP PRN (05:08)
[2017-10-01] MEDS ORDERED: 0.9 % Sodium Chloride 1,000 ML IVC SCH (05:15)
[2017-10-01] MEDS ORDERED: Furosemide 20 MG/2 ML VIAL IVP ONE (05:26)
[2017-10-01] MEDS ORDERED: Dextrose Gel 15 GM/37.5 ML TUBE PO PRN ×2 (05:39)
[2017-10-01] MEDS ORDERED: D5% in Water 1,000 ML IVC PRN (05:39)
[2017-10-01] MEDS ORDERED: *HR* Dextrose 50 % in Water (Syg) 50 ML SYRINGE IVP PRN (05:39)
--- NOTE | 2017-10-01 05:46 | Internal Med History&Physical ---
Date of Encounter: 10/01/17 Time of Encounter: 04:00 Assessment and Plan (1) Acute encephalopathy Current visit: Yes Status: Acute Patient has acute altered mental status, probably due to multiple factors. Patient's mouth is dry, she had poor intake in alf. Dehydration is a consideration. Patient has mild UTI. She may also has pneumonia, will order chest x-ray. Patient is on pain medications, which also exacerbate mental status change. Patient has a CT scan of head, which was unremarkable. - Place patient on continuous cardiac and pulmonary monitoring - Start IV fluid for hydration, however, patient has history of CHF, need closely monitor the fluid status - Empirically start Levaquin and Flagyl, which is for UTI, C. difficile colitis , and possible pneumonia. (2) DVT prophylaxis Current visit: No Status: Acute Patient has recent GI bleed with and treated bleeding colon mass, will hold anticoagulation. Patient has bilateral leg ulcer, cannot use mechanical DVT prophylaxis as well. (3) UTI (urinary tract infection) Current visit: No Status: Acute Place patient on antibiotic. Follow-up urine culture Qualifiers: Urinary tract infection type: site unspecified Hematuria presence: without hematuria Qualified Code(s): N39.0 - Urinary tract infection, site not specified (4) CKD (chronic kidney disease) stage 3, GFR 30-59 ml/min Current visit: No Status: Chronic Closely monitor renal function. Patient's creatinine is at her baseline now. (5) Diabetes Current visit: No Status: Chronic Patient has developed hypo-glycemia recently. She is on sliding scale insulin only at the alf. Will continue low-dose sliding scale and hypoglycemia protocol. 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[employer] insulin use: unspecified shelter insulin use status Diabetes mellitus complication status : with skin complications Diabetes mellitus complication detail: with other skin ulcer Qualified Code(s): E11.622 - Type 2 diabetes mellitus with other skin ulcer; L98.499 - Non-pressure chronic ulcer of skin of other sites with unspecified severity; L98.499 - Non-pressure chronic ulcer of skin of other sites with unspecified severity; L98.499 - Non-pressure chronic ulcer of skin of other sites with unspecified severity; L98.499 - Non-pressure chronic ulcer of skin of other sites with unspecified severity (6) Sacral decubitus ulcer, stage II Current visit: No Status: Chronic Continue wound care. (7) C. difficile diarrhea Current visit: No Status: Acute Patient was placed on Flagyl by mouth upon discharge last time, not finish Flagyl course yet. Patient cannot eat at this point, will place IV Flagyl now. (8) Severe protein-calorie malnutrition Current visit: No Status: Chronic (9) Cancer associated pain Current visit: No Status: Chronic Continue pain medication as needed under close monitoring. Consult palliative care. (10) CHF (congestive heart failure) Current visit: Yes Status: Acute Patient's fluid status is dehydrated right now. Continue careful IV fluid at low rate, closely monitor patient. Qualifiers: Heart failure type: diastolic Heart failure chronicity: chronic Qualified Code(s): I50.32 - Chronic diastolic (congestive) heart failure (11) Goals of care, counseling/discussion Current visit: No Status: Acute Patient has multiple malignancy with colon mass causing partial obstruction. Severe malnutrition. Dehydration. Have discussed with patient's family, they would like to talk to palliative care for hospice option. We will consult palliative care Internal Medicine - H&P: HPI Chief complaint: Altered mental status Admitted From: Long-term Nursing Facility Plans for Post Hospital Care: Transfer Senior Living Facility History of present illness: Ms. Chatman is a 82 year old female with a history of diabetes, history of lymphoma, history of colon cancer, kidney mass, CHF, PVD, C. difficile colitis, decubitus ulcer, sent from [place] today for altered mental status. Patient's mental status has changed since this afternoon. Patient is nonverbal and history is obtained from pt's daughters and son. Patient was recently admitted for GI bleed. During hospitalization, she developed aspiration pneumonia and C. difficile colitis. Patient also was found new colon mass by colonoscopy with partial obstruction of the colon. Patient's family said patient has a poor intake and a lot of pain, which is not properly controlled in the alf. This evening around 5pm, she was given Anderson one pill by mouth, and the her mental status gradually getting worse. Patient was sent to the hospital for further management. I have discussed CODE STATUS with patient's family (2 daughters and a son), they all agree that patient does not want CPR or intubation. They agree to place DNR/DNI now and would like to discuss hospice option with palliative care in AM. Past Med Surg Social Fam HX - Past Medical History Medical history: arthritis, atrial fibrillation, cancer, cardiomyopathy, CHF, COPD, DVT, diabetes, GERD, hyperlipidemia, hypertension, renal disease, other Psychiatric history: no psych history - Past Surgical History Surgical History: appendectomy, cancer surgery (Removal of lymph nodes), AICD, pacemaker - Social History Smoking Status: Never smoker Smokeless Tobacco Status: No Alcohol use: none Drug use: none - Family History Brother Family Member Ethnicity: Non- Living Status: Hx Family Cardiac Disorders: Yes (HTN) Hx Family Respiratory Disorders: No Hx Family Cancer: Yes Hx Family GI Disorders: No Hx Family Endocrine Disorder: No Hx Family Neuromuscular Disorders: No Hx Family Neurologic Disorders: No Hx Family HEENT Disorders: No Hx Family Autoimmune Disorders: No Father Family Member Ethnicity: Non- Living Status: Hx Family Cardiac Disorders: Yes (A-Fib) Hx Family Respiratory Disorders: No Hx Family Cancer: Yes (Type unknown) Hx Family GI Disorders: No Hx Family Endocrine Disorder: No Hx Family Neuromuscular Disorders: No Hx Family Neurologic Disorders: No Hx Family HEENT Disorders: No Hx Family Autoimmune Disorders: No Mother Family Member Ethnicity: Non- Living Status: Sister Family Member Ethnicity: Non- Living Status: Hx Family Cancer: Yes Internal Medicine - H&P: Meds Gabapentin [Neurontin] 100 mg PO BID 03/25/15 [History] Oxybutynin Chloride [Ditropan Xl] 5 mg PO DAILY 03/25/15 [History] Acetaminophen [Tylenol] 1,000 mg PO Q6HR PRN 06/21/16 [History] Carvedilol 12.5 mg PO BID 06/21/16 [History] dilTIAZem HCl [Diltiazem HCl] 90 mg PO TID 06/21/16 [History] Bumetanide [Bumex] 1 mg PO BID 07/28/17 [History] Docusate [Colace] 100 mg PO BID 07/28/17 [History] Insulin LISPRO [HumaLOG] 5 units SQ TIDWM 07/28/17 [History] Sennosides [Senokot] 8.6 mg PO BID 07/28/17 [History] Vit C/E/Zn/Coppr/Lutein/Zeaxan [Preservision Areds 2 Softgel] 1 tab PO DAILY [History] Allopurinol [Zyloprim 100 MG] 100 mg PO DAILY 09/09/17 [History] Glucagon,Human Recombinant [Glucagen] 1 mg IJ AD 09/09/17 [History] Nystatin POWDER [Nystop] 1 appl TP BID PRN 09/09/17 [History] Lactobacillus [Culturelle] 1 each PO BID cap.sprink 09/24/17 [Rx] Levofloxacin [Levaquin] 750 mg PO Q48H #2 tablet 09/24/17 [Rx] Omeprazole [PriLOSEC] 20 mg PO DAILY@0630 capsule. 09/24/17 [Rx] Tramadol HCl [Ultram] 50 mg PO Q8H PRN 5 Days #15 tab 09/24/17 [Rx] metroNIDAZOLE [Flagyl] 500 mg PO TID #12 tablet 09/24/17 [Rx] Insulin DETEMIR [Levemir] 10 unit SQ BID [id number] 09/26/17 [Rx] 3 Allergy/AdvReac Type Severity Reaction Status Date / Time EDY Inhibitors Allergy Unknown See Verified 10/01/17 01:03 Comments Amoxicillin Allergy Unknown See Verified 10/01/17 01:03 Comments azithromycin Allergy Unknown See Verified 10/01/17 01:03 Comments cefuroxime Allergy Unknown See Verified 10/01/17 01:03 Comments cephalexin Allergy Unknown See Verified 10/01/17 01:03 Comments Cephalosporins Allergy Unknown See Verified 10/01/17 01:03 Comments clindamycin Allergy Unknown See Verified 10/01/17 01:03 Comments codeine Allergy Unknown See Verified 10/01/17 01:03 Comments furosemide Allergy Unknown See Verified 10/01/17 01:03 Comments hydrocodone Allergy Unknown See Verified 10/01/17 01:03 Comments Penicillins Allergy Unknown See Verified 10/01/17 01:03 Comments prednisone Allergy Unknown Hives Verified 10/01/17 01:03 silver sulfadiazine Allergy Unknown See Verified 10/01/17 01:03 [From Silvadene] Comments Omkhnfo-Ayz-Hyo Reductase Allergy Unknown See Verified 10/01/17 01:03 Inhibitor Comments [Statins] Sulfa (Sulfonamide Allergy Unknown See Verified 10/01/17 01:03 Antibiotics) Comments diuretic Allergy Unknown See Uncoded 10/01/17 01:03 Comments All Systems PM: A 10-system review of systems was performed and is negative for pertinent findings except as documented above in the HPI. - Constitutional Vitals: Temp Pulse Resp BP Pulse Ox 97.4 F L 60 14 130/63 99 10/01/17 01:03 10/01/17 03:54 10/01/17 03:54 10/01/17 03:54 10/01/17 03:54 General appearance: Present: A&O X 0, no acute distress Exam: Open eyes on pain stimulation, nonverbal - Head Head exam: Present: atraumatic, normocephalic - Eye Eye exam: Present: PERRL, conjuntiva pink, sclera anicteric Pupils: Present: PERRL - Neck Neck exam general surgery: Present: supple, trachea midline. Absent: lymphadenopathy - Respiratory Respiratory exam: Present: CTAB. Absent: accessory muscle use, rales, rhonchi, wheezes - Cardiovascular Cardiovascular exam: Present: RRR, +S1, +S2. Absent: diastolic murmur, gallop, rubs, systolic murmur - GI/Abdominal GI/Abdominal exam: Present: normal bowel sounds, soft, no peritoneal signs. Absent: distended, tenderness - Extremities Exam Extremities exam: Present: pedal edema (B/L pedal edema), warm, radial pulses palpable and symmetrical. Absent: calf tenderness, cyanotic - Neurological Exam Neurological exam: Present: CN II-XII intact, no focal deficits. Absent: facial droop - Skin Skin exam: Present: dry, intact Internal Med - H&P Results - Labs CBC & Chem 7: 10/01/17 03:00 10/01/17 01:55 Labs: Short CBC 10/01/17 Range/Units 03:00 WBC 8.0 (4.3-11.1) K/mcL Hgb 8.5 L (11.5-15.4) g/dL Hct 30.4 L (35.3-44.9) % Plt Count 170 (140-400) K/mcL Neutrophils # 6.6 (1.6-8.9) K/mcL BMP 10/01/17 01:55 Sodium 145 Potassium 5.0 Chloride 109 H Carbon Dioxide 32 H BUN 36 H Creatinine 1.46 H Glucose 392 H Calcium 8.5 L Urine 10/01/17 Range/Units 01:55 Urine Color Dark Yellow (Yellow) Urine Clarity Cloudy A (Clear) Urine pH 5.0 (5.0-8.0) pH Units Ur Specific [place] 1.026 H (1.010-1.025) Urine Protein 30 H (Neg-Trace) mg/dL Urine Glucose (UA) 100 H (Normal) mg/dL - Impressions ITS Impressions Head CT 10/01/17 01:11 IMPRESSION: No acute intracranial abnormality. D/ / Tres Durham MD / Tres Durham MD Interpreting Provider: Tres Durham MD
[2017-10-01] MEDS ORDERED: Levofloxacin 750 MG/150 ML 750 MG/150 ML BAG IVPB SCH (06:00)
--- NOTE | 2017-10-01 06:07 | Emergency Department Note ---
Disposition Clinical Impression: Pain Disposition: Admitted As Inpatient Condition: Undetermined Referrals: Jamarcus Pedro DO [Primary Care Provider] - Forms: ED Satisfaction Letter, Work/School Release General Adult HPI - General Chief complaint: ED General Medical Stated complaint: AMS Time Seen by Provider: 10/01/17 01:00 Source: family, EMS Mode of arrival: EMS Limitations: altered mental status - History of Present Illness Pain Scale: 0 Improves with: nothing Worsens with: nothing - Related Data Home Medications Medication Instructions Recorded Confirmed Gabapentin [Neurontin] 100 mg PO BID 03/25/15 10/01/17 Oxybutynin Chloride [Ditropan Xl] 5 mg PO DAILY 03/25/15 10/01/17 Acetaminophen [Tylenol] 1,000 mg PO Q6HR PRN 06/21/16 10/01/17 Carvedilol 12.5 mg PO BID 06/21/16 10/01/17 dilTIAZem HCl [Diltiazem HCl] 90 mg PO TID 06/21/16 10/01/17 Bumetanide [Bumex] 1 mg PO BID 07/28/17 10/01/17 Docusate [Colace] 100 mg PO BID 07/28/17 10/01/17 Insulin LISPRO [HumaLOG] 5 units SQ TIDWM 07/28/17 10/01/17 Sennosides [Senokot] 8.6 mg PO BID 07/28/17 10/01/17 Allopurinol [Zyloprim 100 MG] 100 mg PO DAILY 09/09/17 10/01/17 Glucagon,Human Recombinant 1 mg IJ AD 09/09/17 10/01/17 [Glucagen] Tramadol HCl [Ultram] 50 mg PO Q6HR 10/01/17 10/01/17 Previous Rx's Medication Instructions Recorded Lactobacillus [Culturelle] 1 each PO BID cap.sprbar 09/24/17 Levofloxacin [Levaquin] 750 mg PO Q48H #2 tablet 09/24/17 Omeprazole [PriLOSEC] 20 mg PO DAILY@0630 capsule. 09/24/17 Tramadol HCl [Ultram] 50 mg PO Q8H PRN 5 Days #15 tab 09/24/17 metroNIDAZOLE [Flagyl] 500 mg PO TID #12 tablet 09/24/17 Insulin DETEMIR [Levemir] 10 unit SQ BID [id number] 09/26/17 Allergies Allergy/AdvReac Type Severity Reaction Status Date / Time EDY Inhibitors Allergy Unknown See Verified 10/01/17 01:03 Comments Amoxicillin Allergy Unknown See Verified 10/01/17 01:03 Comments azithromycin Allergy Unknown See Verified 10/01/17 01:03 Comments cefuroxime Allergy Unknown See Verified 10/01/17 01:03 Comments cephalexin Allergy Unknown See Verified 10/01/17 01:03 Comments Cephalosporins Allergy Unknown See Verified 10/01/17 01:03 Comments clindamycin Allergy Unknown See Verified 10/01/17 01:03 Comments codeine Allergy Unknown See Verified 10/01/17 01:03 Comments furosemide Allergy Unknown See Verified 10/01/17 01:03 Comments hydrocodone Allergy Unknown See Verified 10/01/17 01:03 Comments Penicillins Allergy Unknown See Verified 10/01/17 01:03 Comments prednisone Allergy Unknown Hives Verified 10/01/17 01:03 silver sulfadiazine Allergy Unknown See Verified 10/01/17 01:03 [From Silvadene] Comments [place]-Yak Reductase Allergy Unknown See Verified 10/01/17 01:03 Inhibitor Comments [Statins] Sulfa (Sulfonamide Allergy Unknown See Verified 10/01/17 01:03 Antibiotics) Comments diuretic Allergy Unknown See Uncoded 10/01/17 01:03 Comments Constitutional: Denies: fever, chills, weakness, weight change Cardiovascular: Denies: chest pain, palpitations, dyspnea on exertion, edema, syncope Respiratory: Denies: cough, dyspnea, wheezes, hemoptysis, stridor Gastrointestinal: Denies: abdominal pain, nausea, vomiting, diarrhea, constipation, hematemesis, melena, hematochezia Genitourinary: Denies: dysuria, frequency, hematuria, discharge Neurological: Reports: confusion, other (AMS). 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 - Social History Smoking Status: Never smoker Smokeless Tobacco Status: No Alcohol use: Reports: none Drug use: Reports: none Physical Exam - General Limitations: altered mental status General appearance: in no apparent distress Course Vital Signs Temperature 97.4 F L 10/01/17 01:03 Pulse Rate 60 10/01/17 01:03 Respiratory Rate 16 10/01/17 01:03 Blood Pressure 126/61 10/01/17 01:03 O2 Sat by Pulse Oximetry 99 10/01/17 01:03 Temperature 97.4 F L 10/01/17 01:03 Pulse Rate 59 10/01/17 05:42 Respiratory Rate 14 10/01/17 05:42 Blood Pressure 133/85 10/01/17 05:42 O2 Sat by Pulse Oximetry 94 10/01/17 05:42 Oxygen Delivery Oxygen Delivery Nasal Cannula Medical Decision Making - Lab Data Result diagrams: 10/01/17 03:00 10/01/17 01:55 Lab Results 10/01/17 10/01/17 10/01/17 Range/Units 01:55 01:55 02:38 WBC (4.3-11.1) K/mcL RBC (3.82-4.97) M/mcL Hgb (11.5-15.4) g/dL Hct (35.3-44.9) % MCV (83.0-100.0) fL MCH (28.0-33.3) pg MCHC (31.6-35.5) g/dL RDW (11.5-14.5) % Plt Count (140-400) K/mcL MPV (9.4-12.4) fL Immature Gran % (0-4) % Seg Neutrophils % % Lymphocytes % % Monocytes % % Eosinophils % % Basophils % % Neutrophils # (1.6-8.9) K/mcL Lymphocytes # (0.6-4.6) K/mcL Monocytes # (0.0-1.3) K/mcL Eosinophils # (0.0-0.6) K/mcL Basophils # (0.0-0.2) K/mcL Nucleated RBCs/100 WBC (0) /100 WBC Sodium 145 (136-145) mEq/L Potassium 5.0 (3.5-5.1) mEq/L Chloride 109 H (98-107) mEq/L Carbon Dioxide 32 H (23-29) mEq/L BUN 36 H (8-23) mg/dL Creatinine 1.46 H (0.60-1.20) mg/dL Est GFR ( Amer) 41 L (> 60) Est GFR (Non-Af Amer) 34 L (> 60) BUN/Creatinine Ratio 25 (6-26) Glucose 392 H (70-105) mg/dL Calculated Osmolality 325 H (280-300) Calcium 8.5 L (8.6-10.3) mg/dL Urine Color Dark Yellow (Yellow) Urine Clarity Cloudy A (Clear) Urine pH 5.0 (5.0-8.0) pH Units Ur Specific [place] 1.026 H (1.010-1.025) Urine Protein 30 H (Neg-Trace) mg/dL Urine Glucose (UA) 100 H (Normal) mg/dL Urine Ketones Negative (Negative) mg/dL Urine Blood Negative (Negative) Urine Nitrite Negative (Negative) Urine Bilirubin Small H (Negative) Urine Urobilinogen Normal (Normal) mg/dL Ur Leukocyte Esterase Small H (Negative) Urine Microscopic RBC 0-3 (0-3) per hpf Urine Microscopic WBC 5-15 H (0-3) per hpf Ur Squamous Epith Cells Many H (None-Few) per lpf Ur Renal Epithelial Cell Few (None-Few) per hpf Urine Bacteria Few (None-Few) per hpf Hyaline Casts None Seen (None-Few) per lpf Specimen Rejected MCV Delta 10/01/17 Range/Units 03:00 WBC 8.0 (4.3-11.1) K/mcL RBC 2.97 L (3.82-4.97) M/mcL Hgb 8.5 L (11.5-15.4) g/dL Hct 30.4 L (35.3-44.9) % MCV 102.4 H D (83.0-100.0) fL MCH 28.6 (28.0-33.3) pg MCHC 28.0 L (31.6-35.5) g/dL RDW 23.6 H (11.5-14.5) % Plt Count 170 (140-400) K/mcL MPV 11.2 (9.4-12.4) fL Immature Gran % 1.2 (0-4) % Seg Neutrophils % 82.3 % Lymphocytes % 11.8 % Monocytes % 4.6 % Eosinophils % 0.0 % Basophils % 0.1 % Neutrophils # 6.6 (1.6-8.9) K/mcL Lymphocytes # 0.9 (0.6-4.6) K/mcL Monocytes # 0.4 (0.0-1.3) K/mcL Eosinophils # 0.0 (0.0-0.6) K/mcL Basophils # 0.0 (0.0-0.2) K/mcL Nucleated RBCs/100 WBC 0.5 H (0) /100 WBC Sodium (136-145) mEq/L Potassium (3.5-5.1) mEq/L Chloride (98-107) mEq/L Carbon Dioxide (23-29) mEq/L BUN (8-23) mg/dL Creatinine (0.60-1.20) mg/dL Est GFR ( Amer) (> 60) Est GFR (Non-Af Amer) (> 60) BUN/Creatinine Ratio (6-26) Glucose (70-105) mg/dL Calculated Osmolality (280-300) Calcium (8.6-10.3) mg/dL Urine Color (Yellow) Urine Clarity (Clear) Urine pH (5.0-8.0) pH Units Ur Specific [place] (1.010-1.025) Urine Protein (Neg-Trace) mg/dL Urine Glucose (UA) (Normal) mg/dL Urine Ketones (Negative) mg/dL Urine Blood (Negative) Urine Nitrite (Negative) Urine Bilirubin (Negative) Urine Urobilinogen (Normal) mg/dL Ur Leukocyte Esterase (Negative) Urine Microscopic RBC (0-3) per hpf Urine Microscopic WBC (0-3) per hpf Ur Squamous Epith Cells (None-Few) per lpf Ur Renal Epithelial Cell (None-Few) per hpf Urine Bacteria (None-Few) per hpf Hyaline Casts (None-Few) per lpf Specimen Rejected Attestation Statement - Attestation Attestation: I, Indra Smith MD, personally evaluated this patient and discussed their management with the midlevel provicer, PAC/PHARMACY TECHNICIAN PER DIEM. I reviewed the midlevel provider 's note and agree with the documented findings, medical decision making, and plan of care. 82-year-old female [facility] emergency department [facility] for decreasing mental status over the past several hours. Family present. Patient is DNR CCA, DNI. She has a long history of cancer as well as multiple other medical problems. She has a pacemaker defibrillator. Family apparently does not want aggressive treatment and were supposed to have a meeting in the near future regarding palliative care and changing status to DNR comfort care. They are concerned that she is in pain because she has not been getting appropriate pain control at the [facility]. Patient really unable to answer questions or provide any history. She does admit to pain when she is asked if she is having pain. On examination patient is a well-developed obese elderly female. She is very drowsy but responds to verbal stimuli. She is mouth breathing and mucous membranes are dry. Breath sounds are decreased bilaterally with some dependent bilateral rales. No wheezes. Heart regular rate and rhythm. Abdomen soft with present bowel sounds. There does appear to be some mild diffuse abdominal tenderness. There is marked pitting edema of extremities as well as abdomen. Head CT negative. Labs reviewed and are basically at baseline for patient. Chest x-ray shows left basilar consolidation, atelectasis versus pneumonia. The hospitalist, Dr. Hernandez, was consulted and evaluated the patient in the emergency department and accepted admission of the patient to the medical service.
[2017-10-01] MEDS ORDERED: Bumetanide 1 MG/4 ML VIAL IVP ONE (06:15)
[2017-10-01] MEDS ORDERED: MetroNIDAZOLE 500 MG/100 ML 500 MG/100 ML BAG IVPB SCH (08:00)
--- NOTE | 2017-10-01 09:40 | Electrocardiograph Report ---
[employer] [facility] Test Date: 2017-10-01 Pat Name: Rosa Chatman Department: 102 Room: Gender: F Physical Security Specialist: [facility] : 1935 Requested By: Indra Smith Order Number: [id number] Reading MD: Yoav Napoles MD Measurements Intervals [place] Rate: 60 P: ME: 0 QRS: -77 QRSD: 214 T: 88 QT: 483 QTc: 483 Interpretive Statements ELECTRONIC VENTRICULAR PACEMAKER ABNORMAL RHYTHM ECG Electronically Signed On 10-01-2017 9:39:26 EDT by Yoav Napoles MD
--- NOTE | 2017-10-01 10:02 | Palliative - Consult Note ---
Date of Encounter: 10/01/17 Time of Encounter: 09:00 - Assessment and Plan (1) UTI (urinary tract infection) Current Visit: No Status: Acute Assessment and plan: Urinalysis completed on arrival to ER. Patient ordered Flagyl and Levaquin. Family wishes to stop all aggressive measures and keep patient comfortable. Qualifiers: Urinary tract infection type: site unspecified Hematuria presence: without hematuria Qualified Code(s): N39.0 - Urinary tract infection, site not specified (2) CKD (chronic kidney disease) Current Visit: No Status: Chronic Qualifiers: Chronic kidney disease stage: stage 3 (moderate) Qualified Code(s): N18.3 - Chronic kidney disease, stage 3 (moderate) (3) Non-Hodgkin lymphoma Current Visit: No Status: Chronic Assessment and plan: Patient had metastatic mass to colon. Previously refused biopsy. Patient's family wishes to stop all aggressive treatment and be kept comfortable. Qualifiers: Non-Hodgkin lymphoma type: unspecified type Lymphoma site: unspecified region Qualified Code(s): C85.90 - Non-Hodgkin lymphoma, unspecified, unspecified site (4) Malignant lymphoma Current Visit: No Status: Chronic Assessment and plan: Patient has metastatic cancer; previously refused biospy. Family wishes to stop all aggressive treatment and control symptoms with palliative care/hospice. Qualifiers: Lymphoma type: non-Hodgkin Non-Hodgkin lymphoma type: B-cell B-cell lymphoma type: unspecified B-cell Lymphoma site: unspecified region Qualified Code(s): C85.10 - Unspecified B-cell lymphoma, unspecified site (5) Altered mental status Current Visit: No Status: Acute Assessment and plan: Patient nonresponsive to stimulation during time of assessment. Groans occasionally. Family wishes to have pain management and symptoms control with stopping all aggressive therapy at this time. Qualifiers: Altered mental status type: disorientation Qualified Code(s): R41.0 - Disorientation, unspecified (6) Goals of care, counseling/discussion Current Visit: No Status: Acute Assessment and plan: Family interrogated if patient could be admitted to [facility] for hospice care, explained difference in companies for hospice at discharge and explained if patient returning to [facility] at discharge patient would need [facility] for management at discharge. Discussed option to be admitted to [facility] for symptom management and opportunity to plan safe discharge; agreed. Family presented concern over patient having defibrillator; explained cardiology could be consulted to turn off defibrillator portion; family agreed. Family expressed concern patient not getting adequate pain control as moaning some, explained option for sublingual pain and agitation medication options for control of symptoms as needed; verbalized understanding and wishes to follow a comfort medication regimen for control of symptoms. Family concerned if patient not receiving daily medication regimen; explained if patient unable to swallow patient would not receive daily medication or long acting insulin. Could perform BID blood sugar levels and treat as needed; explained as body organs start to shut down may not need certain medications for control. Family wishes to not pursuit aggressive treatment regiment and keep patient comfortable. Ordered Atropine drops as needed if patient has increased secretions. Ordered increased doses of pain medication and added Ativan for control of agitation/anxiety. Notified Dr. Vasquez in change in management and changed patient to regular medical surgical bed and new room number for patient. Patient being admitted under Dr. Edwards for pain management, symptom management, and discharge planning. Notified Cardiology of need for turning defibrillator off; also attached magnet to patient's chest with tegaderm for interim. Notified Kylie of change in bed status order and obtained new room number. [facility]ified [facility] need to come out and make discharge planning with patient's family. (7) Acute encephalopathy Current Visit: Yes Status: Acute (8) Pain Current Visit: Yes Status: Acute Assessment and plan: Family reports pain has not been adequately managed at custodial. Wishes to have all discomfort controlled for patient, refuses further aggressive therapy and wishes to pursuit palliative/hospice care. Change Oxycodone to 5 mg Q2H PRN for mild-moderate pain, add Oxycodone 10 mg Q2H PRN for severe pain. (9) Agitation Current Visit: Yes Status: Acute Assessment and plan: No agitation at present time. Symptom management initiation. Will order PRN Ativan SL for agitation/anxiety. Palliative-CN HPI - Data of Consult Patient: known to practice within the last 3 years Consult date: 10/01/17 Requesting Physician: David Momin Primary Care Provider: Jamarcus Pedro - Consult Narrative Palliative Care/Comfort Measures: Palliative care Reason for consult: Goal of care; Hospice Options History of present illness: Ms. Chatman is a 82 year old female arrived to [facility] for AMS from [facility]. At bedside, family present includes son Yuniel, two daughters Tammi and Celsa, daughter in law Wero, and granddaughter Kylie. Family reports patient in rehabilitation yesterday during the day and had no pain medication for hours while complaining of pain, returned patient to bed and patient received PRN pain pill. Reports pain pill stayed in mouth for a period of time and patient was unable to swallow. Patient's family reports patient continued to progress to an altered mental status and decreased LOC. In ER Chest xray performed, showing Small bilateral pleural effusions and Left basilar consolidation, and urinalysis. Patient admitted for acute encephalopathy, UTI, cancer pain, and CKD stage 3. Family in agreement that patient is miserable, non-responsive, and wants to make keep her comfortable; changed code status to DNR CC. Patient's family mentioned concern over patient having "inadequate pain management" and waiting time period of 3 days for new medications at [facility]; explained patient was under rehab care and as they explain [facility] obtains meds from a subcontracted company to attain medications could take a time period. Family explained patient had received IV Toradol yesterday am before decrease in LOC and had pills only at her availability for pain control with inability to swallow. Patient laying in bed with eyes closed, nonresponsive, unarousable to verbal or tactile stimulation. Agonal breathing noted. No reaction noted from patient during assessment. CC: Past Med Surg Social Fam HX - Past Medical History Medical history: arthritis, atrial fibrillation, cancer, cardiomyopathy, CHF, COPD, DVT, diabetes, GERD, hyperlipidemia, hypertension, renal disease, other Psychiatric history: no psych history - Past Surgical History Surgical History: appendectomy, cancer surgery (Removal of lymph nodes), AICD, pacemaker - Social History Smoking Status: Never smoker Smokeless Tobacco Status: No Alcohol use: none Drug use: none - Family History Brother Family Member Ethnicity: Non- Living Status: Hx Family Cardiac Disorders: Yes (HTN) Hx Family Respiratory Disorders: No Hx Family Cancer: Yes Hx Family GI Disorders: No Hx Family Endocrine Disorder: No Hx Family Neuromuscular Disorders: No Hx Family Neurologic Disorders: No Hx Family HEENT Disorders: No Hx Family Autoimmune Disorders: No Father Family Member Ethnicity: Non- Living Status: Hx Family Cardiac Disorders: Yes (A-Fib) Hx Family Respiratory Disorders: No Hx Family Cancer: Yes (Type unknown) Hx Family GI Disorders: No Hx Family Endocrine Disorder: No Hx Family Neuromuscular Disorders: No Hx Family Neurologic Disorders: No Hx Family HEENT Disorders: No Hx Family Autoimmune Disorders: No Mother Family Member Ethnicity: Non- Living Status: Sister Family Member Ethnicity: Non- Living Status: Hx Family Cancer: Yes Medications and Allergies Gabapentin [Neurontin] 100 mg PO BID 03/25/15 [History] Oxybutynin Chloride [Ditropan Xl] 5 mg PO DAILY 03/25/15 [History] Acetaminophen [Tylenol] 1,000 mg PO Q6HR PRN 06/21/16 [History] Carvedilol 12.5 mg PO BID 06/21/16 [History] dilTIAZem HCl [Diltiazem HCl] 90 mg PO TID 06/21/16 [History] Bumetanide [Bumex] 1 mg PO BID 07/28/17 [History] Docusate [Colace] 100 mg PO BID 07/28/17 [History] Insulin LISPRO [HumaLOG] 5 units SQ TIDWM 07/28/17 [History] Sennosides [Senokot] 8.6 mg PO BID 07/28/17 [History] Allopurinol [Zyloprim 100 MG] 100 mg PO DAILY 09/09/17 [History] Glucagon,Human Recombinant [Glucagen] 1 mg IJ AD 09/09/17 [History] Lactobacillus [Culturelle] 1 each PO BID cap.delano 09/24/17 [Rx] Levofloxacin [Levaquin] 750 mg PO Q48H #2 tablet 09/24/17 [Rx] Omeprazole [PriLOSEC] 20 mg PO DAILY@0630 capsule. 09/24/17 [Rx] metroNIDAZOLE [Flagyl] 500 mg PO TID #12 tablet 09/24/17 [Rx] Insulin DETEMIR [Levemir] 10 unit SQ BID [id number] 09/26/17 [Rx] Tramadol HCl [Ultram] 50 mg PO Q6HR 10/01/17 [History] Vit A/Vit C/Vit E/Zinc/Copper [Preservision Areds Tablet] 1 tab PO DAILY [History] 3 Allergy/AdvReac Type Severity Reaction Status Date / Time EDY Inhibitors Allergy Unknown See Verified 10/01/17 01:03 Comments Amoxicillin Allergy Unknown See Verified 10/01/17 01:03 Comments azithromycin Allergy Unknown See Verified 10/01/17 01:03 Comments cefuroxime Allergy Unknown See Verified 10/01/17 01:03 Comments cephalexin Allergy Unknown See Verified 10/01/17 01:03 Comments Cephalosporins Allergy Unknown See Verified 10/01/17 01:03 Comments clindamycin Allergy Unknown See Verified 10/01/17 01:03 Comments codeine Allergy Unknown See Verified 10/01/17 01:03 Comments furosemide Allergy Unknown See Verified 10/01/17 01:03 Comments hydrocodone Allergy Unknown See Verified 10/01/17 01:03 Comments Penicillins Allergy Unknown See Verified 10/01/17 01:03 Comments prednisone Allergy Unknown Hives Verified 10/01/17 01:03 silver sulfadiazine Allergy Unknown See Verified 10/01/17 01:03 [From Silvadene] Comments Hkevsxu-Glr-Mus Reductase Allergy Unknown See Verified 10/01/17 01:03 Inhibitor Comments [Statins] Sulfa (Sulfonamide Allergy Unknown See Verified 10/01/17 01:03 Antibiotics) Comments diuretic Allergy Unknown See Uncoded 10/01/17 01:03 Comments ROS unobtainable: due to mental status (All [place] information given by two daughters, son, and daughter in law as patient not responding to stimulation.) Palliative Care-Exam - Constitutional Vitals: Temp Pulse Resp BP Pulse Ox 97.4 F L 59 20 119/55 100 10/01/17 01:03 10/01/17 09:05 10/01/17 09:05 10/01/17 09:05 10/01/17 09:05 General appearance: Present: no acute distress - Head Head Exam: Present: atraumatic, normal inspection - Neck Neck exam: Present: normal inspection. Absent: tenderness - Respiratory Respiratory exam: Present: decreased breath sounds, CTAB, prolonged expiratory phase. Absent: chest wall tenderness, respiratory distress, rhonchi, stridor, wheezes, tachypnea Additional comments: Pauses noted during breathing, agonal. - Expanded Respiratory Exam Location: decreased breath sounds: Left, Right, Upper, Lower - Cardiovascular Cardiovascular exam: Present: +S1, +S2 - GI/Abdominal Exam GI/Abdominal exam: Present: diminished bowel sounds, rigid. Absent: soft, tenderness - Rectal Rectal exam: Present: deferred - Extremities Exam Extremities exam: Present: pedal edema. Absent: tenderness - Neurological Exam Neurological exam: Present: altered - Expanded Neurological Exam Coma Scale Eye Opening: None Coma Scale Motor Response: Localizes to Pain Coma Scale Verbal Response: None Coma Scale Total: 7 - Psychiatric Psychiatric exam: Present: flat affect - Skin Skin exam: Present: dry, warm Additional comments: Open wound to RLE Internal Medicine - CN: Reslt - Labs CBC & Chem 7: 10/01/17 03:00 10/01/17 01:55 Labs: Short CBC 10/01/17 Range/Units 03:00 WBC 8.0 (4.3-11.1) K/mcL Hgb 8.5 L (11.5-15.4) g/dL Hct 30.4 L (35.3-44.9) % Plt Count 170 (140-400) K/mcL Neutrophils # 6.6 (1.6-8.9) K/mcL BMP 10/01/17 01:55 Sodium 145 Potassium 5.0 Chloride 109 H Carbon Dioxide 32 H BUN 36 H Creatinine 1.46 H Glucose 392 H Calcium 8.5 L Urine 10/01/17 Range/Units 01:55 Urine Color Dark Yellow (Yellow) Urine Clarity Cloudy A (Clear) Urine pH 5.0 (5.0-8.0) pH Units Ur Specific [place] 1.026 H (1.010-1.025) Urine Protein 30 H (Neg-Trace) mg/dL Urine Glucose (UA) 100 H (Normal) mg/dL - Impressions Impressions Head CT 10/01/17 01:11 IMPRESSION: No acute intracranial abnormality. D/ / Tres Durham MD / Tres Durham MD Interpreting Provider: Tres Durham MD Chest X-Ray 10/01/17 05:13 IMPRESSION: Small bilateral pleural effusions. Left basilar consolidation could represent atelectasis or pneumonia. D/ / Tres Durham MD / Tres Durham MD Interpreting Provider: Tres Durham MD Consult Discharge Plan - Plan Referrals: Jamarcus Pedro DO [Primary Care Provider] - Palliative Quality Palliative Quality: Screen for Code Status: Yes, Screen for Goals of Care: Yes, Screen for Pain: Yes, If Pain Regimen Started, Initiate Bowel Regimen: NA, Screen for Nausea/Vomitting: Yes Code Status: 10/01/17 09:30 DNR [Resuscitation Status: Active] [RES] Routine Comment: Resuscitation Status: DNR-Comfort Care
[2017-10-01] MEDS ORDERED: *HR* LORazepam Oral Conc 2 MG/ML SL PRN (10:39)
[2017-10-01] MEDS ORDERED: Atropine Sulfate 1% 40 DROP/2 ML BOTTLE SL PRN (10:39)
[2017-10-01] MEDS: OXYCODONE Oral CONC 10 MG/0.5 ML ORAL.SYG SL PRN ×6 (10:53→22:42)
[2017-10-01] MEDS: Insulin LISPRO 300 UNITS/3 ML VIAL SQ SCH ×3 (12:52→17:38)
--- NOTE | 2017-10-01 13:20 | Event Note ---
Date of Encounter: 10/01/17 Time of Encounter: 13:00 - Cardiology Event Note Cardiology called for deactivation of tachytherapies of ICD. Patient is now DNR- CC. Discussed with all family members at bedside. All family in agreement to deactivate tachytherapies. Called and spoke with [employer], who states that device sales representative [employer] will be here this afternoon. Discussed and reviewed with .
--- NOTE | 2017-10-01 14:29 | Event Note ---
Date of Encounter: 10/01/17 Time of Encounter: 14:25 [employer] Clerk from [facility] at bedside to deactivate AICD. Magnet removed. Family at bedside and aware.
[2017-10-01] MEDS ORDERED: Ondansetron ODT 4 MG TAB.RAPDIS SL PRN (15:32)
[2017-10-01] MEDS ORDERED: Scopolamine Patch 1.5 MG PATCH.TD72 TD SCH (15:45)
--- NOTE | 2017-10-01 20:30 | Event Note ---
Date of Encounter: 10/01/17 Time of Encounter: 20:27 Patient resting in bed with no distress at this time. Daughter and granddaughter are in room. We rediscussed goals. Family states patient looks more comfortable now. She continues to have some increased secretions and apneic episodes. She does not look to be in any distress. Palliative care consulted; appreciate input. They met with family today and family agrees with comfort care. Plan for possible discharge to [place] [facility]. Family does not have any needs at this time. Will follow up in AM.
[2017-10-01 22:52] VITALS: BP 112/70
--- NOTE | 2017-10-01 23:45 | Event Note ---
Date of Encounter: 10/01/17 Time of Encounter: 11:42 Alerted by patient's nurse that Ms. Chatman passed at 23:32. Pt. was DNR-CC.
--- NOTE | 2017-10-02 01:10 | Death Note ---
Discharge Sum: Summary - Date and Time Date of admission: 10/01/17 11:36 Date of : 10/01/17 Time of : 23:32 - Summary Details: Called by RN to pronounce the of Ms. Chatman. Patient not responsive to verbal or physical stimuli. Skin was cool and dry, pupils were fixed and dilated. There is no RB, respirations, or pulses. Time of 23:32 on . Family was present at the bedside. - Additional Data Confirmation of as documented by pronouncing clinician: no pulse, no respirations, no heart sounds, pupils fixed and dilated Family: at bedside Attending physician: Andrew Lopez Discharge Sum: Diag - PCOD Probable Cause of : Malignant neoplasm Discharge Sum: Prov - Provider Primary care physician: Jamarcus Pedro Admitting clinician: Merrill Hernandez Attending physician on admission: Merrill Hernandez Pronouncing clinician: Gallo Rodrigues
== END 2017-10-01 23:32 | disposition expired | DRG 689 ==
LOC: EMEROO 00:58 → 2ANU 11:36
PROVIDERS: ADMIT Internal Medicine; ATTEND Internal Medicine